=== PATIENT | male | born 1950 | race Caucasian/White ===

== ENCOUNTER → 2023-07-24 | Outpatient (CLI) | payer MEDICARE ==
--- NOTE | 2023-07-24 18:10 | CA ---
Transthoracic Echo Report Name: Sylvester Hopkins Age: 73 Gender: M : 1950 Exam Date: 07/24/2023 14:25 Exam Location: [facility] Ht (in): 69 Wt (lb): 300 Ordering Physician: Oscar Herman MD Attending/Referring Phys: Oscar Herman MD Video Game Repair Technician Procedure CPT: Indications: R55 SYNCOPE AND COLLAPSE Cardiac Hx: Technical Quality: Technically difficult study Contrast 1: Total Dose (mL): Contrast 2: Total Dose (mL): MEASUREMENTS (Male / Female) Normal Values 2D ECHO LV Diastolic Diameter PLAX 5.4 cm 4.2 - 5.9 / 3.9 - 5.3 cm LV Systolic Diameter PLAX 3.9 cm IVS Diastolic Thickness 1.2 cm 0.6 - 1.0 / 0.6 - 0.9 cm LVPW Diastolic Thickness 1.3 cm 0.6 - 1.0 / 0.6 - 0.9 cm LV Relative Wall Thickness 0.5 LVOT Diameter 2.1 cm Ascending Aorta Diameter 3.8 cm M-MODE Aortic Root Diameter MM 3.3 cm LA Systolic Diameter MM 5.3 cm LA Ao Ratio MM 1.6 AV Cusp Separation MM 2.1 cm DOPPLER AV Peak Velocity 109.6 cm/s AV Peak Gradient 4.8 mmHg AV Mean Velocity 88.7 cm/s AV Mean Gradient 3.3 mmHg AV Velocity Time Integral 22.1 cm LVOT Peak Velocity 81.0 cm/s LVOT Peak Gradient 2.6 mmHg LVOT Velocity Time Integral 17.9 cm LVOT Stroke Volume 60.4 cm??? LVOT Stroke Volume Index 24.6 ml/m??? LVOT Cardiac Index 1943.8 cm???/min???m??? AV Area Cont Eq vti 2.7 cm??? AV Area Cont Eq pk 2.5 cm??? Mitral E Point Velocity 47.2 cm/s Mitral A Point Velocity 76.5 cm/s Mitral E to A Ratio 0.6 MV Deceleration Time 233.9 ms LV E' Lateral Velocity 5.5 cm/s Mitral E to LV E' Lateral Ratio 8.6 LV E' Septal Velocity 4.0 cm/s Mitral E to LV E' Septal Ratio 11.8 TR Peak Velocity 169.8 cm/s TR Peak Gradient 11.5 mmHg Right Atrial Pressure 3.0 mmHg Pulmonary Artery Systolic Pressu 14.5 mmHg Right Ventricular Systolic Press 14.5 mmHg FINDINGS Left Ventricle Mildly increased left ventricular wall thickness. Left ventricular cavity size normal. Normal left ventricular systolic function with no obvious regional wall motion abnormalities. Left ventricular ejection fraction is estimated at 55- 60%. Right Ventricle Moderate right ventricular dilatation. Right Atrium Mild right atrial dilatation. Left Atrium Normal left atrial size. Mitral Valve Structurally normal mitral valve. Mild thickening/calcification of the posterior mitral valve leaflet. No mitral regurgitation. Aortic Valve Trileaflet aortic valve. Diffuse thickening (sclerosis) of the aortic valve cusps without reduced excursion. Trace aortic regurgitation. Tricuspid Valve Structurally normal tricuspid valve. Trace tricuspid regurgitation. Pulmonic Valve Pulmonic valve not well visualized. Pericardium No pericardial effusion. Echo free space anterior to the right ventricle likely represents a fat pad. Aorta Normal size aortic root and upper normal proximal ascending aorta. CONCLUSIONS Normal LV function Previewed by: Dr. Faustino Sprague MD (Electronically Signed) Final Date: 24 July 2023 18:09
== END | disposition home or self-care (01) ==
LOC: RADECHMAIN 14:11
PROVIDERS: ATTEND Surgery
DX: R55 Syncope and collapse (principal)
CPT/HCPCS: 93306

== ENCOUNTER → 2023-08-08 | Outpatient (CLI) | payer MEDICARE ==
--- NOTE | 2023-08-08 10:55 | US ---
EXAMINATION TYPE: US liver DATE OF EXAM: 08/08/2023 COMPARISON: NONE CLINICAL INDICATION: Male, 73 years old with history of R94.5 ABNORMAL LFT'S; TECHNIQUE: Multiple sonographic images of the right upper quadrant are obtained. FINDINGS: EXAM MEASUREMENTS: Liver Length: 18.1 cm Gallbladder Wall: 0.3 cm CBD: 0.7 cm Right Kidney: 11.4 x 5.2 x 4.8 cm Pancreas: visualized portions wnl, limited by overlying midline bowel gas Liver: mildly enlarged, heterogeneous, 1.2cm cyst left lobe Gallbladder: wnl Evidence for sonographic Borjas's sign: no CBD: mildly dilated Right Kidney: wnl IMPRESSION: 1. Hepatic steatosis with simple appearing cyst. 2. No evidence for acute process.
[2023-08-08 11:14] LABS: INR 1.2 (<1.2); Partial Thromboplastin Time 28.4 sec (22.0-30.0); Prothrombin Time 12.4 sec (10.0-12.5)
[2023-08-08 18:32] LABS: ALT 48 U/L (10-49); AST 58 U/L (14-35); Albumin 4.3 d/dL (3.8-4.9); Albumin/Globulin Ratio 1.39 Ratio (1.60-3.17); Alkaline Phosphatase 73 U/L (41-126); Bilirubin, Conjugated <0.20 mg/dL (0.20-0.40); Bilirubin,Unconjugated >0.10 mg/dL (0.20-1.00); Globulin 3.1 d/dL (1.6-3.3); Total Bilirubin 0.3 mg/dL (0.3-1.2); Total Protein 7.4 d/dL (6.2-8.2)
== END | disposition home or self-care (01) ==
LOC: RADUSWWP 09:53
PROVIDERS: ATTEND Surgery
DX: K76.0 Fatty (change of) liver, not elsewhere classified (principal); R94.5 Abnormal results of liver function studies; R58 Hemorrhage, not elsewhere classified
CPT/HCPCS: 76705; 80076; 85610; 85730

== ENCOUNTER → 2023-09-19 | Outpatient (CLI) | payer MEDICARE ==
[2023-09-19 10:27] LABS: INR 1.2 (<1.2); Partial Thromboplastin Time 28.6 sec (22.0-30.0); Prothrombin Time 12.8 sec (10.0-12.5)
--- NOTE | 2023-09-19 10:52 | P.PN ---
Progress Note - Text Progress Note Date: 09/19/23 5 meter walk test completed without difficulty: #1 4.3 seconds #2 4.03 seconds #3 3.88 seconds STS risk score calculated and discussed with the patient
--- NOTE | 2023-09-19 11:39 | US ---
EXAMINATION TYPE: Pre-Operative Non-Invasive Evaluation of the hand for Potential Radial Artery Shae giron, Measurements only DATE OF EXAM: 09/19/2023 11:21 AM CLINICAL INDICATION: Male, 73 years old with history of OPEN HEART; Open heart SIDE PERFORMED: Bilateral TECHNIQUE: Radial artery is measured utilizing real time linear array sonography. Dominant hand: Right Duplex Findings: Radial Artery: Color flow seen Measurements in mm, transverse view: Proximal: 3.6 x 4.4 mm Mid: 4.1 x 4.5 mm Distal: 3.2 x 3.1 mm Proximal: 3.4 x 2.7 mm Mid: 3.0 x 3.5 mm Distal: 2.2 x 3.0 mm IMPRESSION: As above
--- NOTE | 2023-09-19 11:49 | XR ---
EXAMINATION TYPE: XR chest 2V DATE OF EXAM: 09/19/2023 COMPARISON: NONE HISTORY: Open heart. TECHNIQUE: Frontal and lateral views of the chest are obtained. FINDINGS: There is no focal air space opacity, pleural effusion, or pneumothorax seen. The cardiac silhouette size is within normal limits. The osseous structures are intact. IMPRESSION: No acute cardiopulmonary process.
[2023-09-19 16:15] LABS: HCT 38.1 % (39.6-50.0); HGB 12.4 g/dL (13.0-17.0); MCH 28.5 pg (27.0-32.0); MCHC 32.5 g/dL (32.0-37.0); MCV 87.6 FL (80.0-97.0); NRBC Per 100 WBC 0 X 10*3/uL (0.00-0.01); Platelet Count 134 X 10*3/uL (140-440); RBC 4.35 X 10*6/uL (4.40-5.60); RDW 17.2 % (11.5-14.5); WBC 4.58 X 10*3/uL (4.50-10.00)
[2023-09-19 16:57] LABS: % Iron Saturation 27.91 (15.00-50.00); ALT 48 U/L (10-49); AST 53 U/L (14-35); Albumin 4.5 g/dL (3.8-4.9); Albumin/Globulin Ratio 1.36 Ratio (1.60-3.17); Alkaline Phosphatase 85 U/L (41-126); BUN/Creat Ratio 15.27 Ratio (12.00-20.00); Blood Urea Nitrogen 22.9 mg/dL (9.0-27.0); Calcium 9.6 mg/dL (8.7-10.3); Carbon Dioxide 21.5 mmol/L (21.6-31.8); Chloride 103 mmol/L (96-109); Chol/HDL Ratio 3.97 Ratio; Creatine Kinase 44 U/L (35-257); Ferritin 46.2 ng/mL (22.0-322.0); Globulin 3.3 g/dL (1.6-3.3); Glucose 148 mg/dL (70-110); Iron 127 UG/DL (65-175); LDL Cholesterol,Calculated 15.9 mg/dL (0.0-131.0); Magnesium 2.1 mg/dL (1.5-2.4); Potassium 4.2 mmol/L (3.5-5.5); Sodium 138 mmol/L (135-145); Total Bilirubin 0.5 mg/dL (0.3-1.2); Total Iron Binding Capacity 455 UG/DL (228-460); Total Protein 7.8 g/dL (6.2-8.2); Uric Acid 5.6 mg/dL (3.7-8.7)
[2023-09-19 17:16] LABS: Appearance,Urine Clear (Clear); Bilirubin,Urine Negative (Negative); Blood,Urine Negative (Negative); Color,Urine Yellow (Yellow); Ketones,Urine Negative (Negative); Nitrite,Urine Negative (Negative); PH, Urine 5.5; Specific Gravity,Urine 1.011 (1.001-1.030); Urobilinogen,Urine 0.2 E.U./DL
[2023-09-19 18:35] LABS: Hepatitis A Antibody IgM Nonreactive; Hepatitis B Core IgM Nonreactive; Hepatitis B Surface Antigen Nonreactive; Hepatitis C IgG Antibody Nonreactive
== END | disposition home or self-care (01) ==
LOC: LABWHC1 08:50
PROVIDERS: ATTEND Surgery
DX: I25.10 Atherosclerotic heart disease of native coronary artery without angina pectoris (principal)
CPT/HCPCS: 36415; 71046; 80053; 80061; 80074; 81003; 82306; 82550; 82728; 83036; 83540; 83550; 83735; 84443; 84550; 85027; 85610; 85730; 86850; 86900; 86901; 86920; 87070; 87086; 93005; 93930; 94150

== ENCOUNTER 2023-09-27 05:36 | Inpatient (IN) | payer MEDICARE, OTHER ==
[~2023-09-27 05:36] MED LIST: ALBUMIN HUMAN 25% 50 ML IV ONE; ALBUMIN HUMAN 5% 500 ML IVPB ONE; ASPIRIN 325 MG TAB PO ONE; ATORVASTATIN 10 MG TAB PO ONE; CALCIUM CHLORIDE 100 MG/ML 10 ML SYRINGE IV ONE; CHLORHEXIDINE GLUCONATE 15 ML CUP MUCOUS MEM ONE; CLEVIDIPINE BUTYRATE 25 MG in EMPTY BAG 1 BAG IV ONE; DILTIAZEM 125 MG in SODIUM CHLORIDE 0.9% 100 ML IV ONE; ELECTROLYTE-A SOLUTION 1,000 ML with POTASSIUM CHLORIDE 100 MEQ, MAGNESIUM SULFATE 16 M... IV ONE; ELECTROLYTE-A SOLUTION 1,000 ML with POTASSIUM CHLORIDE 40 MEQ, MAGNESIUM SULFATE 16 ME... IV ONE; HEPARIN SODIUM 1,000 UN/ML (10ML VL) IV ONE; HEPARIN SODIUM,PORCINE (1 ML) 5,000 UNIT in SODIUM CHLORIDE 0.9% 500 ML 500 ML IV ONE; INSULIN REGULAR 100 UNIT in SODIUM CHLORIDE 0.9% 100 ML IV ONE; LACTATED RINGERS 1,000 ML IV ONE; MAGNESIUM SULFATE 16.24 MEQ in EMPTY SYRINGE 1 SYR IV ONE; MANNITOL 25% 12.5 GM/50 ML VIAL IV ONE; METOPROLOL TARTRATE 12.5 MG TAB PO ONE; NITROGLYCERIN SL TABS 0.4 MG TAB SUBLINGUAL ONE; NITROGLYCERIN-D5W PMX 25 MG/250 ML BTL IV ONE; NITROGLYCERIN-D5W PMX 50 MG in DEXTROSE/WATER 1 250ML.BAG IV ONE; NOREPINEPHRINE 4 MG in SODIUM CHLORIDE 0.9% 250 ML IV ONE; PAPAVERINE 360 MG in SODIUM CHLORIDE 0.9% 90 ML IV ONE; PHENYLEPHRINE 10 MG/ML VIAL IV ONE; PHENYLEPHRINE 40 MG in SODIUM CHLORIDE 0.9% 250 ML IV ONE; PROTAMINE SULFATE 10 MG/ML 25 ML VIAL IV ONE; PROTAMINE SULFATE 250 MG in EMPTY BAG 1 BAG IV ONE; SODIUM BICARB 8.4% 50 ML SYR (1 MEQ/ML) IV ONE; SODIUM CHLORIDE 0.9% 1,000 ML IV ONE; TRANEXAMIC ACID 2,000 MG in SODIUM CHLORIDE 0.9% 80 ML IV ONE; ceFAZolin 1,000 MG in SODIUM CHLORIDE 0.9% IRRIGATIO 1,000 ML IRRIGATION ONE; ceFAZolin 3 GM in SODIUM CHLORIDE 0.9% 100 ML IVPB ONE; propofoL 1,000 MG/100 ML VIAL IV ONE
[2023-09-27 06:51] LABS: Glucose,Whole Blood 141 mg/dL (70-110)
[2023-09-27] MEDS ORDERED: INSULIN REGULAR 100 UNIT/ML VIAL (IV) ONE (07:48)
[2023-09-27] MEDS ORDERED: MIDAZOLAM HCL 10 MG/10 ML VIAL ONE (07:48)
[2023-09-27] MEDS ORDERED: PROTAMINE SULFATE 10 MG/ML 25 ML VIAL IV ONE (07:48)
[2023-09-27] MEDS ORDERED: GLYCOPYRROLATE 0.2 MG/ML 2 ML VIAL ONE (07:48)
[2023-09-27] MEDS ORDERED: VECURONIUM 10 MG VIAL IV ONE (07:48)
[2023-09-27] MEDS ORDERED: HEPARIN SODIUM,PORCINE 5,000 UNIT/ML 1 ML VIAL ONE (07:48)
[2023-09-27] MEDS ORDERED: fentaNYL (PF) 50 MCG/ML 50 ML VIAL ONE (07:48)
[2023-09-27] MEDS ORDERED: TRANEXAMIC 1,000 MG/100ML-NACL PREMIX BAG ONE (07:48)
[2023-09-27] MEDS ORDERED: SUCCINYLCHOLINE CHLORIDE 200 MG/10 ML VIAL IV ONE (07:48)
[2023-09-27] MEDS ORDERED: LIDOCAINE 1% INJ 10MG/ML (20 ML MDV) ONE (07:48)
[2023-09-27] MEDS ORDERED: HEPARIN SODIUM,PORCINE 10,000 UNIT/ML 1 ML VIAL ONE (07:48)
[2023-09-27] MEDS ORDERED: PROPOFOL 10 MG/ML 20 ML VIAL IV ONE (07:48)
[2023-09-27] MEDS ORDERED: ALBUMIN HUMAN 5% (25gm) 500 ML VIAL IVPB ONE (07:48)
[2023-09-27 08:19] LABS: ABG Base Excess -1.2 mmol/L; ABG Glucose Whole Blood 172 mg/dL (75-99); ABG HCO3 23 mmol/L (21-25); ABG Hematocrit 33 % (34.0-46.0); ABG Ionized Calcium 4.6 mg/dL (4.5-5.3); ABG Lactic Acid Whole Blood 1.8 mmol/L (0.5-1.6); ABG PCO2 35 mmHg (35-45); ABG PH 7.42 (7.35-7.45); ABG PO2 249 mmHg (83-108); ABG Potassium Whole Blood 4.4 mmol/L (3.4-4.5); ABG Sodium Whole Blood 140 mmol/L (135-146); ABG TCO2 24 mmol/L (19-24); Allen Test Performed? Yes
--- NOTE | 2023-09-27 09:59 | P.ANPRN ---
Procedure Note - Anesthesia - Invasive Line Right Central Line Time Out Performed: Yes (0729) Date of Procedure: 09/27/23 Time of Procedure: 07:30 Location of Patient: Phase I Preparation: Sterile Prep, Sterile Dressing Central Line Location: Internal Jugular (right IJ cordis) Ultrasound Used: Yes Purpose - Visualization and Identification of Vasculature: Yes Needle Guage: 18g angio Image Stored and Saved: Yes Narrative: Central line placement per sterile protocol utilized. +sterile prep +local +US +angio +cvp+jwire+uneventful dilation and introduction right IJ cordis. Lumen bled and flushed. secured and dressed
--- NOTE | 2023-09-27 10:01 | P.ANPRN ---
Procedure Note - Anesthesia - Invasive Line Right [place] Ted Time Out Performed: Yes (0729) Date of Procedure: 09/27/23 Time of Procedure: 07:42 Location of Patient: Phase I Preparation: Sterile Prep, Sterile Dressing [place] Line Location: Internal Jugular (right) Purpose - Visualization and Identification of Vasculature: No Image Stored and Saved: No Narrative: Central line placement per sterile protocol utilized. swan floated in sheath in 2 attempts to PA wedge at 52cm. b/d w/d 5cm to 47cm. Secured
--- NOTE | 2023-09-27 10:03 | P.ANPRN ---
Procedure Note - Anesthesia - MARTY Intraop Pre Bypass MARTY Intraop - Anesthesia Indication: CABG Date of Procedure: 09/27/23 Pre-operative Diagnosis: CAD Post-operative Diagnosis: same Surgeon: Oscar Herman Left Ventricle: wnl Ejection Fraction: Normal Regional Wall Motion Abnormalities: None Left Ventricle Hypertrophy: No Right Ventricle: enlarged R. Ventricle Function: Normal Aortic Valve: thickened right coronary cusp. Opens well. Anatomy: Trileaflet Aortic Stenosis: None Aortic Regurgitation: None Mitral Stenosis: None Mitral Regurgitation: None Tricuspid Stenosis: None Tricuspid Regurgitation: Trace Pulmonic Stenosis: None Pulmonic Regurgitation: None R. Atrial Dilation: No R. Atrial PFO: No Left Atrium: SHAWANDA clear L. Atrial Dilation: No Aortic Dissection: No Aortic Calcification: None Plural Effusion: None
[2023-09-27 10:05] LABS: ABG Base Excess -2.7 mmol/L; ABG Glucose Whole Blood 137 mg/dL (75-99); ABG HCO3 23 mmol/L (21-25); ABG Hematocrit 32 % (34.0-46.0); ABG Ionized Calcium 4.6 mg/dL (4.5-5.3); ABG Lactic Acid Whole Blood 1.5 mmol/L (0.5-1.6); ABG Oxygen Saturation 99.2 % (94-97); ABG PCO2 44 mmHg (35-45); ABG PH 7.33 (7.35-7.45); ABG PO2 147 mmHg (83-108); ABG Potassium Whole Blood 4.9 mmol/L (3.4-4.5); ABG Sodium Whole Blood 139 mmol/L (135-146); ABG TCO2 25 mmol/L (19-24); Allen Test Performed? Yes
[2023-09-27 11:04] LABS: ABG Base Excess -2.6 mmol/L; ABG Glucose Whole Blood 133 mg/dL (75-99); ABG HCO3 23 mmol/L (21-25); ABG Lactic Acid Whole Blood 1.4 mmol/L (0.5-1.6); ABG PCO2 41 mmHg (35-45); ABG PH 7.36 (7.35-7.45); ABG Potassium Whole Blood 5.1 mmol/L (3.4-4.5); ABG Sodium Whole Blood 137 mmol/L (135-146); ABG TCO2 24 mmol/L (19-24); Allen Test Performed? Yes
[2023-09-27 11:32] LABS: ABG Base Excess -2.9 mmol/L; ABG Glucose Whole Blood 144 mg/dL (75-99); ABG HCO3 22 mmol/L (21-25); ABG Ionized Calcium 3.9 mg/dL (4.5-5.3); ABG Lactic Acid Whole Blood 1.4 mmol/L (0.5-1.6); ABG PCO2 40 mmHg (35-45); ABG PH 7.35 (7.35-7.45); ABG PO2 383 mmHg (83-108); ABG Potassium Whole Blood 5.5 mmol/L (3.4-4.5); ABG Sodium Whole Blood 137 mmol/L (135-146); ABG TCO2 24 mmol/L (19-24); Allen Test Performed? Yes
[2023-09-27 11:59] LABS: ABG Base Excess -2.2 mmol/L; ABG Glucose Whole Blood 166 mg/dL (75-99); ABG HCO3 23 mmol/L (21-25); ABG Lactic Acid Whole Blood 1.6 mmol/L (0.5-1.6); ABG PCO2 41 mmHg (35-45); ABG PH 7.36 (7.35-7.45); ABG PO2 376 mmHg (83-108); ABG Potassium Whole Blood 5.8 mmol/L (3.4-4.5); ABG Sodium Whole Blood 137 mmol/L (135-146); ABG TCO2 24 mmol/L (19-24); Allen Test Performed? Yes
[2023-09-27 12:14] LABS: ABG Base Excess -4.4 mmol/L; ABG Glucose Whole Blood 158 mg/dL (75-99); ABG HCO3 21 mmol/L (21-25); ABG Ionized Calcium 3.7 mg/dL (4.5-5.3); ABG Lactic Acid Whole Blood 1.4 mmol/L (0.5-1.6); ABG PCO2 40 mmHg (35-45); ABG PH 7.33 (7.35-7.45); ABG PO2 378 mmHg (83-108); ABG Potassium Whole Blood 5.6 mmol/L (3.4-4.5); ABG Sodium Whole Blood 137 mmol/L (135-146); ABG TCO2 22 mmol/L (19-24); Allen Test Performed? Yes
[2023-09-27 12:45] LABS: ABG Glucose Whole Blood 156 mg/dL (75-99); ABG HCO3 23 mmol/L (21-25); ABG Ionized Calcium 3.7 mg/dL (4.5-5.3); ABG Lactic Acid Whole Blood 1.9 mmol/L (0.5-1.6); ABG PCO2 42 mmHg (35-45); ABG PH 7.34 (7.35-7.45); ABG PO2 357 mmHg (83-108); ABG Potassium Whole Blood 5.8 mmol/L (3.4-4.5); ABG Sodium Whole Blood 139 mmol/L (135-146); ABG TCO2 24 mmol/L (19-24)
[2023-09-27 13:08] LABS: ABG Hematocrit 24 % (34.0-46.0); ABG PO2 >420 mmHg (83-108)
[2023-09-27 13:09] LABS: ABG Hematocrit 23 % (34.0-46.0)
[2023-09-27 13:09] LABS: ABG Hematocrit 23 % (34.0-46.0)
[2023-09-27 13:10] LABS: ABG Hematocrit 21 % (34.0-46.0)
[2023-09-27 13:13] LABS: ABG Base Excess -2.8 mmol/L; ABG Glucose Whole Blood 164 mg/dL (75-99); ABG HCO3 23 mmol/L (21-25); ABG Ionized Calcium 5.1 mg/dL (4.5-5.3); ABG PCO2 43 mmHg (35-45); ABG PH 7.34 (7.35-7.45); ABG Potassium Whole Blood 5.9 mmol/L (3.4-4.5); ABG Sodium Whole Blood 139 mmol/L (135-146); ABG TCO2 24 mmol/L (19-24)
[2023-09-27 13:24] LABS: ABG Base Excess -2.5 mmol/L; ABG Glucose Whole Blood 214 mg/dL (75-99); ABG HCO3 22 mmol/L (21-25); ABG Ionized Calcium 4.3 mg/dL (4.5-5.3); ABG PCO2 35 mmHg (35-45); ABG PH 7.41 (7.35-7.45); ABG Potassium Whole Blood 5.3 mmol/L (3.4-4.5); ABG Sodium Whole Blood 139 mmol/L (135-146); ABG TCO2 23 mmol/L (19-24)
[2023-09-27 14:07] LABS: ABG Hematocrit 20 % (34.0-46.0)
[2023-09-27 14:07] LABS: ABG PO2 >420 mmHg (83-108)
[2023-09-27 14:08] LABS: ABG Hematocrit 21 % (34.0-46.0)
[2023-09-27 14:09] LABS: ABG Hematocrit 21 % (34.0-46.0); ABG Lactic Acid Whole Blood 2.7 mmol/L (0.5-1.6); ABG PO2 >420 mmHg (83-108)
[2023-09-27 14:13] LABS: ABG Base Excess -4.3 mmol/L; ABG Glucose Whole Blood 124 mg/dL (75-99); ABG HCO3 21 mmol/L (21-25); ABG Ionized Calcium 4.1 mg/dL (4.5-5.3); ABG Oxygen Saturation 98.5 % (94-97); ABG PCO2 37 mmHg (35-45); ABG PH 7.36 (7.35-7.45); ABG PO2 92 mmHg (83-108); ABG Potassium Whole Blood 4.3 mmol/L (3.4-4.5); ABG Sodium Whole Blood 141 mmol/L (135-146); ABG TCO2 22 mmol/L (19-24)
[2023-09-27 14:19] LABS: ABG Hematocrit 24 % (34.0-46.0); ABG Lactic Acid Whole Blood 2.2 mmol/L (0.5-1.6)
[2023-09-27] MEDS ORDERED: MUPIROCIN 2% OINT 22 GM TUBE NASAL ONE (15:00)
[2023-09-27] MEDS ORDERED: DEXTROSE 5% IN WATER 100 ML with AMIODARONE 150 MG IV PRN (15:08)
[2023-09-27] MEDS ORDERED: Potassium Replacement Protocol 1 EACH MISC MISCELLANE PRN (15:08)
[2023-09-27] MEDS ORDERED: CALCIUM GLUCONATE IN NACL 2 GM in SALINE 1 100ML.BAG IVPB PRN (15:08)
[2023-09-27] MEDS ORDERED: Magnesium Replacement Protocol 1 EACH MISC MISCELLANE PRN (15:08)
[2023-09-27] MEDS ORDERED: DEXTROSE 50% SYRINGE 50 ML IVP PRN ×2 (15:08)
[2023-09-27] MEDS ORDERED: NOREPINEPHRINE 4 MG in SODIUM CHLORIDE 0.9% 250 ML IV SCH (15:08)
[2023-09-27] MEDS ORDERED: IPRATROPIUM-ALBUTEROL 3 ML NEB INHALATION PRN (15:08)
[2023-09-27] MEDS ORDERED: CLEVIDIPINE BUTYRATE 25 MG in EMPTY BAG 1 BAG IV SCH (15:08)
[2023-09-27] MEDS ORDERED: AMIODARONE 360 MG in DEXTROSE 5% IN WATER 200 ML IV ONE ×2 (15:08)
[2023-09-27] MEDS ORDERED: NITROGLYCERIN-D5W PMX 50 MG in DEXTROSE/WATER 1 250ML.BAG IV SCH (15:08)
[2023-09-27] MEDS ORDERED: ONDANSETRON 4 MG/2 ML VIAL IVP PRN (15:08)
[2023-09-27] MEDS ORDERED: METOCLOPRAMIDE 5 MG/ML 2 ML VIAL IVP PRN (15:08)
[2023-09-27] MEDS ORDERED: BENZOCAINE/MENTHOL LOZENG 1 EACH LOZENGE MUCOUS MEM PRN (15:08)
[2023-09-27] MEDS ORDERED: Phosphorus Replacement Protoco 1 EACH MISC MISCELLANE PRN (15:08)
[2023-09-27] MEDS: INSULIN REGULAR 100 UNIT in SODIUM CHLORIDE 0.9% 100 ML IV SCH (15:45)
[2023-09-27] MEDS: LACTATED RINGERS 1,000 ML IV SCH (15:45)
[2023-09-27 15:49] LABS: Glucose,Whole Blood 118 mg/dL (70-110)
[2023-09-27 15:54] LABS: Anisocytosis Slight; Basophils % (A) 0 %; Eosinophils # (A) 0.1 k/uL (0-0.7); Eosinophils % (A) 1 %; HCT 24.6 % (39.0-53.0); HGB 7.9 gm/dL (13.0-17.5); Hypochromasia Slight; Lymphocytes % (A) 10 %; MCH 29.6 pg (25.0-35.0); MCHC 32.2 g/dL (31.0-37.0); MCV 91.8 fL (80.0-100.0); Mean Platelet Volume 10.7; Monocytes # (A) 0.9 k/uL (0-1.0); Monocytes % (A) 9 %; Neutrophils # (A) 7.5 k/uL (1.3-7.7); Neutrophils % (A) 78 %; Platelet Count 108 k/uL (150-450); RBC 2.68 m/uL (4.30-5.90); RDW 17.2 % (11.5-15.5); WBC 9.6 k/uL (3.8-10.6)
[2023-09-27] MEDS: ALBUMIN HUMAN 5% 250 ML in EMPTY BAG 1 BAG IVPB PRN ×2 (16:00→17:03)
[2023-09-27] MEDS ORDERED: IPRATROPIUM-ALBUTEROL 3 ML NEB INHALATION SCH (16:00)
[2023-09-27 16:10] LABS: INR 1.5 (<1.2); Partial Thromboplastin Time 26.7 sec (22.0-30.0); Prothrombin Time 15.5 sec (10.0-12.5)
[2023-09-27 16:22] LABS: Ionized Calcium 4.3 mg/dL (4.5-5.3)
--- NOTE | 2023-09-27 16:24 | XR ---
EXAMINATION TYPE: XR chest 1V portable DATE OF EXAM: 09/27/2023 Comparison: 09/19/2023 Clinical History: 73-year-old male Post Operative Cardiac Surgery Findings: Satisfactory ET and NG tube. Right IJ CVC tip at the proximal right main pulmonary artery. Bilateral chest tubes are present. No appreciable pneumothorax. A small left pleural effusion and prominent lef t basilar opacity. Strandy opacity at the right midlung, likely atelectasis. Median sternotomy wires and plate and screw fixation. Post-CABG clips. Impression: Postoperative changes. There is a small left pleural effusion with prominent postoperative atelectasi s left base. Some additional strandy atelectasis right midlung.
[2023-09-27 16:26] LABS: ABG Base Excess -3.1 mmol/L; ABG HCO3 23 mmol/L (21-25); ABG Oxygen Saturation 99.7 % (94-97); ABG PCO2 48 mmHg (35-45); ABG PO2 352 mmHg (83-108); ABG TCO2 25 mmol/L (19-24)
[2023-09-27 16:34] LABS: ALT 30 U/L (4-49); AST 84 U/L (17-59); African American GFR (CKD) 61 (>60 ml/min/1.73 sqM); Albumin 2.7 g/dL (3.5-5.0); Alkaline Phosphatase 35 U/L (38-126); Anion Gap 9 mmol/L; Blood Urea Nitrogen 20 mg/dL (9-20); Carbon Dioxide 22 mmol/L (22-30); Chloride 110 mmol/L (98-107); Glucose 105 mg/dL (74-99); Magnesium 2.4 mg/dL (1.6-2.3); Non-African American GFR(CKD) 53 (>60 ml/min/1.73 sqM); Potassium 4.5 mmol/L (3.5-5.1); Sodium 141 mmol/L (137-145); Total Bilirubin 1.4 mg/dL (0.2-1.3); Total Protein 4.5 g/dL (6.3-8.2)
[2023-09-27] MEDS: HEPARIN SODIUM,PORCINE 5,000 UNIT/ML 1 ML VIAL SQ SCH ×2 (16:51→23:43)
[2023-09-27] MEDS: ceFAZolin 3 GM in SODIUM CHLORIDE 0.9% 100 ML IVPB SCH ×2 (16:54→23:43)
[2023-09-27 17:02] LABS: Glucose,Whole Blood 112 mg/dL (70-110)
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
[2023-09-27] MEDS: ACETAMINOPHEN IV (For NPO) 1,000 MG in EMPTY BAG 1 BAG IVPB SCH ×2 (17:38→21:24)
[2023-09-27 18:14] LABS: Glucose,Whole Blood 150 mg/dL (70-110)
[2023-09-27 18:49] LABS: Glucose,Whole Blood 176 mg/dL (70-110)
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
[2023-09-27 19:03] LABS: Anisocytosis Slight; Basophils % (A) 0 %; Eosinophils % (A) 1 %; HGB 7.3 gm/dL (13.0-17.5); Lymphocytes # (A) 0.7 k/uL (1.0-4.8); Lymphocytes % (A) 11 %; MCH 30.3 pg (25.0-35.0); MCHC 33.1 g/dL (31.0-37.0); MCV 91.5 fL (80.0-100.0); Mean Platelet Volume 10.3; Monocytes # (A) 0.5 k/uL (0-1.0); Monocytes % (A) 8 %; Neutrophils # (A) 5.3 k/uL (1.3-7.7); Neutrophils % (A) 79 %; Platelet Count 100 k/uL (150-450); WBC 6.7 k/uL (3.8-10.6)
[2023-09-27 19:59] LABS: Glucose,Whole Blood 134 mg/dL (70-110)
[2023-09-27 20:15] LABS: ABG Base Excess -2.9 mmol/L; ABG HCO3 22 mmol/L (21-25); ABG Oxygen Saturation 98.8 % (94-97); ABG PCO2 37 mmHg (35-45); ABG PH 7.39 (7.35-7.45); ABG PO2 179 mmHg (83-108); ABG TCO2 23 mmol/L (19-24); Allen Test Performed? Yes
[2023-09-27] MEDS: IPRATROPIUM-ALBUTEROL 3 ML NEB INHALATION SCH (20:48)
[2023-09-27 20:55] LABS: Glucose,Whole Blood 154 mg/dL (70-110)
[2023-09-27] MEDS: CHLORHEXIDINE GLUCONATE 15 ML CUP MUCOUS MEM SCH (20:58)
[2023-09-27] MEDS: AMIODARONE 450 MG in DEXTROSE 5% IN WATER 250 ML IV SCH ×2 (21:18)
[2023-09-27 21:59] LABS: Glucose,Whole Blood 138 mg/dL (70-110)
[2023-09-27 22:00] LABS: Anisocytosis Slight; Basophils % (A) 0 %; Eosinophils % (A) 0 %; Lymphocytes # (A) 0.6 k/uL (1.0-4.8); Lymphocytes % (A) 13 %; MCH 29.8 pg (25.0-35.0); MCHC 32.7 g/dL (31.0-37.0); MCV 91.1 fL (80.0-100.0); Mean Platelet Volume 9.2; Monocytes # (A) 0.4 k/uL (0-1.0); Monocytes % (A) 8 %; Neutrophils # (A) 3.8 k/uL (1.3-7.7); Neutrophils % (A) 78 %; RBC 2.31 m/uL (4.30-5.90); RDW 17.1 % (11.5-15.5); WBC 4.9 k/uL (3.8-10.6)
[2023-09-27 22:13] LABS: HGB 6.9 gm/dL (13.0-17.5); Platelet Count 78 k/uL (150-450)
[2023-09-27 23:04] LABS: Glucose,Whole Blood 135 mg/dL (70-110)
--- NOTE | 2023-09-27 23:29 | OP ---
OPERATIVE REPORT DATE OF SERVICE : 09/27/2023 PREOPERATIVE DIAGNOSIS: Coronary artery disease. POSTOPERATIVE DIAGNOSIS: Coronary artery disease. PROCEDURES PERFORMED: 1. Coronary artery bypass grafting x4 vessels (left internal mammary artery to left anterior descending artery, saphenous vein graft to obtuse marginal artery 1, saphenous vein graft to obtuse marginal artery 3, saphenous vein graft to posterior descending artery). 2. Endoscopic harvest bilateral greater saphenous veins. 3. Ligation of left atrial appendage using 35 mm AtriClip. 4. Epiaortic ultrasound. 5. Transesophageal echocardiogram. 6. Graft flow measurements using Medistim system. 7. Closure of sternum using Tritium plating device. ASSISTANTS: 1. Roger De La Garza PA-C. 2. Justin Dunne NP. ANESTHESIA: General. SPECIMEN: None. COMPLICATIONS: None. INDICATIONS: The patient is a 73-year-old male who was originally seen at [facility] secondary to chest pain. He does have a history of coronary artery disease and had multiple coronary stents placed in the past. He now presents with chest tightness with exertion and shortness of breath. His past medical history is also significant for diabetes mellitus, hypertension, gout, kidney stones, a long-standing history of atrial fibrillation on Eliquis, obstructive sleep apnea on BiPAP, hyperlipidemia, chronic renal insufficiency, and obesity. A coronary artery bypass was recommended. The risks, benefits, and alternatives of the procedure were discussed at length with the patient. All of his questions were answered. Consent was obtained. Of note, the patient does live near [place] and wished his surgery to be performed at [facility]. FINDINGS: The left internal mammary artery was a good conduit with brisk flow. The saphenous vein was a good conduit. The LAD measured 1.5 mm. The OM1 measured 1.3 mm. The OM2 measured 1.5 mm. The posterior descending artery measured 1.3 mm. PROCEDURE IN DETAIL: The patient was taken to the operating room and placed supine on the operating table. After the induction of general anesthesia, he was prepped and draped in the usual sterile fashion. Preoperative transesophageal echocardiogram confirmed a preserved ejection fraction with no significant valvular pathology. A median sternotomy was performed. The left internal mammary artery was harvested in the standard fashion taking care to clip all branches. Intravenous heparin was administered and the vessel was transected distally revealing brisk flow. Simultaneously, greater saphenous vein was harvested from the right lower extremity using endoscopic technique. Below the knee, it became quite small in diameter. Therefore, additional vein was harvested from the left lower extremity in a similar fashion. All branches were tied. A pericardial cradle was created. The ascending aorta was palpated. There was no significant calcium noted. Epiaortic ultrasound was then performed on the ascending aorta. Again, no calcific or atheromatous disease was identified. An arterial cannula was placed in the distal ascending aorta. A venous cannula was placed through the right atrial appendage and directed into the IVC. Both antegrade and retrograde catheters were placed as well. The patient was then placed on cardiopulmonary bypass with good decompression of the heart. The aortuic cross-clamp was applied. Cold blood potassium cardioplegia was delivered in both antegrade and retrograde fashion to achieve arrest of the heart. Of note, cardioplegia was delivered every 15-20 minutes while the patient remained under cross-clamp. The left atrial appendage was identified. A 35-mm AtriClip was placed across its base to ensure location. Next, attention was turned to the inferior wall. The posterior descending artery was identified. It was dissected free. A small arteriotomy was created. This vessel accepted a 1.0 mm probe. Using saphenous vein in a reverse fashion, an end-to-side anastomosis was created. This was performed using a running 7-0 Prolene suture. The graft was hemostatic and had great flow. Next, attention was turned to lateral wall. The OM1, OM2, and OM3 were all identified. The superior branch of the OM3 was dissected free. A previously placed stent was palpated proximally. A small arteriotomy was created in a soft spot beyond the stent. This vessel accepted a 1.5 mm probe. Using saphenous vein in a reverse fashion, an end-to-side anastomosis was created. This was performed using a running 7-0 Prolene suture. The graft was hemostatic and had great flow. Next, the obtuse marginal artery 1 was dissected free. A small arteriotomy was created. This vessel accepted a 1.0 mm probe. Using saphenous vein in reverse fashion, an end-to-side anastomosis created. This was performed usinga running 7-0 Prolene suture. The graft was hemostatic and had great flow. Finally, attention was turned to the anterior wall. The left anterior descending artery was identified and dissected free just beyond the takeoff of the diagonal artery. A small arteriotomy was created. This vessel accepted a 1.5 mm probe. Using the left internal mammary artery, an end-to-side anastomosis was created. This was performed a running 8-0 Prolene suture. The graft was hemostatic. The mammary pedicle was then tacked down to the anterior surface of the heart. Attention was then turned to the proximal anastomoses. These were all performed in an end- to-side fashion using running 6-0 Prolene suture. 1 L of warm blood was delivered in retrograde fashion. Both lidocaine and magnesium were administered as well. The aortic cross- clamp was removed. The vein grafts were de-aired in the standard fashion. Distal anastomoses were inspected and appeared to be hemostatic. Temporary atrial and ventricular pacing wires were placed and brought through the skin. The patient was then slowly weaned off cardiopulmonary bypass. He with the addition of low-dose Levophed. Followup transesophageal echocardiogram confirmed good left ventricular function with all richardson moving well. There was no valvular pathology. There was no intracardiac air. Graft flow measurements were then performed using the CartRescuerstim system. The MAGANA to LAD graft had a flow of 19 mL/minute and a PI of 2.6. The vein graft to the obtuse marginal artery 1 had a flow of 73 mm and PI of 1.6. The vein graft to the OM 3 and a flow of 34 mL/minute and PI 4.2. The vein graft to the PDA had a flow of 29 mL/minute and PI of 3.0. Protamine was administered. There were no adverse reactions. The remaining cannulas were removed. The mediastinum was then copiously irrigated with warm saline solution. All surgical sites were inspected and appeared hemostatic. Soft tissue was reapproximated over the ascending aorta as well as over the majority of the heart. Chest tubes were placed in both left and right pleural spaces as well as the mediastinum. Due to the patient's obesity, I elected to reapproximate the sternum using the Tritium plating system. In total, 2 X plates, 1 V plate, and pioneer cables were utilized. In addition, a combination of 16 mm and 14 mm screws were used as well. At the completion of the closure, the sternum was well aligned. The remainder of the wound was closed in multiple layers. Sterile dressing was applied. The patient appeared to tolerate the procedure well. There were no immediate complications. He returned to the ICU in critical but stable condition. YARITZA / ERNESTINE: [id number] / MTDD
[2023-09-27 23:57] LABS: Glucose,Whole Blood 104 mg/dL (70-110)
[2023-09-28] MEDS ORDERED: HYDROcodone/APAP 5-325MG 1 EACH TAB PO PRN (01:00)
[2023-09-28 01:03] LABS: Glucose,Whole Blood 168 mg/dL (70-110)
[2023-09-28 02:02] LABS: Glucose,Whole Blood 156 mg/dL (70-110)
[2023-09-28 03:10] LABS: Glucose,Whole Blood 137 mg/dL (70-110)
[2023-09-28 03:56] LABS: Glucose,Whole Blood 145 mg/dL (70-110)
[2023-09-28 04:11] LABS: Anisocytosis Slight; Basophils % (A) 0 %; Eosinophils % (A) 0 %; HCT 20.8 % (39.0-53.0); Lymphocytes # (A) 0.7 k/uL (1.0-4.8); Lymphocytes % (A) 13 %; MCH 29.5 pg (25.0-35.0); MCHC 32.4 g/dL (31.0-37.0); Mean Platelet Volume 11.5; Monocytes # (A) 0.5 k/uL (0-1.0); Monocytes % (A) 8 %; Neutrophils # (A) 4.3 k/uL (1.3-7.7); Neutrophils % (A) 77 %; RBC 2.29 m/uL (4.30-5.90); RDW 17.4 % (11.5-15.5); WBC 5.6 k/uL (3.8-10.6)
[2023-09-28 04:36] LABS: HGB 6.8 gm/dL (13.0-17.5); Platelet Count 79 k/uL (150-450)
[2023-09-28 04:48] LABS: Ionized Calcium 4.4 mg/dL (4.5-5.3)
[2023-09-28 05:04] LABS: ALT 35 U/L (4-49); AST 116 U/L (17-59); African American GFR (CKD) 47 (>60 ml/min/1.73 sqM); Albumin 2.9 g/dL (3.5-5.0); Alkaline Phosphatase 38 U/L (38-126); Anion Gap 10 mmol/L; Blood Urea Nitrogen 24 mg/dL (9-20); Calcium 7.6 mg/dL (8.4-10.2); Carbon Dioxide 20 mmol/L (22-30); Chloride 109 mmol/L (98-107); Glucose 127 mg/dL (74-99); Magnesium 2.4 mg/dL (1.6-2.3); Non-African American GFR(CKD) 40 (>60 ml/min/1.73 sqM); Potassium 4.4 mmol/L (3.5-5.1); Sodium 139 mmol/L (137-145); Total Bilirubin 0.6 mg/dL (0.2-1.3); Total Protein 4.9 g/dL (6.3-8.2)
[2023-09-28] MEDS: HYDROcodone/APAP 10-325MG 1 EACH TAB PO PRN ×4 (05:08→18:04)
[2023-09-28 05:16] LABS: Glucose,Whole Blood 128 mg/dL (70-110)
[2023-09-28 05:56] LABS: Glucose,Whole Blood 134 mg/dL (70-110)
[2023-09-28] MEDS: ALBUMIN HUMAN 5% 250 ML in EMPTY BAG 1 BAG IVPB PRN (06:09)
[2023-09-28 07:00] LABS: Glucose,Whole Blood 160 mg/dL (70-110)
[2023-09-28] MEDS ORDERED: fentaNYL (PF) 50 MCG/ML 2 ML AMP IVP ONE (07:38)
[2023-09-28] MEDS: TAMSULOSIN 0.4 MG CAP.ER.24H PO SCH (08:10)
[2023-09-28] MEDS: ATORVASTATIN 40 MG TAB PO SCH (08:10)
[2023-09-28] MEDS: CLOPIDOGREL 75 MG TAB PO SCH (08:10)
[2023-09-28] MEDS: ASPIRIN 325 MG TAB PO SCH (08:10)
[2023-09-28] MEDS: HEPARIN SODIUM,PORCINE 5,000 UNIT/ML 1 ML VIAL SQ SCH ×2 (08:11→16:51)
[2023-09-28] MEDS: CHLORHEXIDINE GLUCONATE 15 ML CUP MUCOUS MEM SCH (08:11)
[2023-09-28] MEDS: allopurinoL 300 MG TAB PO SCH (08:11)
[2023-09-28] MEDS: FERROUS SULFATE 325 MG TAB PO SCH (08:11)
[2023-09-28] MEDS: FENOFIBRATE 54 MG TAB PO SCH ×2 (08:11→21:49)
[2023-09-28] MEDS: CYANOCOBALAMIN 500 MCG TAB PO SCH (08:12)
[2023-09-28] MEDS: MULTIVITAMINS, THERA 1 EACH TAB PO SCH (08:12)
[2023-09-28] MEDS: METOPROLOL TARTRATE 12.5 MG TAB PO SCH ×2 (08:12→21:49)
[2023-09-28 08:38] LABS: Glucose,Whole Blood 191 mg/dL (70-110)
[2023-09-28] MEDS: ceFAZolin 3 GM in SODIUM CHLORIDE 0.9% 100 ML IVPB SCH ×2 (08:52→16:51)
[2023-09-28] MEDS ORDERED: AMIODARONE 200 MG TAB PO SCH (09:00)
[2023-09-28] MEDS ORDERED: PANTOPRAZOLE 40 MG/10 ML VIAL IVP SCH (09:00)
[2023-09-28] MEDS ORDERED: bisacodyL 10 MG SUPP RECTAL PRN (09:00)
[2023-09-28] MEDS: IPRATROPIUM-ALBUTEROL 3 ML NEB INHALATION SCH ×4 (09:02→20:59)
--- NOTE | 2023-09-28 09:18 | XR ---
EXAMINATION TYPE: XR chest 1V portable DATE OF EXAM: 09/28/2023 Comparison: 09/27/2023 Clinical History: 73-year-old male Post Operative Cardiac Surgery Findings: Median sternotomy wires with plate and screw fixation as well as post-CABG changes. Right IJ [place]-Luis z catheter tip at the main pulmonary outflow tract. Bilateral chest tubes remain. There may be a loop recorder device on the left. No appreciable pneumothorax seen. Interstitial prominence is similar. P rominent retrocardiac opacity remains. Heart remains mildly enlarged. Impression: Postoperative changes with ongoing prominent retrocardiac and left basilar opacity, probably a small effusion along with postoperative atelectasis. Possible mild pulmonary vascular congestion.
[2023-09-28 09:21] LABS: Glucose,Whole Blood 176 mg/dL (70-110)
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
[2023-09-28 10:00] LABS: Glucose,Whole Blood 162 mg/dL (70-110)
[2023-09-28] MEDS: AMIODARONE 450 MG in DEXTROSE 5% IN WATER 250 ML IV SCH ×2 (10:26)
[2023-09-28 11:01] LABS: Glucose,Whole Blood 153 mg/dL (70-110)
--- NOTE | 2023-09-28 11:09 | P.PN ---
Subjective Progress Note Date: 09/28/23 This patient is 73 and the patient underwent a four-vessel bypass surgery and the patient is being seen in the intensive care unit postop. The patient is currently sedated on propofol which is running at 20 mcg/kg/m. The patient's underwent four-vessel bypass surgery. The patient is currently well sedated on a mechanical ventilator on assist control mode at the rate of 12, tidal volume of 500, FiO2 was weaned down to 50% and PEEP is currently at 10. The patient's blood gas shows a pH of 7.29 with a pCO2 of 47 and pO2 of 352. This was on FiO2 100%. The patient was subsequently brought up respiratory rate of 24 and FiO2 was up to 50%. Chest x-ray shows adequate expansion of both lungs. [place] in good location. ET tube needs to be pushed in by around 1 cm. The patient has a right pleural, mediastinal and left pleural chest tubes. No evidence of any air leak. Output is minimal at this point in time. Carotid Dopplers at 5.8 with an index of 2.4. Patient is on norepinephrine at 0.04 mcg/kg/m, nitroglycerin drip at 5 mg/m and the patient is also on insulin drip at 1 units an hour. The patient sees a units of packed RBC. Making adequate urine output. Adequately sedated for now. No major issues otherwise. The patient is also placed at the rate of 80. Underlying cardiac rhythm is sinus bradycardia. On today's evaluation of 09/28/2023, the patient is being seen for a follow-up. The patient was extubated without any major difficulties yesterday. Currently is on room air oxygen. Sitting up on a chair. Chest x-ray shows no major abnormalities and showing postsurgical changes. The film itself facilitated. The patient has a right IJ Gants catheter in place. Patient has also 3 chest tubes, right pleural, left lower and mediastinal. Output from the chest tubes have been noted which is not excessive at this point in time and there is no evidence of any air leak. At the same time, the patient is using the incentive spirometer. He is falling approximately the thousand. Current pulse ox is 94%. His cardiac rhythm was sinus bradycardia with a first-degree AV block. The patient is currently paced at the rate of 70. Cardiac output is at 7.3. Index is at 3.0. He did encounter some hypotension yesterday and the patient was taken off the nitroglycerin drip and currently is off norepinephrine. Insulin drip is running at the rate of 6 units an hour. Hemoglobin is low at 6.8. No orders for blood transfusion at this point in time. This is being monitored. Platelet count is 79, BUN is at 24 with a creatinine of 1.6 as the patient has a component of chronic kidney disease. Bric[place] cath is in place. Adequate urine output. Sodium level is at 139, potassium is at 4.4, bicarb is at 20. Objective - Vital Signs Vital signs: Vital Signs Temp 100.0 F H 09/28/23 04:00 Pulse 80 09/28/23 10:00 Resp 26 H 09/28/23 10:00 BP 112/41 09/28/23 10:00 Pulse Ox 92 L 09/28/23 10:00 FiO2 50 09/27/23 20:00 Intake & Output 09/27/23 09/28/23 09/28/23 18:59 06:59 18:59 Intake Total 3332.775 8686.177 644.411 Output Total 2940 1178 305 Balance -1531.480 -135.823 339.411 Weight 133.1 kg Intake: IV 181 838 296 0.9 FOR CO/CI 60 180 60 0.9 PRESSURE BAGS 18 108 36 Lactated Ringers 1,000 ml 550 200 @ 50 mls/hr IV .Q20H [facility] Rx#:[id number] Intake, IV Titration 926.520 104.177 48.411 Amount ACETAMINOPHEN IV (For NPO 100 ) 1,000 mg In Empty Bag 1 bag @ 400 mls/hr IVPB Q6H [facility] Rx#:[id number] Albumin Human 5% 250 ml 500 In Empty Bag 1 bag @ 250 mls/hr IVPB Q1HR PRN Rx#: [id number] Calcium Gluconate in NaCl 100 2 gm In Saline 1 100ml. bag @ 100 mls/hr IVPB ONCE PRN Rx#:[id number] Insulin Regular 100 unit 7.575 33.894 23.768 In Sodium Chloride 0.9% 100 ml @ Per Protocol IV .Q0M [facility] Rx#:[id number] Lactated Ringers 1,000 ml 150 50 @ 50 mls/hr IV .Q20H [facility] Rx#:[id number] Norepinephrine 4 mg In 31.853 20.283 24.643 Sodium Chloride 0.9% 250 ml @ 0.02 MCG/KG/MIN 10. 058 mls/hr IV .Q24H [facility] Rx#:[id number] propofoL 1,000 mg In 37.092 Empty Bag 1 bag @ Titrate IV .Q0M [facility] Rx#: [id number] Oral 300 Tube Feeding 100 Blood Product 301 Rc Pheresis 2 As3 Unit 301 [id number] Output: Chest Tube Drainage 155 603 140 Chest Tube Mediastinal 75 240 50 Pleural Catheter Left 65 243 70 Pleural Catheter Right 15 120 20 Drainage 5 15 Right Thigh 5 15 Urine 780 575 150 Estimated Blood Loss 1999 Other: Voiding Method Indwelling Catheter Indwelling Catheter Indwelling Catheter ABP, PAP, CO, CI - Last Documented Arterial Blood Pressure 106/31 Pulmonary Artery Pressure 16/0 Cardiac Output 7.3 Cardiac Index 3.0 - Exam Patient is currently sedated, comfortable, awake and alert on room air oxygen. Head exam was generally normal. There was no scleral icterus or corneal arcus. Mucous membranes were moist. Neck was supple and without jugular venous distension, thyromegaly, or carotid bruits. Carotids were easily palpable bilaterally. There was no adenopathy. The patient has a Cord[place] in the right IJ is [place] catheter in place Lungs were clear to auscultation and percussion, and with normal diaphragmatic excursion. No wheezes or rales were noted. Patient has a right pleural mediastinal and left pleural chest tube. No evidence of any air leak. Cardiac exam revealed the PMI to be normally situated and sized. The rhythm was regular and no extrasystoles were noted during several minutes of auscultation. The first and second heart sounds were normal and physiologic splitting of the second heart sound was noted. There were no murmurs, rubs, clicks, or gallops. Abdominal exam revealed normal bowel sounds. The abdomen was soft, non-tender, and without masses, organomegaly, or appreciable enlargement of the abdominal aorta. Examination of the extremities revealed easily palpable radial, femoral and pedal pulses. There was no cyanosis, clubbing or edema. Examination of the skin revealed no evidence of significant rashes, suspicious appearing nevi or other concerning lesions. Neurologically, the patient is awake and alert and the patient does not have any focal neurological deficit. Cranial nerves are essentially intact. - Labs CBC & Chem 7: 09/28/23 03:55 09/28/23 03:55 Labs: Abnormal Lab Results - Last 24 Hours (Table) 09/19/23 09/27/23 09/27/23 Range/Units 09:20 08:19 10:05 RBC (4.30-5.90) m/uL Hgb (13.0-17.5) gm/dL Hct (39.0-53.0) % RDW (11.5-15.5) % Plt Count (150-450) k/uL Lymphocytes # (1.0-4.8) k/uL PT (10.0-12.5) sec INR (<1.2) ABG pH 7.33 L (7.35-7.45) ABG pCO2 (35-45) mmHg ABG pO2 249 H 147 H (83-108) mmHg ABG Total CO2 25 H (19-24) mmol/L ABG O2 Saturation 100.0 H 99.2 H (94-97) % ABG Hematocrit 33 L 32 L (34.0-46.0) % ABG Potassium 4.9 H (3.4-4.5) mmol/L ABG Ionized Calcium (4.5-5.3) mg/dL ABG Glucose 172 H 137 H (75-99) mg/dL ABG Lactic Acid 1.8 H (0.5-1.6) mmol/L Hemoglobin 10.7 L 10.5 L (13.0-17.5) gm/dL Chloride (98-107) mmol/L Carbon Dioxide (22-30) mmol/L BUN (9-20) mg/dL Creatinine (0.66-1.25) mg/dL Glucose (74-99) mg/dL POC Glucose (mg/dL) (70-110) mg/dL Calcium (8.4-10.2) mg/dL Ionized Calcium [place] (4.5-5.3) mg/dL Magnesium (1.6-2.3) mg/dL Total Bilirubin (0.2-1.3) mg/dL AST (17-59) U/L Alkaline Phosphatase (38-126) U/L Total Protein (6.3-8.2) g/dL Albumin (3.5-5.0) g/dL Arterial Blood Potassium 4.9 H (3.4-4.5) mmol/L Arterial Blood Glucose 172 H 137 H (75-99) mg/dL Crossmatch See Detail 09/27/23 09/27/23 09/27/23 Range/Units 11:04 11:32 11:58 RBC (4.30-5.90) m/uL Hgb (13.0-17.5) gm/dL Hct (39.0-53.0) % RDW (11.5-15.5) % Plt Count (150-450) k/uL Lymphocytes # (1.0-4.8) k/uL PT (10.0-12.5) sec INR (<1.2) ABG pH (7.35-7.45) ABG pCO2 (35-45) mmHg ABG pO2 >420 H 383 H 376 H (83-108) mmHg ABG Total CO2 (19-24) mmol/L ABG O2 Saturation 100.0 H 100.0 H 100.0 H (94-97) % ABG Hematocrit 24 L 23 L 23 L (34.0-46.0) % ABG Potassium 5.1 H 5.5 H 5.8 H (3.4-4.5) mmol/L ABG Ionized Calcium 4.0 L 3.9 L 4.0 L (4.5-5.3) mg/dL ABG Glucose 133 H 144 H 166 H (75-99) mg/dL ABG Lactic Acid (0.5-1.6) mmol/L Hemoglobin 8.0 L 7.3 L 7.3 L (13.0-17.5) gm/dL Chloride (98-107) mmol/L Carbon Dioxide (22-30) mmol/L BUN (9-20) mg/dL Creatinine (0.66-1.25) mg/dL Glucose (74-99) mg/dL POC Glucose (mg/dL) (70-110) mg/dL Calcium (8.4-10.2) mg/dL Ionized Calcium [place] (4.5-5.3) mg/dL Magnesium (1.6-2.3) mg/dL Total Bilirubin (0.2-1.3) mg/dL AST (17-59) U/L Alkaline Phosphatase (38-126) U/L Total Protein (6.3-8.2) g/dL Albumin (3.5-5.0) g/dL Arterial Blood Potassium 5.1 H 5.5 H 5.8 H (3.4-4.5) mmol/L Arterial Blood Glucose 133 H 144 H 166 H (75-99) mg/dL Crossmatch 09/27/23 09/27/23 09/27/23 Range/Units 12:14 12:45 13:12 RBC (4.30-5.90) m/uL Hgb (13.0-17.5) gm/dL Hct (39.0-53.0) % RDW (11.5-15.5) % Plt Count (150-450) k/uL Lymphocytes # (1.0-4.8) k/uL PT (10.0-12.5) sec INR (<1.2) ABG pH 7.33 L 7.34 L 7.34 L (7.35-7.45) ABG pCO2 (35-45) mmHg ABG pO2 378 H 357 H >420 H (83-108) mmHg ABG Total CO2 (19-24) mmol/L ABG O2 Saturation 100.0 H 100.0 H 100.0 H (94-97) % ABG Hematocrit 21 L 20 L* 21 L (34.0-46.0) % ABG Potassium 5.6 H 5.8 H 5.9 H (3.4-4.5) mmol/L ABG Ionized Calcium 3.7 L 3.7 L (4.5-5.3) mg/dL ABG Glucose 158 H 156 H 164 H (75-99) mg/dL ABG Lactic Acid 1.9 H 3.0 H* (0.5-1.6) mmol/L Hemoglobin 6.9 L* 6.5 L* 7.0 L* (13.0-17.5) gm/dL Chloride (98-107) mmol/L Carbon Dioxide (22-30) mmol/L BUN (9-20) mg/dL Creatinine (0.66-1.25) mg/dL Glucose (74-99) mg/dL POC Glucose (mg/dL) (70-110) mg/dL Calcium (8.4-10.2) mg/dL Ionized Calcium [place] (4.5-5.3) mg/dL Magnesium (1.6-2.3) mg/dL Total Bilirubin (0.2-1.3) mg/dL AST (17-59) U/L Alkaline Phosphatase (38-126) U/L Total Protein (6.3-8.2) g/dL Albumin (3.5-5.0) g/dL Arterial Blood Potassium 5.6 H 5.8 H 5.9 H (3.4-4.5) mmol/L Arterial Blood Glucose 158 H 156 H 164 H (75-99) mg/dL Crossmatch 09/27/23 09/27/23 09/27/23 Range/Units 13:24 14:13 15:45 RBC 2.68 L (4.30-5.90) m/uL Hgb 7.9 L (13.0-17.5) gm/dL Hct 24.6 L (39.0-53.0) % RDW 17.2 H (11.5-15.5) % Plt Count 108 L (150-450) k/uL Lymphocytes # (1.0-4.8) k/uL PT (10.0-12.5) sec INR (<1.2) ABG pH (7.35-7.45) ABG pCO2 (35-45) mmHg ABG pO2 >420 H (83-108) mmHg ABG Total CO2 (19-24) mmol/L ABG O2 Saturation 100.0 H 98.5 H (94-97) % ABG Hematocrit 21 L 24 L (34.0-46.0) % ABG Potassium 5.3 H (3.4-4.5) mmol/L ABG Ionized Calcium 4.3 L 4.1 L (4.5-5.3) mg/dL ABG Glucose 214 H 124 H (75-99) mg/dL ABG Lactic Acid 2.7 H* 2.2 H* (0.5-1.6) mmol/L Hemoglobin 6.8 L* 7.7 L (13.0-17.5) gm/dL Chloride (98-107) mmol/L Carbon Dioxide (22-30) mmol/L BUN (9-20) mg/dL Creatinine (0.66-1.25) mg/dL Glucose (74-99) mg/dL POC Glucose (mg/dL) (70-110) mg/dL Calcium (8.4-10.2) mg/dL Ionized Calcium [place] (4.5-5.3) mg/dL Magnesium (1.6-2.3) mg/dL Total Bilirubin (0.2-1.3) mg/dL AST (17-59) U/L Alkaline Phosphatase (38-126) U/L Total Protein (6.3-8.2) g/dL Albumin (3.5-5.0) g/dL Arterial Blood Potassium 5.3 H (3.4-4.5) mmol/L Arterial Blood Glucose 214 H 124 H (75-99) mg/dL Crossmatch 09/27/23 09/27/23 09/27/23 Range/Units 15:45 15:45 15:46 RBC (4.30-5.90) m/uL Hgb (13.0-17.5) gm/dL Hct (39.0-53.0) % RDW (11.5-15.5) % Plt Count (150-450) k/uL Lymphocytes # (1.0-4.8) k/uL PT 15.5 H (10.0-12.5) sec INR 1.5 H (<1.2) ABG pH (7.35-7.45) ABG pCO2 (35-45) mmHg ABG pO2 (83-108) mmHg ABG Total CO2 (19-24) mmol/L ABG O2 Saturation (94-97) % ABG Hematocrit (34.0-46.0) % ABG Potassium (3.4-4.5) mmol/L ABG Ionized Calcium (4.5-5.3) mg/dL ABG Glucose (75-99) mg/dL ABG Lactic Acid (0.5-1.6) mmol/L Hemoglobin (13.0-17.5) gm/dL Chloride 110 H (98-107) mmol/L Carbon Dioxide (22-30) mmol/L BUN (9-20) mg/dL Creatinine 1.31 H (0.66-1.25) mg/dL Glucose 105 H (74-99) mg/dL POC Glucose (mg/dL) 118 H (70-110) mg/dL Calcium 7.0 L (8.4-10.2) mg/dL Ionized Calcium [place] 4.3 L (4.5-5.3) mg/dL Magnesium 2.4 H (1.6-2.3) mg/dL Total Bilirubin 1.4 H (0.2-1.3) mg/dL AST 84 H (17-59) U/L Alkaline Phosphatase 35 L (38-126) U/L Total Protein 4.5 L (6.3-8.2) g/dL Albumin 2.7 L (3.5-5.0) g/dL Arterial Blood Potassium (3.4-4.5) mmol/L Arterial Blood Glucose (75-99) mg/dL Crossmatch 09/27/23 09/27/23 09/27/23 Range/Units 16:20 17:00 18:12 RBC (4.30-5.90) m/uL Hgb (13.0-17.5) gm/dL Hct (39.0-53.0) % RDW (11.5-15.5) % Plt Count (150-450) k/uL Lymphocytes # (1.0-4.8) k/uL PT (10.0-12.5) sec INR (<1.2) ABG pH 7.30 L (7.35-7.45) ABG pCO2 48 H (35-45) mmHg ABG pO2 352 H (83-108) mmHg ABG Total CO2 25 H (19-24) mmol/L ABG O2 Saturation 99.7 H (94-97) % ABG Hematocrit (34.0-46.0) % ABG Potassium (3.4-4.5) mmol/L ABG Ionized Calcium (4.5-5.3) mg/dL ABG Glucose (75-99) mg/dL ABG Lactic Acid (0.5-1.6) mmol/L Hemoglobin (13.0-17.5) gm/dL Chloride (98-107) mmol/L Carbon Dioxide (22-30) mmol/L BUN (9-20) mg/dL Creatinine (0.66-1.25) mg/dL Glucose (74-99) mg/dL POC Glucose (mg/dL) 112 H 150 H (70-110) mg/dL Calcium (8.4-10.2) mg/dL Ionized Calcium [place] (4.5-5.3) mg/dL Magnesium (1.6-2.3) mg/dL Total Bilirubin (0.2-1.3) mg/dL AST (17-59) U/L Alkaline Phosphatase (38-126) U/L Total Protein (6.3-8.2) g/dL Albumin (3.5-5.0) g/dL Arterial Blood Potassium (3.4-4.5) mmol/L Arterial Blood Glucose (75-99) mg/dL Crossmatch 09/27/23 09/27/23 09/27/23 Range/Units 18:45 18:47 19:58 RBC 2.40 L (4.30-5.90) m/uL Hgb 7.3 L (13.0-17.5) gm/dL Hct 22.0 L (39.0-53.0) % RDW 17.0 H (11.5-15.5) % Plt Count 100 L (150-450) k/uL Lymphocytes # 0.7 L (1.0-4.8) k/uL PT (10.0-12.5) sec INR (<1.2) ABG pH (7.35-7.45) ABG pCO2 (35-45) mmHg ABG pO2 (83-108) mmHg ABG Total CO2 (19-24) mmol/L ABG O2 Saturation (94-97) % ABG Hematocrit (34.0-46.0) % ABG Potassium (3.4-4.5) mmol/L ABG Ionized Calcium (4.5-5.3) mg/dL ABG Glucose (75-99) mg/dL ABG Lactic Acid (0.5-1.6) mmol/L Hemoglobin (13.0-17.5) gm/dL Chloride (98-107) mmol/L Carbon Dioxide (22-30) mmol/L BUN (9-20) mg/dL Creatinine (0.66-1.25) mg/dL Glucose (74-99) mg/dL POC Glucose (mg/dL) 176 H 134 H (70-110) mg/dL Calcium (8.4-10.2) mg/dL Ionized Calcium [place] (4.5-5.3) mg/dL Magnesium (1.6-2.3) mg/dL Total Bilirubin (0.2-1.3) mg/dL AST (17-59) U/L Alkaline Phosphatase (38-126) U/L Total Protein (6.3-8.2) g/dL Albumin (3.5-5.0) g/dL Arterial Blood Potassium (3.4-4.5) mmol/L Arterial Blood Glucose (75-99) mg/dL Crossmatch 09/27/23 09/27/23 09/27/23 Range/Units 20:12 20:54 21:25 RBC 2.31 L (4.30-5.90) m/uL Hgb 6.9 L* (13.0-17.5) gm/dL Hct 21.0 L (39.0-53.0) % RDW 17.1 H (11.5-15.5) % Plt Count 78 L (150-450) k/uL Lymphocytes # 0.6 L (1.0-4.8) k/uL PT (10.0-12.5) sec INR (<1.2) ABG pH (7.35-7.45) ABG pCO2 (35-45) mmHg ABG pO2 179 H (83-108) mmHg ABG Total CO2 (19-24) mmol/L ABG O2 Saturation 98.8 H (94-97) % ABG Hematocrit (34.0-46.0) % ABG Potassium (3.4-4.5) mmol/L ABG Ionized Calcium (4.5-5.3) mg/dL ABG Glucose (75-99) mg/dL ABG Lactic Acid (0.5-1.6) mmol/L Hemoglobin (13.0-17.5) gm/dL Chloride (98-107) mmol/L Carbon Dioxide (22-30) mmol/L BUN (9-20) mg/dL Creatinine (0.66-1.25) mg/dL Glucose (74-99) mg/dL POC Glucose (mg/dL) 154 H (70-110) mg/dL Calcium (8.4-10.2) mg/dL Ionized Calcium [place] (4.5-5.3) mg/dL Magnesium (1.6-2.3) mg/dL Total Bilirubin (0.2-1.3) mg/dL AST (17-59) U/L Alkaline Phosphatase (38-126) U/L Total Protein (6.3-8.2) g/dL Albumin (3.5-5.0) g/dL Arterial Blood Potassium (3.4-4.5) mmol/L Arterial Blood Glucose (75-99) mg/dL Crossmatch 09/27/23 09/27/23 09/28/23 Range/Units 21:58 23:03 01:01 RBC (4.30-5.90) m/uL Hgb (13.0-17.5) gm/dL Hct (39.0-53.0) % RDW (11.5-15.5) % Plt Count (150-450) k/uL Lymphocytes # (1.0-4.8) k/uL PT (10.0-12.5) sec INR (<1.2) ABG pH (7.35-7.45) ABG pCO2 (35-45) mmHg ABG pO2 (83-108) mmHg ABG Total CO2 (19-24) mmol/L ABG O2 Saturation (94-97) % ABG Hematocrit (34.0-46.0) % ABG Potassium (3.4-4.5) mmol/L ABG Ionized Calcium (4.5-5.3) mg/dL ABG Glucose (75-99) mg/dL ABG Lactic Acid (0.5-1.6) mmol/L Hemoglobin (13.0-17.5) gm/dL Chloride (98-107) mmol/L Carbon Dioxide (22-30) mmol/L BUN (9-20) mg/dL Creatinine (0.66-1.25) mg/dL Glucose (74-99) mg/dL POC Glucose (mg/dL) 138 H 135 H 168 H (70-110) mg/dL Calcium (8.4-10.2) mg/dL Ionized Calcium [place] (4.5-5.3) mg/dL Magnesium (1.6-2.3) mg/dL Total Bilirubin (0.2-1.3) mg/dL AST (17-59) U/L Alkaline Phosphatase (38-126) U/L Total Protein (6.3-8.2) g/dL Albumin (3.5-5.0) g/dL Arterial Blood Potassium (3.4-4.5) mmol/L Arterial Blood Glucose (75-99) mg/dL Crossmatch 09/28/23 09/28/23 09/28/23 Range/Units 02:00 03:09 03:55 RBC 2.29 L (4.30-5.90) m/uL Hgb 6.8 L* (13.0-17.5) gm/dL Hct 20.8 L (39.0-53.0) % RDW 17.4 H (11.5-15.5) % Plt Count 79 L (150-450) k/uL Lymphocytes # 0.7 L (1.0-4.8) k/uL PT (10.0-12.5) sec INR (<1.2) ABG pH (7.35-7.45) ABG pCO2 (35-45) mmHg ABG pO2 (83-108) mmHg ABG Total CO2 (19-24) mmol/L ABG O2 Saturation (94-97) % ABG Hematocrit (34.0-46.0) % ABG Potassium (3.4-4.5) mmol/L ABG Ionized Calcium (4.5-5.3) mg/dL ABG Glucose (75-99) mg/dL ABG Lactic Acid (0.5-1.6) mmol/L Hemoglobin (13.0-17.5) gm/dL Chloride (98-107) mmol/L Carbon Dioxide (22-30) mmol/L BUN (9-20) mg/dL Creatinine (0.66-1.25) mg/dL Glucose (74-99) mg/dL POC Glucose (mg/dL) 156 H 137 H (70-110) mg/dL Calcium (8.4-10.2) mg/dL Ionized Calcium [place] (4.5-5.3) mg/dL Magnesium (1.6-2.3) mg/dL Total Bilirubin (0.2-1.3) mg/dL AST (17-59) U/L Alkaline Phosphatase (38-126) U/L Total Protein (6.3-8.2) g/dL Albumin (3.5-5.0) g/dL Arterial Blood Potassium (3.4-4.5) mmol/L Arterial Blood Glucose (75-99) mg/dL Crossmatch 09/28/23 09/28/23 09/28/23 Range/Units 03:55 03:55 05:13 RBC (4.30-5.90) m/uL Hgb (13.0-17.5) gm/dL Hct (39.0-53.0) % RDW (11.5-15.5) % Plt Count (150-450) k/uL Lymphocytes # (1.0-4.8) k/uL PT (10.0-12.5) sec INR (<1.2) ABG pH (7.35-7.45) ABG pCO2 (35-45) mmHg ABG pO2 (83-108) mmHg ABG Total CO2 (19-24) mmol/L ABG O2 Saturation (94-97) % ABG Hematocrit (34.0-46.0) % ABG Potassium (3.4-4.5) mmol/L ABG Ionized Calcium (4.5-5.3) mg/dL ABG Glucose (75-99) mg/dL ABG Lactic Acid (0.5-1.6) mmol/L Hemoglobin (13.0-17.5) gm/dL Chloride 109 H (98-107) mmol/L Carbon Dioxide 20 L (22-30) mmol/L BUN 24 H (9-20) mg/dL Creatinine 1.64 H (0.66-1.25) mg/dL Glucose 127 H (74-99) mg/dL POC Glucose (mg/dL) 145 H 128 H (70-110) mg/dL Calcium 7.6 L (8.4-10.2) mg/dL Ionized Calcium [place] 4.4 L (4.5-5.3) mg/dL Magnesium 2.4 H (1.6-2.3) mg/dL Total Bilirubin (0.2-1.3) mg/dL AST 116 H (17-59) U/L Alkaline Phosphatase (38-126) U/L Total Protein 4.9 L (6.3-8.2) g/dL Albumin 2.9 L (3.5-5.0) g/dL Arterial Blood Potassium (3.4-4.5) mmol/L Arterial Blood Glucose (75-99) mg/dL Crossmatch 09/28/23 09/28/23 09/28/23 Range/Units 05:54 06:59 08:37 RBC (4.30-5.90) m/uL Hgb (13.0-17.5) gm/dL Hct (39.0-53.0) % RDW (11.5-15.5) % Plt Count (150-450) k/uL Lymphocytes # (1.0-4.8) k/uL PT (10.0-12.5) sec INR (<1.2) ABG pH (7.35-7.45) ABG pCO2 (35-45) mmHg ABG pO2 (83-108) mmHg ABG Total CO2 (19-24) mmol/L ABG O2 Saturation (94-97) % ABG Hematocrit (34.0-46.0) % ABG Potassium (3.4-4.5) mmol/L ABG Ionized Calcium (4.5-5.3) mg/dL ABG Glucose (75-99) mg/dL ABG Lactic Acid (0.5-1.6) mmol/L Hemoglobin (13.0-17.5) gm/dL Chloride (98-107) mmol/L Carbon Dioxide (22-30) mmol/L BUN (9-20) mg/dL Creatinine (0.66-1.25) mg/dL Glucose (74-99) mg/dL POC Glucose (mg/dL) 134 H 160 H 191 H (70-110) mg/dL Calcium (8.4-10.2) mg/dL Ionized Calcium [place] (4.5-5.3) mg/dL Magnesium (1.6-2.3) mg/dL Total Bilirubin (0.2-1.3) mg/dL AST (17-59) U/L Alkaline Phosphatase (38-126) U/L Total Protein (6.3-8.2) g/dL Albumin (3.5-5.0) g/dL Arterial Blood Potassium (3.4-4.5) mmol/L Arterial Blood Glucose (75-99) mg/dL Crossmatch 09/28/23 09/28/23 09/28/23 Range/Units 09:19 09:58 10:58 RBC (4.30-5.90) m/uL Hgb (13.0-17.5) gm/dL Hct (39.0-53.0) % RDW (11.5-15.5) % Plt Count (150-450) k/uL Lymphocytes # (1.0-4.8) k/uL PT (10.0-12.5) sec INR (<1.2) ABG pH (7.35-7.45) ABG pCO2 (35-45) mmHg ABG pO2 (83-108) mmHg ABG Total CO2 (19-24) mmol/L ABG O2 Saturation (94-97) % ABG Hematocrit (34.0-46.0) % ABG Potassium (3.4-4.5) mmol/L ABG Ionized Calcium (4.5-5.3) mg/dL ABG Glucose (75-99) mg/dL ABG Lactic Acid (0.5-1.6) mmol/L Hemoglobin (13.0-17.5) gm/dL Chloride (98-107) mmol/L Carbon Dioxide (22-30) mmol/L BUN (9-20) mg/dL Creatinine (0.66-1.25) mg/dL Glucose (74-99) mg/dL POC Glucose (mg/dL) 176 H 162 H 153 H (70-110) mg/dL Calcium (8.4-10.2) mg/dL Ionized Calcium [place] (4.5-5.3) mg/dL Magnesium (1.6-2.3) mg/dL Total Bilirubin (0.2-1.3) mg/dL AST (17-59) U/L Alkaline Phosphatase (38-126) U/L Total Protein (6.3-8.2) g/dL Albumin (3.5-5.0) g/dL Arterial Blood Potassium (3.4-4.5) mmol/L Arterial Blood Glucose (75-99) mg/dL Crossmatch Assessment and Plan Plan: Coronary artery bypass surgery. The patient underwent four-vessel bypass surgery. The patient is currently postop day #1. Hemodynamically stable. Currently off norepinephrine. The cardiac output and index of both adequate. Hemodynamically stable with adequate cardiac output and index. Postthoracotomy, currently extubated on room air oxygen. Chest is still in place. CAD status post multiple stents, now status post CABG Acute blood loss anemia, anticipated outcome of surgery, current hemoglobin is at 6.8 Acute on chronic thrombocytopenia, anticipated outcome of surgery, platelets are being monitored, the levels are lower down to 79 Type 2 diabetes, currently on insulin drip at 6 units an hour Chronic kidney disease stage III Hypocalcemia History of hypertension History of atrial fibrillation Dyslipidemia Gout BPH Plan incentive spirometer Aggressive pulmonary toileting Keep the chest tubes in place No pressors We'll discuss the need for a blood transfusion with cardiothoracic surgery Will follow of the [place]-Ted catheter Monitor blood work and transfuse if needed, essentially per cardiothoracic surgery We'll continue to follow
[2023-09-28 11:42] VITALS: BMI 43.3
--- NOTE | 2023-09-28 11:57 | P.PN ---
Subjective Progress Note Date: 09/28/23 Subjective: Seen and examined at bedside. Now extubated. Denies any complaints. Isabel erating small amounts of oral intake. Briceno catheter and chest tube still in place. Pertinent positives and negatives as discussed above, a complete review of systems was performed and all other systems are negative. Vitals Signs Reviewed. General: nontoxic, no distress, appears at stated age, obese Derm: warm, dry, chest dressing clean, dry, intact, chest tubes in place Head: atraumatic, normocephalic, symmetric Eyes: EOMI, no lid lag, anicteric sclera Mouth: no lip lesion, mucus membranes moist Cardiovascular: S1S2 reg, no murmur Lungs: CTA bilateral, no rhonchi, no rales , no accessory muscle use Abdominal: soft, nontender to palpation, no guarding, no appreciable organomegaly Ext: no gross muscle atrophy, no edema, no contractures Neuro: CN II-XI grossly intact, no focal neuro deficits Psych: Alert, oriented, appropriate affect Data Reviewed Today: Pertinent Labs: WBC 5.6, hemoglobin 6.8, platelets 79, potassium 4.4, bicarb 20, creatinine 1.64, magnesium 2.4 Imaging: Chest x-ray independently interpreted, similar to yesterday. Assessment and Plan: CAD status post multiple stents, now status post CABG Acute blood loss anemia, anticipated outcome of surgery Acute on chronic thrombocytopenia, anticipated outcome of surgery Type 2 diabetes Chronic kidney disease stage III Hypocalcemia History of hypertension History of atrial fibrillation Dyslipidemia Gout BPH -Patient remains in medical ICU -Off vasopressors -Pulmonology note reviewed, continue current management -Continue insulin drip, monitor for hypoglycemia, switch to subcutaneous insulin once oral intake improves -Cardiology note reviewed, consider restarting sotalol F heart rate and blood pressure stable, also consider restarting anticoagulation per cardiothoracic surgery -Currently on amiodarone, metoprolol 12.5 twice a day -Continue monitor renal function and electrolytes -Creatinine slightly worsened -Hold antihypertensives -Home Medications reviewed -Patient does not want blood transfusion -Cardiothoracic surgery to readdress blood transfusion with patient, currently no active bleeding CBC and CMP tomorrow Thank you for allowing us to participate in the care of this pleasant patient. Do not hesitate to contact us with questions. Someone can be reached from the [facility] hospitalist group all hours of the day at [phone] or via perfect serve. Objective - Vital Signs Vital signs: Vital Signs Temp 100.0 F H 09/28/23 04:00 Pulse 70 09/28/23 11:15 Resp 20 09/28/23 11:15 BP 107/49 09/28/23 11:15 Pulse Ox 93 L 09/28/23 11:15 FiO2 50 09/27/23 20:00 Intake & Output 09/27/23 09/28/23 09/28/23 18:59 06:59 18:59 Intake Total 5210.105 3691.177 652.087 Output Total 2940 1178 305 Balance -1531.480 -135.823 347.087 Weight 133.1 kg 133.1 kg Intake: IV 181 838 296 0.9 FOR CO/CI 60 180 60 0.9 PRESSURE BAGS 18 108 36 Lactated Ringers 1,000 ml 550 200 @ 50 mls/hr IV .Q20H [facility] Rx#:[id number] Intake, IV Titration 926.520 104.177 56.087 Amount ACETAMINOPHEN IV (For NPO 100 ) 1,000 mg In Empty Bag 1 bag @ 400 mls/hr IVPB Q6H [facility] Rx#:[id number] Albumin Human 5% 250 ml 500 In Empty Bag 1 bag @ 250 mls/hr IVPB Q1HR PRN Rx#: [id number] Calcium Gluconate in NaCl 100 2 gm In Saline 1 100ml. bag @ 100 mls/hr IVPB ONCE PRN Rx#:[id number] Insulin Regular 100 unit 7.575 33.894 31.444 In Sodium Chloride 0.9% 100 ml @ Per Protocol IV .Q0M [facility] Rx#:[id number] Lactated Ringers 1,000 ml 150 50 @ 50 mls/hr IV .Q20H [facility] Rx#:[id number] Norepinephrine 4 mg In 31.853 20.283 24.643 Sodium Chloride 0.9% 250 ml @ 0.02 MCG/KG/MIN 10. 058 mls/hr IV .Q24H [facility] Rx#:[id number] propofoL 1,000 mg In 37.092 Empty Bag 1 bag @ Titrate IV .Q0M [facility]AS Rx#: [id number] Oral 300 Tube Feeding 100 Blood Product 301 Rc Pheresis 2 As3 Unit 301 [id number] Output: Chest Tube Drainage 155 603 140 Chest Tube Mediastinal 75 240 50 Pleural Catheter Left 65 243 70 Pleural Catheter Right 15 120 20 Drainage 5 15 Right Thigh 5 15 Urine 780 575 150 Estimated Blood Loss 1999 Other: Voiding Method Indwelling Catheter Indwelling Catheter Indwelling Catheter ABP, PAP, CO, CI - Last Documented Arterial Blood Pressure 102/27 Pulmonary Artery Pressure 16/0 Cardiac Output 7.3 Cardiac Index 3.0 - Labs CBC & Chem 7: 09/28/23 03:55 09/28/23 03:55 Labs: Abnormal Lab Results - Last 24 Hours (Table) 09/19/23 09/27/23 09/27/23 Range/Units 09:20 08:19 10:05 RBC (4.30-5.90) m/uL Hgb (13.0-17.5) gm/dL Hct (39.0-53.0) % RDW (11.5-15.5) % Plt Count (150-450) k/uL Lymphocytes # (1.0-4.8) k/uL PT (10.0-12.5) sec INR (<1.2) ABG pH 7.33 L (7.35-7.45) ABG pCO2 (35-45) mmHg ABG pO2 249 H 147 H (83-108) mmHg ABG Total CO2 25 H (19-24) mmol/L ABG O2 Saturation 100.0 H 99.2 H (94-97) % ABG Hematocrit 33 L 32 L (34.0-46.0) % ABG Potassium 4.9 H (3.4-4.5) mmol/L ABG Ionized Calcium (4.5-5.3) mg/dL ABG Glucose 172 H 137 H (75-99) mg/dL ABG Lactic Acid 1.8 H (0.5-1.6) mmol/L Hemoglobin 10.7 L 10.5 L (13.0-17.5) gm/dL Chloride (98-107) mmol/L Carbon Dioxide (22-30) mmol/L BUN (9-20) mg/dL Creatinine (0.66-1.25) mg/dL Glucose (74-99) mg/dL POC Glucose (mg/dL) (70-110) mg/dL Calcium (8.4-10.2) mg/dL Ionized Calcium [place] (4.5-5.3) mg/dL Magnesium (1.6-2.3) mg/dL Total Bilirubin (0.2-1.3) mg/dL AST (17-59) U/L Alkaline Phosphatase (38-126) U/L Total Protein (6.3-8.2) g/dL Albumin (3.5-5.0) g/dL Arterial Blood Potassium 4.9 H (3.4-4.5) mmol/L Arterial Blood Glucose 172 H 137 H (75-99) mg/dL Crossmatch See Detail 09/27/23 09/27/23 09/27/23 Range/Units 11:04 11:32 11:58 RBC (4.30-5.90) m/uL Hgb (13.0-17.5) gm/dL Hct (39.0-53.0) % RDW (11.5-15.5) % Plt Count (150-450) k/uL Lymphocytes # (1.0-4.8) k/uL PT (10.0-12.5) sec INR (<1.2) ABG pH (7.35-7.45) ABG pCO2 (35-45) mmHg ABG pO2 >420 H 383 H 376 H (83-108) mmHg ABG Total CO2 (19-24) mmol/L ABG O2 Saturation 100.0 H 100.0 H 100.0 H (94-97) % ABG Hematocrit 24 L 23 L 23 L (34.0-46.0) % ABG Potassium 5.1 H 5.5 H 5.8 H (3.4-4.5) mmol/L ABG Ionized Calcium 4.0 L 3.9 L 4.0 L (4.5-5.3) mg/dL ABG Glucose 133 H 144 H 166 H (75-99) mg/dL ABG Lactic Acid (0.5-1.6) mmol/L Hemoglobin 8.0 L 7.3 L 7.3 L (13.0-17.5) gm/dL Chloride (98-107) mmol/L Carbon Dioxide (22-30) mmol/L BUN (9-20) mg/dL Creatinine (0.66-1.25) mg/dL Glucose (74-99) mg/dL POC Glucose (mg/dL) (70-110) mg/dL Calcium (8.4-10.2) mg/dL Ionized Calcium [place] (4.5-5.3) mg/dL Magnesium (1.6-2.3) mg/dL Total Bilirubin (0.2-1.3) mg/dL AST (17-59) U/L Alkaline Phosphatase (38-126) U/L Total Protein (6.3-8.2) g/dL Albumin (3.5-5.0) g/dL Arterial Blood Potassium 5.1 H 5.5 H 5.8 H (3.4-4.5) mmol/L Arterial Blood Glucose 133 H 144 H 166 H (75-99) mg/dL Crossmatch 09/27/23 09/27/23 09/27/23 Range/Units 12:14 12:45 13:12 RBC (4.30-5.90) m/uL Hgb (13.0-17.5) gm/dL Hct (39.0-53.0) % RDW (11.5-15.5) % Plt Count (150-450) k/uL Lymphocytes # (1.0-4.8) k/uL PT (10.0-12.5) sec INR (<1.2) ABG pH 7.33 L 7.34 L 7.34 L (7.35-7.45) ABG pCO2 (35-45) mmHg ABG pO2 378 H 357 H >420 H (83-108) mmHg ABG Total CO2 (19-24) mmol/L ABG O2 Saturation 100.0 H 100.0 H 100.0 H (94-97) % ABG Hematocrit 21 L 20 L* 21 L (34.0-46.0) % ABG Potassium 5.6 H 5.8 H 5.9 H (3.4-4.5) mmol/L ABG Ionized Calcium 3.7 L 3.7 L (4.5-5.3) mg/dL ABG Glucose 158 H 156 H 164 H (75-99) mg/dL ABG Lactic Acid 1.9 H 3.0 H* (0.5-1.6) mmol/L Hemoglobin 6.9 L* 6.5 L* 7.0 L* (13.0-17.5) gm/dL Chloride (98-107) mmol/L Carbon Dioxide (22-30) mmol/L BUN (9-20) mg/dL Creatinine (0.66-1.25) mg/dL Glucose (74-99) mg/dL POC Glucose (mg/dL) (70-110) mg/dL Calcium (8.4-10.2) mg/dL Ionized Calcium [place] (4.5-5.3) mg/dL Magnesium (1.6-2.3) mg/dL Total Bilirubin (0.2-1.3) mg/dL AST (17-59) U/L Alkaline Phosphatase (38-126) U/L Total Protein (6.3-8.2) g/dL Albumin (3.5-5.0) g/dL Arterial Blood Potassium 5.6 H 5.8 H 5.9 H (3.4-4.5) mmol/L Arterial Blood Glucose 158 H 156 H 164 H (75-99) mg/dL Crossmatch 09/27/23 09/27/23 09/27/23 Range/Units 13:24 14:13 15:45 RBC 2.68 L (4.30-5.90) m/uL Hgb 7.9 L (13.0-17.5) gm/dL Hct 24.6 L (39.0-53.0) % RDW 17.2 H (11.5-15.5) % Plt Count 108 L (150-450) k/uL Lymphocytes # (1.0-4.8) k/uL PT (10.0-12.5) sec INR (<1.2) ABG pH (7.35-7.45) ABG pCO2 (35-45) mmHg ABG pO2 >420 H (83-108) mmHg ABG Total CO2 (19-24) mmol/L ABG O2 Saturation 100.0 H 98.5 H (94-97) % ABG Hematocrit 21 L 24 L (34.0-46.0) % ABG Potassium 5.3 H (3.4-4.5) mmol/L ABG Ionized Calcium 4.3 L 4.1 L (4.5-5.3) mg/dL ABG Glucose 214 H 124 H (75-99) mg/dL ABG Lactic Acid 2.7 H* 2.2 H* (0.5-1.6) mmol/L Hemoglobin 6.8 L* 7.7 L (13.0-17.5) gm/dL Chloride (98-107) mmol/L Carbon Dioxide (22-30) mmol/L BUN (9-20) mg/dL Creatinine (0.66-1.25) mg/dL Glucose (74-99) mg/dL POC Glucose (mg/dL) (70-110) mg/dL Calcium (8.4-10.2) mg/dL Ionized Calcium [place] (4.5-5.3) mg/dL Magnesium (1.6-2.3) mg/dL Total Bilirubin (0.2-1.3) mg/dL AST (17-59) U/L Alkaline Phosphatase (38-126) U/L Total Protein (6.3-8.2) g/dL Albumin (3.5-5.0) g/dL Arterial Blood Potassium 5.3 H (3.4-4.5) mmol/L Arterial Blood Glucose 214 H 124 H (75-99) mg/dL Crossmatch 09/27/23 09/27/23 09/27/23 Range/Units 15:45 15:45 15:46 RBC (4.30-5.90) m/uL Hgb (13.0-17.5) gm/dL Hct (39.0-53.0) % RDW (11.5-15.5) % Plt Count (150-450) k/uL Lymphocytes # (1.0-4.8) k/uL PT 15.5 H (10.0-12.5) sec INR 1.5 H (<1.2) ABG pH (7.35-7.45) ABG pCO2 (35-45) mmHg ABG pO2 (83-108) mmHg ABG Total CO2 (19-24) mmol/L ABG O2 Saturation (94-97) % ABG Hematocrit (34.0-46.0) % ABG Potassium (3.4-4.5) mmol/L ABG Ionized Calcium (4.5-5.3) mg/dL ABG Glucose (75-99) mg/dL ABG Lactic Acid (0.5-1.6) mmol/L Hemoglobin (13.0-17.5) gm/dL Chloride 110 H (98-107) mmol/L Carbon Dioxide (22-30) mmol/L BUN (9-20) mg/dL Creatinine 1.31 H (0.66-1.25) mg/dL Glucose 105 H (74-99) mg/dL POC Glucose (mg/dL) 118 H (70-110) mg/dL Calcium 7.0 L (8.4-10.2) mg/dL Ionized Calcium [place] 4.3 L (4.5-5.3) mg/dL Magnesium 2.4 H (1.6-2.3) mg/dL Total Bilirubin 1.4 H (0.2-1.3) mg/dL AST 84 H (17-59) U/L Alkaline Phosphatase 35 L (38-126) U/L Total Protein 4.5 L (6.3-8.2) g/dL Albumin 2.7 L (3.5-5.0) g/dL Arterial Blood Potassium (3.4-4.5) mmol/L Arterial Blood Glucose (75-99) mg/dL Crossmatch 09/27/23 09/27/23 09/27/23 Range/Units 16:20 17:00 18:12 RBC (4.30-5.90) m/uL Hgb (13.0-17.5) gm/dL Hct (39.0-53.0) % RDW (11.5-15.5) % Plt Count (150-450) k/uL Lymphocytes # (1.0-4.8) k/uL PT (10.0-12.5) sec INR (<1.2) ABG pH 7.30 L (7.35-7.45) ABG pCO2 48 H (35-45) mmHg ABG pO2 352 H (83-108) mmHg ABG Total CO2 25 H (19-24) mmol/L ABG O2 Saturation 99.7 H (94-97) % ABG Hematocrit (34.0-46.0) % ABG Potassium (3.4-4.5) mmol/L ABG Ionized Calcium (4.5-5.3) mg/dL ABG Glucose (75-99) mg/dL ABG Lactic Acid (0.5-1.6) mmol/L Hemoglobin (13.0-17.5) gm/dL Chloride (98-107) mmol/L Carbon Dioxide (22-30) mmol/L BUN (9-20) mg/dL Creatinine (0.66-1.25) mg/dL Glucose (74-99) mg/dL POC Glucose (mg/dL) 112 H 150 H (70-110) mg/dL Calcium (8.4-10.2) mg/dL Ionized Calcium [place] (4.5-5.3) mg/dL Magnesium (1.6-2.3) mg/dL Total Bilirubin (0.2-1.3) mg/dL AST (17-59) U/L Alkaline Phosphatase (38-126) U/L Total Protein (6.3-8.2) g/dL Albumin (3.5-5.0) g/dL Arterial Blood Potassium (3.4-4.5) mmol/L Arterial Blood Glucose (75-99) mg/dL Crossmatch 09/27/23 09/27/23 09/27/23 Range/Units 18:45 18:47 19:58 RBC 2.40 L (4.30-5.90) m/uL Hgb 7.3 L (13.0-17.5) gm/dL Hct 22.0 L (39.0-53.0) % RDW 17.0 H (11.5-15.5) % Plt Count 100 L (150-450) k/uL Lymphocytes # 0.7 L (1.0-4.8) k/uL PT (10.0-12.5) sec INR (<1.2) ABG pH (7.35-7.45) ABG pCO2 (35-45) mmHg ABG pO2 (83-108) mmHg ABG Total CO2 (19-24) mmol/L ABG O2 Saturation (94-97) % ABG Hematocrit (34.0-46.0) % ABG Potassium (3.4-4.5) mmol/L ABG Ionized Calcium (4.5-5.3) mg/dL ABG Glucose (75-99) mg/dL ABG Lactic Acid (0.5-1.6) mmol/L Hemoglobin (13.0-17.5) gm/dL Chloride (98-107) mmol/L Carbon Dioxide (22-30) mmol/L BUN (9-20) mg/dL Creatinine (0.66-1.25) mg/dL Glucose (74-99) mg/dL POC Glucose (mg/dL) 176 H 134 H (70-110) mg/dL Calcium (8.4-10.2) mg/dL Ionized Calcium [place] (4.5-5.3) mg/dL Magnesium (1.6-2.3) mg/dL Total Bilirubin (0.2-1.3) mg/dL AST (17-59) U/L Alkaline Phosphatase (38-126) U/L Total Protein (6.3-8.2) g/dL Albumin (3.5-5.0) g/dL Arterial Blood Potassium (3.4-4.5) mmol/L Arterial Blood Glucose (75-99) mg/dL Crossmatch 09/27/23 09/27/23 09/27/23 Range/Units 20:12 20:54 21:25 RBC 2.31 L (4.30-5.90) m/uL Hgb 6.9 L* (13.0-17.5) gm/dL Hct 21.0 L (39.0-53.0) % RDW 17.1 H (11.5-15.5) % Plt Count 78 L (150-450) k/uL Lymphocytes # 0.6 L (1.0-4.8) k/uL PT (10.0-12.5) sec INR (<1.2) ABG pH (7.35-7.45) ABG pCO2 (35-45) mmHg ABG pO2 179 H (83-108) mmHg ABG Total CO2 (19-24) mmol/L ABG O2 Saturation 98.8 H (94-97) % ABG Hematocrit (34.0-46.0) % ABG Potassium (3.4-4.5) mmol/L ABG Ionized Calcium (4.5-5.3) mg/dL ABG Glucose (75-99) mg/dL ABG Lactic Acid (0.5-1.6) mmol/L Hemoglobin (13.0-17.5) gm/dL Chloride (98-107) mmol/L Carbon Dioxide (22-30) mmol/L BUN (9-20) mg/dL Creatinine (0.66-1.25) mg/dL Glucose (74-99) mg/dL POC Glucose (mg/dL) 154 H (70-110) mg/dL Calcium (8.4-10.2) mg/dL Ionized Calcium [place] (4.5-5.3) mg/dL Magnesium (1.6-2.3) mg/dL Total Bilirubin (0.2-1.3) mg/dL AST (17-59) U/L Alkaline Phosphatase (38-126) U/L Total Protein (6.3-8.2) g/dL Albumin (3.5-5.0) g/dL Arterial Blood Potassium (3.4-4.5) mmol/L Arterial Blood Glucose (75-99) mg/dL Crossmatch 09/27/23 09/27/23 09/28/23 Range/Units 21:58 23:03 01:01 RBC (4.30-5.90) m/uL Hgb (13.0-17.5) gm/dL Hct (39.0-53.0) % RDW (11.5-15.5) % Plt Count (150-450) k/uL Lymphocytes # (1.0-4.8) k/uL PT (10.0-12.5) sec INR (<1.2) ABG pH (7.35-7.45) ABG pCO2 (35-45) mmHg ABG pO2 (83-108) mmHg ABG Total CO2 (19-24) mmol/L ABG O2 Saturation (94-97) % ABG Hematocrit (34.0-46.0) % ABG Potassium (3.4-4.5) mmol/L ABG Ionized Calcium (4.5-5.3) mg/dL ABG Glucose (75-99) mg/dL ABG Lactic Acid (0.5-1.6) mmol/L Hemoglobin (13.0-17.5) gm/dL Chloride (98-107) mmol/L Carbon Dioxide (22-30) mmol/L BUN (9-20) mg/dL Creatinine (0.66-1.25) mg/dL Glucose (74-99) mg/dL POC Glucose (mg/dL) 138 H 135 H 168 H (70-110) mg/dL Calcium (8.4-10.2) mg/dL Ionized Calcium [place] (4.5-5.3) mg/dL Magnesium (1.6-2.3) mg/dL Total Bilirubin (0.2-1.3) mg/dL AST (17-59) U/L Alkaline Phosphatase (38-126) U/L Total Protein (6.3-8.2) g/dL Albumin (3.5-5.0) g/dL Arterial Blood Potassium (3.4-4.5) mmol/L Arterial Blood Glucose (75-99) mg/dL Crossmatch 09/28/23 09/28/23 09/28/23 Range/Units 02:00 03:09 03:55 RBC 2.29 L (4.30-5.90) m/uL Hgb 6.8 L* (13.0-17.5) gm/dL Hct 20.8 L (39.0-53.0) % RDW 17.4 H (11.5-15.5) % Plt Count 79 L (150-450) k/uL Lymphocytes # 0.7 L (1.0-4.8) k/uL PT (10.0-12.5) sec INR (<1.2) ABG pH (7.35-7.45) ABG pCO2 (35-45) mmHg ABG pO2 (83-108) mmHg ABG Total CO2 (19-24) mmol/L ABG O2 Saturation (94-97) % ABG Hematocrit (34.0-46.0) % ABG Potassium (3.4-4.5) mmol/L ABG Ionized Calcium (4.5-5.3) mg/dL ABG Glucose (75-99) mg/dL ABG Lactic Acid (0.5-1.6) mmol/L Hemoglobin (13.0-17.5) gm/dL Chloride (98-107) mmol/L Carbon Dioxide (22-30) mmol/L BUN (9-20) mg/dL Creatinine (0.66-1.25) mg/dL Glucose (74-99) mg/dL POC Glucose (mg/dL) 156 H 137 H (70-110) mg/dL Calcium (8.4-10.2) mg/dL Ionized Calcium [place] (4.5-5.3) mg/dL Magnesium (1.6-2.3) mg/dL Total Bilirubin (0.2-1.3) mg/dL AST (17-59) U/L Alkaline Phosphatase (38-126) U/L Total Protein (6.3-8.2) g/dL Albumin (3.5-5.0) g/dL Arterial Blood Potassium (3.4-4.5) mmol/L Arterial Blood Glucose (75-99) mg/dL Crossmatch 09/28/23 09/28/23 09/28/23 Range/Units 03:55 03:55 05:13 RBC (4.30-5.90) m/uL Hgb (13.0-17.5) gm/dL Hct (39.0-53.0) % RDW (11.5-15.5) % Plt Count (150-450) k/uL Lymphocytes # (1.0-4.8) k/uL PT (10.0-12.5) sec INR (<1.2) ABG pH (7.35-7.45) ABG pCO2 (35-45) mmHg ABG pO2 (83-108) mmHg ABG Total CO2 (19-24) mmol/L ABG O2 Saturation (94-97) % ABG Hematocrit (34.0-46.0) % ABG Potassium (3.4-4.5) mmol/L ABG Ionized Calcium (4.5-5.3) mg/dL ABG Glucose (75-99) mg/dL ABG Lactic Acid (0.5-1.6) mmol/L Hemoglobin (13.0-17.5) gm/dL Chloride 109 H (98-107) mmol/L Carbon Dioxide 20 L (22-30) mmol/L BUN 24 H (9-20) mg/dL Creatinine 1.64 H (0.66-1.25) mg/dL Glucose 127 H (74-99) mg/dL POC Glucose (mg/dL) 145 H 128 H (70-110) mg/dL Calcium 7.6 L (8.4-10.2) mg/dL Ionized Calcium [place] 4.4 L (4.5-5.3) mg/dL Magnesium 2.4 H (1.6-2.3) mg/dL Total Bilirubin (0.2-1.3) mg/dL AST 116 H (17-59) U/L Alkaline Phosphatase (38-126) U/L Total Protein 4.9 L (6.3-8.2) g/dL Albumin 2.9 L (3.5-5.0) g/dL Arterial Blood Potassium (3.4-4.5) mmol/L Arterial Blood Glucose (75-99) mg/dL Crossmatch 09/28/23 09/28/23 09/28/23 Range/Units 05:54 06:59 08:37 RBC (4.30-5.90) m/uL Hgb (13.0-17.5) gm/dL Hct (39.0-53.0) % RDW (11.5-15.5) % Plt Count (150-450) k/uL Lymphocytes # (1.0-4.8) k/uL PT (10.0-12.5) sec INR (<1.2) ABG pH (7.35-7.45) ABG pCO2 (35-45) mmHg ABG pO2 (83-108) mmHg ABG Total CO2 (19-24) mmol/L ABG O2 Saturation (94-97) % ABG Hematocrit (34.0-46.0) % ABG Potassium (3.4-4.5) mmol/L ABG Ionized Calcium (4.5-5.3) mg/dL ABG Glucose (75-99) mg/dL ABG Lactic Acid (0.5-1.6) mmol/L Hemoglobin (13.0-17.5) gm/dL Chloride (98-107) mmol/L Carbon Dioxide (22-30) mmol/L BUN (9-20) mg/dL Creatinine (0.66-1.25) mg/dL Glucose (74-99) mg/dL POC Glucose (mg/dL) 134 H 160 H 191 H (70-110) mg/dL Calcium (8.4-10.2) mg/dL Ionized Calcium [place] (4.5-5.3) mg/dL Magnesium (1.6-2.3) mg/dL Total Bilirubin (0.2-1.3) mg/dL AST (17-59) U/L Alkaline Phosphatase (38-126) U/L Total Protein (6.3-8.2) g/dL Albumin (3.5-5.0) g/dL Arterial Blood Potassium (3.4-4.5) mmol/L Arterial Blood Glucose (75-99) mg/dL Crossmatch 09/28/23 09/28/23 09/28/23 Range/Units 09:19 09:58 10:58 RBC (4.30-5.90) m/uL Hgb (13.0-17.5) gm/dL Hct (39.0-53.0) % RDW (11.5-15.5) % Plt Count (150-450) k/uL Lymphocytes # (1.0-4.8) k/uL PT (10.0-12.5) sec INR (<1.2) ABG pH (7.35-7.45) ABG pCO2 (35-45) mmHg ABG pO2 (83-108) mmHg ABG Total CO2 (19-24) mmol/L ABG O2 Saturation (94-97) % ABG Hematocrit (34.0-46.0) % ABG Potassium (3.4-4.5) mmol/L ABG Ionized Calcium (4.5-5.3) mg/dL ABG Glucose (75-99) mg/dL ABG Lactic Acid (0.5-1.6) mmol/L Hemoglobin (13.0-17.5) gm/dL Chloride (98-107) mmol/L Carbon Dioxide (22-30) mmol/L BUN (9-20) mg/dL Creatinine (0.66-1.25) mg/dL Glucose (74-99) mg/dL POC Glucose (mg/dL) 176 H 162 H 153 H (70-110) mg/dL Calcium (8.4-10.2) mg/dL Ionized Calcium [place] (4.5-5.3) mg/dL Magnesium (1.6-2.3) mg/dL Total Bilirubin (0.2-1.3) mg/dL AST (17-59) U/L Alkaline Phosphatase (38-126) U/L Total Protein (6.3-8.2) g/dL Albumin (3.5-5.0) g/dL Arterial Blood Potassium (3.4-4.5) mmol/L Arterial Blood Glucose (75-99) mg/dL Crossmatch
[2023-09-28 12:16] LABS: Glucose,Whole Blood 154 mg/dL (70-110)
--- NOTE | 2023-09-28 12:41 | P.PN ---
Subjective Progress Note Date: 09/28/23 Principal diagnosis: Multivessel coronary artery disease. Past medical history significant for hypertension, hyperlipidemia, diabetes mellitus type 2, atrial fibrillation since 2016 on Eliquis for anticoagulation as an outpatient, obstructive sleep apnea, uses BiPAP, chronic renal insufficiency, history of coronary artery disease, status post multiple coronary stents, gout, kidney stones and is a lifetime nonsmoker. POD #1 coronary artery bypass grafting 4 vessels (left internal mammary artery to left anterior descending coronary artery, a saphenous vein graft to the obt use marginal coronary artery one, a saphenous vein graft to the obtuse marginal coronary artery 3, and a saphenous vein graft to the posterior descending coronary artery, endoscopic harvesting bilateral greater saphenous veins, ligation of the left atrial appendage using a 35 mm Atriclip, epi-aortic ultrasound, intraoperative transesophageal echocardiogram, graft flow measurements using the Medistim system, and closure of the sternum using Tritium plating device. Postoperative acute blood loss anemia, expected given hemodilution and cardiopulmonary bypass. The patient was seen and examined in follow-up today 10/08/2023 at his bedside in the intensive care unit. He is currently sitting up to the bedside chair, is awake, alert, oriented 3 and is in no acute distress. He denies any complaints of shortness of breath at this time, although is complaining of some surgical type pain to his chest tube insertion sites, currently rating his pain 8/9 out of 10 on the pain scale. He was successfully extubated at 8:41 PM last evening, is currently on 2 L nasal cannula with oxygen saturations 93% and he is achieving 1000 mL on his incentive spirometry with encouragement. Bedside telemetry is showing a DDD paced rhythm heart rate 80, underlying rhythm is showing a first-degree heart block with a heart rate in the 70s. Her remains hemodynamically stable and is currently on no inotropic or pressor support. Right IJ Cordis and [place]-Ted catheter remain in place with current hemodynamic showing a cardiac output of 9.6, cardiac index 4.0, pulmonary artery pressures 35/16 and CVP 12 mmHg. Mediastinal/left/right chest tubes remains to low contiuous continuous wall suction -20 cm H2O. No air leak is present. Draining thin serosanguineous drainage with thin serosanguineous drainage. Right pleural chest tube drained 105 mL output in the last 8 hours and 130 mL output in the last 24 hours, mediastinal chest tube drained 160 mL of thin shows sinus drainage in the last 8 hours and 350 milliliters output in the last 24 hours, left pleural chest tube drained 180 mL output in the last 8 hours and 280 mL output in the last 24 hours. Atrial and ventricular epicardial pacemaker wires remain in place and are connected the backup bedside pacemaker generator currently pacing at DDD rate of 80. Laboratory and chest x-ray results reviewed. Objective - Vital Signs Vital signs: Vital Signs Temp 100.0 F H 09/28/23 04:00 Pulse 70 09/28/23 11:15 Resp 20 09/28/23 11:15 BP 107/49 09/28/23 11:15 Pulse Ox 93 L 09/28/23 11:15 FiO2 50 09/27/23 20:00 Intake & Output 09/27/23 09/28/23 09/28/23 18:59 06:59 18:59 Intake Total 7627.815 9931.177 652.087 Output Total 2940 1178 305 Balance -1531.480 -135.823 347.087 Weight 133.1 kg 133.1 kg Intake: IV 181 838 296 0.9 FOR CO/CI 60 180 60 0.9 PRESSURE BAGS 18 108 36 Lactated Ringers 1,000 ml 550 200 @ 50 mls/hr IV .Q20H [facility] Rx#:[id number] Intake, IV Titration 926.520 104.177 56.087 Amount ACETAMINOPHEN IV (For NPO 100 ) 1,000 mg In Empty Bag 1 bag @ 400 mls/hr IVPB Q6H [facility] Rx#:[id number] Albumin Human 5% 250 ml 500 In Empty Bag 1 bag @ 250 mls/hr IVPB Q1HR PRN Rx#: [id number] Calcium Gluconate in NaCl 100 2 gm In Saline 1 100ml. bag @ 100 mls/hr IVPB ONCE PRN Rx#:[id number] Insulin Regular 100 unit 7.575 33.894 31.444 In Sodium Chloride 0.9% 100 ml @ Per Protocol IV .Q0M [facility] Rx#:[id number] Lactated Ringers 1,000 ml 150 50 @ 50 mls/hr IV .Q20H [facility] Rx#:[id number] Norepinephrine 4 mg In 31.853 20.283 24.643 Sodium Chloride 0.9% 250 ml @ 0.02 MCG/KG/MIN 10. 058 mls/hr IV .Q24H [facility] Rx#:[id number] propofoL 1,000 mg In 37.092 Empty Bag 1 bag @ Titrate IV .Q0M [facility] Rx#: [id number] Oral 300 Tube Feeding 100 Blood Product 301 Rc Pheresis 2 As3 Unit 301 [id number] Output: Chest Tube Drainage 155 603 140 Chest Tube Mediastinal 75 240 50 Pleural Catheter Left 65 243 70 Pleural Catheter Right 15 120 20 Drainage 5 15 Right Thigh 5 15 Urine 780 575 150 Estimated Blood Loss 1999 Other: Voiding Method Indwelling Catheter Indwelling Catheter Indwelling Catheter ABP, PAP, CO, CI - Last Documented Arterial Blood Pressure 102/27 Pulmonary Artery Pressure 16/0 Cardiac Output 7.3 Cardiac Index 3.0 - Exam CONSTITUTIONAL: Sitting up to the bedside chair in the intensive care unit, appears comfortable, cooperative, no apparent acute distress. HEENT: Neck is supple, no JVD, no lymphadenopathy. Right IJ Cordis and [place]- Ted catheter in place and functioning. RESPIRATORY: Lungs sounds essentially clear throughout, diminished to his bilateral bases. Respirations are symmetrical and nonlabored. Currently on 2 L nasal cannula with oxygen saturations 93%. Able to achieve 1000 mL on his incentive spirometry. Strong cough. CARDIOVASCULAR: Regular rhythm and rate. S1 and S2 present, negative for S3, gallop or murmur. Sternum is stable. Palpable peripheral pulses bilaterally, trace to his bilateral lower extremities. No calf pain or tenderness noted. Heart hugger in place with patient demonstrating appropriate use. Knee-high GIOVANA hose and sequential compression devices in place to his bilateral lower extremities. GASTROINTESTINAL: Abdomen soft, nontender, nondistended. Obese. Hypoactive bowel sounds present 4 quadrants. Tolerating diet. Passing flatus. No guarding or rigidity. GENITOURINARY: Briceno present draining clear, yellow urine. Urine output 355 mL in the last 8 hours INTEGUMENTARY: Skin is warm and dry with no evidence of clubbing or cyanosis. Midline sternal incision clean dry and well approximated, covered with dry intact dressing. Bilateral lower extremity EVH sites well approximated without redness or drainage. Right leg JUNAID drain in place and draining scant thin serosanguineous drainage. NEUROLOGIC: Cranial nerves II through XII intact. No focal deficits. MUSKULOSKELETAL: Able to move all extremities, strength equal bilaterally, generalized weakness. PSYCHIATRIC: Alert and oriented to person place and time, appropriate affect, intact judgment and insight. INVASIVE LINES AND TUBES: Mediastinal/left/right pleural chest tubes present an d connected to low continuous wall suction, no air leaks present. Mediastinal tube with 160 mL of thin serosanguineous drainage overnight, 350 mL output in the last 24 hours. Left pleural chest tube with 180 mL of thin serosanguineous drainage overnight, 280 mL output in the last 24 hours. Right pleural chest tube with 105 mL of thin serosanguineous drainage overnight, 130 mL output in the last 24 hours. Atrial and ventricular epicardial pacemaker wires present, connected to generator, DDD heart rate 80 bpm. Right internal jugular [place]/Cordis, right radial arterial line present. Last CO 9.6, CI 4.0, PA 35/16 and CVP 12 mmHg. Right lower extremity JUNAID drain in place with scant thin serosan guineous drainage with 40 mL output in the last 8 hours. - Allied health notes Allied health notes reviewed: nursing - Labs CBC & Chem 7: 09/28/23 03:55 09/28/23 03:55 Labs: Abnormal Lab Results - Last 24 Hours (Table) 09/19/23 09/27/23 09/27/23 Range/Units 09:20 08:19 10:05 RBC (4.30-5.90) m/uL Hgb (13.0-17.5) gm/dL Hct (39.0-53.0) % RDW (11.5-15.5) % Plt Count (150-450) k/uL Lymphocytes # (1.0-4.8) k/uL PT (10.0-12.5) sec INR (<1.2) ABG pH 7.33 L (7.35-7.45) ABG pCO2 (35-45) mmHg ABG pO2 249 H 147 H (83-108) mmHg ABG Total CO2 25 H (19-24) mmol/L ABG O2 Saturation 100.0 H 99.2 H (94-97) % ABG Hematocrit 33 L 32 L (34.0-46.0) % ABG Potassium 4.9 H (3.4-4.5) mmol/L ABG Ionized Calcium (4.5-5.3) mg/dL ABG Glucose 172 H 137 H (75-99) mg/dL ABG Lactic Acid 1.8 H (0.5-1.6) mmol/L Hemoglobin 10.7 L 10.5 L (13.0-17.5) gm/dL Chloride (98-107) mmol/L Carbon Dioxide (22-30) mmol/L BUN (9-20) mg/dL Creatinine (0.66-1.25) mg/dL Glucose (74-99) mg/dL POC Glucose (mg/dL) (70-110) mg/dL Calcium (8.4-10.2) mg/dL Ionized Calcium [place] (4.5-5.3) mg/dL Magnesium (1.6-2.3) mg/dL Total Bilirubin (0.2-1.3) mg/dL AST (17-59) U/L Alkaline Phosphatase (38-126) U/L Total Protein (6.3-8.2) g/dL Albumin (3.5-5.0) g/dL Arterial Blood Potassium 4.9 H (3.4-4.5) mmol/L Arterial Blood Glucose 172 H 137 H (75-99) mg/dL Crossmatch See Detail 09/27/23 09/27/23 09/27/23 Range/Units 11:04 11:32 11:58 RBC (4.30-5.90) m/uL Hgb (13.0-17.5) gm/dL Hct (39.0-53.0) % RDW (11.5-15.5) % Plt Count (150-450) k/uL Lymphocytes # (1.0-4.8) k/uL PT (10.0-12.5) sec INR (<1.2) ABG pH (7.35-7.45) ABG pCO2 (35-45) mmHg ABG pO2 >420 H 383 H 376 H (83-108) mmHg ABG Total CO2 (19-24) mmol/L ABG O2 Saturation 100.0 H 100.0 H 100.0 H (94-97) % ABG Hematocrit 24 L 23 L 23 L (34.0-46.0) % ABG Potassium 5.1 H 5.5 H 5.8 H (3.4-4.5) mmol/L ABG Ionized Calcium 4.0 L 3.9 L 4.0 L (4.5-5.3) mg/dL ABG Glucose 133 H 144 H 166 H (75-99) mg/dL ABG Lactic Acid (0.5-1.6) mmol/L Hemoglobin 8.0 L 7.3 L 7.3 L (13.0-17.5) gm/dL Chloride (98-107) mmol/L Carbon Dioxide (22-30) mmol/L BUN (9-20) mg/dL Creatinine (0.66-1.25) mg/dL Glucose (74-99) mg/dL POC Glucose (mg/dL) (70-110) mg/dL Calcium (8.4-10.2) mg/dL Ionized Calcium [place] (4.5-5.3) mg/dL Magnesium (1.6-2.3) mg/dL Total Bilirubin (0.2-1.3) mg/dL AST (17-59) U/L Alkaline Phosphatase (38-126) U/L Total Protein (6.3-8.2) g/dL Albumin (3.5-5.0) g/dL Arterial Blood Potassium 5.1 H 5.5 H 5.8 H (3.4-4.5) mmol/L Arterial Blood Glucose 133 H 144 H 166 H (75-99) mg/dL Crossmatch 09/27/23 09/27/23 09/27/23 Range/Units 12:14 12:45 13:12 RBC (4.30-5.90) m/uL Hgb (13.0-17.5) gm/dL Hct (39.0-53.0) % RDW (11.5-15.5) % Plt Count (150-450) k/uL Lymphocytes # (1.0-4.8) k/uL PT (10.0-12.5) sec INR (<1.2) ABG pH 7.33 L 7.34 L 7.34 L (7.35-7.45) ABG pCO2 (35-45) mmHg ABG pO2 378 H 357 H >420 H (83-108) mmHg ABG Total CO2 (19-24) mmol/L ABG O2 Saturation 100.0 H 100.0 H 100.0 H (94-97) % ABG Hematocrit 21 L 20 L* 21 L (34.0-46.0) % ABG Potassium 5.6 H 5.8 H 5.9 H (3.4-4.5) mmol/L ABG Ionized Calcium 3.7 L 3.7 L (4.5-5.3) mg/dL ABG Glucose 158 H 156 H 164 H (75-99) mg/dL ABG Lactic Acid 1.9 H 3.0 H* (0.5-1.6) mmol/L Hemoglobin 6.9 L* 6.5 L* 7.0 L* (13.0-17.5) gm/dL Chloride (98-107) mmol/L Carbon Dioxide (22-30) mmol/L BUN (9-20) mg/dL Creatinine (0.66-1.25) mg/dL Glucose (74-99) mg/dL POC Glucose (mg/dL) (70-110) mg/dL Calcium (8.4-10.2) mg/dL Ionized Calcium [place] (4.5-5.3) mg/dL Magnesium (1.6-2.3) mg/dL Total Bilirubin (0.2-1.3) mg/dL AST (17-59) U/L Alkaline Phosphatase (38-126) U/L Total Protein (6.3-8.2) g/dL Albumin (3.5-5.0) g/dL Arterial Blood Potassium 5.6 H 5.8 H 5.9 H (3.4-4.5) mmol/L Arterial Blood Glucose 158 H 156 H 164 H (75-99) mg/dL Crossmatch 09/27/23 09/27/23 09/27/23 Range/Units 13:24 14:13 15:45 RBC 2.68 L (4.30-5.90) m/uL Hgb 7.9 L (13.0-17.5) gm/dL Hct 24.6 L (39.0-53.0) % RDW 17.2 H (11.5-15.5) % Plt Count 108 L (150-450) k/uL Lymphocytes # (1.0-4.8) k/uL PT (10.0-12.5) sec INR (<1.2) ABG pH (7.35-7.45) ABG pCO2 (35-45) mmHg ABG pO2 >420 H (83-108) mmHg ABG Total CO2 (19-24) mmol/L ABG O2 Saturation 100.0 H 98.5 H (94-97) % ABG Hematocrit 21 L 24 L (34.0-46.0) % ABG Potassium 5.3 H (3.4-4.5) mmol/L ABG Ionized Calcium 4.3 L 4.1 L (4.5-5.3) mg/dL ABG Glucose 214 H 124 H (75-99) mg/dL ABG Lactic Acid 2.7 H* 2.2 H* (0.5-1.6) mmol/L Hemoglobin 6.8 L* 7.7 L (13.0-17.5) gm/dL Chloride (98-107) mmol/L Carbon Dioxide (22-30) mmol/L BUN (9-20) mg/dL Creatinine (0.66-1.25) mg/dL Glucose (74-99) mg/dL POC Glucose (mg/dL) (70-110) mg/dL Calcium (8.4-10.2) mg/dL Ionized Calcium [place] (4.5-5.3) mg/dL Magnesium (1.6-2.3) mg/dL Total Bilirubin (0.2-1.3) mg/dL AST (17-59) U/L Alkaline Phosphatase (38-126) U/L Total Protein (6.3-8.2) g/dL Albumin (3.5-5.0) g/dL Arterial Blood Potassium 5.3 H (3.4-4.5) mmol/L Arterial Blood Glucose 214 H 124 H (75-99) mg/dL Crossmatch 09/27/23 09/27/23 09/27/23 Range/Units 15:45 15:45 15:46 RBC (4.30-5.90) m/uL Hgb (13.0-17.5) gm/dL Hct (39.0-53.0) % RDW (11.5-15.5) % Plt Count (150-450) k/uL Lymphocytes # (1.0-4.8) k/uL PT 15.5 H (10.0-12.5) sec INR 1.5 H (<1.2) ABG pH (7.35-7.45) ABG pCO2 (35-45) mmHg ABG pO2 (83-108) mmHg ABG Total CO2 (19-24) mmol/L ABG O2 Saturation (94-97) % ABG Hematocrit (34.0-46.0) % ABG Potassium (3.4-4.5) mmol/L ABG Ionized Calcium (4.5-5.3) mg/dL ABG Glucose (75-99) mg/dL ABG Lactic Acid (0.5-1.6) mmol/L Hemoglobin (13.0-17.5) gm/dL Chloride 110 H (98-107) mmol/L Carbon Dioxide (22-30) mmol/L BUN (9-20) mg/dL Creatinine 1.31 H (0.66-1.25) mg/dL Glucose 105 H (74-99) mg/dL POC Glucose (mg/dL) 118 H (70-110) mg/dL Calcium 7.0 L (8.4-10.2) mg/dL Ionized Calcium [place] 4.3 L (4.5-5.3) mg/dL Magnesium 2.4 H (1.6-2.3) mg/dL Total Bilirubin 1.4 H (0.2-1.3) mg/dL AST 84 H (17-59) U/L Alkaline Phosphatase 35 L (38-126) U/L Total Protein 4.5 L (6.3-8.2) g/dL Albumin 2.7 L (3.5-5.0) g/dL Arterial Blood Potassium (3.4-4.5) mmol/L Arterial Blood Glucose (75-99) mg/dL Crossmatch 09/27/23 09/27/23 09/27/23 Range/Units 16:20 17:00 18:12 RBC (4.30-5.90) m/uL Hgb (13.0-17.5) gm/dL Hct (39.0-53.0) % RDW (11.5-15.5) % Plt Count (150-450) k/uL Lymphocytes # (1.0-4.8) k/uL PT (10.0-12.5) sec INR (<1.2) ABG pH 7.30 L (7.35-7.45) ABG pCO2 48 H (35-45) mmHg ABG pO2 352 H (83-108) mmHg ABG Total CO2 25 H (19-24) mmol/L ABG O2 Saturation 99.7 H (94-97) % ABG Hematocrit (34.0-46.0) % ABG Potassium (3.4-4.5) mmol/L ABG Ionized Calcium (4.5-5.3) mg/dL ABG Glucose (75-99) mg/dL ABG Lactic Acid (0.5-1.6) mmol/L Hemoglobin (13.0-17.5) gm/dL Chloride (98-107) mmol/L Carbon Dioxide (22-30) mmol/L BUN (9-20) mg/dL Creatinine (0.66-1.25) mg/dL Glucose (74-99) mg/dL POC Glucose (mg/dL) 112 H 150 H (70-110) mg/dL Calcium (8.4-10.2) mg/dL Ionized Calcium [place] (4.5-5.3) mg/dL Magnesium (1.6-2.3) mg/dL Total Bilirubin (0.2-1.3) mg/dL AST (17-59) U/L Alkaline Phosphatase (38-126) U/L Total Protein (6.3-8.2) g/dL Albumin (3.5-5.0) g/dL Arterial Blood Potassium (3.4-4.5) mmol/L Arterial Blood Glucose (75-99) mg/dL Crossmatch 09/27/23 09/27/23 09/27/23 Range/Units 18:45 18:47 19:58 RBC 2.40 L (4.30-5.90) m/uL Hgb 7.3 L (13.0-17.5) gm/dL Hct 22.0 L (39.0-53.0) % RDW 17.0 H (11.5-15.5) % Plt Count 100 L (150-450) k/uL Lymphocytes # 0.7 L (1.0-4.8) k/uL PT (10.0-12.5) sec INR (<1.2) ABG pH (7.35-7.45) ABG pCO2 (35-45) mmHg ABG pO2 (83-108) mmHg ABG Total CO2 (19-24) mmol/L ABG O2 Saturation (94-97) % ABG Hematocrit (34.0-46.0) % ABG Potassium (3.4-4.5) mmol/L ABG Ionized Calcium (4.5-5.3) mg/dL ABG Glucose (75-99) mg/dL ABG Lactic Acid (0.5-1.6) mmol/L Hemoglobin (13.0-17.5) gm/dL Chloride (98-107) mmol/L Carbon Dioxide (22-30) mmol/L BUN (9-20) mg/dL Creatinine (0.66-1.25) mg/dL Glucose (74-99) mg/dL POC Glucose (mg/dL) 176 H 134 H (70-110) mg/dL Calcium (8.4-10.2) mg/dL Ionized Calcium [place] (4.5-5.3) mg/dL Magnesium (1.6-2.3) mg/dL Total Bilirubin (0.2-1.3) mg/dL AST (17-59) U/L Alkaline Phosphatase (38-126) U/L Total Protein (6.3-8.2) g/dL Albumin (3.5-5.0) g/dL Arterial Blood Potassium (3.4-4.5) mmol/L Arterial Blood Glucose (75-99) mg/dL Crossmatch 09/27/23 09/27/23 09/27/23 Range/Units 20:12 20:54 21:25 RBC 2.31 L (4.30-5.90) m/uL Hgb 6.9 L* (13.0-17.5) gm/dL Hct 21.0 L (39.0-53.0) % RDW 17.1 H (11.5-15.5) % Plt Count 78 L (150-450) k/uL Lymphocytes # 0.6 L (1.0-4.8) k/uL PT (10.0-12.5) sec INR (<1.2) ABG pH (7.35-7.45) ABG pCO2 (35-45) mmHg ABG pO2 179 H (83-108) mmHg ABG Total CO2 (19-24) mmol/L ABG O2 Saturation 98.8 H (94-97) % ABG Hematocrit (34.0-46.0) % ABG Potassium (3.4-4.5) mmol/L ABG Ionized Calcium (4.5-5.3) mg/dL ABG Glucose (75-99) mg/dL ABG Lactic Acid (0.5-1.6) mmol/L Hemoglobin (13.0-17.5) gm/dL Chloride (98-107) mmol/L Carbon Dioxide (22-30) mmol/L BUN (9-20) mg/dL Creatinine (0.66-1.25) mg/dL Glucose (74-99) mg/dL POC Glucose (mg/dL) 154 H (70-110) mg/dL Calcium (8.4-10.2) mg/dL Ionized Calcium [place] (4.5-5.3) mg/dL Magnesium (1.6-2.3) mg/dL Total Bilirubin (0.2-1.3) mg/dL AST (17-59) U/L Alkaline Phosphatase (38-126) U/L Total Protein (6.3-8.2) g/dL Albumin (3.5-5.0) g/dL Arterial Blood Potassium (3.4-4.5) mmol/L Arterial Blood Glucose (75-99) mg/dL Crossmatch 09/27/23 09/27/23 09/28/23 Range/Units 21:58 23:03 01:01 RBC (4.30-5.90) m/uL Hgb (13.0-17.5) gm/dL Hct (39.0-53.0) % RDW (11.5-15.5) % Plt Count (150-450) k/uL Lymphocytes # (1.0-4.8) k/uL PT (10.0-12.5) sec INR (<1.2) ABG pH (7.35-7.45) ABG pCO2 (35-45) mmHg ABG pO2 (83-108) mmHg ABG Total CO2 (19-24) mmol/L ABG O2 Saturation (94-97) % ABG Hematocrit (34.0-46.0) % ABG Potassium (3.4-4.5) mmol/L ABG Ionized Calcium (4.5-5.3) mg/dL ABG Glucose (75-99) mg/dL ABG Lactic Acid (0.5-1.6) mmol/L Hemoglobin (13.0-17.5) gm/dL Chloride (98-107) mmol/L Carbon Dioxide (22-30) mmol/L BUN (9-20) mg/dL Creatinine (0.66-1.25) mg/dL Glucose (74-99) mg/dL POC Glucose (mg/dL) 138 H 135 H 168 H (70-110) mg/dL Calcium (8.4-10.2) mg/dL Ionized Calcium [place] (4.5-5.3) mg/dL Magnesium (1.6-2.3) mg/dL Total Bilirubin (0.2-1.3) mg/dL AST (17-59) U/L Alkaline Phosphatase (38-126) U/L Total Protein (6.3-8.2) g/dL Albumin (3.5-5.0) g/dL Arterial Blood Potassium (3.4-4.5) mmol/L Arterial Blood Glucose (75-99) mg/dL Crossmatch 09/28/23 09/28/23 09/28/23 Range/Units 02:00 03:09 03:55 RBC 2.29 L (4.30-5.90) m/uL Hgb 6.8 L* (13.0-17.5) gm/dL Hct 20.8 L (39.0-53.0) % RDW 17.4 H (11.5-15.5) % Plt Count 79 L (150-450) k/uL Lymphocytes # 0.7 L (1.0-4.8) k/uL PT (10.0-12.5) sec INR (<1.2) ABG pH (7.35-7.45) ABG pCO2 (35-45) mmHg ABG pO2 (83-108) mmHg ABG Total CO2 (19-24) mmol/L ABG O2 Saturation (94-97) % ABG Hematocrit (34.0-46.0) % ABG Potassium (3.4-4.5) mmol/L ABG Ionized Calcium (4.5-5.3) mg/dL ABG Glucose (75-99) mg/dL ABG Lactic Acid (0.5-1.6) mmol/L Hemoglobin (13.0-17.5) gm/dL Chloride (98-107) mmol/L Carbon Dioxide (22-30) mmol/L BUN (9-20) mg/dL Creatinine (0.66-1.25) mg/dL Glucose (74-99) mg/dL POC Glucose (mg/dL) 156 H 137 H (70-110) mg/dL Calcium (8.4-10.2) mg/dL Ionized Calcium [place] (4.5-5.3) mg/dL Magnesium (1.6-2.3) mg/dL Total Bilirubin (0.2-1.3) mg/dL AST (17-59) U/L Alkaline Phosphatase (38-126) U/L Total Protein (6.3-8.2) g/dL Albumin (3.5-5.0) g/dL Arterial Blood Potassium (3.4-4.5) mmol/L Arterial Blood Glucose (75-99) mg/dL Crossmatch 09/28/23 09/28/23 09/28/23 Range/Units 03:55 03:55 05:13 RBC (4.30-5.90) m/uL Hgb (13.0-17.5) gm/dL Hct (39.0-53.0) % RDW (11.5-15.5) % Plt Count (150-450) k/uL Lymphocytes # (1.0-4.8) k/uL PT (10.0-12.5) sec INR (<1.2) ABG pH (7.35-7.45) ABG pCO2 (35-45) mmHg ABG pO2 (83-108) mmHg ABG Total CO2 (19-24) mmol/L ABG O2 Saturation (94-97) % ABG Hematocrit (34.0-46.0) % ABG Potassium (3.4-4.5) mmol/L ABG Ionized Calcium (4.5-5.3) mg/dL ABG Glucose (75-99) mg/dL ABG Lactic Acid (0.5-1.6) mmol/L Hemoglobin (13.0-17.5) gm/dL Chloride 109 H (98-107) mmol/L Carbon Dioxide 20 L (22-30) mmol/L BUN 24 H (9-20) mg/dL Creatinine 1.64 H (0.66-1.25) mg/dL Glucose 127 H (74-99) mg/dL POC Glucose (mg/dL) 145 H 128 H (70-110) mg/dL Calcium 7.6 L (8.4-10.2) mg/dL Ionized Calcium [place] 4.4 L (4.5-5.3) mg/dL Magnesium 2.4 H (1.6-2.3) mg/dL Total Bilirubin (0.2-1.3) mg/dL AST 116 H (17-59) U/L Alkaline Phosphatase (38-126) U/L Total Protein 4.9 L (6.3-8.2) g/dL Albumin 2.9 L (3.5-5.0) g/dL Arterial Blood Potassium (3.4-4.5) mmol/L Arterial Blood Glucose (75-99) mg/dL Crossmatch 09/28/23 09/28/23 09/28/23 Range/Units 05:54 06:59 08:37 RBC (4.30-5.90) m/uL Hgb (13.0-17.5) gm/dL Hct (39.0-53.0) % RDW (11.5-15.5) % Plt Count (150-450) k/uL Lymphocytes # (1.0-4.8) k/uL PT (10.0-12.5) sec INR (<1.2) ABG pH (7.35-7.45) ABG pCO2 (35-45) mmHg ABG pO2 (83-108) mmHg ABG Total CO2 (19-24) mmol/L ABG O2 Saturation (94-97) % ABG Hematocrit (34.0-46.0) % ABG Potassium (3.4-4.5) mmol/L ABG Ionized Calcium (4.5-5.3) mg/dL ABG Glucose (75-99) mg/dL ABG Lactic Acid (0.5-1.6) mmol/L Hemoglobin (13.0-17.5) gm/dL Chloride (98-107) mmol/L Carbon Dioxide (22-30) mmol/L BUN (9-20) mg/dL Creatinine (0.66-1.25) mg/dL Glucose (74-99) mg/dL POC Glucose (mg/dL) 134 H 160 H 191 H (70-110) mg/dL Calcium (8.4-10.2) mg/dL Ionized Calcium [place] (4.5-5.3) mg/dL Magnesium (1.6-2.3) mg/dL Total Bilirubin (0.2-1.3) mg/dL AST (17-59) U/L Alkaline Phosphatase (38-126) U/L Total Protein (6.3-8.2) g/dL Albumin (3.5-5.0) g/dL Arterial Blood Potassium (3.4-4.5) mmol/L Arterial Blood Glucose (75-99) mg/dL Crossmatch 09/28/23 09/28/23 09/28/23 Range/Units 09:19 09:58 10:58 RBC (4.30-5.90) m/uL Hgb (13.0-17.5) gm/dL Hct (39.0-53.0) % RDW (11.5-15.5) % Plt Count (150-450) k/uL Lymphocytes # (1.0-4.8) k/uL PT (10.0-12.5) sec INR (<1.2) ABG pH (7.35-7.45) ABG pCO2 (35-45) mmHg ABG pO2 (83-108) mmHg ABG Total CO2 (19-24) mmol/L ABG O2 Saturation (94-97) % ABG Hematocrit (34.0-46.0) % ABG Potassium (3.4-4.5) mmol/L ABG Ionized Calcium (4.5-5.3) mg/dL ABG Glucose (75-99) mg/dL ABG Lactic Acid (0.5-1.6) mmol/L Hemoglobin (13.0-17.5) gm/dL Chloride (98-107) mmol/L Carbon Dioxide (22-30) mmol/L BUN (9-20) mg/dL Creatinine (0.66-1.25) mg/dL Glucose (74-99) mg/dL POC Glucose (mg/dL) 176 H 162 H 153 H (70-110) mg/dL Calcium (8.4-10.2) mg/dL Ionized Calcium [place] (4.5-5.3) mg/dL Magnesium (1.6-2.3) mg/dL Total Bilirubin (0.2-1.3) mg/dL AST (17-59) U/L Alkaline Phosphatase (38-126) U/L Total Protein (6.3-8.2) g/dL Albumin (3.5-5.0) g/dL Arterial Blood Potassium (3.4-4.5) mmol/L Arterial Blood Glucose (75-99) mg/dL Crossmatch - Imaging and Cardiology Chest x-ray: report reviewed, image reviewed Assessment and Plan Assessment: Multivessel coronary artery disease, status post coronary artery bypass grafting 4 vessels History of coronary artery disease with multiple stent in the past Hypertension Hyperlipidemia Atrial fibrillation since 2016 on Eliquis for anticoagulation as an outpatient Diabetes mellitus type 2, with a preoperative hemoglobin A1c of 6.8% Obstructive sleep apnea with home BiPAP use Chronic renal insufficiency History of gout History of kidney stones Lifetime nonsmoker Postoperative acute blood loss anemia, expected given hemodilution and cardiopulmonary bypass Plan: Continue to maximize medical therapy with aspirin, statin, and Plavix. Will hold beta jayna this morning as his underlying rhythm is first-degree heart block normal sinus heart rate in the 70s. Discontinue IV nitroglycerin drip. Wean O2 as tolerated. Encourage incentive spirometry use 10 times every hour while awake. Bronchodilators per pulmonology. Increase activity, ambulate as tolerated. PT/OT/cardiac rehab consulted. Will monitor daily labs and chest x-rays. Electrolyte replacement per protocol. GI/DVT prophylaxis. Pain control per current medication regimen. Avoid nephrotoxic agents as the patient has a history of chronic renal insufficiency. We will not add Toradol due to his kidney function. Insulin management per internal medicine service. Patient is a diabetic, hemoglobin A1c 6.8%. Needs to remain on insulin drip for 48 hours, then may transition to subcutaneous per protocol Discontinue [place]. Connect right IJ Cordis to continuous CVP monitoring Discontinue JUNAID drain to his right leg. Continue mediastinal/left/right pleural chest tubes for another 24 hours, monitor output Continue Briceno catheter for another 24 hours, continue to record strict accurate intake and output Daily weights Fentanyl 25 g 1 now IVP for additional pain control. Keep atrial and ventricular epicardial pacemaker wires in place, place pacemaker generator to a AAI mode with a rate of 70 bpm. More recommendations to follow based on patient's progress Time with Patient: Greater than 30
[2023-09-28 13:28] LABS: Glucose,Whole Blood 134 mg/dL (70-110)
[2023-09-28 15:02] LABS: Glucose,Whole Blood 91 mg/dL (70-110)
[2023-09-28 16:27] LABS: Glucose,Whole Blood 182 mg/dL (70-110)
[2023-09-28 16:59] LABS: Glucose,Whole Blood 185 mg/dL (70-110)
[2023-09-28] MEDS: INSULIN REGULAR 100 UNIT in SODIUM CHLORIDE 0.9% 100 ML IV SCH (18:11)
[2023-09-28 18:12] LABS: Glucose,Whole Blood 187 mg/dL (70-110)
[2023-09-28 19:21] LABS: Glucose,Whole Blood 144 mg/dL (70-110)
[2023-09-28 19:54] LABS: Glucose,Whole Blood 133 mg/dL (70-110)
[2023-09-28] MEDS: LACTATED RINGERS 1,000 ML IV SCH (20:28)
[2023-09-28 21:06] LABS: Glucose,Whole Blood 138 mg/dL (70-110)
[2023-09-28] MEDS: SENNOSIDES-DOCUSATE SODIUM 1 EACH TAB PO SCH (21:49)
[2023-09-28 22:00] LABS: Glucose,Whole Blood 120 mg/dL (70-110)
[2023-09-28 22:12] LABS: ABG Base Excess -1.5 mmol/L; ABG HCO3 22 mmol/L (21-25); ABG Oxygen Saturation 97.7 % (94-97); ABG PCO2 28 mmHg (35-45); ABG PH 7.49 (7.35-7.45); ABG PO2 79 mmHg (83-108); ABG TCO2 23 mmol/L (19-24); Allen Test Performed? Yes
[2023-09-28] MEDS ORDERED: NALOXONE 0.4 MG/ML 1 ML VIAL ONE (22:29)
[2023-09-28] MEDS ORDERED: NALOXONE 0.4 MG/ML 1 ML VIAL IVP STA (22:30)
[2023-09-28 23:02] LABS: Glucose,Whole Blood 116 mg/dL (70-110)
[2023-09-29 00:09] LABS: Glucose,Whole Blood 119 mg/dL (70-110)
[2023-09-29] MEDS: ceFAZolin 3 GM in SODIUM CHLORIDE 0.9% 100 ML IVPB SCH (00:12)
[2023-09-29] MEDS: HEPARIN SODIUM,PORCINE 5,000 UNIT/ML 1 ML VIAL SQ SCH ×4 (00:12→23:46)
[2023-09-29 01:05] LABS: Glucose,Whole Blood 119 mg/dL (70-110)
[2023-09-29 01:57] LABS: Glucose,Whole Blood 123 mg/dL (70-110)
[2023-09-29 03:07] LABS: Glucose,Whole Blood 119 mg/dL (70-110)
[2023-09-29 04:07] LABS: Glucose,Whole Blood 124 mg/dL (70-110)
[2023-09-29 05:02] LABS: Ionized Calcium 4.3 mg/dL (4.5-5.3)
[2023-09-29 05:03] LABS: Glucose,Whole Blood 123 mg/dL (70-110)
[2023-09-29 05:11] LABS: ALT 48 U/L (4-49); AST 252 U/L (17-59); African American GFR (CKD) 39 (>60 ml/min/1.73 sqM); Albumin 2.9 g/dL (3.5-5.0); Alkaline Phosphatase 47 U/L (38-126); Anion Gap 8 mmol/L; Blood Urea Nitrogen 31 mg/dL (9-20); Calcium 7.5 mg/dL (8.4-10.2); Carbon Dioxide 20 mmol/L (22-30); Chloride 109 mmol/L (98-107); Glucose 107 mg/dL (74-99); Non-African American GFR(CKD) 34 (>60 ml/min/1.73 sqM); Potassium 3.9 mmol/L (3.5-5.1); Sodium 137 mmol/L (137-145); Total Bilirubin 0.5 mg/dL (0.2-1.3)
[2023-09-29 05:12] LABS: Anisocytosis Slight; Basophils % (A) 0 %; Eosinophils % (A) 0 %; Lymphocytes % (A) 15 %; MCH 29.9 pg (25.0-35.0); MCHC 33.3 g/dL (31.0-37.0); MCV 89.9 fL (80.0-100.0); Mean Platelet Volume 10.5; Monocytes # (A) 0.6 k/uL (0-1.0); Monocytes % (A) 8 %; Neutrophils # (A) 5.2 k/uL (1.3-7.7); Neutrophils % (A) 74 %; Platelet Count 104 k/uL (150-450); Poikilocytosis Slight; RBC 2.23 m/uL (4.30-5.90); RDW 17.6 % (11.5-15.5); WBC 7.1 k/uL (3.8-10.6)
[2023-09-29 05:18] LABS: HGB 6.7 gm/dL (13.0-17.5)
[2023-09-29] MEDS ORDERED: POTASSIUM CHLORIDE ER 20 MEQ TAB.ER PO SCH (06:00)
[2023-09-29 06:02] LABS: Glucose,Whole Blood 107 mg/dL (70-110)
[2023-09-29] MEDS: PANTOPRAZOLE 40 MG TABLET PO SCH (06:02)
[2023-09-29 06:57] LABS: Glucose,Whole Blood 179 mg/dL (70-110)
[2023-09-29] MEDS ORDERED: CALCIUM GLUCONATE IN NACL 2 GM in SALINE 1 100ML.BAG IVPB ONE (07:13)
[2023-09-29 07:58] LABS: Glucose,Whole Blood 221 mg/dL (70-110)
[2023-09-29 08:07] LABS: ABG Base Excess -3.2 mmol/L; ABG HCO3 20 mmol/L (21-25); ABG Oxygen Saturation 96.8 % (94-97); ABG PCO2 27 mmHg (35-45); ABG PH 7.48 (7.35-7.45); ABG PO2 74 mmHg (83-108); ABG TCO2 21 mmol/L (19-24)
[2023-09-29 08:10] LABS: Allen Test Performed? no
[2023-09-29] MEDS: IPRATROPIUM-ALBUTEROL 3 ML NEB INHALATION SCH ×4 (08:11→20:56)
[2023-09-29] MEDS ORDERED: FUROSEMIDE 10 MG/ML 4 ML VIAL IV STA (08:22)
[2023-09-29] MEDS ORDERED: SODIUM BICARB 8.4% 50 ML SYR (1 MEQ/ML) IV STA (09:26)
[2023-09-29 09:27] LABS: Glucose,Whole Blood 200 mg/dL (70-110)
--- NOTE | 2023-09-29 09:37 | P.PN ---
Subjective Progress Note Date: 09/29/23 This patient is 73 and the patient underwent a four-vessel bypass surgery and the patient is being seen in the intensive care unit postop. The patient is currently sedated on propofol which is running at 20 mcg/kg/m. The patient's underwent four-vessel bypass surgery. The patient is currently well sedated on a mechanical ventilator on assist control mode at the rate of 12, tidal volume of 500, FiO2 was weaned down to 50% and PEEP is currently at 10. The patient's blood gas shows a pH of 7.29 with a pCO2 of 47 and pO2 of 352. This was on FiO2 100%. The patient was subsequently brought up respiratory rate of 24 and FiO2 was up to 50%. Chest x-ray shows adequate expansion of both lungs. [place]-Ted in good location. ET tube needs to be pushed in by around 1 cm. The patient has a right pleural, mediastinal and left pleural chest tubes. No evidence of any air leak. Output is minimal at this point in time. Carotid Dopplers at 5.8 with an index of 2.4. Patient is on norepinephrine at 0.04 mcg/kg/m, nitroglycerin drip at 5 mg/m and the patient is also on insulin drip at 1 units an hour. The patient sees a units of packed RBC. Making adequate urine output. Adequately sedated for now. No major issues otherwise. The patient is also placed at the rate of 80. Underlying cardiac rhythm is sinus bradycardia. On today's evaluation of 09/28/2023, the patient is being seen for a follow-up. The patient was extubated without any major difficulties yesterday. Currently is on room air oxygen. Sitting up on a chair. Chest x-ray shows no major abnormalities and showing postsurgical changes. The film itself facilitated. The patient has a right IJ Gants catheter in place. Patient has also 3 chest tubes, right pleural, left lower and mediastinal. Output from the chest tubes have been noted which is not excessive at this point in time and there is no evidence of any air leak. At the same time, the patient is using the incentive spirometer. He is falling approximately the thousand. Current pulse ox is 94%. His cardiac rhythm was sinus bradycardia with a first-degree AV block. The patient is currently paced at the rate of 70. Cardiac output is at 7.3. Index is at 3.0. He did encounter some hypotension yesterday and the patient was taken off the nitroglycerin drip and currently is off norepinephrine. Insulin drip is running at the rate of 6 units an hour. Hemoglobin is low at 6.8. No orders for blood transfusion at this point in time. This is being monitored. Platelet count is 79, BUN is at 24 with a creatinine of 1.6 as the patient has a component of chronic kidney disease. Briceno cath is in place. Adequate urine output. Sodium level is at 139, potassium is at 4.4, bicarb is at 20. In 2022, the patient is on oxygen at 2 L he's currently postop day #2. Doing well. Slightly lethargic and is feeling weak. No focal neurological deficits. Is worried all 4 extremities. Slightly confused. Based on that, a blood gas was done and the patient was found to have a pH of 7.48 with episodes of 27 and pO2 of 73. Serum bicarbs of 20. His chest x-ray from today showing some atelectatic change in the left lung base. The patient has a right pleural, left lower and the mediastinal chest tube. No airspace disease. No consolidation. He had some issues with drop in hemoglobin and patient was given units of packed RBC. Follow-up hemoglobin today is still low at 6.7. Another units of packed RBC will be given fluids patient today. He has sustained an acute kidney injury. Creatinine is up to 1.9 with a BUN of 31 and a sodium level is at 137. Serum bicarbs of 20. White cell count at 7.1. [place]-Ted catheter has been removed. He is on aspirin. He is on Plavix. He is on metoprolol at a dose of 12.5 mg by mouth twice a day. His underlying rhythm is sinus. He is having occasional PACs. Objective - Vital Signs Vital signs: Vital Signs Temp 98.2 F 09/29/23 04:00 Pulse 78 09/29/23 08:26 Resp 13 09/29/23 07:00 BP 141/55 09/29/23 07:00 Pulse Ox 95 09/29/23 07:00 FiO2 21 09/29/23 04:10 Intake & Output 09/28/23 09/29/23 09/29/23 18:59 06:59 18:59 Intake Total 1607.174 910.092 10.773 Output Total 630 975 Balance 977.174 -64.908 10.773 Weight 133.1 kg 139.2 kg Intake: IV 623 338 0.9 FOR CO/CI 80 0.9 PRESSURE BAGS 93 78 Lactated Ringers 1,000 ml 450 260 @ 20 mls/hr IV .Q24H [facility] Rx#:[id number] Intake, IV Titration 84.174 90.092 10.773 Amount Insulin Regular 100 unit 59.531 90.092 10.773 In Sodium Chloride 0.9% 100 ml @ Per Protocol IV .Q0M [facility]AS Rx#:[id number] Norepinephrine 4 mg In 24.643 Sodium Chloride 0.9% 250 ml @ 0.02 MCG/KG/MIN 10. 058 mls/hr IV .Q24H [facility] Rx#:[id number] Oral 900 200 Blood Product 282 Rc Pheresis 2 As3 Unit 282 [id number] Output: Chest Tube Drainage 180 405 Chest Tube Mediastinal 60 210 Pleural Catheter Left 100 120 Pleural Catheter Right 20 75 Drainage 15 Right Thigh 15 Urine 435 570 Other: Voiding Method Indwelling Catheter Indwelling Catheter ABP, PAP, CO, CI - Last Documented Arterial Blood Pressure 142/77 Pulmonary Artery Pressure 16/0 Cardiac Output 8.1 Cardiac Index 3.3 - Exam Patient is currently sedated, comfortable, awake and alert on 2 liters Head exam was generally normal. There was no scleral icterus or corneal arcus. Mucous membranes were moist. Neck was supple and without jugular venous distension, thyromegaly, or carotid bruits. Carotids were easily palpable bilaterally. There was no adenopathy. The patient has a Cordis in the right IJ is [place]-Ted catheter in place Lungs were clear to auscultation and percussion, and with normal diaphragmatic excursion. No wheezes or rales were noted. Patient has a right pleural mediastinal and left pleural chest tube. No evidence of any air leak. Cardiac exam revealed the PMI to be normally situated and sized. The rhythm was regular and no extrasystoles were noted during several minutes of auscultation. The first and second heart sounds were normal and physiologic splitting of the second heart sound was noted. There were no murmurs, rubs, clicks, or gallops. Abdominal exam revealed normal bowel sounds. The abdomen was soft, non-tender, and without masses, organomegaly, or appreciable enlargement of the abdominal aorta. Examination of the extremities revealed easily palpable radial, femoral and pedal pulses. There was no cyanosis, clubbing or edema. Examination of the skin revealed no evidence of significant rashes, suspicious appearing nevi or other concerning lesions. Neurologically, the patient is awake and alert and the patient does not have any focal neurological deficit. Cranial nerves are essentially intact. - Labs CBC & Chem 7: 09/29/23 04:40 09/29/23 04:40 Labs: Abnormal Lab Results - Last 24 Hours (Table) 09/19/23 09/28/23 09/28/23 Range/Units 09:20 09:58 10:58 RBC (4.30-5.90) m/uL Hgb (13.0-17.5) gm/dL Hct (39.0-53.0) % RDW (11.5-15.5) % Plt Count (150-450) k/uL ABG pH (7.35-7.45) ABG pCO2 (35-45) mmHg ABG pO2 (83-108) mmHg ABG HCO3 (21-25) mmol/L ABG O2 Saturation (94-97) % Chloride (98-107) mmol/L Carbon Dioxide (22-30) mmol/L BUN (9-20) mg/dL Creatinine (0.66-1.25) mg/dL Glucose (74-99) mg/dL POC Glucose (mg/dL) 162 H 153 H (70-110) mg/dL Calcium (8.4-10.2) mg/dL Ionized Calcium [place] (4.5-5.3) mg/dL AST (17-59) U/L Total Protein (6.3-8.2) g/dL Albumin (3.5-5.0) g/dL Crossmatch See Detail 09/28/23 09/28/23 09/28/23 Range/Units 12:15 13:27 16:25 RBC (4.30-5.90) m/uL Hgb (13.0-17.5) gm/dL Hct (39.0-53.0) % RDW (11.5-15.5) % Plt Count (150-450) k/uL ABG pH (7.35-7.45) ABG pCO2 (35-45) mmHg ABG pO2 (83-108) mmHg ABG HCO3 (21-25) mmol/L ABG O2 Saturation (94-97) % Chloride (98-107) mmol/L Carbon Dioxide (22-30) mmol/L BUN (9-20) mg/dL Creatinine (0.66-1.25) mg/dL Glucose (74-99) mg/dL POC Glucose (mg/dL) 154 H 134 H 182 H (70-110) mg/dL Calcium (8.4-10.2) mg/dL Ionized Calcium [place] (4.5-5.3) mg/dL AST (17-59) U/L Total Protein (6.3-8.2) g/dL Albumin (3.5-5.0) g/dL Crossmatch 09/28/23 09/28/23 09/28/23 Range/Units 16:57 18:10 19:20 RBC (4.30-5.90) m/uL Hgb (13.0-17.5) gm/dL Hct (39.0-53.0) % RDW (11.5-15.5) % Plt Count (150-450) k/uL ABG pH (7.35-7.45) ABG pCO2 (35-45) mmHg ABG pO2 (83-108) mmHg ABG HCO3 (21-25) mmol/L ABG O2 Saturation (94-97) % Chloride (98-107) mmol/L Carbon Dioxide (22-30) mmol/L BUN (9-20) mg/dL Creatinine (0.66-1.25) mg/dL Glucose (74-99) mg/dL POC Glucose (mg/dL) 185 H 187 H 144 H (70-110) mg/dL Calcium (8.4-10.2) mg/dL Ionized Calcium [place] (4.5-5.3) mg/dL AST (17-59) U/L Total Protein (6.3-8.2) g/dL Albumin (3.5-5.0) g/dL Crossmatch 09/28/23 09/28/23 09/28/23 Range/Units 19:53 21:05 21:58 RBC (4.30-5.90) m/uL Hgb (13.0-17.5) gm/dL Hct (39.0-53.0) % RDW (11.5-15.5) % Plt Count (150-450) k/uL ABG pH (7.35-7.45) ABG pCO2 (35-45) mmHg ABG pO2 (83-108) mmHg ABG HCO3 (21-25) mmol/L ABG O2 Saturation (94-97) % Chloride (98-107) mmol/L Carbon Dioxide (22-30) mmol/L BUN (9-20) mg/dL Creatinine (0.66-1.25) mg/dL Glucose (74-99) mg/dL POC Glucose (mg/dL) 133 H 138 H 120 H (70-110) mg/dL Calcium (8.4-10.2) mg/dL Ionized Calcium [place] (4.5-5.3) mg/dL AST (17-59) U/L Total Protein (6.3-8.2) g/dL Albumin (3.5-5.0) g/dL Crossmatch 09/28/23 09/28/23 09/29/23 Range/Units 22:10 23:01 00:07 RBC (4.30-5.90) m/uL Hgb (13.0-17.5) gm/dL Hct (39.0-53.0) % RDW (11.5-15.5) % Plt Count (150-450) k/uL ABG pH 7.49 H (7.35-7.45) ABG pCO2 28 L (35-45) mmHg ABG pO2 79 L (83-108) mmHg ABG HCO3 (21-25) mmol/L ABG O2 Saturation 97.7 H (94-97) % Chloride (98-107) mmol/L Carbon Dioxide (22-30) mmol/L BUN (9-20) mg/dL Creatinine (0.66-1.25) mg/dL Glucose (74-99) mg/dL POC Glucose (mg/dL) 116 H 119 H (70-110) mg/dL Calcium (8.4-10.2) mg/dL Ionized Calcium [place] (4.5-5.3) mg/dL AST (17-59) U/L Total Protein (6.3-8.2) g/dL Albumin (3.5-5.0) g/dL Crossmatch 09/29/23 09/29/23 09/29/23 Range/Units 01:03 01:55 03:06 RBC (4.30-5.90) m/uL Hgb (13.0-17.5) gm/dL Hct (39.0-53.0) % RDW (11.5-15.5) % Plt Count (150-450) k/uL ABG pH (7.35-7.45) ABG pCO2 (35-45) mmHg ABG pO2 (83-108) mmHg ABG HCO3 (21-25) mmol/L ABG O2 Saturation (94-97) % Chloride (98-107) mmol/L Carbon Dioxide (22-30) mmol/L BUN (9-20) mg/dL Creatinine (0.66-1.25) mg/dL Glucose (74-99) mg/dL POC Glucose (mg/dL) 119 H 123 H 119 H (70-110) mg/dL Calcium (8.4-10.2) mg/dL Ionized Calcium [place] (4.5-5.3) mg/dL AST (17-59) U/L Total Protein (6.3-8.2) g/dL Albumin (3.5-5.0) g/dL Crossmatch 09/29/23 09/29/23 09/29/23 Range/Units 04:05 04:40 04:40 RBC 2.23 L (4.30-5.90) m/uL Hgb 6.7 L* (13.0-17.5) gm/dL Hct 20.0 L (39.0-53.0) % RDW 17.6 H (11.5-15.5) % Plt Count 104 L (150-450) k/uL ABG pH (7.35-7.45) ABG pCO2 (35-45) mmHg ABG pO2 (83-108) mmHg ABG HCO3 (21-25) mmol/L ABG O2 Saturation (94-97) % Chloride 109 H (98-107) mmol/L Carbon Dioxide 20 L (22-30) mmol/L BUN 31 H (9-20) mg/dL Creatinine 1.90 H (0.66-1.25) mg/dL Glucose 107 H (74-99) mg/dL POC Glucose (mg/dL) 124 H (70-110) mg/dL Calcium 7.5 L (8.4-10.2) mg/dL Ionized Calcium [place] 4.3 L (4.5-5.3) mg/dL AST 252 H (17-59) U/L Total Protein 5.0 L (6.3-8.2) g/dL Albumin 2.9 L (3.5-5.0) g/dL Crossmatch 09/29/23 09/29/23 09/29/23 Range/Units 05:01 06:56 07:56 RBC (4.30-5.90) m/uL Hgb (13.0-17.5) gm/dL Hct (39.0-53.0) % RDW (11.5-15.5) % Plt Count (150-450) k/uL ABG pH (7.35-7.45) ABG pCO2 (35-45) mmHg ABG pO2 (83-108) mmHg ABG HCO3 (21-25) mmol/L ABG O2 Saturation (94-97) % Chloride (98-107) mmol/L Carbon Dioxide (22-30) mmol/L BUN (9-20) mg/dL Creatinine (0.66-1.25) mg/dL Glucose (74-99) mg/dL POC Glucose (mg/dL) 123 H 179 H 221 H (70-110) mg/dL Calcium (8.4-10.2) mg/dL Ionized Calcium [place] (4.5-5.3) mg/dL AST (17-59) U/L Total Protein (6.3-8.2) g/dL Albumin (3.5-5.0) g/dL Crossmatch 09/29/23 09/29/23 Range/Units 08:05 09:25 RBC (4.30-5.90) m/uL Hgb (13.0-17.5) gm/dL Hct (39.0-53.0) % RDW (11.5-15.5) % Plt Count (150-450) k/uL ABG pH 7.48 H (7.35-7.45) ABG pCO2 27 L (35-45) mmHg ABG pO2 74 L (83-108) mmHg ABG HCO3 20 L (21-25) mmol/L ABG O2 Saturation (94-97) % Chloride (98-107) mmol/L Carbon Dioxide (22-30) mmol/L BUN (9-20) mg/dL Creatinine (0.66-1.25) mg/dL Glucose (74-99) mg/dL POC Glucose (mg/dL) 200 H (70-110) mg/dL Calcium (8.4-10.2) mg/dL Ionized Calcium [place] (4.5-5.3) mg/dL AST (17-59) U/L Total Protein (6.3-8.2) g/dL Albumin (3.5-5.0) g/dL Crossmatch Assessment and Plan Plan: Coronary artery bypass surgery. The patient underwent four-vessel bypass surgery. The patient is currently postop day #2. Hemodynamically stable. Currently off norepinephrine. The cardiac output and index of both adequate. Hemodynamically stable with adequate cardiac output and index. Postthoracotomy, currently extubated on room air oxygen. Chest is still in place. CAD status post multiple stents, now status post CABG Acute blood loss anemia, anticipated outcome of surgery, current hemoglobin is at 6.7 80 mL the units of packed RBC yesterday. The same will be done today. Acute on chronic thrombocytopenia, anticipated outcome of surgery, platelets are being monitored, the levels s 104 Type 2 diabetes, currently on insulin drip at 10 units an hour Chronic kidney disease stage III, cr is 1.9 Hypocalcemia History of hypertension History of atrial fibrillation Dyslipidemia Gout BPH Plan Her mentation. My evaluation, his mentation is adequate. I was told that he w as slightly lethargic overnight. Currently is awake and alert. incentive spirometer Aggressive pulmonary toileting Right-sided chest tube can be removed Patient is seen the units of packed RBC yesterday and the same will be done today Monitor hemoglobin following transfusion I do not think there is any further diuretics at this point in time No pressors We'll discuss the need for a blood transfusion with cardiothoracic surgery Monitor blood work and transfuse if needed, essentially per cardiothoracic surgery We'll continue to follow
[2023-09-29] MEDS: CLOPIDOGREL 75 MG TAB PO SCH (09:44)
[2023-09-29] MEDS: CYANOCOBALAMIN 500 MCG TAB PO SCH (09:44)
[2023-09-29] MEDS: METOPROLOL TARTRATE 12.5 MG TAB PO SCH ×2 (09:44→19:56)
[2023-09-29] MEDS: FERROUS SULFATE 325 MG TAB PO SCH (09:44)
[2023-09-29] MEDS: ATORVASTATIN 40 MG TAB PO SCH (09:44)
[2023-09-29] MEDS: ASPIRIN 325 MG TAB PO SCH (09:44)
[2023-09-29] MEDS: MULTIVITAMINS, THERA 1 EACH TAB PO SCH (09:44)
[2023-09-29] MEDS: ASCORBIC ACID 500 MG TAB PO SCH (09:44)
[2023-09-29] MEDS: TAMSULOSIN 0.4 MG CAP.ER.24H PO SCH (09:44)
[2023-09-29 10:04] LABS: Glucose,Whole Blood 188 mg/dL (70-110)
[2023-09-29] MEDS: INSULIN REGULAR 100 UNIT in SODIUM CHLORIDE 0.9% 100 ML IV SCH ×2 (10:05→19:00)
--- NOTE | 2023-09-29 10:26 | XR ---
EXAMINATION TYPE: XR chest 1V portable DATE OF EXAM: 09/29/2023 Comparison: 09/28/2023 Clinical History: 73-year-old male Post Operative Cardiac Surgery Findings: Bilateral chest tubes in place. No residual pneumothorax. Current exam is rotated towards the left al tering the normal cardiomediastinal contours. Median sternotomy wires with plate and screw fixation a s well as post-CABG clips and mediastinal drain noted. Interstitial prominence and retrocardiac opaci ty persists. Right IJ sheath with removal of [place]-Ted catheter. Impression: Exam rotated towards the left. Otherwise, overall stable with possible mild pulmonary vascular conges tion and prominent retrocardiac opacity, probably postoperative atelectasis.
--- NOTE | 2023-09-29 11:02 | P.PN ---
Subjective Progress Note Date: 09/29/23 PROGRESS NOTE The patient is a 73-year-old male who underwent CABG yesterday. He is followed regularly by Dr. De Oliveira in [place] and has underwent prior stenting, most recently about 10 years ago according to him who has been complaining of progressive chest discomfort and underwent cardiac catheterization in [place], was found to have severe obstructive disease and underwent CABG yesterday. He received a MAGANA to the LAD and SVG to OM1 and 3 and PDA with closure of the left atrial appendage. He is extubated, sitting up in the chair, he feels well. He was having chest discomfort and dyspnea on exertion prior to presentation. He has no peripheral edema, PND or orthopnea. He does not recall being told that he had a myocardial infarction or history of CHF. He has a prior history of paroxysmal atrial fibrillation and has a loop recorder and according to him there was no episodes of atrial fibrillation for the last 2 years. Hemodynamically he is stable. He has a history of diabetes, hypertension and hyperlipidemia. He is a nonsmoker. September 29: The patient is feeling well this morning, he denies any chest discomfort, dizziness or palpitations. He continues to be in sinus mechanism. H emodynamically stable. His urine output is stable. He denies any nausea or vomiting. He is on no vasopressors. He had anemia and his received transfusion. Medications: Aspirin, Lipitor 40 mg daily, Plavix 75 mg daily, metoprolol tartrate 12.5 mg twice a day. PHYSICAL EXAMINATION: Blood pressure 133/50 heart rate 70 LUNGS: Mild decreased breath sounds at the bases HEART: Regular rate and rhythm, S1, S2. No S3. No systolic murmur ABDOMEN: Soft, nontender, no organomegaly EXTREMETIES: No edema LAB: Hemoglobin 6.7, BUN 31, creatinine 1.9 IMPRESSION: 1. Status post CABG, stable 2. Anemia postoperatively 3. Acute renal injury postoperatively 4. History of paroxysmal atrial fibrillation 5. History of diabetes 6. History of hypertension 7. History of hyperlipidemia PLAN: 1. Transfusion as planned 2. Follow renal functions 3. Depending on the blood pressure in the renal function restart JENNIFER inhibitor 4. Restart anticoagulation because of the history of paroxysmal atrial fibril lation 5. Increase physical activity and incentive spirometry Objective - Vital Signs Vital signs: Vital Signs Temp 98.6 F 09/29/23 10:09 Pulse 71 09/29/23 10:09 Resp 14 09/29/23 10:09 BP 133/54 09/29/23 10:09 Pulse Ox 100 09/29/23 10:09 FiO2 21 09/29/23 04:10 Intake & Output 09/28/23 09/29/23 09/29/23 18:59 06:59 18:59 Intake Total 1607.174 910.092 10.908 Output Total 630 975 Balance 977.174 -64.908 10.908 Weight 133.1 kg 139.2 kg Intake: IV 623 338 0.9 FOR CO/CI 80 0.9 PRESSURE BAGS 93 78 Lactated Ringers 1,000 ml 450 260 @ 20 mls/hr IV .Q24H [facility] Rx#:[id number] Intake, IV Titration 84.174 90.092 10.908 Amount Insulin Regular 100 unit 59.531 90.092 10.908 In Sodium Chloride 0.9% 100 ml @ Per Protocol IV .Q0M [facility] Rx#:[id number] Norepinephrine 4 mg In 24.643 Sodium Chloride 0.9% 250 ml @ 0.02 MCG/KG/MIN 10. 058 mls/hr IV .Q24H [facility] Rx#:[id number] Oral 900 200 Blood Product 282 0 Unit 0 Rc Pheresis 2 As3 Unit 282 [id number] Output: Chest Tube Drainage 180 405 Chest Tube Mediastinal 60 210 Pleural Catheter Left 100 120 Pleural Catheter Right 20 75 Drainage 15 Right Thigh 15 Urine 435 570 Other: Voiding Method Indwelling Catheter Indwelling Catheter Indwelling Catheter ABP, PAP, CO, CI - Last Documented Arterial Blood Pressure 126/49 Pulmonary Artery Pressure 16/0 Cardiac Output 8.1 Cardiac Index 3.3 - Labs CBC & Chem 7: 09/29/23 04:40 09/29/23 04:40 Labs: Abnormal Lab Results - Last 24 Hours (Table) 09/19/23 09/28/23 09/28/23 Range/Units 09:20 10:58 12:15 RBC (4.30-5.90) m/uL Hgb (13.0-17.5) gm/dL Hct (39.0-53.0) % RDW (11.5-15.5) % Plt Count (150-450) k/uL ABG pH (7.35-7.45) ABG pCO2 (35-45) mmHg ABG pO2 (83-108) mmHg ABG HCO3 (21-25) mmol/L ABG O2 Saturation (94-97) % Chloride (98-107) mmol/L Carbon Dioxide (22-30) mmol/L BUN (9-20) mg/dL Creatinine (0.66-1.25) mg/dL Glucose (74-99) mg/dL POC Glucose (mg/dL) 153 H 154 H (70-110) mg/dL Calcium (8.4-10.2) mg/dL Ionized Calcium [place] (4.5-5.3) mg/dL AST (17-59) U/L Total Protein (6.3-8.2) g/dL Albumin (3.5-5.0) g/dL Crossmatch See Detail 09/28/23 09/28/23 09/28/23 Range/Units 13:27 16:25 16:57 RBC (4.30-5.90) m/uL Hgb (13.0-17.5) gm/dL Hct (39.0-53.0) % RDW (11.5-15.5) % Plt Count (150-450) k/uL ABG pH (7.35-7.45) ABG pCO2 (35-45) mmHg ABG pO2 (83-108) mmHg ABG HCO3 (21-25) mmol/L ABG O2 Saturation (94-97) % Chloride (98-107) mmol/L Carbon Dioxide (22-30) mmol/L BUN (9-20) mg/dL Creatinine (0.66-1.25) mg/dL Glucose (74-99) mg/dL POC Glucose (mg/dL) 134 H 182 H 185 H (70-110) mg/dL Calcium (8.4-10.2) mg/dL Ionized Calcium [place] (4.5-5.3) mg/dL AST (17-59) U/L Total Protein (6.3-8.2) g/dL Albumin (3.5-5.0) g/dL Crossmatch 09/28/23 09/28/23 09/28/23 Range/Units 18:10 19:20 19:53 RBC (4.30-5.90) m/uL Hgb (13.0-17.5) gm/dL Hct (39.0-53.0) % RDW (11.5-15.5) % Plt Count (150-450) k/uL ABG pH (7.35-7.45) ABG pCO2 (35-45) mmHg ABG pO2 (83-108) mmHg ABG HCO3 (21-25) mmol/L ABG O2 Saturation (94-97) % Chloride (98-107) mmol/L Carbon Dioxide (22-30) mmol/L BUN (9-20) mg/dL Creatinine (0.66-1.25) mg/dL Glucose (74-99) mg/dL POC Glucose (mg/dL) 187 H 144 H 133 H (70-110) mg/dL Calcium (8.4-10.2) mg/dL Ionized Calcium [place] (4.5-5.3) mg/dL AST (17-59) U/L Total Protein (6.3-8.2) g/dL Albumin (3.5-5.0) g/dL Crossmatch 09/28/23 09/28/23 09/28/23 Range/Units 21:05 21:58 22:10 RBC (4.30-5.90) m/uL Hgb (13.0-17.5) gm/dL Hct (39.0-53.0) % RDW (11.5-15.5) % Plt Count (150-450) k/uL ABG pH 7.49 H (7.35-7.45) ABG pCO2 28 L (35-45) mmHg ABG pO2 79 L (83-108) mmHg ABG HCO3 (21-25) mmol/L ABG O2 Saturation 97.7 H (94-97) % Chloride (98-107) mmol/L Carbon Dioxide (22-30) mmol/L BUN (9-20) mg/dL Creatinine (0.66-1.25) mg/dL Glucose (74-99) mg/dL POC Glucose (mg/dL) 138 H 120 H (70-110) mg/dL Calcium (8.4-10.2) mg/dL Ionized Calcium [place] (4.5-5.3) mg/dL AST (17-59) U/L Total Protein (6.3-8.2) g/dL Albumin (3.5-5.0) g/dL Crossmatch 09/28/23 09/29/23 09/29/23 Range/Units 23:01 00:07 01:03 RBC (4.30-5.90) m/uL Hgb (13.0-17.5) gm/dL Hct (39.0-53.0) % RDW (11.5-15.5) % Plt Count (150-450) k/uL ABG pH (7.35-7.45) ABG pCO2 (35-45) mmHg ABG pO2 (83-108) mmHg ABG HCO3 (21-25) mmol/L ABG O2 Saturation (94-97) % Chloride (98-107) mmol/L Carbon Dioxide (22-30) mmol/L BUN (9-20) mg/dL Creatinine (0.66-1.25) mg/dL Glucose (74-99) mg/dL POC Glucose (mg/dL) 116 H 119 H 119 H (70-110) mg/dL Calcium (8.4-10.2) mg/dL Ionized Calcium [place] (4.5-5.3) mg/dL AST (17-59) U/L Total Protein (6.3-8.2) g/dL Albumin (3.5-5.0) g/dL Crossmatch 09/29/23 09/29/23 09/29/23 Range/Units 01:55 03:06 04:05 RBC (4.30-5.90) m/uL Hgb (13.0-17.5) gm/dL Hct (39.0-53.0) % RDW (11.5-15.5) % Plt Count (150-450) k/uL ABG pH (7.35-7.45) ABG pCO2 (35-45) mmHg ABG pO2 (83-108) mmHg ABG HCO3 (21-25) mmol/L ABG O2 Saturation (94-97) % Chloride (98-107) mmol/L Carbon Dioxide (22-30) mmol/L BUN (9-20) mg/dL Creatinine (0.66-1.25) mg/dL Glucose (74-99) mg/dL POC Glucose (mg/dL) 123 H 119 H 124 H (70-110) mg/dL Calcium (8.4-10.2) mg/dL Ionized Calcium [place] (4.5-5.3) mg/dL AST (17-59) U/L Total Protein (6.3-8.2) g/dL Albumin (3.5-5.0) g/dL Crossmatch 09/29/23 09/29/23 09/29/23 Range/Units 04:40 04:40 05:01 RBC 2.23 L (4.30-5.90) m/uL Hgb 6.7 L* (13.0-17.5) gm/dL Hct 20.0 L (39.0-53.0) % RDW 17.6 H (11.5-15.5) % Plt Count 104 L (150-450) k/uL ABG pH (7.35-7.45) ABG pCO2 (35-45) mmHg ABG pO2 (83-108) mmHg ABG HCO3 (21-25) mmol/L ABG O2 Saturation (94-97) % Chloride 109 H (98-107) mmol/L Carbon Dioxide 20 L (22-30) mmol/L BUN 31 H (9-20) mg/dL Creatinine 1.90 H (0.66-1.25) mg/dL Glucose 107 H (74-99) mg/dL POC Glucose (mg/dL) 123 H (70-110) mg/dL Calcium 7.5 L (8.4-10.2) mg/dL Ionized Calcium [place] 4.3 L (4.5-5.3) mg/dL AST 252 H (17-59) U/L Total Protein 5.0 L (6.3-8.2) g/dL Albumin 2.9 L (3.5-5.0) g/dL Crossmatch 09/29/23 09/29/23 09/29/23 Range/Units 06:56 07:56 08:05 RBC (4.30-5.90) m/uL Hgb (13.0-17.5) gm/dL Hct (39.0-53.0) % RDW (11.5-15.5) % Plt Count (150-450) k/uL ABG pH 7.48 H (7.35-7.45) ABG pCO2 27 L (35-45) mmHg ABG pO2 74 L (83-108) mmHg ABG HCO3 20 L (21-25) mmol/L ABG O2 Saturation (94-97) % Chloride (98-107) mmol/L Carbon Dioxide (22-30) mmol/L BUN (9-20) mg/dL Creatinine (0.66-1.25) mg/dL Glucose (74-99) mg/dL POC Glucose (mg/dL) 179 H 221 H (70-110) mg/dL Calcium (8.4-10.2) mg/dL Ionized Calcium [place] (4.5-5.3) mg/dL AST (17-59) U/L Total Protein (6.3-8.2) g/dL Albumin (3.5-5.0) g/dL Crossmatch 09/29/23 09/29/23 09/29/23 Range/Units 08:42 09:25 10:01 RBC (4.30-5.90) m/uL Hgb (13.0-17.5) gm/dL Hct (39.0-53.0) % RDW (11.5-15.5) % Plt Count (150-450) k/uL ABG pH (7.35-7.45) ABG pCO2 (35-45) mmHg ABG pO2 (83-108) mmHg ABG HCO3 (21-25) mmol/L ABG O2 Saturation (94-97) % Chloride (98-107) mmol/L Carbon Dioxide (22-30) mmol/L BUN (9-20) mg/dL Creatinine (0.66-1.25) mg/dL Glucose (74-99) mg/dL POC Glucose (mg/dL) 200 H 188 H (70-110) mg/dL Calcium (8.4-10.2) mg/dL Ionized Calcium [place] (4.5-5.3) mg/dL AST (17-59) U/L Total Protein (6.3-8.2) g/dL Albumin (3.5-5.0) g/dL Crossmatch See Detail
[2023-09-29 11:08] LABS: Glucose,Whole Blood 159 mg/dL (70-110)
--- NOTE | 2023-09-29 11:22 | P.PN ---
Subjective Progress Note Date: 09/29/23 Subjective: Seen and examined at bedside. Overnight, patient was confused. Did get blood transfusions overnight. Currently denies any pain. Continues to have chest tubes as well as Briceno catheter in place. Tolerating very little amount of oral intake. Pertinent positives and negatives as discussed above, a complete review of systems was performed and all other systems are negative. Vitals Signs Reviewed. General: nontoxic, no distress, appears at stated age, obese Derm: warm, dry, chest dressing clean, dry, intact, chest tubes in place Head: atraumatic, normocephalic, symmetric Eyes: EOMI, no lid lag, anicteric sclera Mouth: no lip lesion, mucus membranes moist Cardiovascular: S1S2 reg, no murmur Lungs: CTA bilateral, no rhonchi, no rales , no accessory muscle use Abdominal: soft, nontender to palpation, no guarding, no appreciable organomegaly Ext: no gross muscle atrophy, trace edema, no contractures Neuro: CN II-XI grossly intact, no focal neuro deficits Psych: Alert, oriented, appropriate affect Data Reviewed Today: Pertinent Labs: WBC 7.1, hemoglobin 6.7, platelet 104, bicarb 20, creatinine 1.9, blood sugars range between 159-200 Imaging: Chest x-ray independently interpreted, similar to yesterday. Assessment and Plan: CAD status post multiple stents, now status post CABG Acute blood loss anemia, anticipated outcome of surgery, status post 2 units of PRBCs Acute on chronic thrombocytopenia, anticipated outcome of surgery, improving Type 2 diabetes Acute on Chronic kidney disease stage III Hypocalcemia, resolved, corrected calcium 8.4 History of hypertension History of atrial fibrillation Dyslipidemia Gout BPH -Patient now receiving PRBCs -Also on Lasix 40 mg IV today once -Patient remains in medical ICU -Off vasopressors -On aspirin 325 daily, atorvastatin 40 mg daily, Plavix 75 mg daily -Pulmonology note reviewed, continue current management, likely discontinue one of the chest tubes -Continue insulin drip, monitor for hypoglycemia, switch to subcutaneous insulin once oral intake improves, likely later today -Cardiology note reviewed, consider restarting anticoagulation per cardiothoracic surgery -Currently on amiodarone, metoprolol 12.5 twice a day -Renal ultrasound ordered, monitor urine output -Creatinine slightly worsened -Hold antihypertensives -Home Medications reviewed CBC and CMP tomorrow Thank you for allowing us to participate in the care of this pleasant patient. Do not hesitate to contact us with questions. Someone can be reached from the [facility] [place] [facility]– [place] [facility] all hours of the day at [phone] or via perfect serve. Objective - Vital Signs Vital signs: Vital Signs Temp 98.5 F 09/29/23 10:39 Pulse 68 09/29/23 11:00 Resp 12 09/29/23 11:00 BP 128/53 09/29/23 11:00 Pulse Ox 98 09/29/23 11:00 FiO2 21 09/29/23 04:10 Intake & Output 09/28/23 09/29/23 09/29/23 18:59 06:59 18:59 Intake Total 1607.174 910.092 428.164 Output Total 630 975 290 Balance 977.174 -64.908 138.164 Weight 133.1 kg 139.2 kg Intake: IV 623 338 104 0.9 FOR CO/CI 80 0.9 PRESSURE BAGS 93 78 24 Lactated Ringers 1,000 ml 450 260 80 @ 20 mls/hr IV .Q24H [facility]IVAS Rx#:[id number] Intake, IV Titration 84.174 90.092 24.164 Amount Insulin Regular 100 unit 59.531 90.092 24.164 In Sodium Chloride 0.9% 100 ml @ Per Protocol IV .Q0M RIVAS Rx#:[id number] Norepinephrine 4 mg In 24.643 Sodium Chloride 0.9% 250 ml @ 0.02 MCG/KG/MIN 10. 058 mls/hr IV .Q24H RIVAS Rx#:[id number] Oral 900 200 300 Blood Product 282 0 Unit 0 Rc Pheresis 2 As3 Unit 282 [id number] Output: Chest Tube Drainage 180 405 60 Chest Tube Mediastinal 60 210 40 Pleural Catheter Left 100 120 10 Pleural Catheter Right 20 75 10 Drainage 15 Right Thigh 15 Urine 435 570 230 Other: Voiding Method Indwelling Catheter Indwelling Catheter Indwelling Catheter ABP, PAP, CO, CI - Last Documented Arterial Blood Pressure 126/49 Pulmonary Artery Pressure 16/0 Cardiac Output 8.1 Cardiac Index 3.3 - Labs CBC & Chem 7: 09/29/23 04:40 09/29/23 04:40 Labs: Abnormal Lab Results - Last 24 Hours (Table) 09/19/23 09/28/23 09/28/23 Range/Units 09:20 12:15 13:27 RBC (4.30-5.90) m/uL Hgb (13.0-17.5) gm/dL Hct (39.0-53.0) % RDW (11.5-15.5) % Plt Count (150-450) k/uL ABG pH (7.35-7.45) ABG pCO2 (35-45) mmHg ABG pO2 (83-108) mmHg ABG HCO3 (21-25) mmol/L ABG O2 Saturation (94-97) % Chloride (98-107) mmol/L Carbon Dioxide (22-30) mmol/L BUN (9-20) mg/dL Creatinine (0.66-1.25) mg/dL Glucose (74-99) mg/dL POC Glucose (mg/dL) 154 H 134 H (70-110) mg/dL Calcium (8.4-10.2) mg/dL Ionized Calcium [place] (4.5-5.3) mg/dL AST (17-59) U/L Total Protein (6.3-8.2) g/dL Albumin (3.5-5.0) g/dL Crossmatch See Detail 09/28/23 09/28/23 09/28/23 Range/Units 16:25 16:57 18:10 RBC (4.30-5.90) m/uL Hgb (13.0-17.5) gm/dL Hct (39.0-53.0) % RDW (11.5-15.5) % Plt Count (150-450) k/uL ABG pH (7.35-7.45) ABG pCO2 (35-45) mmHg ABG pO2 (83-108) mmHg ABG HCO3 (21-25) mmol/L ABG O2 Saturation (94-97) % Chloride (98-107) mmol/L Carbon Dioxide (22-30) mmol/L BUN (9-20) mg/dL Creatinine (0.66-1.25) mg/dL Glucose (74-99) mg/dL POC Glucose (mg/dL) 182 H 185 H 187 H (70-110) mg/dL Calcium (8.4-10.2) mg/dL Ionized Calcium [place] (4.5-5.3) mg/dL AST (17-59) U/L Total Protein (6.3-8.2) g/dL Albumin (3.5-5.0) g/dL Crossmatch 09/28/23 09/28/23 09/28/23 Range/Units 19:20 19:53 21:05 RBC (4.30-5.90) m/uL Hgb (13.0-17.5) gm/dL Hct (39.0-53.0) % RDW (11.5-15.5) % Plt Count (150-450) k/uL ABG pH (7.35-7.45) ABG pCO2 (35-45) mmHg ABG pO2 (83-108) mmHg ABG HCO3 (21-25) mmol/L ABG O2 Saturation (94-97) % Chloride (98-107) mmol/L Carbon Dioxide (22-30) mmol/L BUN (9-20) mg/dL Creatinine (0.66-1.25) mg/dL Glucose (74-99) mg/dL POC Glucose (mg/dL) 144 H 133 H 138 H (70-110) mg/dL Calcium (8.4-10.2) mg/dL Ionized Calcium [place] (4.5-5.3) mg/dL AST (17-59) U/L Total Protein (6.3-8.2) g/dL Albumin (3.5-5.0) g/dL Crossmatch 09/28/23 09/28/23 09/28/23 Range/Units 21:58 22:10 23:01 RBC (4.30-5.90) m/uL Hgb (13.0-17.5) gm/dL Hct (39.0-53.0) % RDW (11.5-15.5) % Plt Count (150-450) k/uL ABG pH 7.49 H (7.35-7.45) ABG pCO2 28 L (35-45) mmHg ABG pO2 79 L (83-108) mmHg ABG HCO3 (21-25) mmol/L ABG O2 Saturation 97.7 H (94-97) % Chloride (98-107) mmol/L Carbon Dioxide (22-30) mmol/L BUN (9-20) mg/dL Creatinine (0.66-1.25) mg/dL Glucose (74-99) mg/dL POC Glucose (mg/dL) 120 H 116 H (70-110) mg/dL Calcium (8.4-10.2) mg/dL Ionized Calcium [place] (4.5-5.3) mg/dL AST (17-59) U/L Total Protein (6.3-8.2) g/dL Albumin (3.5-5.0) g/dL Crossmatch 09/29/23 09/29/23 09/29/23 Range/Units 00:07 01:03 01:55 RBC (4.30-5.90) m/uL Hgb (13.0-17.5) gm/dL Hct (39.0-53.0) % RDW (11.5-15.5) % Plt Count (150-450) k/uL ABG pH (7.35-7.45) ABG pCO2 (35-45) mmHg ABG pO2 (83-108) mmHg ABG HCO3 (21-25) mmol/L ABG O2 Saturation (94-97) % Chloride (98-107) mmol/L Carbon Dioxide (22-30) mmol/L BUN (9-20) mg/dL Creatinine (0.66-1.25) mg/dL Glucose (74-99) mg/dL POC Glucose (mg/dL) 119 H 119 H 123 H (70-110) mg/dL Calcium (8.4-10.2) mg/dL Ionized Calcium [place] (4.5-5.3) mg/dL AST (17-59) U/L Total Protein (6.3-8.2) g/dL Albumin (3.5-5.0) g/dL Crossmatch 09/29/23 09/29/23 09/29/23 Range/Units 03:06 04:05 04:40 RBC 2.23 L (4.30-5.90) m/uL Hgb 6.7 L* (13.0-17.5) gm/dL Hct 20.0 L (39.0-53.0) % RDW 17.6 H (11.5-15.5) % Plt Count 104 L (150-450) k/uL ABG pH (7.35-7.45) ABG pCO2 (35-45) mmHg ABG pO2 (83-108) mmHg ABG HCO3 (21-25) mmol/L ABG O2 Saturation (94-97) % Chloride (98-107) mmol/L Carbon Dioxide (22-30) mmol/L BUN (9-20) mg/dL Creatinine (0.66-1.25) mg/dL Glucose (74-99) mg/dL POC Glucose (mg/dL) 119 H 124 H (70-110) mg/dL Calcium (8.4-10.2) mg/dL Ionized Calcium [place] (4.5-5.3) mg/dL AST (17-59) U/L Total Protein (6.3-8.2) g/dL Albumin (3.5-5.0) g/dL Crossmatch 09/29/23 09/29/23 09/29/23 Range/Units 04:40 05:01 06:56 RBC (4.30-5.90) m/uL Hgb (13.0-17.5) gm/dL Hct (39.0-53.0) % RDW (11.5-15.5) % Plt Count (150-450) k/uL ABG pH (7.35-7.45) ABG pCO2 (35-45) mmHg ABG pO2 (83-108) mmHg ABG HCO3 (21-25) mmol/L ABG O2 Saturation (94-97) % Chloride 109 H (98-107) mmol/L Carbon Dioxide 20 L (22-30) mmol/L BUN 31 H (9-20) mg/dL Creatinine 1.90 H (0.66-1.25) mg/dL Glucose 107 H (74-99) mg/dL POC Glucose (mg/dL) 123 H 179 H (70-110) mg/dL Calcium 7.5 L (8.4-10.2) mg/dL Ionized Calcium [place] 4.3 L (4.5-5.3) mg/dL AST 252 H (17-59) U/L Total Protein 5.0 L (6.3-8.2) g/dL Albumin 2.9 L (3.5-5.0) g/dL Crossmatch 09/29/23 09/29/23 09/29/23 Range/Units 07:56 08:05 08:42 RBC (4.30-5.90) m/uL Hgb (13.0-17.5) gm/dL Hct (39.0-53.0) % RDW (11.5-15.5) % Plt Count (150-450) k/uL ABG pH 7.48 H (7.35-7.45) ABG pCO2 27 L (35-45) mmHg ABG pO2 74 L (83-108) mmHg ABG HCO3 20 L (21-25) mmol/L ABG O2 Saturation (94-97) % Chloride (98-107) mmol/L Carbon Dioxide (22-30) mmol/L BUN (9-20) mg/dL Creatinine (0.66-1.25) mg/dL Glucose (74-99) mg/dL POC Glucose (mg/dL) 221 H (70-110) mg/dL Calcium (8.4-10.2) mg/dL Ionized Calcium [place] (4.5-5.3) mg/dL AST (17-59) U/L Total Protein (6.3-8.2) g/dL Albumin (3.5-5.0) g/dL Crossmatch See Detail 09/29/23 09/29/23 09/29/23 Range/Units 09:25 10:01 11:07 RBC (4.30-5.90) m/uL Hgb (13.0-17.5) gm/dL Hct (39.0-53.0) % RDW (11.5-15.5) % Plt Count (150-450) k/uL ABG pH (7.35-7.45) ABG pCO2 (35-45) mmHg ABG pO2 (83-108) mmHg ABG HCO3 (21-25) mmol/L ABG O2 Saturation (94-97) % Chloride (98-107) mmol/L Carbon Dioxide (22-30) mmol/L BUN (9-20) mg/dL Creatinine (0.66-1.25) mg/dL Glucose (74-99) mg/dL POC Glucose (mg/dL) 200 H 188 H 159 H (70-110) mg/dL Calcium (8.4-10.2) mg/dL Ionized Calcium [place] (4.5-5.3) mg/dL AST (17-59) U/L Total Protein (6.3-8.2) g/dL Albumin (3.5-5.0) g/dL Crossmatch
--- NOTE | 2023-09-29 11:41 | P.PN ---
Subjective Progress Note Date: 09/29/23 Principal diagnosis: Multivessel coronary artery disease. Past medical history significant for hypertension, hyperlipidemia, diabetes mellitus type 2, atrial fibrillation since 2016 on Eliquis for anticoagulation as an outpatient, obstructive sleep apnea, uses BiPAP, chronic renal insufficiency, history of coronary artery disease, status post multiple coronary stents, gout, kidney stones and is a lifetime nonsmoker. POD #2 coronary artery bypass grafting 4 vessels (left internal mammary artery to left anterior descending coronary artery, a saphenous vein graft to the obt use marginal coronary artery one, a saphenous vein graft to the obtuse marginal coronary artery 3, and a saphenous vein graft to the posterior descending coronary artery, endoscopic harvesting bilateral greater saphenous veins, ligation of the left atrial appendage using a 35 mm Atriclip, epi-aortic ultrasound, intraoperative transesophageal echocardiogram, graft flow measurements using the Medistim system, and closure of the sternum using Tritium plating device. Postoperative acute blood loss anemia, expected given hemodilution and cardiopulmonary bypass. The patient was seen and examined in follow-up today 09/29/2023 at his bedside in the intensive care unit. He is currently sitting up to the bedside chair, is awake, alert, oriented [address], episodes of disorientation to time. He is in no acute distress. He denies any complaints of shortness of breath at this time, or pain at this time. He is on 2 L nasal cannula with oxygen saturations 98% and he is achieving 1250 mL on his incentive spirometry with encouragement. Bedside telemetry is showing an atrial paced rhythm heart rate 70, underlying rhythm is showing a first-degree heart block with occasional PACs with a heart rate in the 70s. Her remains hemodynamically stable and is currently on no inotropic or pressor support. According to his night nurse, the patient had an episode of being lethargic. He did receive 1 unit of packed red blood cells for hemoglobin of 6.8, and this morning his hemoglobin is 6.7 and will receive one unit of packed red blood cells. Right IJ Cordis remains in place with current hemodynamic showing a CVP 6 mmHg. Mediastinal/left/right chest tubes remains to low contiuous continuous wall suction -20 cm H2O. No air leak is present. Draining thin serosanguineous drainage with thin serosanguineous drainage. Right pleural chest tube drained 40 mL output in the last 8 hours and 80 mL output in the last 24 hours, mediastinal chest tube drained 60 mL of thin shows sinus drainage in the last 8 hours and 120 mL output in the last 24 hours, left pleural chest tube drained 130 mL output in the last 8 hours and 300 mL output in the last 24 hours. Atrial and ventricular epicardial pacemaker wires remain in place and are connected the backup bedside pacemaker generator currently pacing on an AAI mode rate of 70. Laboratory and chest x-ray results reviewed. Objective - Vital Signs Vital signs: Vital Signs Temp 98.5 F 09/29/23 10:39 Pulse 74 09/29/23 11:22 Resp 12 09/29/23 11:00 BP 128/53 09/29/23 11:00 Pulse Ox 98 09/29/23 11:00 FiO2 21 09/29/23 04:10 Intake & Output 09/28/23 09/29/23 09/29/23 18:59 06:59 18:59 Intake Total 1607.174 910.092 428.164 Output Total 630 975 290 Balance 977.174 -64.908 138.164 Weight 133.1 kg 139.2 kg Intake: IV 623 338 104 0.9 FOR CO/CI 80 0.9 PRESSURE BAGS 93 78 24 Lactated Ringers 1,000 ml 450 260 80 @ 20 mls/hr IV .Q24H [facility]IVAS Rx#:[id number] Intake, IV Titration 84.174 90.092 24.164 Amount Insulin Regular 100 unit 59.531 90.092 24.164 In Sodium Chloride 0.9% 100 ml @ Per Protocol IV .Q0M RIVAS Rx#:[id number] Norepinephrine 4 mg In 24.643 Sodium Chloride 0.9% 250 ml @ 0.02 MCG/KG/MIN 10. 058 mls/hr IV .Q24H RIVAS Rx#:[id number] Oral 900 200 300 Blood Product 282 0 Unit 0 Rc Pheresis 2 As3 Unit 282 [id number] Output: Chest Tube Drainage 180 405 60 Chest Tube Mediastinal 60 210 40 Pleural Catheter Left 100 120 10 Pleural Catheter Right 20 75 10 Drainage 15 Right Thigh 15 Urine 435 570 230 Other: Voiding Method Indwelling Catheter Indwelling Catheter Indwelling Catheter ABP, PAP, CO, CI - Last Documented Arterial Blood Pressure 126/49 Pulmonary Artery Pressure 16/0 Cardiac Output 8.1 Cardiac Index 3.3 - Exam CONSTITUTIONAL: Sitting up to the bedside chair in the intensive care unit, appears comfortable, cooperative, no apparent acute distress. HEENT: Neck is supple, no JVD, no lymphadenopathy. Right IJ Cordis in place and functioning. RESPIRATORY: Lungs sounds essentially clear throughout, diminished to his bilateral bases. Respirations are symmetrical and nonlabored. Currently on 2 L nasal cannula with oxygen saturations 98%. Able to achieve 1250 mL on his incentive spirometry. Strong cough. CARDIOVASCULAR: Regular rhythm and rate. S1 and S2 present, negative for S3, gallop or murmur. Sternum is stable. Palpable peripheral pulses bilaterally, trace to his bilateral lower extremities. No calf pain or tenderness noted. Heart hugger in place with patient demonstrating appropriate use. Knee-high GIOVANA hose and sequential compression devices in place to his bilateral lower extremities. GASTROINTESTINAL: Abdomen soft, nontender, nondistended. Obese. Active bowel sounds present 4 quadrants. Tolerating diet. Passing flatus. No guarding or rigidity. GENITOURINARY: Briceno present draining clear, yellow urine. Urine output 370 mL in the last 8 hours INTEGUMENTARY: Skin is warm and dry with no evidence of clubbing or cyanosis. Midline sternal incision clean dry and well approximated, covered with dry intact dressing. Bilateral lower extremity EVH sites well approximated without redness or drainage. NEUROLOGIC: Cranial nerves II through XII intact. No focal deficits. MUSKULOSKELETAL: Able to move all extremities, strength equal bilaterally, generalized weakness. PSYCHIATRIC: Alert and oriented to person and place, occasionally disoriented to time, flat affect, intact judgment and insight. INVASIVE LINES AND TUBES: Mediastinal/left/right pleural chest tubes present and connected to low continuous wall suction, no air leaks present. Mediastinal tube with 130 mL of thin serosanguineous drainage overnight, 300 mL output in the last 24 hours. Left pleural chest tube with 60 mL of thin serosanguineous drainage overnight, 220 mL output in the last 24 hours. Right pleural chest tube with 40 mL of thin serosanguineous drainage overnight, 80 mL output in the last 24 hours. Atrial and ventricular epicardial pacemaker wires present, connected to generator, AAI rate 70 bpm. Right internal Cordis, right radial arterial line present. Last CVP 6 mmHg. - Allied health notes Allied health notes reviewed: nursing - Labs CBC & Chem 7: 09/29/23 04:40 09/29/23 04:40 Labs: Abnormal Lab Results - Last 24 Hours (Table) 09/19/23 09/28/23 09/28/23 Range/Units 09:20 12:15 13:27 RBC (4.30-5.90) m/uL Hgb (13.0-17.5) gm/dL Hct (39.0-53.0) % RDW (11.5-15.5) % Plt Count (150-450) k/uL ABG pH (7.35-7.45) ABG pCO2 (35-45) mmHg ABG pO2 (83-108) mmHg ABG HCO3 (21-25) mmol/L ABG O2 Saturation (94-97) % Chloride (98-107) mmol/L Carbon Dioxide (22-30) mmol/L BUN (9-20) mg/dL Creatinine (0.66-1.25) mg/dL Glucose (74-99) mg/dL POC Glucose (mg/dL) 154 H 134 H (70-110) mg/dL Calcium (8.4-10.2) mg/dL Ionized Calcium [place] (4.5-5.3) mg/dL AST (17-59) U/L Total Protein (6.3-8.2) g/dL Albumin (3.5-5.0) g/dL Crossmatch See Detail 09/28/23 09/28/23 09/28/23 Range/Units 16:25 16:57 18:10 RBC (4.30-5.90) m/uL Hgb (13.0-17.5) gm/dL Hct (39.0-53.0) % RDW (11.5-15.5) % Plt Count (150-450) k/uL ABG pH (7.35-7.45) ABG pCO2 (35-45) mmHg ABG pO2 (83-108) mmHg ABG HCO3 (21-25) mmol/L ABG O2 Saturation (94-97) % Chloride (98-107) mmol/L Carbon Dioxide (22-30) mmol/L BUN (9-20) mg/dL Creatinine (0.66-1.25) mg/dL Glucose (74-99) mg/dL POC Glucose (mg/dL) 182 H 185 H 187 H (70-110) mg/dL Calcium (8.4-10.2) mg/dL Ionized Calcium [place] (4.5-5.3) mg/dL AST (17-59) U/L Total Protein (6.3-8.2) g/dL Albumin (3.5-5.0) g/dL Crossmatch 09/28/23 09/28/23 09/28/23 Range/Units 19:20 19:53 21:05 RBC (4.30-5.90) m/uL Hgb (13.0-17.5) gm/dL Hct (39.0-53.0) % RDW (11.5-15.5) % Plt Count (150-450) k/uL ABG pH (7.35-7.45) ABG pCO2 (35-45) mmHg ABG pO2 (83-108) mmHg ABG HCO3 (21-25) mmol/L ABG O2 Saturation (94-97) % Chloride (98-107) mmol/L Carbon Dioxide (22-30) mmol/L BUN (9-20) mg/dL Creatinine (0.66-1.25) mg/dL Glucose (74-99) mg/dL POC Glucose (mg/dL) 144 H 133 H 138 H (70-110) mg/dL Calcium (8.4-10.2) mg/dL Ionized Calcium [place] (4.5-5.3) mg/dL AST (17-59) U/L Total Protein (6.3-8.2) g/dL Albumin (3.5-5.0) g/dL Crossmatch 09/28/23 09/28/23 09/28/23 Range/Units 21:58 22:10 23:01 RBC (4.30-5.90) m/uL Hgb (13.0-17.5) gm/dL Hct (39.0-53.0) % RDW (11.5-15.5) % Plt Count (150-450) k/uL ABG pH 7.49 H (7.35-7.45) ABG pCO2 28 L (35-45) mmHg ABG pO2 79 L (83-108) mmHg ABG HCO3 (21-25) mmol/L ABG O2 Saturation 97.7 H (94-97) % Chloride (98-107) mmol/L Carbon Dioxide (22-30) mmol/L BUN (9-20) mg/dL Creatinine (0.66-1.25) mg/dL Glucose (74-99) mg/dL POC Glucose (mg/dL) 120 H 116 H (70-110) mg/dL Calcium (8.4-10.2) mg/dL Ionized Calcium [place] (4.5-5.3) mg/dL AST (17-59) U/L Total Protein (6.3-8.2) g/dL Albumin (3.5-5.0) g/dL Crossmatch 09/29/23 09/29/23 09/29/23 Range/Units 00:07 01:03 01:55 RBC (4.30-5.90) m/uL Hgb (13.0-17.5) gm/dL Hct (39.0-53.0) % RDW (11.5-15.5) % Plt Count (150-450) k/uL ABG pH (7.35-7.45) ABG pCO2 (35-45) mmHg ABG pO2 (83-108) mmHg ABG HCO3 (21-25) mmol/L ABG O2 Saturation (94-97) % Chloride (98-107) mmol/L Carbon Dioxide (22-30) mmol/L BUN (9-20) mg/dL Creatinine (0.66-1.25) mg/dL Glucose (74-99) mg/dL POC Glucose (mg/dL) 119 H 119 H 123 H (70-110) mg/dL Calcium (8.4-10.2) mg/dL Ionized Calcium [place] (4.5-5.3) mg/dL AST (17-59) U/L Total Protein (6.3-8.2) g/dL Albumin (3.5-5.0) g/dL Crossmatch 09/29/23 09/29/23 09/29/23 Range/Units 03:06 04:05 04:40 RBC 2.23 L (4.30-5.90) m/uL Hgb 6.7 L* (13.0-17.5) gm/dL Hct 20.0 L (39.0-53.0) % RDW 17.6 H (11.5-15.5) % Plt Count 104 L (150-450) k/uL ABG pH (7.35-7.45) ABG pCO2 (35-45) mmHg ABG pO2 (83-108) mmHg ABG HCO3 (21-25) mmol/L ABG O2 Saturation (94-97) % Chloride (98-107) mmol/L Carbon Dioxide (22-30) mmol/L BUN (9-20) mg/dL Creatinine (0.66-1.25) mg/dL Glucose (74-99) mg/dL POC Glucose (mg/dL) 119 H 124 H (70-110) mg/dL Calcium (8.4-10.2) mg/dL Ionized Calcium [place] (4.5-5.3) mg/dL AST (17-59) U/L Total Protein (6.3-8.2) g/dL Albumin (3.5-5.0) g/dL Crossmatch 09/29/23 09/29/23 09/29/23 Range/Units 04:40 05:01 06:56 RBC (4.30-5.90) m/uL Hgb (13.0-17.5) gm/dL Hct (39.0-53.0) % RDW (11.5-15.5) % Plt Count (150-450) k/uL ABG pH (7.35-7.45) ABG pCO2 (35-45) mmHg ABG pO2 (83-108) mmHg ABG HCO3 (21-25) mmol/L ABG O2 Saturation (94-97) % Chloride 109 H (98-107) mmol/L Carbon Dioxide 20 L (22-30) mmol/L BUN 31 H (9-20) mg/dL Creatinine 1.90 H (0.66-1.25) mg/dL Glucose 107 H (74-99) mg/dL POC Glucose (mg/dL) 123 H 179 H (70-110) mg/dL Calcium 7.5 L (8.4-10.2) mg/dL Ionized Calcium [place] 4.3 L (4.5-5.3) mg/dL AST 252 H (17-59) U/L Total Protein 5.0 L (6.3-8.2) g/dL Albumin 2.9 L (3.5-5.0) g/dL Crossmatch 09/29/23 09/29/23 09/29/23 Range/Units 07:56 08:05 08:42 RBC (4.30-5.90) m/uL Hgb (13.0-17.5) gm/dL Hct (39.0-53.0) % RDW (11.5-15.5) % Plt Count (150-450) k/uL ABG pH 7.48 H (7.35-7.45) ABG pCO2 27 L (35-45) mmHg ABG pO2 74 L (83-108) mmHg ABG HCO3 20 L (21-25) mmol/L ABG O2 Saturation (94-97) % Chloride (98-107) mmol/L Carbon Dioxide (22-30) mmol/L BUN (9-20) mg/dL Creatinine (0.66-1.25) mg/dL Glucose (74-99) mg/dL POC Glucose (mg/dL) 221 H (70-110) mg/dL Calcium (8.4-10.2) mg/dL Ionized Calcium [place] (4.5-5.3) mg/dL AST (17-59) U/L Total Protein (6.3-8.2) g/dL Albumin (3.5-5.0) g/dL Crossmatch See Detail 09/29/23 09/29/23 09/29/23 Range/Units 09:25 10:01 11:07 RBC (4.30-5.90) m/uL Hgb (13.0-17.5) gm/dL Hct (39.0-53.0) % RDW (11.5-15.5) % Plt Count (150-450) k/uL ABG pH (7.35-7.45) ABG pCO2 (35-45) mmHg ABG pO2 (83-108) mmHg ABG HCO3 (21-25) mmol/L ABG O2 Saturation (94-97) % Chloride (98-107) mmol/L Carbon Dioxide (22-30) mmol/L BUN (9-20) mg/dL Creatinine (0.66-1.25) mg/dL Glucose (74-99) mg/dL POC Glucose (mg/dL) 200 H 188 H 159 H (70-110) mg/dL Calcium (8.4-10.2) mg/dL Ionized Calcium [place] (4.5-5.3) mg/dL AST (17-59) U/L Total Protein (6.3-8.2) g/dL Albumin (3.5-5.0) g/dL Crossmatch - Imaging and Cardiology Chest x-ray: report reviewed, image reviewed Assessment and Plan Assessment: Multivessel coronary artery disease, status post coronary artery bypass grafting 4 vessels History of coronary artery disease with multiple stent in the past Hypertension Hyperlipidemia Atrial fibrillation since 2016 on Eliquis for anticoagulation as an outpatient Diabetes mellitus type 2, with a preoperative hemoglobin A1c of 6.8% Obstructive sleep apnea with home BiPAP use Chronic renal insufficiency History of gout History of kidney stones Lifetime nonsmoker Postoperative acute blood loss anemia and postoperative thrombocytopenia, expected given hemodilution and cardiopulmonary bypass Plan: Continue to maximize medical therapy with aspirin, statin, Plavix and beta jayna. Continue metoprolol tartrate 12.5 mg by mouth twice a day with hold parameters. Transfuse 1 unit of packed red blood cells for hemoglobin of 6.7, repeat CBC at 3:30 today. Lasix 40 mg IV push times one post blood transfusion today. Wean O2 as tolerated. Encourage incentive spirometry use 10 times every hour while awake. Bronchodilators per pulmonology. Increase activity, ambulate as tolerated. PT/OT/cardiac rehab consulted. Will monitor daily labs and chest x-rays. Electrolyte replacement per protocol. GI/DVT prophylaxis. Pain control per current medication regimen. Avoid nephrotoxic agents as the patient has a history of chronic renal insufficiency. We will not add Toradol d ue to his kidney function. Narcotics discontinued due to patient's mentation, continue pain control with acetaminophen. Insulin management per internal medicine service. Patient is a diabetic, hemog lobin A1c 6.8%. Needs to remain on insulin drip for 48 hours, then may transition to subcutaneous per protocol. Continue right IJ Cordis to continuous CVP monitoring. Remove mediastinal chest tube and right pleural chest tube, keep left pleural chest tube in place for another 24 hours, monitor output. Continue Briceno catheter for another 24 hours, continue to record strict accurate intake and output. Daily weights. Keep atrial and ventricular epicardial pacemaker wires in place, place pacemaker generator to a AAI mode backup with a rate of 50 bpm. 1 amp Sodium bicarbonate 50 mL 1 now. More recommendations to follow based on patient's clinical course. Time with Patient: Greater than 30
[2023-09-29 11:57] LABS: Glucose,Whole Blood 136 mg/dL (70-110)
--- NOTE | 2023-09-29 13:05 | US ---
EXAMINATION TYPE: US renals and bladder DATE OF EXAM: 09/29/2023 COMPARISON: NONE CLINICAL INDICATION: Male, 73 years old with history of acute kidney injury; EXAM MEASUREMENTS: Right Kidney: 11.5 x 4.7 x 4.4 cm Left Kidney: not visualized Hospital Personnel Director notes:technical limitations due to patient's body habitus, large amount of overlying [place] wel gas, and patient scanned in chair, limited mobility Right Kidney: no evidence of hydronephrosis Left Kidney: unable to visualize Bladder: not visualized due to Briceno Catheter IMPRESSION: Significant exam limitations as above. Unable to adequately assess the left kidney. No hydronephrosis right kidney. Bladder also not assessed. A Briceno catheter is present.
[2023-09-29 13:27] LABS: Glucose,Whole Blood 157 mg/dL (70-110)
[2023-09-29 14:38] LABS: Glucose,Whole Blood 141 mg/dL (70-110)
[2023-09-29 16:16] LABS: Glucose,Whole Blood 132 mg/dL (70-110)
[2023-09-29 17:57] LABS: Glucose,Whole Blood 128 mg/dL (70-110)
[2023-09-29 18:59] LABS: Glucose,Whole Blood 142 mg/dL (70-110)
[2023-09-29] MEDS: SENNOSIDES-DOCUSATE SODIUM 1 EACH TAB PO SCH (19:56)
[2023-09-29] MEDS: LACTATED RINGERS 1,000 ML IV SCH (19:56)
[2023-09-29 20:01] LABS: Glucose,Whole Blood 136 mg/dL (70-110)
[2023-09-29 21:10] LABS: Glucose,Whole Blood 118 mg/dL (70-110)
[2023-09-29 22:10] LABS: Glucose,Whole Blood 113 mg/dL (70-110)
[2023-09-29 23:07] LABS: Glucose,Whole Blood 124 mg/dL (70-110)
[2023-09-30 00:04] LABS: Glucose,Whole Blood 140 mg/dL (70-110)
[2023-09-30 01:01] LABS: Glucose,Whole Blood 133 mg/dL (70-110)
[2023-09-30 02:08] LABS: Glucose,Whole Blood 114 mg/dL (70-110)
[2023-09-30 03:05] LABS: Glucose,Whole Blood 140 mg/dL (70-110)
[2023-09-30 04:03] LABS: Glucose,Whole Blood 132 mg/dL (70-110)
[2023-09-30 05:02] LABS: Anisocytosis Slight; Basophils % (A) 0 %; Eosinophils % (A) 1 %; HCT 21.1 % (39.0-53.0); HGB 7.1 gm/dL (13.0-17.5); Lymphocytes # (A) 1.1 k/uL (1.0-4.8); Lymphocytes % (A) 20 %; MCH 30.4 pg (25.0-35.0); MCHC 33.5 g/dL (31.0-37.0); MCV 90.8 fL (80.0-100.0); Monocytes # (A) 0.4 k/uL (0-1.0); Monocytes % (A) 7 %; Neutrophils # (A) 3.9 k/uL (1.3-7.7); Neutrophils % (A) 70 %; Poikilocytosis Slight; RBC 2.33 m/uL (4.30-5.90); RDW 17.4 % (11.5-15.5); WBC 5.5 k/uL (3.8-10.6)
[2023-09-30 05:04] LABS: Platelet Count 93 k/uL (150-450)
[2023-09-30 05:04] LABS: Glucose,Whole Blood 133 mg/dL (70-110)
[2023-09-30 05:14] LABS: ALT 41 U/L (4-49); AST 225 U/L (17-59); African American GFR (CKD) 42 (>60 ml/min/1.73 sqM); Albumin 2.7 g/dL (3.5-5.0); Alkaline Phosphatase 64 U/L (38-126); Anion Gap 10 mmol/L; Blood Urea Nitrogen 36 mg/dL (9-20); Calcium 7.7 mg/dL (8.4-10.2); Carbon Dioxide 21 mmol/L (22-30); Chloride 108 mmol/L (98-107); Glucose 121 mg/dL (74-99); Non-African American GFR(CKD) 37 (>60 ml/min/1.73 sqM); Sodium 139 mmol/L (137-145); Total Bilirubin 0.6 mg/dL (0.2-1.3); Total Protein 5.1 g/dL (6.3-8.2)
[2023-09-30 06:25] LABS: Glucose,Whole Blood 122 mg/dL (70-110)
[2023-09-30] MEDS: PANTOPRAZOLE 40 MG TABLET PO SCH (06:44)
[2023-09-30] MEDS ORDERED: FUROSEMIDE 10 MG/ML 2 ML VIAL IV STA (07:59)
[2023-09-30] MEDS ORDERED: POTASSIUM CHLORIDE ER 10 MEQ TAB.ER.PRT PO STA (07:59)
--- NOTE | 2023-09-30 08:37 | XR ---
EXAMINATION TYPE: XR chest 1V portable DATE OF EXAM: 09/30/2023 Comparison: 09/29/2023 Clinical History: 73-year-old male Postop CABG Findings: Median sternotomy wires are present with plate and screw fixation of the sternum. Post-CABG clips. Lo op recorder device left side of the chest. Left-sided chest tube in place. There is now a small left apical pneumothorax demonstrated measuring up to 1 cm right IJ sheath in place. Right-sided chest tub e/mediastinal drains have been removed. Heart remains enlarged. Diffuse interstitial density persists . Prominent retrocardiac and left basilar opacity remains. Impression: 1. Left-sided chest tube in place. Small 1 cm left apical pneumothorax now seen. 2. Cardiomegaly with ongoing pulmonary vascular congestion. 3. Ongoing extensive left basilar retrocardiac opacity, probably postoperative atelectasis and small effusion.
[2023-09-30 08:41] LABS: Glucose,Whole Blood 177 mg/dL (70-110)
[2023-09-30] MEDS: INSULIN REGULAR 100 UNIT in SODIUM CHLORIDE 0.9% 100 ML IV SCH (08:41)
[2023-09-30] MEDS: IPRATROPIUM-ALBUTEROL 3 ML NEB INHALATION SCH ×4 (08:47→21:07)
[2023-09-30] MEDS: ATORVASTATIN 40 MG TAB PO SCH (08:52)
[2023-09-30] MEDS: ASCORBIC ACID 500 MG TAB PO SCH (08:52)
[2023-09-30] MEDS: MULTIVITAMINS, THERA 1 EACH TAB PO SCH (08:52)
[2023-09-30] MEDS: CYANOCOBALAMIN 500 MCG TAB PO SCH (08:52)
[2023-09-30] MEDS: FERROUS SULFATE 325 MG TAB PO SCH (08:52)
[2023-09-30] MEDS: HEPARIN SODIUM,PORCINE 5,000 UNIT/ML 1 ML VIAL SQ SCH ×2 (08:52→17:10)
[2023-09-30] MEDS: ASPIRIN 325 MG TAB PO SCH (08:52)
[2023-09-30] MEDS: CLOPIDOGREL 75 MG TAB PO SCH (08:52)
[2023-09-30] MEDS: METOPROLOL TARTRATE 12.5 MG TAB PO SCH ×2 (08:52→20:56)
[2023-09-30] MEDS: TAMSULOSIN 0.4 MG CAP.ER.24H PO SCH (08:52)
[2023-09-30 10:09] LABS: ABG Base Excess -0.7 mmol/L; ABG HCO3 22 mmol/L (21-25); ABG Oxygen Saturation 96.1 % (94-97); ABG PCO2 28 mmHg (35-45); ABG PH 7.51 (7.35-7.45); ABG PO2 70 mmHg (83-108); ABG TCO2 23 mmol/L (19-24); Allen Test Performed? Yes
[2023-09-30 10:10] LABS: Glucose,Whole Blood 154 mg/dL (70-110)
--- NOTE | 2023-09-30 11:16 | P.PN ---
Subjective Progress Note Date: 09/30/23 Principal diagnosis: Multivessel coronary artery disease. Past medical history significant for hypertension, hyperlipidemia, diabetes mellitus type 2, atrial fibrillation since 2016 on Eliquis for anticoagulation as an outpatient, obstructive sleep apnea, uses BiPAP, chronic renal insufficiency, history of coronary artery disease, status post multiple coronary stents, gout, kidney stones and is a lifetime nonsmoker. POD #3 coronary artery bypass grafting 4 vessels (left internal mammary artery to left anterior descending coronary artery, a saphenous vein graft to the obt use marginal coronary artery one, a saphenous vein graft to the obtuse marginal coronary artery 3, and a saphenous vein graft to the posterior descending coronary artery, endoscopic harvesting bilateral greater saphenous veins, ligation of the left atrial appendage using a 35 mm Atriclip, epi-aortic ultrasound, intraoperative transesophageal echocardiogram, graft flow measurements using the Medistim system, and closure of the sternum using Tritium plating device. Postoperative acute blood loss anemia, expected given hemodilution and cardiopulmonary bypass. The patient was seen and examined in follow-up today 09/30/2023 at his bedside in the intensive care unit. He is currently sitting up to the bedside chair, is awake, alert, oriented [address], episodes of disorientation to time, states the years 2007. He is in no acute distress. He denies any complaints of shortness of breath at this time, or pain at this time. The patient's narcotics were discontinued yesterday due to his disorientation. He is on room air with oxygen saturations 96% and he is achieving 1500 mL on his incentive spirometry with encouragement. Bedside telemetry is showing an normal sinus rhythm with first-degree heart block and occasional PACs heart rate 81 BPM. Atrial and ventricular epicardial pacemaker wires remained in place and he is currently on an AAI backup of 50 BPM. He remains hemodynamically stable and is currently on no inotropic or pressor support. He did receive 2 units of packed red blood cells yesterday and today his hemoglobin is 7.1. Right IJ Cordis remains in place with current hemodynamic showing a CVP 7 mmHg. His mediastinal and right pleural chest tubes were removed yesterday without incident. Left pleural chest tube chest tubes remains in place to low contiuous continuous wall suction -20 cm H2O. No air leak is present. Draining thin serosanguineous drainage with thin serosanguineous drainage. Left pleural chest tube drained 20 mL output in the last 8 hours and 50 mL output in the last 24 hours. Laboratory and chest x-ray results reviewed. The patient is complaining of some generalized weakness, although the nurses report this morning that it wa s easier to get him out of bed to the chair this morning. Objective - Vital Signs Vital signs: Vital Signs Temp 99.6 F 09/30/23 08:00 Pulse 88 09/30/23 11:00 Resp 16 09/30/23 11:00 BP 113/56 09/30/23 11:00 Pulse Ox 95 09/30/23 11:00 FiO2 21 09/30/23 00:49 Intake & Output 09/29/23 09/30/23 09/30/23 18:59 06:59 18:59 Intake Total 1406.357 363.468 99.711 Output Total 2165 705 600 Balance -758.643 -341.532 -500.289 Weight 132.1 kg Intake: IV 288 276 69 0.9 PRESSURE BAGS 48 36 9 Lactated Ringers 1,000 ml 240 240 60 @ 20 mls/hr IV .Q24H [facility]AS Rx#:[id number] Intake, IV Titration 108.357 87.468 30.711 Amount Insulin Regular 100 unit 108.357 87.468 30.711 In Sodium Chloride 0.9% 100 ml @ Per Protocol IV .Q0M RIVAS Rx#:[id number] Oral 700 Blood Product 310 Rc As-1 Unit 310 [id number] Output: Chest Tube Drainage 60 30 Chest Tube Mediastinal 40 Pleural Catheter Left 10 30 Pleural Catheter Right 10 Urine 2105 675 600 Other: Voiding Method Indwelling Catheter Indwelling Catheter Indwelling Catheter ABP, PAP, CO, CI - Last Documented Arterial Blood Pressure 126/49 Pulmonary Artery Pressure 16/0 Cardiac Output 8.1 Cardiac Index 3.3 - Exam CONSTITUTIONAL: Sitting up to the bedside chair in the intensive care unit, appears comfortable, cooperative, no apparent acute distress. HEENT: Neck is supple, no JVD, no lymphadenopathy. Right IJ Cordis in place and functioning. RESPIRATORY: Lungs sounds essentially clear throughout, diminished to his bilateral bases. Respirations are symmetrical and nonlabored. Currently on room air with oxygen saturations 96%. Able to achieve 1500 mL on his incentive spirometry. Strong cough. CARDIOVASCULAR: Regular rhythm and rate. S1 and S2 present, negative for S3, gallop or murmur. Sternum is stable. Palpable peripheral pulses bilaterally, trace to his bilateral lower extremities. No calf pain or tenderness noted. Heart hugger in place with patient demonstrating appropriate use. Knee-high GIOVANA hose and sequential compression devices in place to his bilateral lower extremities. GASTROINTESTINAL: Abdomen soft, nontender, nondistended. Obese. Active bowel sounds present 4 quadrants. Tolerating diet. Passing flatus. No guarding or rigidity. GENITOURINARY: Briceno present draining clear, yellow urine. Urine output 435 mL in the last 8 hours INTEGUMENTARY: Skin is warm and dry with no evidence of clubbing or cyanosis. Midline sternal incision clean dry and well approximated, covered with dry inta ct dressing. Bilateral lower extremity EVH sites well approximated without redness or drainage. NEUROLOGIC: Cranial nerves II through XII intact. No focal deficits. MUSKULOSKELETAL: Able to move all extremities, strength equal bilaterally, generalized weakness. PSYCHIATRIC: Alert and oriented to person and place, occasionally disoriented to time, flat affect, intact judgment and insight. INVASIVE LINES AND TUBES: Left pleural chest tube present and connected to low continuous wall suction, no air leaks present. Left pleural chest tube with 20 mL of thin serosanguineous drainage overnight, 50 mL output in the last 24 hours. Atrial and ventricular epicardial pacemaker wires present, connected to generator, AAI rate 50 bpm. Right internal Cordis, right radial arterial line present. Last CVP 7 mmHg. - Allied health notes Allied health notes reviewed: nursing - Labs CBC & Chem 7: 09/30/23 04:34 09/30/23 04:34 Labs: Abnormal Lab Results - Last 24 Hours (Table) 09/29/23 09/29/23 09/29/23 Range/Units 08:42 11:07 11:56 RBC (4.30-5.90) m/uL Hgb (13.0-17.5) gm/dL Hct (39.0-53.0) % RDW (11.5-15.5) % Plt Count (150-450) k/uL ABG pH (7.35-7.45) ABG pCO2 (35-45) mmHg ABG pO2 (83-108) mmHg Chloride (98-107) mmol/L Carbon Dioxide (22-30) mmol/L BUN (9-20) mg/dL Creatinine (0.66-1.25) mg/dL Glucose (74-99) mg/dL POC Glucose (mg/dL) 159 H 136 H (70-110) mg/dL Calcium (8.4-10.2) mg/dL AST (17-59) U/L Total Protein (6.3-8.2) g/dL Albumin (3.5-5.0) g/dL Crossmatch See Detail 09/29/23 09/29/23 09/29/23 Range/Units 13:26 14:36 16:15 RBC (4.30-5.90) m/uL Hgb (13.0-17.5) gm/dL Hct (39.0-53.0) % RDW (11.5-15.5) % Plt Count (150-450) k/uL ABG pH (7.35-7.45) ABG pCO2 (35-45) mmHg ABG pO2 (83-108) mmHg Chloride (98-107) mmol/L Carbon Dioxide (22-30) mmol/L BUN (9-20) mg/dL Creatinine (0.66-1.25) mg/dL Glucose (74-99) mg/dL POC Glucose (mg/dL) 157 H 141 H 132 H (70-110) mg/dL Calcium (8.4-10.2) mg/dL AST (17-59) U/L Total Protein (6.3-8.2) g/dL Albumin (3.5-5.0) g/dL Crossmatch 09/29/23 09/29/23 09/29/23 Range/Units 17:55 18:57 19:50 RBC (4.30-5.90) m/uL Hgb (13.0-17.5) gm/dL Hct (39.0-53.0) % RDW (11.5-15.5) % Plt Count (150-450) k/uL ABG pH (7.35-7.45) ABG pCO2 (35-45) mmHg ABG pO2 (83-108) mmHg Chloride (98-107) mmol/L Carbon Dioxide (22-30) mmol/L BUN (9-20) mg/dL Creatinine (0.66-1.25) mg/dL Glucose (74-99) mg/dL POC Glucose (mg/dL) 128 H 142 H 136 H (70-110) mg/dL Calcium (8.4-10.2) mg/dL AST (17-59) U/L Total Protein (6.3-8.2) g/dL Albumin (3.5-5.0) g/dL Crossmatch 09/29/23 09/29/23 09/29/23 Range/Units 21:09 22:09 23:06 RBC (4.30-5.90) m/uL Hgb (13.0-17.5) gm/dL Hct (39.0-53.0) % RDW (11.5-15.5) % Plt Count (150-450) k/uL ABG pH (7.35-7.45) ABG pCO2 (35-45) mmHg ABG pO2 (83-108) mmHg Chloride (98-107) mmol/L Carbon Dioxide (22-30) mmol/L BUN (9-20) mg/dL Creatinine (0.66-1.25) mg/dL Glucose (74-99) mg/dL POC Glucose (mg/dL) 118 H 113 H 124 H (70-110) mg/dL Calcium (8.4-10.2) mg/dL AST (17-59) U/L Total Protein (6.3-8.2) g/dL Albumin (3.5-5.0) g/dL Crossmatch 09/30/23 09/30/23 09/30/23 Range/Units 00:02 00:59 02:05 RBC (4.30-5.90) m/uL Hgb (13.0-17.5) gm/dL Hct (39.0-53.0) % RDW (11.5-15.5) % Plt Count (150-450) k/uL ABG pH (7.35-7.45) ABG pCO2 (35-45) mmHg ABG pO2 (83-108) mmHg Chloride (98-107) mmol/L Carbon Dioxide (22-30) mmol/L BUN (9-20) mg/dL Creatinine (0.66-1.25) mg/dL Glucose (74-99) mg/dL POC Glucose (mg/dL) 140 H 133 H 114 H (70-110) mg/dL Calcium (8.4-10.2) mg/dL AST (17-59) U/L Total Protein (6.3-8.2) g/dL Albumin (3.5-5.0) g/dL Crossmatch 09/30/23 09/30/23 09/30/23 Range/Units 03:04 04:02 04:34 RBC 2.33 L (4.30-5.90) m/uL Hgb 7.1 L (13.0-17.5) gm/dL Hct 21.1 L (39.0-53.0) % RDW 17.4 H (11.5-15.5) % Plt Count 93 L (150-450) k/uL ABG pH (7.35-7.45) ABG pCO2 (35-45) mmHg ABG pO2 (83-108) mmHg Chloride (98-107) mmol/L Carbon Dioxide (22-30) mmol/L BUN (9-20) mg/dL Creatinine (0.66-1.25) mg/dL Glucose (74-99) mg/dL POC Glucose (mg/dL) 140 H 132 H (70-110) mg/dL Calcium (8.4-10.2) mg/dL AST (17-59) U/L Total Protein (6.3-8.2) g/dL Albumin (3.5-5.0) g/dL Crossmatch 09/30/23 09/30/23 09/30/23 Range/Units 04:34 05:03 06:24 RBC (4.30-5.90) m/uL Hgb (13.0-17.5) gm/dL Hct (39.0-53.0) % RDW (11.5-15.5) % Plt Count (150-450) k/uL ABG pH (7.35-7.45) ABG pCO2 (35-45) mmHg ABG pO2 (83-108) mmHg Chloride 108 H (98-107) mmol/L Carbon Dioxide 21 L (22-30) mmol/L BUN 36 H (9-20) mg/dL Creatinine 1.78 H (0.66-1.25) mg/dL Glucose 121 H (74-99) mg/dL POC Glucose (mg/dL) 133 H 122 H (70-110) mg/dL Calcium 7.7 L (8.4-10.2) mg/dL AST 225 H (17-59) U/L Total Protein 5.1 L (6.3-8.2) g/dL Albumin 2.7 L (3.5-5.0) g/dL Crossmatch 09/30/23 09/30/23 09/30/23 Range/Units 08:40 10:07 10:08 RBC (4.30-5.90) m/uL Hgb (13.0-17.5) gm/dL Hct (39.0-53.0) % RDW (11.5-15.5) % Plt Count (150-450) k/uL ABG pH 7.51 H (7.35-7.45) ABG pCO2 28 L (35-45) mmHg ABG pO2 70 L (83-108) mmHg Chloride (98-107) mmol/L Carbon Dioxide (22-30) mmol/L BUN (9-20) mg/dL Creatinine (0.66-1.25) mg/dL Glucose (74-99) mg/dL POC Glucose (mg/dL) 177 H 154 H (70-110) mg/dL Calcium (8.4-10.2) mg/dL AST (17-59) U/L Total Protein (6.3-8.2) g/dL Albumin (3.5-5.0) g/dL Crossmatch - Imaging and Cardiology Chest x-ray: report reviewed, image reviewed Assessment and Plan Assessment: Multivessel coronary artery disease, status post coronary artery bypass grafting 4 vessels History of coronary artery disease with multiple stent in the past Hypertension Hyperlipidemia Atrial fibrillation since 2016 on Eliquis for anticoagulation as an outpatient Diabetes mellitus type 2, with a preoperative hemoglobin A1c of 6.8% Obstructive sleep apnea with home BiPAP use Chronic renal insufficiency History of gout History of kidney stones Lifetime nonsmoker Postoperative acute blood loss anemia and postoperative thrombocytopenia, e xpected given hemodilution and cardiopulmonary bypass Medical debility Plan: Continue to maximize medical therapy with aspirin, statin, Plavix and beta jayna. Continue metoprolol tartrate 12.5 mg by mouth twice a day with hold parameters. Lasix 20 mg IV 1 now and potassium chloride 10 mEq by mouth 1 now. Encourage incentive spirometry use 10 times every hour while awake. Bronchodilators per pulmonology. Increase activity, ambulate as tolerated. PT/OT/cardiac rehab following. Will monitor daily labs and chest x-rays. Electrolyte replacement per protocol. GI/DVT prophylaxis. Pain control per current medication regimen. Avoid nephrotoxic agents as the patient has a history of chronic renal insufficiency. We will not add Toradol due to his kidney function. Continue to hold Narcotics due to patient's mentation, continue pain control with acetaminophen. Insulin management per internal medicine service. Patient is a diabetic, hemoglobin A1c 6.8%. Needs to remain on insulin drip for 48 hours, then may transition to subcutaneous per protocol. Remove right IJ Cordis. Remove left pleural chest tube. Remove Briceno catheter, continue to record strict accurate intake and output. The bladder scan every 6 hours and when necessary postvoid residual. If greater than or equal to 300 mL please straight cath. Daily weights. Keep atrial and ventricular epicardial pacemaker wires in place, place pacemaker generator to a AAI mode backup with a rate of 50 bpm. Keep in ICU More recommendations to follow based on patient's clinical course. Time with Patient: Greater than 30
[2023-09-30 11:18] LABS: Glucose,Whole Blood 162 mg/dL (70-110)
[2023-09-30] MEDS: LACTATED RINGERS 1,000 ML IV SCH (11:18)
[2023-09-30 12:07] LABS: Glucose,Whole Blood 125 mg/dL (70-110)
--- NOTE | 2023-09-30 12:16 | P.PN ---
Subjective Progress Note Date: 09/30/23 Patient is a 73-year-old male with history of CAD status post multiple stents, hypertension, atrial fibrillation, dyslipidemia, diabetes presented for elective CABG. [facility] has been consulted for medical management. Patient currently on nitroglycerin drip and 5 mcg/minute, norepinephrine drip at 0.04, propofol at 20 MCG per kilogram per minute, insulin drip at 4 units per hour. WBC 9.6, hemoglobin 7.9, platelet 108, pH 7.3, pCO2 48, potassium 4.5, creatinine 1.31 from baseline, magnesium 2.4, blood glucose 112. Extubated on 09/27. Levophed and Nitroglycerin drip discontinued. Required 3 units PRBC so far with intermitted Lasix IV push. Right and mediastinal chest tube removed 09/29. Confused at times. 09/30 Patient was seen and examined. Feeling tired. CBC Hg 7.1, Plt 93. BMP Cl 108, bicarb 21, BUN 36, Cr 1.78, glu 121, Ca 7.7, alb 2.7. POC glucose 113-200 over the past 24H. Currently on insulin drip at 11.5 units/hr. LR at 20 cc/hr. Currently on ASA 325 mg PO QD, Lipitor 40 mg PO QD, Plavix 75 mg PO QD, Metoprolol 12.5 mg PO BID. Renal US shows patterson catheter and no right hyd ronephrosis, unable to examine L kidney. CXR shows left sided chest tube, small apical PTX, pulmonary vascular congestion with atelectasis on the left side. Urine output 1005 cc over the past 24H. General: lethargic, no distress, appears at stated age Derm: warm, dry Head: atraumatic, normocephalic, symmetric Eyes: EOMI, no lid lag, pale sclera Cardiovascular: S1S2 reg, no murmur Lungs: Decreased BS bilaterally , no accessory muscle use Ext: no gross muscle atrophy, no edema, no contractures Neuro: no focal neuro deficits Psych: Alert, oriented, appropriate affect Based on my assessment of this patient, this patient meets a high complexity level of care. Patient has an acute diagnosis of POD 3 CABG that poses a threat to life or bodily function. CAD: Status post CABG POD 3. ASA 325 mg PO QD, Lipitor 40 mg PO QD, Plavix 75 mg PO QD, Metoprolol 12.5 mg PO BID. Telemetry monitoring. Cardiology and CT surgery on board. Acute blood loss anemia: Hg 7.1. Status post 3 unit PRBC. Transfuse if Hg < 7. Patient would benefit from additional PRBC but will defer decision to CT surgery. Acute on chronic thrombocytopenia: Anticipated outcome of surgery. Transfuse if Plt < 10. Type 2 diabetes: A1c 6.8. Currently on insulin drip. Accuchecks. Hypoglycemic precautions. Acute on CKD stage III: Renal US unrevealing but incomplete. Patterson catheter in place. Strict intake and outtake. Hypocalcemia: Psedo when corrected with albumin. History of hypertension: Metoprolol as above. Lisinopril, Nifedipine, Sotalol at home on hold. History of atrial fibrillation: Metoprolol as above. Eliquis when OK with CT surgery. Dyslipidemia: Lipitor as above. Gout Allopurinol 300 mg PO QD. BPH CODE STATUS: FULL CODE DVT Prophylaxis: Heparin SQ GI Prophylaxis: Protonix PO Designated medical POA if patient is not able to make medical decisions for themselves: I have reviewed the following construction safety consultant notes: CT surgery, Cardiology, Pulmonology note. I have reviewed the results of the following tests: CBC. BMP. POC glucose. I have ordered the following tests: CBC, BMP. I have discussed the care of this patient with the following independent historian: I have independently interpreted the following test below: CXR as above. I have discussed the management of this patient with the following physician: This patient meets a high level of care for the following reasons: Patient requires IV lasix which requires intensive monitoring for renal toxicitiy. (Lasix 20 mg IV ordered today) Patient requires adjustments in insulin which requires intensive monitoring for hypoglycemic episodes. (insulin drip transitioned to SQ) Objective - Vital Signs Vital signs: Vital Signs Temp 99 F 09/30/23 04:00 Pulse 80 09/30/23 08:58 Resp 14 09/30/23 07:00 BP 119/55 09/30/23 07:00 Pulse Ox 96 09/30/23 07:00 FiO2 21 09/30/23 00:49 Intake & Output 09/29/23 09/30/23 09/30/23 18:59 06:59 18:59 Intake Total 1406.357 363.468 13.869 Output Total 2165 705 Balance -758.643 -341.532 13.869 Weight 132.1 kg Intake: IV 288 276 0.9 PRESSURE BAGS 48 36 Lactated Ringers 1,000 ml 240 240 @ 20 mls/hr IV .Q24H [facility] Rx#:[id number] Intake, IV Titration 108.357 87.468 13.869 Amount Insulin Regular 100 unit 108.357 87.468 13.869 In Sodium Chloride 0.9% 100 ml @ Per Protocol IV .Q0M R[facility]AS Rx#:[id number] Oral 700 Blood Product 310 Rc As-1 Unit 310 [id number] Output: Chest Tube Drainage 60 30 Chest Tube Mediastinal 40 Pleural Catheter Left 10 30 Pleural Catheter Right 10 Urine 2105 675 Other: Voiding Method Indwelling Catheter Indwelling Catheter ABP, PAP, CO, CI - Last Documented Arterial Blood Pressure 126/49 Pulmonary Artery Pressure 16/0 Cardiac Output 8.1 Cardiac Index 3.3 - Labs CBC & Chem 7: 09/30/23 04:34 09/30/23 04:34 Labs: Abnormal Lab Results - Last 24 Hours (Table) 09/19/23 09/29/23 09/29/23 Range/Units 09:20 08:42 09:25 RBC (4.30-5.90) m/uL Hgb (13.0-17.5) gm/dL Hct (39.0-53.0) % RDW (11.5-15.5) % Plt Count (150-450) k/uL Chloride (98-107) mmol/L Carbon Dioxide (22-30) mmol/L BUN (9-20) mg/dL Creatinine (0.66-1.25) mg/dL Glucose (74-99) mg/dL POC Glucose (mg/dL) 200 H (70-110) mg/dL Calcium (8.4-10.2) mg/dL AST (17-59) U/L Total Protein (6.3-8.2) g/dL Albumin (3.5-5.0) g/dL Crossmatch See Detail See Detail 09/29/23 09/29/23 09/29/23 Range/Units 10:01 11:07 11:56 RBC (4.30-5.90) m/uL Hgb (13.0-17.5) gm/dL Hct (39.0-53.0) % RDW (11.5-15.5) % Plt Count (150-450) k/uL Chloride (98-107) mmol/L Carbon Dioxide (22-30) mmol/L BUN (9-20) mg/dL Creatinine (0.66-1.25) mg/dL Glucose (74-99) mg/dL POC Glucose (mg/dL) 188 H 159 H 136 H (70-110) mg/dL Calcium (8.4-10.2) mg/dL AST (17-59) U/L Total Protein (6.3-8.2) g/dL Albumin (3.5-5.0) g/dL Crossmatch 09/29/23 09/29/23 09/29/23 Range/Units 13:26 14:36 16:15 RBC (4.30-5.90) m/uL Hgb (13.0-17.5) gm/dL Hct (39.0-53.0) % RDW (11.5-15.5) % Plt Count (150-450) k/uL Chloride (98-107) mmol/L Carbon Dioxide (22-30) mmol/L BUN (9-20) mg/dL Creatinine (0.66-1.25) mg/dL Glucose (74-99) mg/dL POC Glucose (mg/dL) 157 H 141 H 132 H (70-110) mg/dL Calcium (8.4-10.2) mg/dL AST (17-59) U/L Total Protein (6.3-8.2) g/dL Albumin (3.5-5.0) g/dL Crossmatch 09/29/23 09/29/23 09/29/23 Range/Units 17:55 18:57 19:50 RBC (4.30-5.90) m/uL Hgb (13.0-17.5) gm/dL Hct (39.0-53.0) % RDW (11.5-15.5) % Plt Count (150-450) k/uL Chloride (98-107) mmol/L Carbon Dioxide (22-30) mmol/L BUN (9-20) mg/dL Creatinine (0.66-1.25) mg/dL Glucose (74-99) mg/dL POC Glucose (mg/dL) 128 H 142 H 136 H (70-110) mg/dL Calcium (8.4-10.2) mg/dL AST (17-59) U/L Total Protein (6.3-8.2) g/dL Albumin (3.5-5.0) g/dL Crossmatch 09/29/23 09/29/23 09/29/23 Range/Units 21:09 22:09 23:06 RBC (4.30-5.90) m/uL Hgb (13.0-17.5) gm/dL Hct (39.0-53.0) % RDW (11.5-15.5) % Plt Count (150-450) k/uL Chloride (98-107) mmol/L Carbon Dioxide (22-30) mmol/L BUN (9-20) mg/dL Creatinine (0.66-1.25) mg/dL Glucose (74-99) mg/dL POC Glucose (mg/dL) 118 H 113 H 124 H (70-110) mg/dL Calcium (8.4-10.2) mg/dL AST (17-59) U/L Total Protein (6.3-8.2) g/dL Albumin (3.5-5.0) g/dL Crossmatch 09/30/23 09/30/23 09/30/23 Range/Units 00:02 00:59 02:05 RBC (4.30-5.90) m/uL Hgb (13.0-17.5) gm/dL Hct (39.0-53.0) % RDW (11.5-15.5) % Plt Count (150-450) k/uL Chloride (98-107) mmol/L Carbon Dioxide (22-30) mmol/L BUN (9-20) mg/dL Creatinine (0.66-1.25) mg/dL Glucose (74-99) mg/dL POC Glucose (mg/dL) 140 H 133 H 114 H (70-110) mg/dL Calcium (8.4-10.2) mg/dL AST (17-59) U/L Total Protein (6.3-8.2) g/dL Albumin (3.5-5.0) g/dL Crossmatch 09/30/23 09/30/2323 Range/Units 03:04 04:02 04:34 RBC 2.33 L (4.30-5.90) m/uL Hgb 7.1 L (13.0-17.5) gm/dL Hct 21.1 L (39.0-53.0) % RDW 17.4 H (11.5-15.5) % Plt Count 93 L (150-450) k/uL Chloride (98-107) mmol/L Carbon Dioxide (22-30) mmol/L BUN (9-20) mg/dL Creatinine (0.66-1.25) mg/dL Glucose (74-99) mg/dL POC Glucose (mg/dL) 140 H 132 H (70-110) mg/dL Calcium (8.4-10.2) mg/dL AST (17-59) U/L Total Protein (6.3-8.2) g/dL Albumin (3.5-5.0) g/dL Crossmatch 09/30/23 09/30/23 09/30/23 Range/Units 04:34 05:03 06:24 RBC (4.30-5.90) m/uL Hgb (13.0-17.5) gm/dL Hct (39.0-53.0) % RDW (11.5-15.5) % Plt Count (150-450) k/uL Chloride 108 H (98-107) mmol/L Carbon Dioxide 21 L (22-30) mmol/L BUN 36 H (9-20) mg/dL Creatinine 1.78 H (0.66-1.25) mg/dL Glucose 121 H (74-99) mg/dL POC Glucose (mg/dL) 133 H 122 H (70-110) mg/dL Calcium 7.7 L (8.4-10.2) mg/dL AST 225 H (17-59) U/L Total Protein 5.1 L (6.3-8.2) g/dL Albumin 2.7 L (3.5-5.0) g/dL Crossmatch 09/30/23 Range/Units 08:40 RBC (4.30-5.90) m/uL Hgb (13.0-17.5) gm/dL Hct (39.0-53.0) % RDW (11.5-15.5) % Plt Count (150-450) k/uL Chloride (98-107) mmol/L Carbon Dioxide (22-30) mmol/L BUN (9-20) mg/dL Creatinine (0.66-1.25) mg/dL Glucose (74-99) mg/dL POC Glucose (mg/dL) 177 H (70-110) mg/dL Calcium (8.4-10.2) mg/dL AST (17-59) U/L Total Protein (6.3-8.2) g/dL Albumin (3.5-5.0) g/dL Crossmatch
--- NOTE | 2023-09-30 14:48 | P.PN ---
Subjective Progress Note Date: 09/30/23 Principal diagnosis: POD #3 coronary artery bypass grafting 4 vessels (left internal mammary artery to left anterior descending coronary artery, a saphenous vein graft to the obt use marginal coronary artery one, a saphenous vein graft to the obtuse marginal coronary artery 3, and a saphenous vein graft to the posterior descending coronary artery, endoscopic harvesting bilateral greater saphenous veins, ligation of the left atrial appendage using a 35 mm Atriclip, epi-aortic ultrasound, intraoperative transesophageal echocardiogram, graft flow measurements using the Medistim system, and closure of the sternum using Tritium plating device. This patient is 73 and the patient underwent a four-vessel bypass surgery and the patient is being seen in the intensive care unit postop. The patient is currently sedated on propofol which is running at 20 mcg/kg/m. The patient's underwent four-vessel bypass surgery. The patient is currently well sedated on a mechanical ventilator on assist control mode at the rate of 12, tidal volume of 500, FiO2 was weaned down to 50% and PEEP is currently at 10. The patient's blood gas shows a pH of 7.29 with a pCO2 of 47 and pO2 of 352. This was on FiO2 100%. The patient was subsequently brought up respiratory rate of 24 and FiO2 was up to 50%. Chest x-ray shows adequate expansion of both lungs. [place] in good location. ET tube needs to be pushed in by around 1 cm. The patient has a right pleural, mediastinal and left pleural chest tubes. No evidence of any air leak. Output is minimal at this point in time. Carotid Dopplers at 5.8 with an index of 2.4. Patient is on norepinephrine at 0.04 mcg/kg/m, nitroglycerin drip at 5 mg/m and the patient is also on insulin drip at 1 units an hour. The patient sees a units of packed RBC. Making adequate urine output. Adequately sedated for now. No major issues otherwise. The patient is also placed at the rate of 80. Underlying cardiac rhythm is sinus bradycardia. On today's evaluation of 09/28/2023, the patient is being seen for a follow-up. The patient was extubated without any major difficulties yesterday. Currently is on room air oxygen. Sitting up on a chair. Chest x-ray shows no major abnormalities and showing postsurgical changes. The film itself facilitated. The patient has a right IJ Gants catheter in place. Patient has also 3 chest tubes, right pleural, left lower and mediastinal. Output from the chest tubes have been noted which is not excessive at this point in time and there is no evidence of any air leak. At the same time, the patient is using the incentive spirometer. He is falling approximately the thousand. Current pulse ox is 94%. His cardiac rhythm was sinus bradycardia with a first-degree AV block. The patient is currently paced at the rate of 70. Cardiac output is at 7.3. Index is at 3.0. He did encounter some hypotension yesterday and the patient was taken off the nitroglycerin drip and currently is off norepinephrine. Insulin drip is running at the rate of 6 units an hour. Hemoglobin is low at 6.8. No orders for blood transfusion at this point in time. This is being monitored. Platelet count is 79, BUN is at 24 with a creatinine of 1.6 as the patient has a component of chronic kidney disease. B[place] cath is in place. Adequate urine output. Sodium level is at 139, potassium is at 4.4, bicarb is at 20. In 2022, the patient is on oxygen at 2 L he's currently postop day #2. Doing well. Slightly lethargic and is feeling weak. No focal neurological deficits. Is worried all 4 extremities. Slightly confused. Based on that, a blood gas was done and the patient was found to have a pH of 7.48 with episodes of 27 and pO2 of 73. Serum bicarbs of 20. His chest x-ray from today showing some atelectatic change in the left lung base. The patient has a right pleural, left lower and the mediastinal chest tube. No airspace disease. No consolidation. He had some issues with drop in hemoglobin and patient was given units of packed RBC. Follow-up hemoglobin today is still low at 6.7. Another units of packed RBC will be given fluids patient today. He has sustained an acute kidney injury. Creatinine is up to 1.9 with a BUN of 31 and a sodium level is at 137. Serum bicarbs of 20. White cell count at 7.1. [place] catheter has been removed. He is on aspirin. He is on Plavix. He is on metoprolol at a dose of 12.5 mg by mouth twice a day. His underlying rhythm is sinus. He is having occasional PACs. Patient was reevaluated today on 09/30/23, patient is now postoperative day #3. Patient is doing well, awake, alert, oriented 3, although at times he had episodes where he was a bit confused, does not seem to be in any distress, his narcotics have been discontinued yesterday. Patient is hemodynamically stable, and achieving above 1500 mL on his incentive spirometry, he is hemodynamically stable, not requiring any inotropes or pressors. Patient did receive 2 units of packed RBCs yesterday for hemoglobin of 7.1. Patient feels generally weak, otherwise relatively asymptomatic. WBC count is 5.5 hemoglobin is 7.1. ABG on room air today showed a pO2 of 70 pCO2 28 pH of 7.51, basic metabolic profile is normal renal profile showed a BUN of 36 creatinine 1.78 improving compared to baseline creatinine Objective - Vital Signs Vital signs: Vital Signs Temp 99.5 F 09/30/23 12:00 Pulse 101 H 09/30/23 14:00 Resp 19 09/30/23 14:00 BP 117/47 09/30/23 14:00 Pulse Ox 94 L 09/30/23 14:00 FiO2 21 09/30/23 00:49 Intake & Output 09/29/23 09/30/23 09/30/23 18:59 06:59 18:59 Intake Total 1406.357 363.468 143.163 Output Total 2165 705 905 Balance -758.643 -341.532 -761.837 Weight 132.1 kg Intake: IV 288 276 92 0.9 PRESSURE BAGS 48 36 12 Lactated Ringers 1,000 ml 240 240 80 @ 20 mls/hr IV .Q24H [facility] Rx#:[id number] Intake, IV Titration 108.357 87.468 51.163 Amount Insulin Regular 100 unit 108.357 87.468 51.163 In Sodium Chloride 0.9% 100 ml @ Per Protocol IV .Q0M [facility] Rx#:[id number] Oral 700 Blood Product 310 Rc As-1 Unit 310 [id number] Output: Chest Tube Drainage 60 30 Chest Tube Mediastinal 40 Pleural Catheter Left 10 30 Pleural Catheter Right 10 Urine 2105 675 905 Other: Voiding Method Indwelling Catheter Indwelling Catheter Indwelling Catheter # Bowel Movements 1 ABP, PAP, CO, CI - Last Documented Arterial Blood Pressure 126/49 Pulmonary Artery Pressure 16/0 Cardiac Output 8.1 Cardiac Index 3.3 - Exam Physical Exam: Revealed 73-year-old white male in no distress, on room air with O2 saturation 94% Neck: Atraumatic, normocephalic Head: Atraumatic, normocephalic. HEENT:[Neck is supple.] [No neck masses.] [No thyromegaly.] [No JVD.] Chest: [Diminished breath sounds at the bases no crackles or rhonchi or wheezes Cardiac Exam: [Normal S1 and S2, no S3 gallop, no murmur.] Abdomen: [Soft, nontender, no megaly, no rebound, no guarding, normal bowel sounds.] Extremities: [No clubbing, no edema, no cyanosis.] Neurological Exam: [No focal neurologic deficit.] Alert and oriented 3. Psychiatric: Normal mood affect and normal mental status examination. Skin: No rashes - Labs CBC & Chem 7: 09/30/23 04:34 09/30/23 04:34 Labs: Abnormal Lab Results - Last 24 Hours (Table) 09/29/23 09/29/23 09/29/23 Range/Units 14:36 16:15 17:55 RBC (4.30-5.90) m/uL Hgb (13.0-17.5) gm/dL Hct (39.0-53.0) % RDW (11.5-15.5) % Plt Count (150-450) k/uL ABG pH (7.35-7.45) ABG pCO2 (35-45) mmHg ABG pO2 (83-108) mmHg Chloride (98-107) mmol/L Carbon Dioxide (22-30) mmol/L BUN (9-20) mg/dL Creatinine (0.66-1.25) mg/dL Glucose (74-99) mg/dL POC Glucose (mg/dL) 141 H 132 H 128 H (70-110) mg/dL Calcium (8.4-10.2) mg/dL AST (17-59) U/L Total Protein (6.3-8.2) g/dL Albumin (3.5-5.0) g/dL 09/29/23 09/29/23 09/29/23 Range/Units 18:57 19:50 21:09 RBC (4.30-5.90) m/uL Hgb (13.0-17.5) gm/dL Hct (39.0-53.0) % RDW (11.5-15.5) % Plt Count (150-450) k/uL ABG pH (7.35-7.45) ABG pCO2 (35-45) mmHg ABG pO2 (83-108) mmHg Chloride (98-107) mmol/L Carbon Dioxide (22-30) mmol/L BUN (9-20) mg/dL Creatinine (0.66-1.25) mg/dL Glucose (74-99) mg/dL POC Glucose (mg/dL) 142 H 136 H 118 H (70-110) mg/dL Calcium (8.4-10.2) mg/dL AST (17-59) U/L Total Protein (6.3-8.2) g/dL Albumin (3.5-5.0) g/dL 09/29/23 09/29/23 09/30/23 Range/Units 22:09 23:06 00:02 RBC (4.30-5.90) m/uL Hgb (13.0-17.5) gm/dL Hct (39.0-53.0) % RDW (11.5-15.5) % Plt Count (150-450) k/uL ABG pH (7.35-7.45) ABG pCO2 (35-45) mmHg ABG pO2 (83-108) mmHg Chloride (98-107) mmol/L Carbon Dioxide (22-30) mmol/L BUN (9-20) mg/dL Creatinine (0.66-1.25) mg/dL Glucose (74-99) mg/dL POC Glucose (mg/dL) 113 H 124 H 140 H (70-110) mg/dL Calcium (8.4-10.2) mg/dL AST (17-59) U/L Total Protein (6.3-8.2) g/dL Albumin (3.5-5.0) g/dL 09/30/23 09/30/23 09/30/23 Range/Units 00:59 02:05 03:04 RBC (4.30-5.90) m/uL Hgb (13.0-17.5) gm/dL Hct (39.0-53.0) % RDW (11.5-15.5) % Plt Count (150-450) k/uL ABG pH (7.35-7.45) ABG pCO2 (35-45) mmHg ABG pO2 (83-108) mmHg Chloride (98-107) mmol/L Carbon Dioxide (22-30) mmol/L BUN (9-20) mg/dL Creatinine (0.66-1.25) mg/dL Glucose (74-99) mg/dL POC Glucose (mg/dL) 133 H 114 H 140 H (70-110) mg/dL Calcium (8.4-10.2) mg/dL AST (17-59) U/L Total Protein (6.3-8.2) g/dL Albumin (3.5-5.0) g/dL 09/30/23 09/30/23 09/30/23 Range/Units 04:02 04:34 04:34 RBC 2.33 L (4.30-5.90) m/uL Hgb 7.1 L (13.0-17.5) gm/dL Hct 21.1 L (39.0-53.0) % RDW 17.4 H (11.5-15.5) % Plt Count 93 L (150-450) k/uL ABG pH (7.35-7.45) ABG pCO2 (35-45) mmHg ABG pO2 (83-108) mmHg Chloride 108 H (98-107) mmol/L Carbon Dioxide 21 L (22-30) mmol/L BUN 36 H (9-20) mg/dL Creatinine 1.78 H (0.66-1.25) mg/dL Glucose 121 H (74-99) mg/dL POC Glucose (mg/dL) 132 H (70-110) mg/dL Calcium 7.7 L (8.4-10.2) mg/dL AST 225 H (17-59) U/L Total Protein 5.1 L (6.3-8.2) g/dL Albumin 2.7 L (3.5-5.0) g/dL 09/30/23 09/30/23 09/30/23 Range/Units 05:03 06:24 08:40 RBC (4.30-5.90) m/uL Hgb (13.0-17.5) gm/dL Hct (39.0-53.0) % RDW (11.5-15.5) % Plt Count (150-450) k/uL ABG pH (7.35-7.45) ABG pCO2 (35-45) mmHg ABG pO2 (83-108) mmHg Chloride (98-107) mmol/L Carbon Dioxide (22-30) mmol/L BUN (9-20) mg/dL Creatinine (0.66-1.25) mg/dL Glucose (74-99) mg/dL POC Glucose (mg/dL) 133 H 122 H 177 H (70-110) mg/dL Calcium (8.4-10.2) mg/dL AST (17-59) U/L Total Protein (6.3-8.2) g/dL Albumin (3.5-5.0) g/dL 09/30/23 09/30/23 09/30/23 Range/Units 10:07 10:08 11:16 RBC (4.30-5.90) m/uL Hgb (13.0-17.5) gm/dL Hct (39.0-53.0) % RDW (11.5-15.5) % Plt Count (150-450) k/uL ABG pH 7.51 H (7.35-7.45) ABG pCO2 28 L (35-45) mmHg ABG pO2 70 L (83-108) mmHg Chloride (98-107) mmol/L Carbon Dioxide (22-30) mmol/L BUN (9-20) mg/dL Creatinine (0.66-1.25) mg/dL Glucose (74-99) mg/dL POC Glucose (mg/dL) 154 H 162 H (70-110) mg/dL Calcium (8.4-10.2) mg/dL AST (17-59) U/L Total Protein (6.3-8.2) g/dL Albumin (3.5-5.0) g/dL 09/30/23 Range/Units 12:06 RBC (4.30-5.90) m/uL Hgb (13.0-17.5) gm/dL Hct (39.0-53.0) % RDW (11.5-15.5) % Plt Count (150-450) k/uL ABG pH (7.35-7.45) ABG pCO2 (35-45) mmHg ABG pO2 (83-108) mmHg Chloride (98-107) mmol/L Carbon Dioxide (22-30) mmol/L BUN (9-20) mg/dL Creatinine (0.66-1.25) mg/dL Glucose (74-99) mg/dL POC Glucose (mg/dL) 125 H (70-110) mg/dL Calcium (8.4-10.2) mg/dL AST (17-59) U/L Total Protein (6.3-8.2) g/dL Albumin (3.5-5.0) g/dL Assessment and Plan Assessment: Impression: Coronary artery bypass surgery. The patient underwent four-vessel bypass surgery. The patient is currently postop day #3 CAD status post multiple stents, now status post CABG Acute blood loss anemia, expected. Acute on chronic thrombocytopenia, anticipated outcome of surgery, platelets are being monitored, the levels s 104 Type 2 diabetes, patient is still requiring insulin drip Chronic kidney disease stage III, cr is 1.9 Hypocalcemia History of hypertension History of atrial fibrillation Dyslipidemia Gout BPH Recommendation: Continue statin, Plavix, beta blockers, and aspirin Continue to monitor in the ICU Continue incentive spirometry Continue ambulation Continue to monitor hemoglobin and transfuse if hemoglobin below 7 Discontinue unnecessary catheters and tubes, his right-sided chest tube was removed yesterday. Continue insulin drip and titrate accordingly Encourage ambulation and incentive spirometry Continue bronchodilators We will continue to follow Time with Patient: Less than 30
[2023-09-30 16:31] LABS: ABG Base Excess -3.5 mmol/L; ABG HCO3 20 mmol/L (21-25); ABG Oxygen Saturation 96.2 % (94-97); ABG PCO2 26 mmHg (35-45); ABG PO2 70 mmHg (83-108); ABG TCO2 21 mmol/L (19-24); Allen Test Performed? Yes
[2023-09-30 17:01] LABS: Glucose,Whole Blood 269 mg/dL (70-110)
[2023-09-30] MEDS: INSULIN ASPART (NovoLOG) 100 UNIT/ML VIAL SQ SCH ×3 (17:09→20:57)
--- NOTE | 2023-09-30 18:44 | P.PN ---
Subjective PROGRESS NOTE The patient is a 73-year-old male who underwent CABG yesterday. He is followed regularly by Dr. De Oliveira in [place] and has underwent prior stenting, most recently about 10 years ago according to him who has been complaining of progres sive chest discomfort and underwent cardiac catheterization in [place], was found to have severe obstructive disease and underwent CABG yesterday. He received a MAGANA to the LAD and SVG to OM1 and 3 and PDA with closure of the left atrial appendage. He is extubated, sitting up in the chair, he feels well. He was having chest discomfort and dyspnea on exertion prior to presentation. He has no peripheral edema, PND or orthopnea. He does not recall being told that he had a myocardial infarction or history of CHF. He has a prior history of paroxysmal atrial fibrillation and has a loop recorder and according to him there was no episodes of atrial fibrillation for the last 2 years. Hemodynamic ally he is stable. He has a history of diabetes, hypertension and hyperlipidemia. He is a nonsmoker. September 29: The patient is feeling well this morning, he denies any chest discomfort, dizziness or palpitations. He continues to be in sinus mechanism. Hemodynamically stable. His urine output is stable. He denies any nausea or vomiting. He is on no vasopressors. He had anemia and his received transfusion. 09/30 Patient seen and examined. Patient has had off-and-on confusion and currently on BiPAP. Denies any chest pain or pressure. Creatinine 1.7 with hemoglobin 7.1. Medications: Aspirin, Lipitor 40 mg daily, Plavix 75 mg daily, metoprolol tartrate 12.5 mg twice a day. PHYSICAL EXAMINATION: Vitals reviewed LUNGS: Mild decreased breath sounds at the bases HEART: Regular rate and rhythm, S1, S2. No S3. No systolic murmur ABDOMEN: Soft, nontender, no organomegaly EXTREMETIES: No edema IMPRESSION: 1. Status post CABG, stable 2. Anemia postoperatively 3. Acute renal injury postoperatively 4. History of paroxysmal atrial fibrillation 5. History of diabetes 6. History of hypertension 7. History of hyperlipidemia PLAN: Monitor hemoglobin and transfuse as needed. Creatinine mildly improved and monitor closely. Monitor neurologic function and BiPAP as needed. Continue with current supportive care. Objective - Vital Signs Vital signs: Vital Signs Temp 98.2 F 09/30/23 16:00 Pulse 92 09/30/23 17:00 Resp 27 H 09/30/23 17:00 BP 144/70 09/30/23 17:00 Pulse Ox 96 09/30/23 17:00 FiO2 21 09/30/23 17:00 Intake & Output 09/29/23 09/30/23 09/30/23 18:59 06:59 18:59 Intake Total 1406.357 363.468 143.163 Output Total 2165 705 1060 Balance -758.643 -341.532 -916.837 Weight 132.1 kg Intake: IV 288 276 92 0.9 PRESSURE BAGS 48 36 12 Lactated Ringers 1,000 ml 240 240 80 @ 20 mls/hr IV .Q24H [facility] Rx#:[id number] Intake, IV Titration 108.357 87.468 51.163 Amount Insulin Regular 100 unit 108.357 87.468 51.163 In Sodium Chloride 0.9% 100 ml @ Per Protocol IV .Q0M [facility] Rx#:[id number] Oral 700 Blood Product 310 Rc As-1 Unit 310 [id number] Output: Chest Tube Drainage 60 30 Chest Tube Mediastinal 40 Pleural Catheter Left 10 30 Pleural Catheter Right 10 Urine 2105 675 1060 Other: Voiding Method Indwelling Catheter Indwelling Catheter Indwelling Catheter # Bowel Movements 1 ABP, PAP, CO, CI - Last Documented Arterial Blood Pressure 126/49 Pulmonary Artery Pressure 16/0 Cardiac Output 8.1 Cardiac Index 3.3 - Labs CBC & Chem 7: 09/30/23 04:34 09/30/23 04:34 Labs: Abnormal Lab Results - Last 24 Hours (Table) 09/19/23 09/29/23 09/29/23 Range/Units 09:20 18:57 19:50 RBC (4.30-5.90) m/uL Hgb (13.0-17.5) gm/dL Hct (39.0-53.0) % RDW (11.5-15.5) % Plt Count (150-450) k/uL ABG pH (7.35-7.45) ABG pCO2 (35-45) mmHg ABG pO2 (83-108) mmHg ABG HCO3 (21-25) mmol/L Chloride (98-107) mmol/L Carbon Dioxide (22-30) mmol/L BUN (9-20) mg/dL Creatinine (0.66-1.25) mg/dL Glucose (74-99) mg/dL POC Glucose (mg/dL) 142 H 136 H (70-110) mg/dL Calcium (8.4-10.2) mg/dL AST (17-59) U/L Total Protein (6.3-8.2) g/dL Albumin (3.5-5.0) g/dL Crossmatch See Detail 09/29/23 09/29/23 09/29/23 Range/Units 21:09 22:09 23:06 RBC (4.30-5.90) m/uL Hgb (13.0-17.5) gm/dL Hct (39.0-53.0) % RDW (11.5-15.5) % Plt Count (150-450) k/uL ABG pH (7.35-7.45) ABG pCO2 (35-45) mmHg ABG pO2 (83-108) mmHg ABG HCO3 (21-25) mmol/L Chloride (98-107) mmol/L Carbon Dioxide (22-30) mmol/L BUN (9-20) mg/dL Creatinine (0.66-1.25) mg/dL Glucose (74-99) mg/dL POC Glucose (mg/dL) 118 H 113 H 124 H (70-110) mg/dL Calcium (8.4-10.2) mg/dL AST (17-59) U/L Total Protein (6.3-8.2) g/dL Albumin (3.5-5.0) g/dL Crossmatch 09/30/23 09/30/23 09/30/23 Range/Units 00:02 00:59 02:05 RBC (4.30-5.90) m/uL Hgb (13.0-17.5) gm/dL Hct (39.0-53.0) % RDW (11.5-15.5) % Plt Count (150-450) k/uL ABG pH (7.35-7.45) ABG pCO2 (35-45) mmHg ABG pO2 (83-108) mmHg ABG HCO3 (21-25) mmol/L Chloride (98-107) mmol/L Carbon Dioxide (22-30) mmol/L BUN (9-20) mg/dL Creatinine (0.66-1.25) mg/dL Glucose (74-99) mg/dL POC Glucose (mg/dL) 140 H 133 H 114 H (70-110) mg/dL Calcium (8.4-10.2) mg/dL AST (17-59) U/L Total Protein (6.3-8.2) g/dL Albumin (3.5-5.0) g/dL Crossmatch 09/30/23 09/30/23 09/30/23 Range/Units 03:04 04:02 04:34 RBC 2.33 L (4.30-5.90) m/uL Hgb 7.1 L (13.0-17.5) gm/dL Hct 21.1 L (39.0-53.0) % RDW 17.4 H (11.5-15.5) % Plt Count 93 L (150-450) k/uL ABG pH (7.35-7.45) ABG pCO2 (35-45) mmHg ABG pO2 (83-108) mmHg ABG HCO3 (21-25) mmol/L Chloride (98-107) mmol/L Carbon Dioxide (22-30) mmol/L BUN (9-20) mg/dL Creatinine (0.66-1.25) mg/dL Glucose (74-99) mg/dL POC Glucose (mg/dL) 140 H 132 H (70-110) mg/dL Calcium (8.4-10.2) mg/dL AST (17-59) U/L Total Protein (6.3-8.2) g/dL Albumin (3.5-5.0) g/dL Crossmatch 09/30/23 09/30/23 09/30/23 Range/Units 04:34 05:03 06:24 RBC (4.30-5.90) m/uL Hgb (13.0-17.5) gm/dL Hct (39.0-53.0) % RDW (11.5-15.5) % Plt Count (150-450) k/uL ABG pH (7.35-7.45) ABG pCO2 (35-45) mmHg ABG pO2 (83-108) mmHg ABG HCO3 (21-25) mmol/L Chloride 108 H (98-107) mmol/L Carbon Dioxide 21 L (22-30) mmol/L BUN 36 H (9-20) mg/dL Creatinine 1.78 H (0.66-1.25) mg/dL Glucose 121 H (74-99) mg/dL POC Glucose (mg/dL) 133 H 122 H (70-110) mg/dL Calcium 7.7 L (8.4-10.2) mg/dL AST 225 H (17-59) U/L Total Protein 5.1 L (6.3-8.2) g/dL Albumin 2.7 L (3.5-5.0) g/dL Crossmatch 09/30/23 09/30/23 09/30/23 Range/Units 08:40 10:07 10:08 RBC (4.30-5.90) m/uL Hgb (13.0-17.5) gm/dL Hct (39.0-53.0) % RDW (11.5-15.5) % Plt Count (150-450) k/uL ABG pH 7.51 H (7.35-7.45) ABG pCO2 28 L (35-45) mmHg ABG pO2 70 L (83-108) mmHg ABG HCO3 (21-25) mmol/L Chloride (98-107) mmol/L Carbon Dioxide (22-30) mmol/L BUN (9-20) mg/dL Creatinine (0.66-1.25) mg/dL Glucose (74-99) mg/dL POC Glucose (mg/dL) 177 H 154 H (70-110) mg/dL Calcium (8.4-10.2) mg/dL AST (17-59) U/L Total Protein (6.3-8.2) g/dL Albumin (3.5-5.0) g/dL Crossmatch 09/30/23 09/30/23 09/30/23 Range/Units 11:16 12:06 16:29 RBC (4.30-5.90) m/uL Hgb (13.0-17.5) gm/dL Hct (39.0-53.0) % RDW (11.5-15.5) % Plt Count (150-450) k/uL ABG pH 7.50 H (7.35-7.45) ABG pCO2 26 L (35-45) mmHg ABG pO2 70 L (83-108) mmHg ABG HCO3 20 L (21-25) mmol/L Chloride (98-107) mmol/L Carbon Dioxide (22-30) mmol/L BUN (9-20) mg/dL Creatinine (0.66-1.25) mg/dL Glucose (74-99) mg/dL POC Glucose (mg/dL) 162 H 125 H (70-110) mg/dL Calcium (8.4-10.2) mg/dL AST (17-59) U/L Total Protein (6.3-8.2) g/dL Albumin (3.5-5.0) g/dL Crossmatch 09/30/23 Range/Units 17:00 RBC (4.30-5.90) m/uL Hgb (13.0-17.5) gm/dL Hct (39.0-53.0) % RDW (11.5-15.5) % Plt Count (150-450) k/uL ABG pH (7.35-7.45) ABG pCO2 (35-45) mmHg ABG pO2 (83-108) mmHg ABG HCO3 (21-25) mmol/L Chloride (98-107) mmol/L Carbon Dioxide (22-30) mmol/L BUN (9-20) mg/dL Creatinine (0.66-1.25) mg/dL Glucose (74-99) mg/dL POC Glucose (mg/dL) 269 H (70-110) mg/dL Calcium (8.4-10.2) mg/dL AST (17-59) U/L Total Protein (6.3-8.2) g/dL Albumin (3.5-5.0) g/dL Crossmatch
[2023-09-30 20:56] LABS: Glucose,Whole Blood 212 mg/dL (70-110)
[2023-09-30] MEDS: ACETAMINOPHEN TAB 325 MG TAB PO PRN (20:56)
[2023-09-30] MEDS: SENNOSIDES-DOCUSATE SODIUM 1 EACH TAB PO SCH (20:57)
[2023-09-30] MEDS ORDERED: INSULIN DETEMIR (LEVEMIR) 100 UNIT/ML SYR SQ SCH (21:00)
[2023-10-01] MEDS: HEPARIN SODIUM,PORCINE 5,000 UNIT/ML 1 ML VIAL SQ SCH ×3 (00:12→16:58)
[2023-10-01 05:03] LABS: ALT 39 U/L (4-49); AST 138 U/L (17-59); African American GFR (CKD) 39 (>60 ml/min/1.73 sqM); Albumin 2.7 g/dL (3.5-5.0); Alkaline Phosphatase 88 U/L (38-126); Anion Gap 9 mmol/L; Blood Urea Nitrogen 41 mg/dL (9-20); Carbon Dioxide 21 mmol/L (22-30); Chloride 107 mmol/L (98-107); Glucose 198 mg/dL (74-99); Non-African American GFR(CKD) 34 (>60 ml/min/1.73 sqM); Potassium 4.3 mmol/L (3.5-5.1); Sodium 137 mmol/L (137-145); Total Bilirubin 0.6 mg/dL (0.2-1.3); Total Protein 5.1 g/dL (6.3-8.2)
[2023-10-01 05:04] LABS: Calcium 7.4 mg/dL (8.4-10.2)
[2023-10-01 05:40] LABS: Anisocytosis Slight; Basophils % (A) 0 %; Eosinophils # (A) 0.1 k/uL (0-0.7); Eosinophils % (A) 2 %; HCT 20.5 % (39.0-53.0); Hypochromasia Slight; Lymphocytes # (A) 1.2 k/uL (1.0-4.8); Lymphocytes % (A) 25 %; MCH 30.8 pg (25.0-35.0); MCHC 33.3 g/dL (31.0-37.0); MCV 92.4 fL (80.0-100.0); Mean Platelet Volume 9.1; Monocytes # (A) 0.3 k/uL (0-1.0); Monocytes % (A) 6 %; Neutrophils # (A) 3.2 k/uL (1.3-7.7); Neutrophils % (A) 64 %; Platelet Count 114 k/uL (150-450); RBC 2.22 m/uL (4.30-5.90); RDW 17.5 % (11.5-15.5)
[2023-10-01 06:03] LABS: HGB 6.8 gm/dL (13.0-17.5)
[2023-10-01 07:00] LABS: Glucose,Whole Blood 231 mg/dL (70-110)
--- NOTE | 2023-10-01 07:00 | XR ---
EXAMINATION TYPE: XR chest 1V portable DATE OF EXAM: 10/01/2023 COMPARISON: 09/30/2023 INDICATION: Postop CABG TECHNIQUE: Single frontal view of the chest is obtained. FINDINGS: The heart size is enlarged. Patient is rotated to the left. Sternotomy fixation is evident. The pulmonary vasculature is normal. Previous pneumoperitoneum appears resolved. Retrocardiac infiltrate should be considered. There is si lhouetting the left diaphragm. IMPRESSION: 1. Retrocardiac infiltrate may be developing correlate for atelectasis. Small effusion is not exclude d. Continued follow-up is recommended
[2023-10-01] MEDS: INSULIN ASPART (NovoLOG) 100 UNIT/ML VIAL SQ SCH ×7 (07:12→20:22)
[2023-10-01] MEDS: ACETAMINOPHEN TAB 325 MG TAB PO PRN (07:12)
[2023-10-01] MEDS: PANTOPRAZOLE 40 MG TABLET PO SCH (07:12)
[2023-10-01] MEDS: CYANOCOBALAMIN 500 MCG TAB PO SCH (08:40)
[2023-10-01] MEDS: ASCORBIC ACID 500 MG TAB PO SCH (08:40)
[2023-10-01] MEDS: TAMSULOSIN 0.4 MG CAP.ER.24H PO SCH (08:40)
[2023-10-01] MEDS: ASPIRIN 325 MG TAB PO SCH (08:40)
[2023-10-01] MEDS: CLOPIDOGREL 75 MG TAB PO SCH (08:40)
[2023-10-01] MEDS: FERROUS SULFATE 325 MG TAB PO SCH (08:40)
[2023-10-01] MEDS: METOPROLOL TARTRATE 12.5 MG TAB PO SCH ×2 (08:41→20:22)
[2023-10-01] MEDS: ATORVASTATIN 40 MG TAB PO SCH (08:41)
[2023-10-01] MEDS: MULTIVITAMINS, THERA 1 EACH TAB PO SCH (08:41)
[2023-10-01] MEDS: IPRATROPIUM-ALBUTEROL 3 ML NEB INHALATION SCH ×4 (09:21→20:20)
--- NOTE | 2023-10-01 09:48 | P.PN ---
Subjective Progress Note Date: 10/01/23 Principal diagnosis: Multivessel coronary artery disease. Past medical history significant for hypertension, hyperlipidemia, diabetes mellitus type 2, atrial fibrillation since 2016 on Eliquis for anticoagulation as an outpatient, obstructive sleep apnea, uses BiPAP, chronic renal insufficiency, history of coronary artery disease, status post multiple coronary stents, gout, kidney stones and is a lifetime nonsmoker. POD #4 coronary artery bypass grafting 4 vessels (left internal mammary artery to left anterior descending coronary artery, a saphenous vein graft to the obt use marginal coronary artery one, a saphenous vein graft to the obtuse marginal coronary artery 3, and a saphenous vein graft to the posterior descending coronary artery, endoscopic harvesting bilateral greater saphenous veins, ligation of the left atrial appendage using a 35 mm Atriclip, epi-aortic ultrasound, intraoperative transesophageal echocardiogram, graft flow measurements using the Medistim system, and closure of the sternum using Tritium plating device. Postoperative acute blood loss anemia, expected given hemodilution and cardiopulmonary bypass. The patient was seen and examined in follow-up today 10/01/2023 at his bedside in the intensive care unit. He is currently sitting up to the bedside chair, is awake, alert, oriented 3 and is in no acute apparent distress. He denies any complaints of pain or shortness of breath at this time, although continues to complain of generalized postoperative weakness. Oxygen saturations are 96% on room air and he is achieving 3000-5764 mL on his incentive spirometry with encouragement. Left pleural chest tube was removed yesterday without incident. Atrial and ventricular epicardial pacemaker wires remained in place and are grounded. Bedside telemetry showing normal sinus rhythm heart rate 97 BPM with occasional PACs. T-max temperature in the last 24 hours is 99.6F. Laboratory and chest x-ray results reviewed. He remains hemodynamically stable and is currently on no inotropic or pressor support. Objective - Vital Signs Vital signs: Vital Signs Temp 98.3 F 10/01/23 08:00 Pulse 103 H 10/01/23 09:21 Resp 18 10/01/23 09:21 BP 102/56 10/01/23 09:00 Pulse Ox 96 10/01/23 09:21 FiO2 21 09/30/23 23:01 Intake & Output 09/30/23 10/01/23 10/01/23 18:59 06:59 18:59 Intake Total 143.163 300 125 Output Total 1110 450 0 Balance -966.837 -150 125 Weight 136.6 kg 133.4 kg Intake: IV 92 0.9 PRESSURE BAGS 12 Lactated Ringers 1,000 ml 80 @ 20 mls/hr IV .Q24H R[facility]AS Rx#:[id number] Intake, IV Titration 51.163 Amount Insulin Regular 100 unit 51.163 In Sodium Chloride 0.9% 100 ml @ Per Protocol IV .Q0M RIVAS Rx#:[id number] Oral 300 125 Output: Urine 1110 450 0 Other: Voiding Method Indwelling Catheter Indwelling Catheter Indwelling Catheter # Bowel Movements 1 1 ABP, PAP, CO, CI - Last Documented Arterial Blood Pressure 126/49 Pulmonary Artery Pressure 16/0 Cardiac Output 8.1 Cardiac Index 3.3 - Exam CONSTITUTIONAL: Sitting up to the bedside chair in the intensive care unit, appears comfortable, cooperative, no apparent acute distress. HEENT: Neck is supple, no JVD, no lymphadenopathy. RESPIRATORY: Lungs sounds essentially clear throughout, diminished to his bilateral bases, left greater than right. Respirations are symmetrical and nonlabored. Currently on room air with oxygen saturations 96%. Able to achieve 7125-5921 mL on his incentive spirometry. Strong cough. CARDIOVASCULAR: Regular rhythm and rate. S1 and S2 present, negative for S3, gallop or murmur. Sternum is stable. Palpable peripheral pulses bilaterally, trace to his bilateral lower extremities. No calf pain or tenderness noted. Heart hugger in place with patient demonstrating appropriate use. Knee-high GIOVANA hose and sequential compression devices in place to his bilateral lower extremities. GASTROINTESTINAL: Abdomen soft, nontender, nondistended. Obese. Active bowel sounds present 4 quadrants. Tolerating diet. Passing flatus. No guarding or rigidity. GENITOURINARY: Continues to void. Urine output 260 mL in the last 8 hours. INTEGUMENTARY: Skin is warm and dry with no evidence of clubbing or cyanosis. Midline sternal incision clean dry and well approximated, covered with dry intact dressing. Bilateral lower extremity EVH sites well approximated without redness or drainage. NEUROLOGIC: Cranial nerves II through XII intact. No focal deficits. MUSKULOSKELETAL: Able to move all extremities, strength equal bilaterally, ge neralized weakness. PSYCHIATRIC: Alert and oriented to person and place, oriented 3 [address], flat affect, intact judgment and insight. INVASIVE LINES AND TUBES: Atrial and ventricular epicardial pacemaker wires present, and a grounded. - Allied health notes Allied health notes reviewed: nursing - Labs CBC & Chem 7: 10/01/23 04:05 10/01/23 04:05 Labs: Abnormal Lab Results - Last 24 Hours (Table) 09/19/23 09/30/23 09/30/23 Range/Units 09:20 10:07 10:08 RBC (4.30-5.90) m/uL Hgb (13.0-17.5) gm/dL Hct (39.0-53.0) % RDW (11.5-15.5) % Plt Count (150-450) k/uL ABG pH 7.51 H (7.35-7.45) ABG pCO2 28 L (35-45) mmHg ABG pO2 70 L (83-108) mmHg ABG HCO3 (21-25) mmol/L Carbon Dioxide (22-30) mmol/L BUN (9-20) mg/dL Creatinine (0.66-1.25) mg/dL Glucose (74-99) mg/dL POC Glucose (mg/dL) 154 H (70-110) mg/dL Calcium (8.4-10.2) mg/dL AST (17-59) U/L Total Protein (6.3-8.2) g/dL Albumin (3.5-5.0) g/dL Crossmatch See Detail 09/30/23 09/30/23 09/30/23 Range/Units 11:16 12:06 16:29 RBC (4.30-5.90) m/uL Hgb (13.0-17.5) gm/dL Hct (39.0-53.0) % RDW (11.5-15.5) % Plt Count (150-450) k/uL ABG pH 7.50 H (7.35-7.45) ABG pCO2 26 L (35-45) mmHg ABG pO2 70 L (83-108) mmHg ABG HCO3 20 L (21-25) mmol/L Carbon Dioxide (22-30) mmol/L BUN (9-20) mg/dL Creatinine (0.66-1.25) mg/dL Glucose (74-99) mg/dL POC Glucose (mg/dL) 162 H 125 H (70-110) mg/dL Calcium (8.4-10.2) mg/dL AST (17-59) U/L Total Protein (6.3-8.2) g/dL Albumin (3.5-5.0) g/dL Crossmatch 09/30/23 09/30/23 10/01/23 Range/Units 17:00 20:54 04:05 RBC 2.22 L (4.30-5.90) m/uL Hgb 6.8 L* (13.0-17.5) gm/dL Hct 20.5 L (39.0-53.0) % RDW 17.5 H (11.5-15.5) % Plt Count 114 L (150-450) k/uL ABG pH (7.35-7.45) ABG pCO2 (35-45) mmHg ABG pO2 (83-108) mmHg ABG HCO3 (21-25) mmol/L Carbon Dioxide (22-30) mmol/L BUN (9-20) mg/dL Creatinine (0.66-1.25) mg/dL Glucose (74-99) mg/dL POC Glucose (mg/dL) 269 H 212 H (70-110) mg/dL Calcium (8.4-10.2) mg/dL AST (17-59) U/L Total Protein (6.3-8.2) g/dL Albumin (3.5-5.0) g/dL Crossmatch 10/01/23 10/01/23 Range/Units 04:05 06:59 RBC (4.30-5.90) m/uL Hgb (13.0-17.5) gm/dL Hct (39.0-53.0) % RDW (11.5-15.5) % Plt Count (150-450) k/uL ABG pH (7.35-7.45) ABG pCO2 (35-45) mmHg ABG pO2 (83-108) mmHg ABG HCO3 (21-25) mmol/L Carbon Dioxide 21 L (22-30) mmol/L BUN 41 H (9-20) mg/dL Creatinine 1.89 H (0.66-1.25) mg/dL Glucose 198 H (74-99) mg/dL POC Glucose (mg/dL) 231 H (70-110) mg/dL Calcium 7.4 L (8.4-10.2) mg/dL AST 138 H (17-59) U/L Total Protein 5.1 L (6.3-8.2) g/dL Albumin 2.7 L (3.5-5.0) g/dL Crossmatch - Imaging and Cardiology Chest x-ray: report reviewed, image reviewed Assessment and Plan Assessment: Multivessel coronary artery disease, status post coronary artery bypass grafting 4 vessels History of coronary artery disease with multiple stent in the past Hypertension Hyperlipidemia Atrial fibrillation since 2016 on Eliquis for anticoagulation as an outpatient Diabetes mellitus type 2, with a preoperative hemoglobin A1c of 6.8% Obstructive sleep apnea with home BiPAP use Chronic renal insufficiency History of gout History of kidney stones Lifetime nonsmoker Postoperative acute blood loss anemia and postoperative thrombocytopenia, expected given hemodilution and cardiopulmonary bypass Medical debility Plan: Continue to maximize medical therapy with aspirin, statin, Plavix and beta jayna. Continue metoprolol tartrate 12.5 mg by mouth twice a day with hold parameters. If patient continues to tolerate metoprolol 12.5 mg by mouth twice a day we will increase to 25 mg by mouth twice a day later today. No diuresis today. Continue to monitor BUN and creatinine. Encourage incentive spirometry use 10 times every hour while awake. Bronchodilators per pulmonology. Increase activity, ambulate as tolerated. PT/OT/cardiac rehab following. Will monitor daily labs and chest x-rays. Electrolyte replacement per protocol. Hemoglobin 6.8 today, patient remains hemodynamically stable, no further transfusions at this point. GI/DVT prophylaxis. Pain control per current medication regimen. Avoid nephrotoxic agents as the patient has a history of chronic renal insufficiency. We will not add Toradol due to his kidney function. Insulin management per internal medicine service. Patient is a diabetic, hemoglobin A1c 6.8%. Needs to remain on insulin drip for 48 hours, then may transition to subcutaneous per protocol. Ground atrial and ventricular epicardial pacemaker wires. Continue to record strict accurate intake and output. Bladder scan every 6 hours and when necessary postvoid residual. If greater than or equal to 300 mL please straight cath. Daily weights. Keep in ICU Dr. Castrejon was consulted yesterday for evaluation for inpatient rehab. More recommendations to follow based on patient's clinical course. Time with Patient: Greater than 30
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
[2023-10-01 12:09] LABS: Glucose,Whole Blood 198 mg/dL (70-110)
--- NOTE | 2023-10-01 12:55 | P.PN ---
Subjective Progress Note Date: 10/01/23 Patient is a 73-year-old male with history of CAD status post multiple stents, hypertension, atrial fibrillation, dyslipidemia, diabetes presented for elective CABG. [facility] has been consulted for medical management. Patient currently on nitroglycerin drip and 5 mcg/minute, norepinephrine drip at 0.04, propofol at 20 MCG per kilogram per minute, insulin drip at 4 units per hour. WBC 9.6, hemoglobin 7.9, platelet 108, pH 7.3, pCO2 48, potassium 4.5, creatinine 1.31 from baseline, magnesium 2.4, blood glucose 112. Extubated on 09/27. Levophed and Nitroglycerin drip discontinued. Required 3 units PRBC so far with intermitted Lasix IV push. Right and mediastinal chest tube removed 09/29. Confused at times. 09/30 Patient was seen and examined. Feeling tired. CBC Hg 7.1, Plt 93. BMP Cl 108, bicarb 21, BUN 36, Cr 1.78, glu 121, Ca 7.7, alb 2.7. POC glucose 113-200 over the past 24H. Currently on insulin drip at 11.5 units/hr. LR at 20 cc/hr. Currently on ASA 325 mg PO QD, Lipitor 40 mg PO QD, Plavix 75 mg PO QD, Metoprolol 12.5 mg PO BID. Renal US shows patterson catheter and no right hyd ronephrosis, unable to examine L kidney. CXR shows left sided chest tube, small apical PTX, pulmonary vascular congestion with atelectasis on the left side. Urine output 1005 cc over the past 24H. 10/01 Patient was seen and examined. Feeling better but still sluggish. CBC Hg 6.8, Plt 114. BMP bicarb 21, BUN 41, Cr 1.89, glu 198, Ca 7.4, alb 2.7. POC glucose 125-269 over the past 24H. Insulin drip discontinued and started on Levemir 40 units QHS and Novolog 13 units TID along with ISS. 21 units sliding scale given over the past 24H. Currently on ASA 325 mg PO QD, Lipitor 40 mg PO QD, Plavix 75 mg PO QD, Metoprolol 12.5 mg PO BID. CXR shows retrocardiac infiltrate, possible atelectasis. Urine output 2780 cc over the past 24H. General: lethargic, no distress, appears at stated age Derm: warm, dry Head: atraumatic, normocephalic, symmetric Eyes: EOMI, no lid lag, pale sclera Cardiovascular: S1S2 reg, no murmur Lungs: Decreased BS bilaterally , no accessory muscle use Ext: no gross muscle atrophy, no edema, no contractures Neuro: no focal neuro deficits Psych: Alert, oriented, appropriate affect Based on my assessment of this patient, this patient meets a high complexity level of care. Patient has an acute diagnosis of POD 4 CABG that poses a threat to life or bodily function. CAD: Status post CABG POD 4. ASA 325 mg PO QD, Lipitor 40 mg PO QD, Plavix 75 mg PO QD, Metoprolol 12.5 mg PO BID. Telemetry monitoring. Cardiology and CT surgery on board. Acute blood loss anemia: Hg 6.8. Expected result of surgery. Status post 3 unit PRBC. Transfuse if Hg < 7. Patient would benefit from additional PRBC but will defer decision to CT surgery. Acute on chronic thrombocytopenia: Anticipated outcome of surgery. Transfuse if Plt < 10. Type 2 diabetes with hypeglycemia: A1c 6.8. Increase Levemir to 50 units QHS and Novolog to 16 units TID. Accuchecks. Hypoglycemic precautions. Acute on CKD stage III: Renal US unrevealing but incomplete. Patterson catheter in place. Strict intake and outtake. Hypocalcemia: Psedo when corrected with albumin. History of hypertension: Metoprolol as above. Lisinopril, Nifedipine, Sotalol at home on hold. History of atrial fibrillation: Metoprolol as above. Eliquis when OK with CT surgery. Dyslipidemia: Lipitor as above. Gout: Allopurinol 300 mg PO QD. BPH CODE STATUS: FULL CODE DVT Prophylaxis: Heparin SQ GI Prophylaxis: Protonix PO Designated medical POA if patient is not able to make medical decisions for themselves: I have reviewed the following solutions sales consultant notes: CT surgery, Cardiology, Pulmonology note. I have reviewed the results of the following tests: CBC. BMP. POC glucose. I have ordered the following tests: CBC, BMP. I have discussed the care of this patient with the following independent historian: I have independently interpreted the following test below: CXR as above. I have discussed the management of this patient with the following physician: This patient meets a high level of care for the following reasons: Patient requires adjustments in insulin which requires intensive monitoring for hypoglycemic episodes. (Increased SQ insulin) Objective - Vital Signs Vital signs: Vital Signs Temp 98.5 F 10/01/23 04:00 Pulse 87 10/01/23 07:00 Resp 14 10/01/23 07:00 BP 126/69 10/01/23 07:00 Pulse Ox 96 10/01/23 07:00 FiO2 21 09/30/23 23:01 Intake & Output 09/30/23 10/01/23 10/01/23 18:59 06:59 18:59 Intake Total 143.163 300 Output Total 1110 450 Balance -966.837 -150 Weight 136.6 kg 133.4 kg Intake: IV 92 0.9 PRESSURE BAGS 12 Lactated Ringers 1,000 ml 80 @ 20 mls/hr IV .Q24H [facility]AS Rx#:[id number] Intake, IV Titration 51.163 Amount Insulin Regular 100 unit 51.163 In Sodium Chloride 0.9% 100 ml @ Per Protocol IV .Q0M RIVAS Rx#:[id number] Oral 300 Output: Urine 1110 450 Other: Voiding Method Indwelling Catheter Indwelling Catheter # Bowel Movements 1 ABP, PAP, CO, CI - Last Documented Arterial Blood Pressure 126/49 Pulmonary Artery Pressure 16/0 Cardiac Output 8.1 Cardiac Index 3.3 - Labs CBC & Chem 7: 10/01/23 04:05 10/01/23 04:05 Labs: Abnormal Lab Results - Last 24 Hours (Table) 09/19/23 09/30/23 09/30/23 Range/Units 09:20 08:40 10:07 RBC (4.30-5.90) m/uL Hgb (13.0-17.5) gm/dL Hct (39.0-53.0) % RDW (11.5-15.5) % Plt Count (150-450) k/uL ABG pH 7.51 H (7.35-7.45) ABG pCO2 28 L (35-45) mmHg ABG pO2 70 L (83-108) mmHg ABG HCO3 (21-25) mmol/L Carbon Dioxide (22-30) mmol/L BUN (9-20) mg/dL Creatinine (0.66-1.25) mg/dL Glucose (74-99) mg/dL POC Glucose (mg/dL) 177 H (70-110) mg/dL Calcium (8.4-10.2) mg/dL AST (17-59) U/L Total Protein (6.3-8.2) g/dL Albumin (3.5-5.0) g/dL Crossmatch See Detail 09/30/23 09/30/23 09/30/23 Range/Units 10:08 11:16 12:06 RBC (4.30-5.90) m/uL Hgb (13.0-17.5) gm/dL Hct (39.0-53.0) % RDW (11.5-15.5) % Plt Count (150-450) k/uL ABG pH (7.35-7.45) ABG pCO2 (35-45) mmHg ABG pO2 (83-108) mmHg ABG HCO3 (21-25) mmol/L Carbon Dioxide (22-30) mmol/L BUN (9-20) mg/dL Creatinine (0.66-1.25) mg/dL Glucose (74-99) mg/dL POC Glucose (mg/dL) 154 H 162 H 125 H (70-110) mg/dL Calcium (8.4-10.2) mg/dL AST (17-59) U/L Total Protein (6.3-8.2) g/dL Albumin (3.5-5.0) g/dL Crossmatch 09/30/23 09/30/23 09/30/23 Range/Units 16:29 17:00 20:54 RBC (4.30-5.90) m/uL Hgb (13.0-17.5) gm/dL Hct (39.0-53.0) % RDW (11.5-15.5) % Plt Count (150-450) k/uL ABG pH 7.50 H (7.35-7.45) ABG pCO2 26 L (35-45) mmHg ABG pO2 70 L (83-108) mmHg ABG HCO3 20 L (21-25) mmol/L Carbon Dioxide (22-30) mmol/L BUN (9-20) mg/dL Creatinine (0.66-1.25) mg/dL Glucose (74-99) mg/dL POC Glucose (mg/dL) 269 H 212 H (70-110) mg/dL Calcium (8.4-10.2) mg/dL AST (17-59) U/L Total Protein (6.3-8.2) g/dL Albumin (3.5-5.0) g/dL Crossmatch 10/01/23 10/01/23 10/01/23 Range/Units 04:05 04:05 06:59 RBC 2.22 L (4.30-5.90) m/uL Hgb 6.8 L* (13.0-17.5) gm/dL Hct 20.5 L (39.0-53.0) % RDW 17.5 H (11.5-15.5) % Plt Count 114 L (150-450) k/uL ABG pH (7.35-7.45) ABG pCO2 (35-45) mmHg ABG pO2 (83-108) mmHg ABG HCO3 (21-25) mmol/L Carbon Dioxide 21 L (22-30) mmol/L BUN 41 H (9-20) mg/dL Creatinine 1.89 H (0.66-1.25) mg/dL Glucose 198 H (74-99) mg/dL POC Glucose (mg/dL) 231 H (70-110) mg/dL Calcium 7.4 L (8.4-10.2) mg/dL AST 138 H (17-59) U/L Total Protein 5.1 L (6.3-8.2) g/dL Albumin 2.7 L (3.5-5.0) g/dL Crossmatch
--- NOTE | 2023-10-01 14:11 | P.PN ---
Subjective Progress Note Date: 10/01/23 Principal diagnosis: POD # 4 coronary artery bypass grafting 4 vessels (left internal mammary artery to left anterior descending coronary artery, a saphenous vein graft to the ob tuse marginal coronary artery one, a saphenous vein graft to the obtuse marginal coronary artery 3, and a saphenous vein graft to the posterior descending coronary artery, endoscopic harvesting bilateral greater saphenous veins, ligation of the left atrial appendage using a 35 mm Atriclip, epi-aortic ultrasound, intraoperative transesophageal echocardiogram, graft flow measurements using the Medistim system, and closure of the sternum using Tritium plating device. This patient is 73 and the patient underwent a four-vessel bypass surgery and the patient is being seen in the intensive care unit postop. The patient is currently sedated on propofol which is running at 20 mcg/kg/m. The patient's underwent four-vessel bypass surgery. The patient is currently well sedated on a mechanical ventilator on assist control mode at the rate of 12, tidal volume of 500, FiO2 was weaned down to 50% and PEEP is currently at 10. The patient's blood gas shows a pH of 7.29 with a pCO2 of 47 and pO2 of 352. This was on FiO2 100%. The patient was subsequently brought up respiratory rate of 24 and FiO2 was up to 50%. Chest x-ray shows adequate expansion of both lungs. [place] in good location. ET tube needs to be pushed in by around 1 cm. The patient has a right pleural, mediastinal and left pleural chest tubes. No evidence of any air leak. Output is minimal at this point in time. Carotid Dopplers at 5.8 with an index of 2.4. Patient is on norepinephrine at 0.04 mcg/kg/m, nitroglyce rin drip at 5 mg/m and the patient is also on insulin drip at 1 units an hour. The patient sees a units of packed RBC. Making adequate urine output. Adequately sedated for now. No major issues otherwise. The patient is also placed at the rate of 80. Underlying cardiac rhythm is sinus bradycardia. On today's evaluation of 09/28/2023, the patient is being seen for a follow-up. The patient was extubated without any major difficulties yesterday. Currently is on room air oxygen. Sitting up on a chair. Chest x-ray shows no major abnormalities and showing postsurgical changes. The film itself facilitated. The patient has a right IJ Gants catheter in place. Patient has also 3 chest tubes, right pleural, left lower and mediastinal. Output from the chest tubes have been noted which is not excessive at this point in time and there is no evidence of any air leak. At the same time, the patient is using the incentive spirometer. He is falling approximately the thousand. Current pulse ox is 94%. His cardiac rhythm was sinus bradycardia with a first-degree AV block. The patient is currently paced at the rate of 70. Cardiac output is at 7.3. Index is at 3.0. He did encounter some hypotension yesterday and the patient was taken off the nitroglycerin drip and currently is off norepinephrine. Insulin drip is running at the rate of 6 units an hour. Hemoglobin is low at 6.8. No orders for blood transfusion at this point in time. This is being monitored. Platelet count is 79, BUN is at 24 with a creatinine of 1.6 as the patient has a component of chronic kidney disease. Briceno cath is in place. Adequate urine output. Sodium level is at 139, potassium is at 4.4, bicarb is at 20. In 2022, the patient is on oxygen at 2 L he's currently postop day #2. Doing well. Slightly lethargic and is feeling weak. No focal neurological deficits. Is worried all 4 extremities. Slightly confused. Based on that, a blood gas was done and the patient was found to have a pH of 7.48 with episodes of 27 and pO2 of 73. Serum bicarbs of 20. His chest x-ray from today showing some atelectatic change in the left lung base. The patient has a right pleural, left lower and the mediastinal chest tube. No airspace disease. No consolidation. He had some issues with drop in hemoglobin and patient was given units of packed RBC. Follow-up hemoglobin today is still low at 6.7. Another units of packed RBC will be given fluids patient today. He has sustained an acute kidney injury. Creatinine is up to 1.9 with a BUN of 31 and a sodium level is at 137. Serum bicarbs of 20. White cell count at 7.1. [place]-T[place] catheter has been removed. He is on aspirin. He is on Plavix. He is on metoprolol at a dose of 12.5 mg by mouth twice a day. His underlying rhythm is sinus. He is having occasional PACs. Patient was reevaluated today on 09/30/23, patient is now postoperative day #3. Patient is doing well, awake, alert, oriented 3, although at times he had episodes where he was a bit confused, does not seem to be in any distress, his narcotics have been discontinued yesterday. Patient is hemodynamically stable, and achieving above 1500 mL on his incentive spirometry, he is hemodynamically stable, not requiring any inotropes or pressors. Patient did receive 2 units of packed RBCs yesterday for hemoglobin of 7.1. Patient feels generally weak, otherwise relatively asymptomatic. WBC count is 5.5 hemoglobin is 7.1. ABG on room air today showed a pO2 of 70 pCO2 28 pH of 7.51, basic metabolic profile is normal renal profile showed a BUN of 36 creatinine 1.78 improving compared to baseline creatinine Reevaluated today on 10/01/2023, patient remains in the ICU, doing well, he is on room air, does not seem to be in any distress, sitting at a bedside chair, hemoglobin is down to 6.8, surgery will decide whether to give the patient a unit of packed RBCs are not. Discussed his condition with cardiac surgery, refills to wait for now. Patient has no specific complaints, denies any pain and denies any shortness of breath, chest x-ray is showing mostly left lower lobe atelectasis and possibly a small effusion patient is achieving almost 2000 mL with his incentive spirometry, his O2 saturation 96% on room air. His left- sided chest tube was removed yesterday, continues to have atrial and ventricular epicardial pacemaker wires, and they are grounded. WBC count is 5.0 hemoglobin 6.8 basic metabolic profile is normal creatinine went up slightly up to 1.89, and that is being closely monitored. Patient did have numbers as high as 1.90 on baseline on 09/27 was 1.3 Objective - Vital Signs Vital signs: Vital Signs Temp 98.5 F 10/01/23 12:00 Pulse 85 10/01/23 13:00 Resp 20 10/01/23 14:00 BP 127/57 10/01/23 13:00 Pulse Ox 96 10/01/23 14:00 FiO2 21 09/30/23 23:01 Intake & Output 09/30/23 10/01/2323 18:59 06:59 18:59 Intake Total 143.163 300 625 Output Total 1110 450 200 Balance -966.837 -150 425 Weight 136.6 kg 133.4 kg Intake: IV 92 0.9 PRESSURE BAGS 12 Lactated Ringers 1,000 ml 80 @ 20 mls/hr IV .Q24H [facility] Rx#:[id number] Intake, IV Titration 51.163 Amount Insulin Regular 100 unit 51.163 In Sodium Chloride 0.9% 100 ml @ Per Protocol IV .Q0M [facility]AS Rx#:[id number] Oral 300 625 Output: Urine 1110 450 200 Other: Voiding Method Indwelling Catheter Indwelling Catheter Bedside Commode # Bowel Movements 1 1 ABP, PAP, CO, CI - Last Documented Arterial Blood Pressure 126/49 Pulmonary Artery Pressure 16/0 Cardiac Output 8.1 Cardiac Index 3.3 - Exam Physical Exam: Revealed 73-year-old white male in no distress, on room air with O2 saturation 94% and was sitting at a bedside chair, very comfortable, Neck: Atraumatic, normocephalic Head: Atraumatic, normocephalic. HEENT:[Neck is supple.] [No neck masses.] [No thyromegaly.] [No JVD.] Chest: [Diminished breath sounds at the bases no crackles or rhonchi or wheezes Cardiac Exam: [Normal S1 and S2, no S3 gallop, no murmur.] Abdomen: [Soft, nontender, no megaly, no rebound, no guarding, normal bowel sounds.] Extremities: [No clubbing, no edema, no cyanosis.] Neurological Exam: [No focal neurologic deficit.] Alert and oriented 3. Psychiatric: Normal mood affect and normal mental status examination. Skin: No rashes - Labs CBC & Chem 7: 10/01/23 04:05 10/01/23 04:05 Labs: Abnormal Lab Results - Last 24 Hours (Table) 09/19/23 09/30/23 09/30/23 Range/Units 09:20 16:29 17:00 RBC (4.30-5.90) m/uL Hgb (13.0-17.5) gm/dL Hct (39.0-53.0) % RDW (11.5-15.5) % Plt Count (150-450) k/uL ABG pH 7.50 H (7.35-7.45) ABG pCO2 26 L (35-45) mmHg ABG pO2 70 L (83-108) mmHg ABG HCO3 20 L (21-25) mmol/L Carbon Dioxide (22-30) mmol/L BUN (9-20) mg/dL Creatinine (0.66-1.25) mg/dL Glucose (74-99) mg/dL POC Glucose (mg/dL) 269 H (70-110) mg/dL Calcium (8.4-10.2) mg/dL AST (17-59) U/L Total Protein (6.3-8.2) g/dL Albumin (3.5-5.0) g/dL Crossmatch See Detail 09/30/23 10/01/23 10/01/23 Range/Units 20:54 04:05 04:05 RBC 2.22 L (4.30-5.90) m/uL Hgb 6.8 L* (13.0-17.5) gm/dL Hct 20.5 L (39.0-53.0) % RDW 17.5 H (11.5-15.5) % Plt Count 114 L (150-450) k/uL ABG pH (7.35-7.45) ABG pCO2 (35-45) mmHg ABG pO2 (83-108) mmHg ABG HCO3 (21-25) mmol/L Carbon Dioxide 21 L (22-30) mmol/L BUN 41 H (9-20) mg/dL Creatinine 1.89 H (0.66-1.25) mg/dL Glucose 198 H (74-99) mg/dL POC Glucose (mg/dL) 212 H (70-110) mg/dL Calcium 7.4 L (8.4-10.2) mg/dL AST 138 H (17-59) U/L Total Protein 5.1 L (6.3-8.2) g/dL Albumin 2.7 L (3.5-5.0) g/dL Crossmatch 10/01/23 10/01/23 Range/Units 06:59 12:07 RBC (4.30-5.90) m/uL Hgb (13.0-17.5) gm/dL Hct (39.0-53.0) % RDW (11.5-15.5) % Plt Count (150-450) k/uL ABG pH (7.35-7.45) ABG pCO2 (35-45) mmHg ABG pO2 (83-108) mmHg ABG HCO3 (21-25) mmol/L Carbon Dioxide (22-30) mmol/L BUN (9-20) mg/dL Creatinine (0.66-1.25) mg/dL Glucose (74-99) mg/dL POC Glucose (mg/dL) 231 H 198 H (70-110) mg/dL Calcium (8.4-10.2) mg/dL AST (17-59) U/L Total Protein (6.3-8.2) g/dL Albumin (3.5-5.0) g/dL Crossmatch Assessment and Plan Assessment: Impression: Coronary artery bypass surgery. The patient underwent four-vessel bypass surgery. The patient is currently postop day #4 CAD status post multiple stents, now status post CABG Acute blood loss anemia, expected. Acute on chronic thrombocytopenia, anticipated outcome of surgery, platelets are being monitored, improving, level today is 114 Type 2 diabetes, patient is still requiring insulin drip Chronic kidney disease stage III, cr is 1.9 Hypocalcemia History of hypertension History of atrial fibrillation Dyslipidemia Gout BPH Recommendation: Continue statin, Plavix, beta blockers, and aspirin Continue to monitor in the ICU Continue incentive spirometry Continue ambulation Consider transfusing the patient with 1 unit of packed RBCs if hemoglobin drops any further Encourage ambulation and incentive spirometry Continue bronchodilators We will continue to follow Time with Patient: Less than 30
--- NOTE | 2023-10-01 15:19 | P.PN ---
Subjective PROGRESS NOTE The patient is a 73-year-old male who underwent CABG yesterday. He is followed regularly by Dr. De Oliveira in [place] and has underwent prior stenting, most recently about 10 years ago according to him who has been complaining of progressive chest discomfort and underwent cardiac catheterization in [place], was found to have severe obstructive disease and underwent CABG yesterday. He received a MAGANA to the LAD and SVG to OM1 and 3 and PDA with closure of the left atrial appendage. He is extubated, sitting up in the chair, he feels well. He was having chest discomfort and dyspnea on exertion prior to presentation. He has no peripheral edema, PND or orthopnea. He does not recall being told that he had a myocardial infarction or history of CHF. He has a prior history of paroxysmal atrial fibrillation and has a loop recorder and according to him there was no episodes of atrial fibrillation for the last 2 years. Hemodynamica lly he is stable. He has a history of diabetes, hypertension and hyperlipidemia. He is a nonsmoker. September 29: The patient is feeling well this morning, he denies any chest discomfort, dizziness or palpitations. He continues to be in sinus mechanism. Hemodynamically stable. His urine output is stable. He denies any nausea or vomiting. He is on no vasopressors. He had anemia and his received transfusion. 09/30 Patient seen and examined. Patient has had off-and-on confusion and currently on BiPAP. Denies any chest pain or pressure. Creatinine 1.7 with hemoglobin 7.1. 10/01 Patient seen and examined. Patient denies any chest pain or pressure. States he still feels short of breath. Hemoglobin 6.8 today with platelets 114. Creatinine 1.89. Medications: Aspirin, Lipitor 40 mg daily, Plavix 75 mg daily, metoprolol tartrate 12.5 mg twice a day. PHYSICAL EXAMINATION: Vitals reviewed LUNGS: Mild decreased breath sounds at the bases HEART: Regular rate and rhythm, S1, S2. No S3. No systolic murmur ABDOMEN: Soft, nontender, no organomegaly EXTREMETIES: No edema IMPRESSION: 1. Status post CABG, stable 2. Anemia postoperatively 3. Acute renal injury postoperatively 4. History of paroxysmal atrial fibrillation 5. History of diabetes 6. History of hypertension 7. History of hyperlipidemia PLAN: Monitor hemoglobin and transfuse as needed. Appears somewhat more alert today however still having significant anemia as well as kidney injury. Continue current supportive care. Objective - Vital Signs Vital signs: Vital Signs Temp 98.5 F 10/01/23 12:00 Pulse 85 10/01/23 13:00 Resp 20 10/01/23 14:00 BP 127/57 10/01/23 13:00 Pulse Ox 96 10/01/23 14:00 FiO2 21 09/30/23 23:01 Intake & Output 09/30/23 10/01/23 10/01/23 18:59 06:59 18:59 Intake Total 143.163 300 625 Output Total 1110 450 200 Balance -966.837 -150 425 Weight 136.6 kg 133.4 kg Intake: IV 92 0.9 PRESSURE BAGS 12 Lactated Ringers 1,000 ml 80 @ 20 mls/hr IV .Q24H [facility] Rx#:[id number] Intake, IV Titration 51.163 Amount Insulin Regular 100 unit 51.163 In Sodium Chloride 0.9% 100 ml @ Per Protocol IV .Q0M [facility] Rx#:[id number] Oral 300 625 Output: Urine 1110 450 200 Other: Voiding Method Indwelling Catheter Indwelling Catheter Bedside Commode # Bowel Movements 1 1 ABP, PAP, CO, CI - Last Documented Arterial Blood Pressure 126/49 Pulmonary Artery Pressure 16/0 Cardiac Output 8.1 Cardiac Index 3.3 - Labs CBC & Chem 7: 10/01/23 04:05 10/01/23 04:05 Labs: Abnormal Lab Results - Last 24 Hours (Table) 09/19/23 09/30/23 09/30/23 Range/Units 09:20 16:29 17:00 RBC (4.30-5.90) m/uL Hgb (13.0-17.5) gm/dL Hct (39.0-53.0) % RDW (11.5-15.5) % Plt Count (150-450) k/uL ABG pH 7.50 H (7.35-7.45) ABG pCO2 26 L (35-45) mmHg ABG pO2 70 L (83-108) mmHg ABG HCO3 20 L (21-25) mmol/L Carbon Dioxide (22-30) mmol/L BUN (9-20) mg/dL Creatinine (0.66-1.25) mg/dL Glucose (74-99) mg/dL POC Glucose (mg/dL) 269 H (70-110) mg/dL Calcium (8.4-10.2) mg/dL AST (17-59) U/L Total Protein (6.3-8.2) g/dL Albumin (3.5-5.0) g/dL Crossmatch See Detail 09/30/23 10/01/23 10/01/23 Range/Units 20:54 04:05 04:05 RBC 2.22 L (4.30-5.90) m/uL Hgb 6.8 L* (13.0-17.5) gm/dL Hct 20.5 L (39.0-53.0) % RDW 17.5 H (11.5-15.5) % Plt Count 114 L (150-450) k/uL ABG pH (7.35-7.45) ABG pCO2 (35-45) mmHg ABG pO2 (83-108) mmHg ABG HCO3 (21-25) mmol/L Carbon Dioxide 21 L (22-30) mmol/L BUN 41 H (9-20) mg/dL Creatinine 1.89 H (0.66-1.25) mg/dL Glucose 198 H (74-99) mg/dL POC Glucose (mg/dL) 212 H (70-110) mg/dL Calcium 7.4 L (8.4-10.2) mg/dL AST 138 H (17-59) U/L Total Protein 5.1 L (6.3-8.2) g/dL Albumin 2.7 L (3.5-5.0) g/dL Crossmatch 10/01/23 10/01/23 Range/Units 06:59 12:07 RBC (4.30-5.90) m/uL Hgb (13.0-17.5) gm/dL Hct (39.0-53.0) % RDW (11.5-15.5) % Plt Count (150-450) k/uL ABG pH (7.35-7.45) ABG pCO2 (35-45) mmHg ABG pO2 (83-108) mmHg ABG HCO3 (21-25) mmol/L Carbon Dioxide (22-30) mmol/L BUN (9-20) mg/dL Creatinine (0.66-1.25) mg/dL Glucose (74-99) mg/dL POC Glucose (mg/dL) 231 H 198 H (70-110) mg/dL Calcium (8.4-10.2) mg/dL AST (17-59) U/L Total Protein (6.3-8.2) g/dL Albumin (3.5-5.0) g/dL Crossmatch
[2023-10-01 16:50] LABS: Glucose,Whole Blood 224 mg/dL (70-110)
[2023-10-01 20:16] LABS: Glucose,Whole Blood 215 mg/dL (70-110)
[2023-10-01] MEDS: SENNOSIDES-DOCUSATE SODIUM 1 EACH TAB PO SCH (20:22)
[2023-10-01] MEDS ORDERED: INSULIN DETEMIR (LEVEMIR) 100 UNIT/ML SYR SQ SCH (21:00)
[2023-10-02] MEDS: HEPARIN SODIUM,PORCINE 5,000 UNIT/ML 1 ML VIAL SQ SCH ×3 (00:40→17:09)
[2023-10-02 05:15] LABS: Anisocytosis Slight; Basophils % (A) 0 %; Eosinophils # (A) 0.1 k/uL (0-0.7); Eosinophils % (A) 3 %; Hypochromasia Slight; Lymphocytes # (A) 1.1 k/uL (1.0-4.8); Lymphocytes % (A) 27 %; MCHC 33.4 g/dL (31.0-37.0); MCV 92.9 fL (80.0-100.0); Mean Platelet Volume 8.4; Monocytes # (A) 0.3 k/uL (0-1.0); Monocytes % (A) 7 %; Neutrophils # (A) 2.4 k/uL (1.3-7.7); Neutrophils % (A) 59 %; Platelet Count 133 k/uL (150-450); Poikilocytosis Slight; RBC 2.09 m/uL (4.30-5.90); RDW 17.5 % (11.5-15.5); WBC 4.1 k/uL (3.8-10.6)
[2023-10-02 05:22] LABS: ALT 41 U/L (4-49); AST 98 U/L (17-59); African American GFR (CKD) 43 (>60 ml/min/1.73 sqM); Albumin 2.7 g/dL (3.5-5.0); Alkaline Phosphatase 93 U/L (38-126); Anion Gap 11 mmol/L; Blood Urea Nitrogen 46 mg/dL (9-20); Calcium 7.5 mg/dL (8.4-10.2); Carbon Dioxide 21 mmol/L (22-30); Chloride 105 mmol/L (98-107); Glucose 171 mg/dL (74-99); Magnesium 2.3 mg/dL (1.6-2.3); Non-African American GFR(CKD) 37 (>60 ml/min/1.73 sqM); Phosphorus 3.6 mg/dL (2.5-4.5); Sodium 137 mmol/L (137-145); Total Bilirubin 0.7 mg/dL (0.2-1.3); Total Protein 5.2 g/dL (6.3-8.2)
[2023-10-02 05:40] LABS: HCT 19.4 % (39.0-53.0); HGB 6.5 gm/dL (13.0-17.5)
[2023-10-02 06:21] LABS: Glucose,Whole Blood 205 mg/dL (70-110)
[2023-10-02] MEDS: PANTOPRAZOLE 40 MG TABLET PO SCH (07:07)
[2023-10-02] MEDS: INSULIN ASPART (NovoLOG) 100 UNIT/ML VIAL SQ SCH ×8 (07:07→20:54)
--- NOTE | 2023-10-02 07:13 | XR ---
EXAMINATION TYPE: XR chest 2V DATE OF EXAM: 10/02/2023 COMPARISON: 10/01/2023 INDICATION: Postop CABG TECHNIQUE: Frontal and lateral views of the chest are obtained. FINDINGS: The heart size is prominent. The pulmonary vasculature is normal. Left lower lobe infiltrate is improving. Sternotomy fixation is evident.. IMPRESSION: 1. Improving left lower lobe infiltrate. Continued follow-up is recommended
[2023-10-02] MEDS ORDERED: DEXTROSE 5% IN WATER 100 ML with AMIODARONE 150 MG IV ONE (07:52)
[2023-10-02] MEDS ORDERED: AMIODARONE 360 MG in DEXTROSE 5% IN WATER 200 ML IV ONE ×2 (07:52)
[2023-10-02] MEDS: IPRATROPIUM-ALBUTEROL 3 ML NEB INHALATION SCH ×4 (08:25→20:47)
[2023-10-02] MEDS ORDERED: INSULIN ASPART (NovoLOG) 100 UNIT/ML VIAL SQ ONE (08:28)
[2023-10-02] MEDS ORDERED: CALCIUM GLUCONATE IN NACL 1 GM in SALINE 1 100ML.BAG IVPB ONE (08:30)
[2023-10-02] MEDS: FERROUS SULFATE 325 MG TAB PO SCH (08:38)
[2023-10-02] MEDS: ASCORBIC ACID 500 MG TAB PO SCH (08:38)
[2023-10-02] MEDS: ATORVASTATIN 40 MG TAB PO SCH (08:38)
[2023-10-02] MEDS: TAMSULOSIN 0.4 MG CAP.ER.24H PO SCH (08:38)
[2023-10-02] MEDS: CYANOCOBALAMIN 500 MCG TAB PO SCH (08:38)
[2023-10-02] MEDS: MULTIVITAMINS, THERA 1 EACH TAB PO SCH (08:38)
[2023-10-02] MEDS: METOPROLOL TARTRATE 12.5 MG TAB PO SCH (08:38)
[2023-10-02] MEDS: ASPIRIN 325 MG TAB PO SCH (08:38)
[2023-10-02] MEDS: CLOPIDOGREL 75 MG TAB PO SCH (08:38)
--- NOTE | 2023-10-02 10:46 | P.PN ---
Subjective Progress Note Date: 10/02/23 Patient is a 73-year-old male with history of CAD status post multiple stents, hypertension, atrial fibrillation, dyslipidemia, diabetes presented for elective CABG. [facility] has been consulted for medical management. Patient currently on nitroglycerin drip and 5 mcg/minute, norepinephrine drip at 0.04, propofol at 20 MCG per kilogram per minute, insulin drip at 4 units per hour. WBC 9.6, hemoglobin 7.9, platelet 108, pH 7.3, pCO2 48, potassium 4.5, creatinine 1.31 from baseline, magnesium 2.4, blood glucose 112. Extubated on 09/27. Levophed and Nitroglycerin drip discontinued. Required 3 units PRBC so far with intermitted Lasix IV push. Right and mediastinal chest tube removed 09/29. Confused at times. 09/30 Patient was seen and examined. Feeling tired. CBC Hg 7.1, Plt 93. BMP Cl 108, bicarb 21, BUN 36, Cr 1.78, glu 121, Ca 7.7, alb 2.7. POC glucose 113-200 over the past 24H. Currently on insulin drip at 11.5 units/hr. LR at 20 cc/hr. Currently on ASA 325 mg PO QD, Lipitor 40 mg PO QD, Plavix 75 mg PO QD, Metoprolol 12.5 mg PO BID. Renal US shows patterson catheter and no right hyd ronephrosis, unable to examine L kidney. CXR shows left sided chest tube, small apical PTX, pulmonary vascular congestion with atelectasis on the left side. Urine output 1005 cc over the past 24H. 10/01 Patient was seen and examined. Feeling better but still sluggish. CBC Hg 6.8, Plt 114. BMP bicarb 21, BUN 41, Cr 1.89, glu 198, Ca 7.4, alb 2.7. POC glucose 125-269 over the past 24H. Insulin drip discontinued and started on Levemir 40 units QHS and Novolog 13 units TID along with ISS. 21 units sliding scale given over the past 24H, Levemir increased to 50 units QHS and Novolog 16 units TID. Currently on ASA 325 mg PO QD, Lipitor 40 mg PO QD, Plavix 75 mg PO QD, Metoprolol 12.5 mg PO BID. CXR shows retrocardiac infiltrate, possible atelectasis. Urine output 2780 cc over the past 24H. 10/02 Patient was seen and examined. Clinically doing the same. Went into A-Fib with RVR, started on Amiodarone drip running at 1 mg/min. CBC Hg 6.5 Hct 19.4 Plt 133. There are plans for 1 unit PRBC today. CMP bicarb 21, BUN 46, Cr 1.77, glu 171, Ca 7.5, AST 98, alb 2.7. CXR shows improving left sided atelectasis which is improved since yesterday. POC glucose 198-231 over the past 24H. Levemir increased to 60 units QHS and Novolog 19 units TID. General: lethargic, no distress, appears at stated age Derm: warm, dry Head: atraumatic, normocephalic, symmetric Eyes: EOMI, no lid lag, pale sclera Cardiovascular: S1S2 reg, no murmur Lungs: Decreased BS bilaterally , no accessory muscle use Ext: no gross muscle atrophy, no edema, no contractures Neuro: no focal neuro deficits Psych: Alert, oriented, appropriate affect Based on my assessment of this patient, this patient meets a high complexity lev el of care. Patient has an acute diagnosis of POD 5 CABG that poses a threat to life or bodily function. CAD: Status post CABG POD 5. ASA 325 mg PO QD, Lipitor 40 mg PO QD, Plavix 75 mg PO QD, Metoprolol 12.5 mg PO BID. Telemetry monitoring. Cardiology and CT surgery on board. Acute blood loss anemia: Hg 6.5. Expected result of surgery. Status post 3 unit PRBC. Transfuse if Hg < 7. Patient would benefit from additional PRBC but will defer decision to CT surgery. AFib with RVR: Metoprolol as above. Continue Amiodarone drip. Eliquis when OK with CT surgery. Acute on chronic thrombocytopenia: Anticipated outcome of surgery. Transfuse if Plt < 10. Type 2 diabetes with hypeglycemia: A1c 6.8. Increase Levemir to 60 units QHS and Novolog to 19 units TID. Accuchecks. Hypoglycemic precautions. Acute on CKD stage III: Renal US unrevealing but incomplete. Patterson catheter in place. Strict intake and outtake. Hypocalcemia: Psedo when corrected with albumin. History of hypertension: Metoprolol as above. Lisinopril, Nifedipine, Sotalol at home on hold. Dyslipidemia: Lipitor as above. Gout: Allopurinol 300 mg PO QD. BPH CODE STATUS: FULL CODE DVT Prophylaxis: Heparin SQ GI Prophylaxis: Protonix PO Designated medical POA if patient is not able to make medical decisions for themselves: I have reviewed the following packaging sales consultant notes: CT surgery, Cardiology, Pulmonology note. I have reviewed the results of the following tests: CBC. BMP. POC glucose. I have ordered the following tests: CBC, BMP. I have discussed the care of this patient with the following independent historian: Discussed with RN. I have independently interpreted the following test below: CXR as above. I have discussed the management of this patient with the following physician: This patient meets a high level of care for the following reasons: Patient requires adjustments in insulin which requires intensive monitoring for hypoglycemic episodes. (Increased SQ insulin) Objective - Vital Signs Vital signs: Vital Signs Temp 97.9 F 10/02/23 04:00 Pulse 98 10/02/23 07:00 Resp 15 10/02/23 07:00 BP 117/59 10/02/23 07:00 Pulse Ox 98 10/02/23 07:00 FiO2 21 10/01/23 23:29 Intake & Output 10/01/23 10/02/23 10/02/23 18:59 06:59 18:59 Intake Total 925 200 Output Total 400 500 Balance 525 -300 Weight 133.4 kg 136.3 kg Intake: Oral 925 200 Output: Urine 400 500 Other: Voiding Method Bedside Commode Bedside Commode # Voids 1 0 # Bowel Movements 1 1 ABP, PAP, CO, CI - Last Documented Arterial Blood Pressure 126/49 Pulmonary Artery Pressure 16/0 Cardiac Output 8.1 Cardiac Index 3.3 - Labs CBC & Chem 7: 10/02/23 04:48 10/02/23 04:48 Labs: Abnormal Lab Results - Last 24 Hours (Table) 10/01/23 10/01/23 10/01/23 Range/Units 12:07 16:48 20:15 RBC (4.30-5.90) m/uL Hgb (13.0-17.5) gm/dL Hct (39.0-53.0) % RDW (11.5-15.5) % Plt Count (150-450) k/uL Carbon Dioxide (22-30) mmol/L BUN (9-20) mg/dL Creatinine (0.66-1.25) mg/dL Glucose (74-99) mg/dL POC Glucose (mg/dL) 198 H 224 H 215 H (70-110) mg/dL Calcium (8.4-10.2) mg/dL AST (17-59) U/L Total Protein (6.3-8.2) g/dL Albumin (3.5-5.0) g/dL 10/02/23 10/02/23 10/02/23 Range/Units 04:48 04:48 06:20 RBC 2.09 L (4.30-5.90) m/uL Hgb 6.5 L* (13.0-17.5) gm/dL Hct 19.4 L* (39.0-53.0) % RDW 17.5 H (11.5-15.5) % Plt Count 133 L (150-450) k/uL Carbon Dioxide 21 L (22-30) mmol/L BUN 46 H (9-20) mg/dL Creatinine 1.77 H (0.66-1.25) mg/dL Glucose 171 H (74-99) mg/dL POC Glucose (mg/dL) 205 H (70-110) mg/dL Calcium 7.5 L (8.4-10.2) mg/dL AST 98 H (17-59) U/L Total Protein 5.2 L (6.3-8.2) g/dL Albumin 2.7 L (3.5-5.0) g/dL
--- NOTE | 2023-10-02 10:53 | P.PN ---
Subjective Progress Note Date: 10/02/23 Principal diagnosis: Multivessel coronary artery disease. Previous medical history of coronary artery disease status post multiple coronary stents, hypertension, hyperlipidemia, diabetes mellitus type 2, atrial fibrillation since 2016 on Eliquis for anticoagulation as an outpatient, obstructive sleep apnea with home BiPAP use, chronic renal insufficiency, gout, kidney stones and lifelong nonsmoker. POD #5 coronary artery bypass grafting 4 vessels (left internal mammary artery to left anterior descending coronary artery, saphenous vein graft to the first obtuse marginal coronary artery, saphenous vein graft to the third obtuse marginal coronary artery, saphenous vein graft to the posterior descending coronary artery, endoscopic harvesting bilateral greater saphenous veins, ligation of the left atrial appendage using a 35 mm Atriclip, epi-aortic ultrasound, intraoperative transesophageal echocardiogram, graft flow measurements using the Second Genomestim system, and closure of the sternum using Tritium plating device. Postoperative acute blood loss anemia, expected given hemodilution and cardiopulmonary bypass. The patient was seen and examined sitting up in a recliner in the ICU in no acute distress. States surgical pain mostly controlled on current medication re gimen, denies shortness of breath. Complains of generalized weakness although he was reportedly able to ambulate out to the hallway this morning. Went into atrial fibrillation this morning, being started on amio protocol. Currently on room air with oxygen saturation in the high 90s. CXR, labs reviewed. Hemaglobin 6.5, will receive 1 unit PRBCs. No other new concerns. Objective - Vital Signs Vital signs: Vital Signs Temp 97.9 F 10/02/23 04:00 Pulse 98 10/02/23 07:00 Resp 15 10/02/23 07:00 BP 117/59 10/02/23 07:00 Pulse Ox 98 10/02/23 07:00 FiO2 21 10/01/23 23:29 Intake & Output 10/01/23 10/02/23 10/02/23 18:59 06:59 18:59 Intake Total 925 200 Output Total 400 500 Balance 525 -300 Weight 133.4 kg 136.3 kg Intake: Oral 925 200 Output: Urine 400 500 Other: Voiding Method Bedside Commode Bedside Commode # Voids 1 0 # Bowel Movements 1 1 ABP, PAP, CO, CI - Last Documented Arterial Blood Pressure 126/49 Pulmonary Artery Pressure 16/0 Cardiac Output 8.1 Cardiac Index 3.3 - Exam CONSTITUTIONAL: Appears comfortable, cooperative, no acute distress RESPIRATORY: Lungs sounds diminished bilaterally. Respirations even, nonlabored. Currently on room air with oxygen saturation 98%. Able to achieve 1500 mL on incentive spirometry. Strong cough. CARDIOVASCULAR: S1, S2 present. Irregular rate and rhythm, atrial fibrillation on telemetry. Sternum stable. Palpable peripheral pulses bilaterally. Generalized edema present. No calf pain or tenderness noted. Heart hugger in place with patient demonstrating appropriate use. Antiembolism stockings, SCDs present. GASTROINTESTINAL: Abdomen soft, nontender, nondistended. Active bowel sounds present 4 quadrants. Tolerating diet. Positive bowel movement 10/02 GENITOURINARY: Continues to void INTEGUMENTARY: Skin is warm and dry with evidence of good perfusion. Anterior chest incision well approximated and covered with dry intact dressing. Bilateral lower extremity EVH sites well approximated without redness or drainage. NEUROLOGIC: Cranial nerves II through XII intact MUSKULOSKELETAL: Able to move all extremities, strength equal bilaterally although generalized weakness still present PSYCHIATRIC: Alert and oriented to person place and time, appropriate affect, intact judgment and insight INVASIVE LINES AND TUBES: A/V epicardial pacemaker wires present, grounded - Allied health notes Allied health notes reviewed: nursing - Labs CBC & Chem 7: 10/02/23 04:48 10/02/23 04:48 Labs: Abnormal Lab Results - Last 24 Hours (Table) 09/29/23 10/01/23 10/01/23 Range/Units 08:42 12:07 16:48 RBC (4.30-5.90) m/uL Hgb (13.0-17.5) gm/dL Hct (39.0-53.0) % RDW (11.5-15.5) % Plt Count (150-450) k/uL Carbon Dioxide (22-30) mmol/L BUN (9-20) mg/dL Creatinine (0.66-1.25) mg/dL Glucose (74-99) mg/dL POC Glucose (mg/dL) 198 H 224 H (70-110) mg/dL Calcium (8.4-10.2) mg/dL AST (17-59) U/L Total Protein (6.3-8.2) g/dL Albumin (3.5-5.0) g/dL Crossmatch See Detail 10/01/23 10/02/23 10/02/23 Range/Units 20:15 04:48 04:48 RBC 2.09 L (4.30-5.90) m/uL Hgb 6.5 L* (13.0-17.5) gm/dL Hct 19.4 L* (39.0-53.0) % RDW 17.5 H (11.5-15.5) % Plt Count 133 L (150-450) k/uL Carbon Dioxide 21 L (22-30) mmol/L BUN 46 H (9-20) mg/dL Creatinine 1.77 H (0.66-1.25) mg/dL Glucose 171 H (74-99) mg/dL POC Glucose (mg/dL) 215 H (70-110) mg/dL Calcium 7.5 L (8.4-10.2) mg/dL AST 98 H (17-59) U/L Total Protein 5.2 L (6.3-8.2) g/dL Albumin 2.7 L (3.5-5.0) g/dL Crossmatch 10/02/23 Range/Units 06:20 RBC (4.30-5.90) m/uL Hgb (13.0-17.5) gm/dL Hct (39.0-53.0) % RDW (11.5-15.5) % Plt Count (150-450) k/uL Carbon Dioxide (22-30) mmol/L BUN (9-20) mg/dL Creatinine (0.66-1.25) mg/dL Glucose (74-99) mg/dL POC Glucose (mg/dL) 205 H (70-110) mg/dL Calcium (8.4-10.2) mg/dL AST (17-59) U/L Total Protein (6.3-8.2) g/dL Albumin (3.5-5.0) g/dL Crossmatch - Imaging and Cardiology Chest x-ray: report reviewed, image reviewed Assessment and Plan Assessment: Multivessel coronary artery disease, status post coronary artery bypass grafting 4 vessels History of coronary artery disease with multiple stent in the past Hypertension Hyperlipidemia Atrial fibrillation since 2016 on Eliquis for anticoagulation as an outpatient, status post ligation of left atrial appendage Diabetes mellitus type 2, with a preoperative hemoglobin A1c of 6.8% Obstructive sleep apnea with home BiPAP use Chronic renal insufficiency History of gout History of kidney stones Lifelong nonsmoker Postoperative acute blood loss anemia and postoperative thrombocytopenia, expected given hemodilution and cardiopulmonary bypass Medical debility Plan: Continue to maximize medical therapy with aspirin, statin, Plavix and beta jayna. Will increase beta jayna as tolerated Continue amiodarone for afib, will transition to oral tomorrow. Likely will place back on anticoagulation at discharge Encourage incentive spirometry use 10 times every hour while awake. Bronchodilators per pulmonology. Increase activity, ambulate as tolerated. PT/OT/cardiac rehab following. Will monitor daily labs and chest x-rays. Electrolyte replacement per protocol. Will give 1 unit PRBCs GI/DVT prophylaxis. Pain control per current medication regimen, no toradol due to CRF Avoid nephrotoxic agents as the patient has a history of chronic renal insufficiency Insulin management per internal medicine service Continue to record strict accurate intake and output Daily weights Will place transfer orders for step-down unit, may transfer when bed available Patient may need rehab at discharge although activity has increased in the last 24 hours More recommendations to follow based on patient's clinical course.
[2023-10-02 11:17] LABS: Glucose,Whole Blood 293 mg/dL (70-110)
[2023-10-02] MEDS ORDERED: HYALURONIDASE, HUMAN RECOMB 150 UNIT/ML 1 ML VIAL SQ ONE (12:00)
--- NOTE | 2023-10-02 13:12 | P.PN ---
Subjective Progress Note Date: 10/02/23 Principal diagnosis: POD # 5 coronary artery bypass grafting 4 vessels (left internal mammary artery to left anterior descending coronary artery, a saphenous vein graft to the ob tuse marginal coronary artery one, a saphenous vein graft to the obtuse marginal coronary artery 3, and a saphenous vein graft to the posterior descending coronary artery, This patient is 73 and the patient underwent a four-vessel bypass surgery and the patient is being seen in the intensive care unit postop. The patient is currently sedated on propofol which is running at 20 mcg/kg/m. The patient's underwent four-vessel bypass surgery. The patient is currently well sedated on a mechanical ventilator on assist control mode at the rate of 12, tidal volume of 500, FiO2 was weaned down to 50% and PEEP is currently at 10. The patient's blood gas shows a pH of 7.29 with a pCO2 of 47 and pO2 of 352. This was on FiO2 100%. The patient was subsequently brought up respiratory rate of 24 and FiO2 was up to 50%. Chest x-ray shows adequate expansion of both lungs. Olin-Ted in good location. ET tube needs to be pushed in by around 1 cm. The patient has a right pleural, mediastinal and left pleural chest tubes. No evidence of any air leak. Output is minimal at this point in time. Carotid Dopplers at 5.8 with an index of 2.4. Patient is on norepinephrine at 0.04 mcg/kg/m, nitrogl ycerin drip at 5 mg/m and the patient is also on insulin drip at 1 units an hour. The patient sees a units of packed RBC. Making adequate urine output. Adequately sedated for now. No major issues otherwise. The patient is also placed at the rate of 80. Underlying cardiac rhythm is sinus bradycardia. On today's evaluation of 09/28/2023, the patient is being seen for a follow-up. The patient was extubated without any major difficulties yesterday. Currently is on room air oxygen. Sitting up on a chair. Chest x-ray shows no major abnormalities and showing postsurgical changes. The film itself facilitated. The patient has a right IJ Gants catheter in place. Patient has also 3 chest tubes, right pleural, left lower and mediastinal. Output from the chest tubes have been noted which is not excessive at this point in time and there is no evidence of any air leak. At the same time, the patient is using the incentive spirometer. He is falling approximately the thousand. Current pulse ox is 94%. His cardiac rhythm was sinus bradycardia with a first-degree AV block. The patient is currently paced at the rate of 70. Cardiac output is at 7.3. Index is at 3.0. He did encounter some hypotension yesterday and the patient was taken off the nitroglycerin drip and currently is off norepinephrine. Insulin drip is running at the rate of 6 units an hour. Hemoglobin is low at 6.8. No orders for blood transfusion at this point in time. This is being monitored. Platelet count is 79, BUN is at 24 with a creatinine of 1.6 as the patient has a component of chronic kidney disease. Briceno cath is in place. Adequate urine output. Sodium level is at 139, potassium is at 4.4, bicarb is at 20. In 2022, the patient is on oxygen at 2 L he's currently postop day #2. Doing well. Slightly lethargic and is feeling weak. No focal neurological deficits. Is worried all 4 extremities. Slightly confused. Based on that, a blood gas was done and the patient was found to have a pH of 7.48 with episodes of 27 and pO2 of 73. Serum bicarbs of 20. His chest x-ray from today showing some atelectatic change in the left lung base. The patient has a right pleural, left lower and the mediastinal chest tube. No airspace disease. No consolidation. He had some issues with drop in hemoglobin and patient was given units of packed RBC. Follow-up hemoglobin today is still low at 6.7. Another units of packed RBC will be given fluids patient today. He has sustained an acute kidney injury. Creatinine is up to 1.9 with a BUN of 31 and a sodium level is at 137. Serum bicarbs of 20. White cell count at 7.1. Olin-Ted catheter has been removed. He is on aspirin. He is on Plavix. He is on metoprolol at a dose of 12.5 mg by mouth twice a day. His underlying rhythm is sinus. He is having occasional PACs. Patient was reevaluated today on 09/30/23, patient is now postoperative day #3. Patient is doing well, awake, alert, oriented 3, although at times he had episodes where he was a bit confused, does not seem to be in any distress, his narcotics have been discontinued yesterday. Patient is hemodynamically stable, and achieving above 1500 mL on his incentive spirometry, he is hemodynamically stable, not requiring any inotropes or pressors. Patient did receive 2 units of packed RBCs yesterday for hemoglobin of 7.1. Patient feels generally weak, otherwise relatively asymptomatic. WBC count is 5.5 hemoglobin is 7.1. ABG on room air today showed a pO2 of 70 pCO2 28 pH of 7.51, basic metabolic profile is normal renal profile showed a BUN of 36 creatinine 1.78 improving compared to baseline creatinine Reevaluated today on 10/01/2023, patient remains in the ICU, doing well, he is on room air, does not seem to be in any distress, sitting at a bedside chair, hemoglobin is down to 6.8, surgery will decide whether to give the patient a unit of packed RBCs are not. Discussed his condition with cardiac surgery, refills to wait for now. Patient has no specific complaints, denies any pain and denies any shortness of breath, chest x-ray is showing mostly left lower lobe atelectasis and possibly a small effusion patient is achieving almost 2000 mL with his incentive spirometry, his O2 saturation 96% on room air. His left- sided chest tube was removed yesterday, continues to have atrial and ventricular epicardial pacemaker wires, and they are grounded. WBC count is 5.0 hemoglobin 6.8 basic metabolic profile is normal creatinine went up slightly up to 1.89, and that is being closely monitored. Patient did have numbers as high as 1.90 on baseline on 09/27 was 1.3 Patient was reevaluated today on 10/02/23 remains in the ICU, doing fairly well, remains on room air, and he is not in any form of distress. Patient is on amiodarone drip at present, his hemoglobin has been noted to be low and he is still receives 1 unit of packed RBCs today, hemoglobin today is 6.5, today's transfusion be unit #4 of packed RBCs given so far on this admission. Surprisingly the patient is clinically doing great, CBC is unremarkable except for low hemoglobin of 6.5 he is hemodynamically stable, not requiring any pressors BUN remains a bit elevated at 46 and creatinine slightly elevated at 1.77 and that's about his baseline. Chest x-ray today is even showing significant improvement in the aeration of the left lower lobe. And doubt any pleural effusion Objective - Vital Signs Vital signs: Vital Signs Temp 98.3 F 10/02/23 12:49 Pulse 96 10/02/23 12:49 Resp 18 10/02/23 12:49 BP 105/57 10/02/23 12:49 Pulse Ox 98 10/02/23 12:49 FiO2 21 10/01/23 23:29 Intake & Output 10/01/23 10/02/23 10/02/23 18:59 06:59 18:59 Intake Total 925 200 487 Output Total 400 500 600 Balance 525 -300 -113 Weight 133.4 kg 136.3 kg Intake: Oral 925 200 200 Blood Product 287 Rc Pheresis 2 As3 Unit 287 [id number] Output: Urine 400 500 600 Other: Voiding Method Bedside Commode Bedside Commode Bedside Commode # Voids 1 0 # Bowel Movements 1 1 1 ABP, PAP, CO, CI - Last Documented Arterial Blood Pressure 126/49 Pulmonary Artery Pressure 16/0 Cardiac Output 8.1 Cardiac Index 3.3 - Exam Physical Exam: Revealed 73-year-old white male in no distress, on room air Neck: Atraumatic, normocephalic Head: Atraumatic, normocephalic. HEENT:[Neck is supple.] [No neck masses.] [No thyromegaly.] [No JVD.] Chest: [Diminished breath sounds at the bases no crackles or rhonchi or wheezes Cardiac Exam: [Normal S1 and S2, no S3 gallop, no murmur.] Abdomen: [Soft, nontender, no megaly, no rebound, no guarding, normal bowel sounds.] Extremities: [No clubbing, no edema, no cyanosis.] Neurological Exam: [No focal neurologic deficit.] Alert and oriented 3. Psychiatric: Normal mood affect and normal mental status examination. Skin: No rashes - Labs CBC & Chem 7: 10/02/23 04:48 10/02/23 04:48 Labs: Abnormal Lab Results - Last 24 Hours (Table) 09/29/23 10/01/23 10/01/23 Range/Units 08:42 16:48 20:15 RBC (4.30-5.90) m/uL Hgb (13.0-17.5) gm/dL Hct (39.0-53.0) % RDW (11.5-15.5) % Plt Count (150-450) k/uL Carbon Dioxide (22-30) mmol/L BUN (9-20) mg/dL Creatinine (0.66-1.25) mg/dL Glucose (74-99) mg/dL POC Glucose (mg/dL) 224 H 215 H (70-110) mg/dL Calcium (8.4-10.2) mg/dL AST (17-59) U/L Total Protein (6.3-8.2) g/dL Albumin (3.5-5.0) g/dL Crossmatch See Detail 10/02/23 10/02/23 10/02/23 Range/Units 04:48 04:48 06:20 RBC 2.09 L (4.30-5.90) m/uL Hgb 6.5 L* (13.0-17.5) gm/dL Hct 19.4 L* (39.0-53.0) % RDW 17.5 H (11.5-15.5) % Plt Count 133 L (150-450) k/uL Carbon Dioxide 21 L (22-30) mmol/L BUN 46 H (9-20) mg/dL Creatinine 1.77 H (0.66-1.25) mg/dL Glucose 171 H (74-99) mg/dL POC Glucose (mg/dL) 205 H (70-110) mg/dL Calcium 7.5 L (8.4-10.2) mg/dL AST 98 H (17-59) U/L Total Protein 5.2 L (6.3-8.2) g/dL Albumin 2.7 L (3.5-5.0) g/dL Crossmatch 10/02/23 Range/Units 11:16 RBC (4.30-5.90) m/uL Hgb (13.0-17.5) gm/dL Hct (39.0-53.0) % RDW (11.5-15.5) % Plt Count (150-450) k/uL Carbon Dioxide (22-30) mmol/L BUN (9-20) mg/dL Creatinine (0.66-1.25) mg/dL Glucose (74-99) mg/dL POC Glucose (mg/dL) 293 H (70-110) mg/dL Calcium (8.4-10.2) mg/dL AST (17-59) U/L Total Protein (6.3-8.2) g/dL Albumin (3.5-5.0) g/dL Crossmatch Assessment and Plan Assessment: Impression: Coronary artery bypass surgery. The patient underwent four-vessel bypass surgery. The patient is currently postop day #5 CAD status post multiple stents, now status post CABG Acute blood loss anemia, expected. Patient received a total of 4 units of packed RBCs so far on this admission. Acute on chronic thrombocytopenia, anticipated outcome of surgery, platelets are being monitored, improving, level today is 133 Type 2 diabetes, patient is still requiring insulin drip Chronic kidney disease stage III, cr is 1.77 Hypocalcemia History of hypertension History of atrial fibrillation Dyslipidemia Gout BPH Recommendation: Continue statin, Plavix, beta blockers, and aspirin/optimal medical therapy Transfuse for hemoglobin of 6.5, and today will be his fourth units of blood Continue to monitor in the ICU Continue incentive spirometry Continue ambulation Encourage ambulation Continue incentive spirometry Continue bronchodilators We will continue to follow Time with Patient: Less than 30
--- NOTE | 2023-10-02 15:56 | P.PN ---
Subjective PROGRESS NOTE The patient is a 73-year-old male who underwent CABG yesterday. He is followed regularly by Dr. De Oliveira in [place] and has underwent prior stenting, most recently about 10 years ago according to him who has been complaining of progressive chest discomfort and underwent cardiac catheterization in [place], was found to have severe obstructive disease and underwent CABG yesterday. He received a MAGANA to the LAD and SVG to OM1 and 3 and PDA with closure of the left atrial appendage. He is extubated, sitting up in the chair, he feels well. He was having chest discomfort and dyspnea on exertion prior to presentation. He has no peripheral edema, PND or orthopnea. He does not recall being told that he had a myocardial infarction or history of CHF. He has a prior history of paroxysmal atrial fibrillation and has a loop recorder and according to him there was no episodes of atrial fibrillation for the last 2 years. Hemodynamica lly he is stable. He has a history of diabetes, hypertension and hyperlipidemia. He is a nonsmoker. September 29: The patient is feeling well this morning, he denies any chest discomfort, dizziness or palpitations. He continues to be in sinus mechanism. Hemodynamically stable. His urine output is stable. He denies any nausea or vomiting. He is on no vasopressors. He had anemia and his received transfusion. 09/30 Patient seen and examined. Patient has had off-and-on confusion and currently on BiPAP. Denies any chest pain or pressure. Creatinine 1.7 with hemoglobin 7.1. 10/01 Patient seen and examined. Patient denies any chest pain or pressure. States he still feels short of breath. Hemoglobin 6.8 today with platelets 114. Creatinine 1.89. 10/02 Patient seen and examined. Patient flipped into atrial fibrillation yesterday and predilate controlled rates in the 90s to low 100 and denies any real palpitations. He does admit to history of atrial fibrillation previously. He also received packed red blood cells today. States he feels somewhat better in terms of energy today. Received IV Lasix yesterday. Receiving IV amiodarone. Medications: Aspirin, Lipitor 40 mg daily, Plavix 75 mg daily, metoprolol tartrate 12.5 mg twice a day. PHYSICAL EXAMINATION: Vitals reviewed LUNGS: Mild decreased breath sounds at the bases HEART:Irregular rate and rhythm, S1, S2. No S3. No systolic murmur ABDOMEN: Soft, nontender, no organomegaly EXTREMETIES: No edema IMPRESSION: 1. Status post CABG, stable 2. Anemia postoperatively 3. Acute renal injury postoperatively 4. History of paroxysmal atrial fibrillation 5. History of diabetes 6. History of hypertension 7. History of hyperlipidemia 8. Postoperative A. fib however also has a history of A. fib PLAN: Continue transfuse as needed. Monitor for any source of bleeding. Ideally eventually add back Eliquis however for now continue with current regimen. Continue IV amiodarone and monitor response. Objective - Vital Signs Vital signs: Vital Signs Temp 98.3 F 10/02/23 12:49 Pulse 95 10/02/23 15:30 Resp 22 10/02/23 15:00 BP 113/64 10/02/23 15:00 Pulse Ox 98 10/02/23 15:00 FiO2 21 10/01/23 23:29 Intake & Output 10/01/23 10/02/23 10/02/23 18:59 06:59 18:59 Intake Total 925 200 687 Output Total 400 500 900 Balance 525 -300 -213 Weight 133.4 kg 136.3 kg Intake: Oral 925 200 400 Blood Product 287 Rc Pheresis 2 As3 Unit 287 [id number] Output: Urine 400 500 900 Other: Voiding Method Bedside Commode Bedside Commode Bedside Commode # Voids 1 0 # Bowel Movements 1 1 1 ABP, PAP, CO, CI - Last Documented Arterial Blood Pressure 126/49 Pulmonary Artery Pressure 16/0 Cardiac Output 8.1 Cardiac Index 3.3 - Labs CBC & Chem 7: 10/02/23 04:48 10/02/23 04:48 Labs: Abnormal Lab Results - Last 24 Hours (Table) 09/29/23 10/01/23 10/01/23 Range/Units 08:42 16:48 20:15 RBC (4.30-5.90) m/uL Hgb (13.0-17.5) gm/dL Hct (39.0-53.0) % RDW (11.5-15.5) % Plt Count (150-450) k/uL Carbon Dioxide (22-30) mmol/L BUN (9-20) mg/dL Creatinine (0.66-1.25) mg/dL Glucose (74-99) mg/dL POC Glucose (mg/dL) 224 H 215 H (70-110) mg/dL Calcium (8.4-10.2) mg/dL AST (17-59) U/L Total Protein (6.3-8.2) g/dL Albumin (3.5-5.0) g/dL Crossmatch See Detail 10/02/23 10/02/23 10/02/23 Range/Units 04:48 04:48 06:20 RBC 2.09 L (4.30-5.90) m/uL Hgb 6.5 L* (13.0-17.5) gm/dL Hct 19.4 L* (39.0-53.0) % RDW 17.5 H (11.5-15.5) % Plt Count 133 L (150-450) k/uL Carbon Dioxide 21 L (22-30) mmol/L BUN 46 H (9-20) mg/dL Creatinine 1.77 H (0.66-1.25) mg/dL Glucose 171 H (74-99) mg/dL POC Glucose (mg/dL) 205 H (70-110) mg/dL Calcium 7.5 L (8.4-10.2) mg/dL AST 98 H (17-59) U/L Total Protein 5.2 L (6.3-8.2) g/dL Albumin 2.7 L (3.5-5.0) g/dL Crossmatch 10/02/23 Range/Units 11:16 RBC (4.30-5.90) m/uL Hgb (13.0-17.5) gm/dL Hct (39.0-53.0) % RDW (11.5-15.5) % Plt Count (150-450) k/uL Carbon Dioxide (22-30) mmol/L BUN (9-20) mg/dL Creatinine (0.66-1.25) mg/dL Glucose (74-99) mg/dL POC Glucose (mg/dL) 293 H (70-110) mg/dL Calcium (8.4-10.2) mg/dL AST (17-59) U/L Total Protein (6.3-8.2) g/dL Albumin (3.5-5.0) g/dL Crossmatch
[2023-10-02 16:09] LABS: Glucose,Whole Blood 257 mg/dL (70-110)
[2023-10-02] MEDS: AMIODARONE 450 MG in DEXTROSE 5% IN WATER 250 ML IV SCH ×2 (18:03)
[2023-10-02 20:11] LABS: Glucose,Whole Blood 234 mg/dL (70-110)
[2023-10-02] MEDS: ACETAMINOPHEN TAB 325 MG TAB PO PRN (20:53)
[2023-10-02] MEDS: SENNOSIDES-DOCUSATE SODIUM 1 EACH TAB PO SCH (20:53)
[2023-10-02] MEDS: METOPROLOL TARTRATE 25 MG TAB PO SCH (20:53)
[2023-10-02] MEDS ORDERED: INSULIN DETEMIR (LEVEMIR) 100 UNIT/ML SYR SQ SCH (21:00)
[2023-10-03] MEDS: HEPARIN SODIUM,PORCINE 5,000 UNIT/ML 1 ML VIAL SQ SCH ×3 (00:18→16:05)
[2023-10-03 05:37] LABS: Anisocytosis Slight; HCT 21.1 % (39.0-53.0); Hypochromasia Slight; MCH 30.8 pg (25.0-35.0); MCHC 33.2 g/dL (31.0-37.0); MCV 92.9 fL (80.0-100.0); Mean Platelet Volume 8.9; Platelet Count 137 k/uL (150-450); Poikilocytosis Slight; RBC 2.27 m/uL (4.30-5.90); RDW 17.4 % (11.5-15.5); WBC 5.5 k/uL (3.8-10.6)
[2023-10-03 06:00] LABS: African American GFR (CKD) 41 (>60 ml/min/1.73 sqM); Anion Gap 13 mmol/L; Blood Urea Nitrogen 44 mg/dL (9-20); Calcium 7.7 mg/dL (8.4-10.2); Carbon Dioxide 19 mmol/L (22-30); Chloride 104 mmol/L (98-107); Glucose 131 mg/dL (74-99); Non-African American GFR(CKD) 35 (>60 ml/min/1.73 sqM); Potassium 3.8 mmol/L (3.5-5.1); Sodium 136 mmol/L (137-145)
[2023-10-03 06:55] LABS: Glucose,Whole Blood 179 mg/dL (70-110)
[2023-10-03] MEDS: AMIODARONE 450 MG in DEXTROSE 5% IN WATER 250 ML IV SCH ×4 (07:01→07:03)
[2023-10-03] MEDS: PANTOPRAZOLE 40 MG TABLET PO SCH (07:01)
[2023-10-03] MEDS: INSULIN ASPART (NovoLOG) 100 UNIT/ML VIAL SQ SCH ×7 (07:04→20:53)
[2023-10-03] MEDS ORDERED: SENNOSIDES-DOCUSATE SODIUM 1 EACH TAB PO PRN (07:13)
--- NOTE | 2023-10-03 07:49 | XR ---
EXAMINATION TYPE: XR chest 2V DATE OF EXAM: 10/03/2023 COMPARISON: 10/02/2023 HISTORY: Shortness of breath TECHNIQUE: Frontal and lateral views of the chest are obtained. FINDINGS: Scattered senescent parenchymal changes noted. Hyperinflation compatible with COPD. No evidence for infiltrate. No evidence for atelectasis. Heart size is stable. Mediastinal structures are stable and grossly unremarkable. No evidence for hilar prominence. Degenerative changes dorsal spine. IMPRESSION: 1. No evidence for acute pulmonary disease.
[2023-10-03] MEDS: IPRATROPIUM-ALBUTEROL 3 ML NEB INHALATION SCH ×4 (08:21→20:26)
[2023-10-03] MEDS: AMIODARONE 200 MG TAB PO SCH ×2 (08:29→20:53)
[2023-10-03] MEDS: FERROUS SULFATE 325 MG TAB PO SCH (08:29)
[2023-10-03] MEDS: CLOPIDOGREL 75 MG TAB PO SCH (08:30)
[2023-10-03] MEDS: ATORVASTATIN 40 MG TAB PO SCH (08:30)
[2023-10-03] MEDS: METOPROLOL TARTRATE 25 MG TAB PO SCH ×2 (08:30→20:54)
[2023-10-03] MEDS: ASCORBIC ACID 500 MG TAB PO SCH (08:30)
[2023-10-03] MEDS: CYANOCOBALAMIN 500 MCG TAB PO SCH (08:30)
[2023-10-03] MEDS: TAMSULOSIN 0.4 MG CAP.ER.24H PO SCH (08:30)
[2023-10-03] MEDS: ASPIRIN 325 MG TAB PO SCH (08:30)
[2023-10-03] MEDS: MULTIVITAMINS, THERA 1 EACH TAB PO SCH (08:30)
--- NOTE | 2023-10-03 10:44 | P.PN ---
Subjective Progress Note Date: 10/03/23 Principal diagnosis: Multivessel coronary artery disease. Previous medical history of coronary artery disease status post multiple coronary stents, hypertension, hyperlipidemia, diabetes mellitus type 2, atrial fibrillation since 2016 on Eliquis for anticoagulation as an outpatient, obstructive sleep apnea with home BiPAP use, chronic renal insufficiency, gout, kidney stones and lifelong nonsmoker. POD #6 coronary artery bypass grafting 4 vessels (left internal mammary artery to left anterior descending coronary artery, saphenous vein graft to the first obtuse marginal coronary artery, saphenous vein graft to the third obtuse marginal coronary artery, saphenous vein graft to the posterior descending coronary artery, endoscopic harvesting bilateral greater saphenous veins, ligation of the left atrial appendage using a 35 mm Atriclip, epi-aortic ultrasound, intraoperative transesophageal echocardiogram, graft flow measurements using the Pheedstim system, and closure of the sternum using Tritium plating device. Postoperative acute blood loss anemia, expected given hemodilution and cardiopulmonary bypass. The patient was seen and examined sitting up in a recliner in the ICU in no acute distress. States surgical pain mostly controlled on current medication re gimyriam, denies shortness of breath. He was able to ambulate down the hallway several times yesterday, quit when he became too "winded". Went into atrial fibrillation yesterday morning, started on amio protocol, appears to be back in sinus rhythm today. Currently on room air with oxygen saturation in the high 90s. CXR, labs reviewed. Discussed discharge plans with patient, feels he will be able to return home with home care, has sister and friend willing to drive him to his doctor appointments. No other new concerns. Objective - Vital Signs Vital signs: Vital Signs Temp 97.6 F 10/03/23 08:00 Pulse 92 10/03/23 08:31 Resp 19 10/03/23 08:00 BP 124/54 10/03/23 08:00 Pulse Ox 98 10/03/23 08:00 FiO2 21 10/03/23 00:02 Intake & Output 10/02/23 10/03/23 10/03/23 18:59 06:59 18:59 Intake Total 887 216.115 Output Total 900 600 Balance -13 -600 216.115 Weight 136.3 kg 137.1 kg Intake: Intake, IV Titration 216.115 Amount Amiodarone 450 mg In 216.115 Dextrose 5% in Water 250 ml @ 0.5 MG/MIN 16.667 mls/hr IV .Q15H [facility] Rx#: [id number] Oral 600 Blood Product 287 Rc Pheresis 2 As3 Unit 287 [id number] Output: Urine 900 600 Other: Voiding Method Bedside Commode Bedside Commode # Bowel Movements 1 1 ABP, PAP, CO, CI - Last Documented Arterial Blood Pressure 126/49 Pulmonary Artery Pressure 16/0 Cardiac Output 8.1 Cardiac Index 3.3 - Exam CONSTITUTIONAL: Appears comfortable, cooperative, no acute distress RESPIRATORY: Lungs sounds diminished bilaterally. Respirations even, nonlabored. Currently on room air with oxygen saturation 98%. Able to achieve 1500 mL on incentive spirometry. Strong cough. CARDIOVASCULAR: S1, S2 present. Regular rate and rhythm, sinus rhythm on telemetry. Sternum stable. Palpable peripheral pulses bilaterally. Generalized edema present. No calf pain or tenderness noted. Heart hugger in place with patient demonstrating appropriate use. Antiembolism stockings, SCDs present. GASTROINTESTINAL: Abdomen soft, nontender, nondistended. Active bowel sounds present 4 quadrants. Tolerating diet. Positive bowel movement 10/03 GENITOURINARY: Continues to void INTEGUMENTARY: Skin is warm and dry with evidence of good perfusion. Anterior chest incision well approximated. Bilateral lower extremity EVH sites well approximated without redness or drainage. NEUROLOGIC: Cranial nerves II through XII intact MUSKULOSKELETAL: Able to move all extremities, strength equal bilaterally although generalized weakness still present PSYCHIATRIC: Alert and oriented to person place and time, appropriate affect, intact judgment and insight INVASIVE LINES AND TUBES: A/V epicardial pacemaker wires present, grounded - Allied health notes Allied health notes reviewed: nursing - Labs CBC & Chem 7: 10/03/23 04:50 10/03/23 04:50 Labs: Abnormal Lab Results - Last 24 Hours (Table) 09/29/23 10/02/23 10/02/23 Range/Units 08:42 11:16 16:07 RBC (4.30-5.90) m/uL Hgb (13.0-17.5) gm/dL Hct (39.0-53.0) % RDW (11.5-15.5) % Plt Count (150-450) k/uL Sodium (137-145) mmol/L Carbon Dioxide (22-30) mmol/L BUN (9-20) mg/dL Creatinine (0.66-1.25) mg/dL Glucose (74-99) mg/dL POC Glucose (mg/dL) 293 H 257 H (70-110) mg/dL Calcium (8.4-10.2) mg/dL Crossmatch See Detail 10/02/23 10/03/23 10/03/23 Range/Units 20:09 04:50 04:50 RBC 2.27 L (4.30-5.90) m/uL Hgb 7.0 L (13.0-17.5) gm/dL Hct 21.1 L (39.0-53.0) % RDW 17.4 H (11.5-15.5) % Plt Count 137 L (150-450) k/uL Sodium 136 L (137-145) mmol/L Carbon Dioxide 19 L (22-30) mmol/L BUN 44 H (9-20) mg/dL Creatinine 1.84 H (0.66-1.25) mg/dL Glucose 131 H (74-99) mg/dL POC Glucose (mg/dL) 234 H (70-110) mg/dL Calcium 7.7 L (8.4-10.2) mg/dL Crossmatch 10/03/23 Range/Units 06:54 RBC (4.30-5.90) m/uL Hgb (13.0-17.5) gm/dL Hct (39.0-53.0) % RDW (11.5-15.5) % Plt Count (150-450) k/uL Sodium (137-145) mmol/L Carbon Dioxide (22-30) mmol/L BUN (9-20) mg/dL Creatinine (0.66-1.25) mg/dL Glucose (74-99) mg/dL POC Glucose (mg/dL) 179 H (70-110) mg/dL Calcium (8.4-10.2) mg/dL Crossmatch - Imaging and Cardiology Chest x-ray: report reviewed, image reviewed Assessment and Plan Assessment: Multivessel coronary artery disease, status post coronary artery bypass grafting 4 vessels History of coronary artery disease with multiple stent in the past Hypertension Hyperlipidemia Atrial fibrillation since 2016 on Eliquis for anticoagulation as an outpatient, status post ligation of left atrial appendage Diabetes mellitus type 2, with a preoperative hemoglobin A1c of 6.8% Obstructive sleep apnea with home BiPAP use Chronic renal insufficiency History of gout History of kidney stones Lifelong nonsmoker Postoperative acute blood loss anemia and postoperative thrombocytopenia, expected given hemodilution and cardiopulmonary bypass Medical debility Plan: Continue to maximize medical therapy with aspirin, statin, Plavix and beta jayna. Will increase beta jayna as tolerated Continue amiodarone for afib, transition to oral. Likely will place back on anticoagulation at discharge Encourage incentive spirometry use 10 times every hour while awake. Bronchodilators per pulmonology. Increase activity, ambulate as tolerated. PT/OT/cardiac rehab following. Will monitor daily labs and chest x-rays. Electrolyte replacement per protocol. GI/DVT prophylaxis. Pain control per current medication regimen, no toradol due to CRF Avoid nephrotoxic agents as the patient has a history of chronic renal insufficiency Insulin management per internal medicine service Continue to record strict accurate intake and output Daily weights Will discontinue epicardial pacer wires, patient to remain on bedrest for 1 hour post wire removal Transfer orders for step-down unit placed yesterday, may transfer when bed available Patient would prefer to go home with home care, order placed for home care, anticipate discharge in the next 24-48 hours More recommendations to follow based on patient's clinical course.
[2023-10-03 11:43] LABS: Glucose,Whole Blood 143 mg/dL (70-110)
--- NOTE | 2023-10-03 12:59 | P.PN ---
Subjective Progress Note Date: 10/03/23 Principal diagnosis: POD # 6 coronary artery bypass grafting 4 vessels (left internal mammary artery to left anterior descending coronary artery, a saphenous vein graft to the ob tuse marginal coronary artery one, a saphenous vein graft to the obtuse marginal coronary artery 3, and a saphenous vein graft to the posterior descending coronary artery, This patient is 73 and the patient underwent a four-vessel bypass surgery and the patient is being seen in the intensive care unit postop. The patient is currently sedated on propofol which is running at 20 mcg/kg/m. The patient's underwent four-vessel bypass surgery. The patient is currently well sedated on a mechanical ventilator on assist control mode at the rate of 12, tidal volume of 500, FiO2 was weaned down to 50% and PEEP is currently at 10. The patient's blood gas shows a pH of 7.29 with a pCO2 of 47 and pO2 of 352. This was on FiO2 100%. The patient was subsequently brought up respiratory rate of 24 and FiO2 was up to 50%. Chest x-ray shows adequate expansion of both lungs. [place] in good location. ET tube needs to be pushed in by around 1 cm. The patient has a right pleural, mediastinal and left pleural chest tubes. No evidence of any air leak. Output is minimal at this point in time. Carotid Dopplers at 5.8 with an index of 2.4. Patient is on norepinephrine at 0.04 mcg/kg/m, nitrogl ycerin drip at 5 mg/m and the patient is also on insulin drip at 1 units an hour. The patient sees a units of packed RBC. Making adequate urine output. Adequately sedated for now. No major issues otherwise. The patient is also placed at the rate of 80. Underlying cardiac rhythm is sinus bradycardia. On today's evaluation of 09/28/2023, the patient is being seen for a follow-up. The patient was extubated without any major difficulties yesterday. Currently is on room air oxygen. Sitting up on a chair. Chest x-ray shows no major abnormalities and showing postsurgical changes. The film itself facilitated. The patient has a right IJ Gants catheter in place. Patient has also 3 chest tubes, right pleural, left lower and mediastinal. Output from the chest tubes have been noted which is not excessive at this point in time and there is no evidence of any air leak. At the same time, the patient is using the incentive spirometer. He is falling approximately the thousand. Current pulse ox is 94%. His cardiac rhythm was sinus bradycardia with a first-degree AV block. The patient is currently paced at the rate of 70. Cardiac output is at 7.3. Index is at 3.0. He did encounter some hypotension yesterday and the patient was taken off the nitroglycerin drip and currently is off norepinephrine. Insulin drip is running at the rate of 6 units an hour. Hemoglobin is low at 6.8. No orders for blood transfusion at this point in time. This is being monitored. Platelet count is 79, BUN is at 24 with a creatinine of 1.6 as the patient has a component of chronic kidney disease. Briceno cath is in place. Adequate urine output. Sodium level is at 139, potassium is at 4.4, bicarb is at 20. In 2022, the patient is on oxygen at 2 L he's currently postop day #2. Doing well. Slightly lethargic and is feeling weak. No focal neurological deficits. Is worried all 4 extremities. Slightly confused. Based on that, a blood gas was done and the patient was found to have a pH of 7.48 with episodes of 27 and pO2 of 73. Serum bicarbs of 20. His chest x-ray from today showing some atelectatic change in the left lung base. The patient has a right pleural, left lower and the mediastinal chest tube. No airspace disease. No consolidation. He had some issues with drop in hemoglobin and patient was given units of packed RBC. Follow-up hemoglobin today is still low at 6.7. Another units of packed RBC will be given fluids patient today. He has sustained an acute kidney injury. Creatinine is up to 1.9 with a BUN of 31 and a sodium level is at 137. Serum bicarbs of 20. White cell count at 7.1. [place] catheter has been removed. He is on aspirin. He is on Plavix. He is on metoprolol at a dose of 12.5 mg by mouth twice a day. His underlying rhythm is sinus. He is having occasional PACs. Patient was reevaluated today on 09/30/23, patient is now postoperative day #3. Patient is doing well, awake, alert, oriented 3, although at times he had episodes where he was a bit confused, does not seem to be in any distress, his narcotics have been discontinued yesterday. Patient is hemodynamically stable, and achieving above 1500 mL on his incentive spirometry, he is hemodynamically stable, not requiring any inotropes or pressors. Patient did receive 2 units of packed RBCs yesterday for hemoglobin of 7.1. Patient feels generally weak, otherwise relatively asymptomatic. WBC count is 5.5 hemoglobin is 7.1. ABG on room air today showed a pO2 of 70 pCO2 28 pH of 7.51, basic metabolic profile is normal renal profile showed a BUN of 36 creatinine 1.78 improving compared to baseline creatinine Reevaluated today on 10/01/2023, patient remains in the ICU, doing well, he is on room air, does not seem to be in any distress, sitting at a bedside chair, hemoglobin is down to 6.8, surgery will decide whether to give the patient a unit of packed RBCs are not. Discussed his condition with cardiac surgery, refills to wait for now. Patient has no specific complaints, denies any pain and denies any shortness of breath, chest x-ray is showing mostly left lower lobe atelectasis and possibly a small effusion patient is achieving almost 2000 mL with his incentive spirometry, his O2 saturation 96% on room air. His left- sided chest tube was removed yesterday, continues to have atrial and ventricular epicardial pacemaker wires, and they are grounded. WBC count is 5.0 hemoglobin 6.8 basic metabolic profile is normal creatinine went up slightly up to 1.89, and that is being closely monitored. Patient did have numbers as high as 1.90 on baseline on 09/27 was 1.3 Patient was reevaluated today on 10/02/23 remains in the ICU, doing fairly well, remains on room air, and he is not in any form of distress. Patient is on amiodarone drip at present, his hemoglobin has been noted to be low and he is still receives 1 unit of packed RBCs today, hemoglobin today is 6.5, today's transfusion be unit #4 of packed RBCs given so far on this admission. Surprisingly the patient is clinically doing great, CBC is unremarkable except for low hemoglobin of 6.5 he is hemodynamically stable, not requiring any pressors BUN remains a bit elevated at 46 and creatinine slightly elevated at 1.77 and that's about his baseline. Chest x-ray today is even showing significant improvement in the aeration of the left lower lobe. And doubt any pleural effusion Patient was seen and evaluated today on 10/03/2023, remains in the ICU. Patient is on room air, comfortable, sitting in a recliner, not in any distress. Denies any active pulmonary symptoms, has been ambulating in the hallway, and doing extremely well with incentive spirometry. He is now postoperative day #6 coronary artery bypass grafting 4 vessels (left internal mammary artery to left anterior descending coronary artery, saphenous vein graft to the first obtuse marginal coronary artery, saphenous vein graft to the third obtuse marginal coronary artery, saphenous vein graft to the posterior descending coronary artery, chest x-ray showed left basilar atelectasis and possibly a small left- sided pleural effusion him a otherwise unremarkable. CBC showed a hemoglobin of 7, platelets 137 basic metabolic profile is normal creatinine 1.84 which is close to his baseline. Objective - Vital Signs Vital signs: Vital Signs Temp 97.6 F 10/03/23 08:00 Pulse 92 10/03/23 08:31 Resp 19 10/03/23 08:00 BP 124/54 10/03/23 08:00 Pulse Ox 98 10/03/23 08:00 FiO2 21 10/03/23 00:02 Intake & Output 10/02/23 10/03/23 10/03/23 18:59 06:59 18:59 Intake Total 887 216.115 Output Total 900 600 Balance -13 -600 216.115 Weight 136.3 kg 137.1 kg Intake: Intake, IV Titration 216.115 Amount Amiodarone 450 mg In 216.115 Dextrose 5% in Water 250 ml @ 0.5 MG/MIN 16.667 mls/hr IV .Q15H [facility] Rx#: [id number] Oral 600 Blood Product 287 Rc Pheresis 2 As3 Unit 287 [id number] Output: Urine 900 600 Other: Voiding Method Bedside Commode Bedside Commode # Bowel Movements 1 1 ABP, PAP, CO, CI - Last Documented Arterial Blood Pressure 126/49 Pulmonary Artery Pressure 16/0 Cardiac Output 8.1 Cardiac Index 3.3 - Exam Physical Exam: Revealed 73-year-old white male in no distress, on room air Neck: Atraumatic, normocephalic Head: Atraumatic, normocephalic. HEENT:[Neck is supple.] [No neck masses.] [No thyromegaly.] [No JVD.] Chest: [Diminished breath sounds at the bases no crackles or rhonchi or wheezes Cardiac Exam: [Normal S1 and S2, no S3 gallop, no murmur.] Abdomen: [Soft, nontender, no megaly, no rebound, no guarding, normal bowel sounds.] Extremities: [No clubbing, no edema, no cyanosis.] Neurological Exam: [No focal neurologic deficit.] Alert and oriented 3. Psychiatric: Normal mood affect and normal mental status examination. Skin: No rashes - Labs CBC & Chem 7: 10/03/23 04:50 10/03/23 04:50 Labs: Abnormal Lab Results - Last 24 Hours (Table) 10/02/23 10/02/23 10/03/23 Range/Units 16:07 20:09 04:50 RBC 2.27 L (4.30-5.90) m/uL Hgb 7.0 L (13.0-17.5) gm/dL Hct 21.1 L (39.0-53.0) % RDW 17.4 H (11.5-15.5) % Plt Count 137 L (150-450) k/uL Sodium (137-145) mmol/L Carbon Dioxide (22-30) mmol/L BUN (9-20) mg/dL Creatinine (0.66-1.25) mg/dL Glucose (74-99) mg/dL POC Glucose (mg/dL) 257 H 234 H (70-110) mg/dL Calcium (8.4-10.2) mg/dL 10/03/23 10/03/23 10/03/23 Range/Units 04:50 06:54 11:41 RBC (4.30-5.90) m/uL Hgb (13.0-17.5) gm/dL Hct (39.0-53.0) % RDW (11.5-15.5) % Plt Count (150-450) k/uL Sodium 136 L (137-145) mmol/L Carbon Dioxide 19 L (22-30) mmol/L BUN 44 H (9-20) mg/dL Creatinine 1.84 H (0.66-1.25) mg/dL Glucose 131 H (74-99) mg/dL POC Glucose (mg/dL) 179 H 143 H (70-110) mg/dL Calcium 7.7 L (8.4-10.2) mg/dL Assessment and Plan Assessment: Impression: Coronary artery bypass surgery. The patient underwent four-vessel bypass surgery. The patient is currently postop day #6 CAD status post multiple stents, now status post CABG Acute blood loss anemia, expected. Patient received a total of 4 units of packed RBCs so far on this admission. Acute on chronic thrombocytopenia, anticipated outcome of surgery, platelets are being monitored, improving, level today is 133 Type 2 diabetes, patient is still requiring insulin drip Chronic kidney disease stage III, cr is 1.77 Hypocalcemia History of hypertension History of atrial fibrillation Dyslipidemia Gout BPH Recommendation: Continue statin, Plavix, beta blockers, and aspirin/optimal medical therapy Transfer patient to a monitor bed on selective Continue incentive spirometry Continue ambulation Continue daily weights Continue close monitoring of blood sugar and address accordingly Continue GI and DVT prophylaxis Continue bronchodilators patient is being considered for possible discharge planning in the next 24 hours We will continue to follow Time with Patient: Less than 30
--- NOTE | 2023-10-03 15:13 | P.PN ---
Subjective Progress Note Date: 10/03/23 Patient is a 73-year-old male with history of CAD status post multiple stents, hypertension, atrial fibrillation, dyslipidemia, diabetes presented for elective CABG. [facility] has been consulted for medical management. Patient currently on nitroglycerin drip and 5 mcg/minute, norepinephrine drip at 0.04, propofol at 20 MCG per kilogram per minute, insulin drip at 4 units per hour. WBC 9.6, hemoglobin 7.9, platelet 108, pH 7.3, pCO2 48, potassium 4.5, creatinine 1.31 from baseline, magnesium 2.4, blood glucose 112. Extubated on 09/27. Levophed and Nitroglycerin drip discontinued. Required 3 units PRBC so far with intermitted Lasix IV push. Right and mediastinal chest tube removed 09/29. Confused at times. 09/30 Patient was seen and examined. Feeling tired. CBC Hg 7.1, Plt 93. BMP Cl 108, bicarb 21, BUN 36, Cr 1.78, glu 121, Ca 7.7, alb 2.7. POC glucose 113-200 over the past 24H. Currently on insulin drip at 11.5 units/hr. LR at 20 cc/hr. Currently on ASA 325 mg PO QD, Lipitor 40 mg PO QD, Plavix 75 mg PO QD, Metoprolol 12.5 mg PO BID. Renal US shows patterson catheter and no right hyd ronephrosis, unable to examine L kidney. CXR shows left sided chest tube, small apical PTX, pulmonary vascular congestion with atelectasis on the left side. Urine output 1005 cc over the past 24H. 10/01 Patient was seen and examined. Feeling better but still sluggish. CBC Hg 6.8, Plt 114. BMP bicarb 21, BUN 41, Cr 1.89, glu 198, Ca 7.4, alb 2.7. POC glucose 125-269 over the past 24H. Insulin drip discontinued and started on Levemir 40 units QHS and Novolog 13 units TID along with ISS. 21 units sliding scale given over the past 24H, Levemir increased to 50 units QHS and Novolog 16 units TID. Currently on ASA 325 mg PO QD, Lipitor 40 mg PO QD, Plavix 75 mg PO QD, Metoprolol 12.5 mg PO BID. CXR shows retrocardiac infiltrate, possible atelectasis. Urine output 2780 cc over the past 24H. 10/02 Patient was seen and examined. Clinically doing the same. Went into A-Fib with RVR, started on Amiodarone drip running at 1 mg/min. CBC Hg 6.5 Hct 19.4 Plt 133. There are plans for 1 unit PRBC today. CMP bicarb 21, BUN 46, Cr 1.77, glu 171, Ca 7.5, AST 98, alb 2.7. CXR shows improving left sided atelectasis which is improved since yesterday. POC glucose 198-231 over the past 24H. Levemir increased to 60 units QHS and Novolog 19 units TID. 10/03 Patient was seen and examined. Received 1 unit PRBC yesterday Hg 6.5 to 7.0. Amiodarone drip converted to 400 mg PO BID. CXR with no acute process. BMP Na 136, bicarb 19, BUN 44, Cr 1.84, glu 131, Ca 7.7. Plans for IPR on discharge pending insurance authorization. POC glucose 179-293 over the past 24H. Received 26 units with the the sliding scale yesterday. Levemir increased to 70 units QHS and Novolog 23 units TID. General: lethargic, no distress, appears at stated age Derm: warm, dry Head: atraumatic, normocephalic, symmetric Eyes: EOMI, no lid lag, pale sclera Cardiovascular: S1S2 reg, no murmur Lungs: Decreased BS bilaterally , no accessory muscle use Ext: no gross muscle atrophy, no edema, no contractures Neuro: no focal neuro deficits Psych: Alert, oriented, appropriate affect Based on my assessment of this patient, this patient meets a high complexity level of care. Patient has an acute diagnosis of POD 6 CABG that poses a threat to life or bodily function. CAD: Status post CABG POD 6. ASA 325 mg PO QD, Lipitor 40 mg PO QD, Plavix 75 mg PO QD, Metoprolol 25 mg PO BID. Telemetry monitoring. Cardiology and CT surgery on board. Acute blood loss anemia: Hg 7. Expected result of surgery. Status post 4 unit PRBC. Transfuse if Hg < 7. AFib with RVR: Likely due to anemia. Metoprolol as above. Amiodarone 400 mg PO BID. Eliquis when OK with CT surgery. Acute on chronic thrombocytopenia: Anticipated outcome of surgery. Transfuse if Plt < 10. Type 2 diabetes with hypeglycemia: A1c 6.8. Increase Levemir to 70 units QHS and Novolog to 23 units TID. Accuchecks. Hypoglycemic precautions. Acute on CKD stage III: Renal US unrevealing but incomplete. Strict intake and outtake. Hypocalcemia: Psedo when corrected with albumin. History of hypertension: Metoprolol as above. Lisinopril, Nifedipine, Sotalol at home on hold. Dyslipidemia: Lipitor as above. Gout: Allopurinol 300 mg PO QD. BPH CODE STATUS: FULL CODE DVT Prophylaxis: Heparin SQ GI Prophylaxis: Protonix PO Designated medical POA if patient is not able to make medical decisions for themselves: I have reviewed the following sales support consultant notes: CT surgery, Cardiology, Pulmonology note. I have reviewed the results of the following tests: CBC. BMP. POC glucose. I have ordered the following tests: CBC, BMP. I have discussed the care of this patient with the following independent historian: Discussed with RN. I have independently interpreted the following test below: CXR as above. I have discussed the management of this patient with the following physician: This patient meets a high level of care for the following reasons: Patient requires adjustments in insulin which requires intensive monitoring for hypoglycemic episodes. (Increased SQ insulin) Objective - Vital Signs Vital signs: Vital Signs Temp 98.5 F 10/03/23 02:00 Pulse 96 10/03/23 08:21 Resp 26 H 10/03/23 04:00 BP 133/65 10/03/23 06:16 Pulse Ox 100 10/03/23 06:16 FiO2 21 10/03/23 00:02 Intake & Output 10/02/23 10/03/23 10/03/23 18:59 06:59 18:59 Intake Total 887 216.115 Output Total 900 600 Balance -600 216.115 Weight 136.3 kg 137.1 kg Intake: Intake, IV Titration 216.115 Amount Amiodarone 450 mg In 216.115 Dextrose 5% in Water 250 ml @ 0.5 MG/MIN 16.667 mls/hr IV .Q15H [facility] Rx#: [id number] Oral 600 Blood Product 287 Rc Pheresis 2 As3 Unit 287 [id number] Output: Urine 900 600 Other: Voiding Method Bedside Commode Bedside Commode # Bowel Movements 1 1 ABP, PAP, CO, CI - Last Documented Arterial Blood Pressure 126/49 Pulmonary Artery Pressure 16/0 Cardiac Output 8.1 Cardiac Index 3.3 - Labs CBC & Chem 7: 10/03/23 04:50 10/03/23 04:50 Labs: Abnormal Lab Results - Last 24 Hours (Table) 09/29/23 10/02/23 10/02/23 Range/Units 08:42 11:16 16:07 RBC (4.30-5.90) m/uL Hgb (13.0-17.5) gm/dL Hct (39.0-53.0) % RDW (11.5-15.5) % Plt Count (150-450) k/uL Sodium (137-145) mmol/L Carbon Dioxide (22-30) mmol/L BUN (9-20) mg/dL Creatinine (0.66-1.25) mg/dL Glucose (74-99) mg/dL POC Glucose (mg/dL) 293 H 257 H (70-110) mg/dL Calcium (8.4-10.2) mg/dL Crossmatch See Detail 10/02/23 10/03/23 10/03/23 Range/Units 20:09 04:50 04:50 RBC 2.27 L (4.30-5.90) m/uL Hgb 7.0 L (13.0-17.5) gm/dL Hct 21.1 L (39.0-53.0) % RDW 17.4 H (11.5-15.5) % Plt Count 137 L (150-450) k/uL Sodium 136 L (137-145) mmol/L Carbon Dioxide 19 L (22-30) mmol/L BUN 44 H (9-20) mg/dL Creatinine 1.84 H (0.66-1.25) mg/dL Glucose 131 H (74-99) mg/dL POC Glucose (mg/dL) 234 H (70-110) mg/dL Calcium 7.7 L (8.4-10.2) mg/dL Crossmatch 10/03/23 Range/Units 06:54 RBC (4.30-5.90) m/uL Hgb (13.0-17.5) gm/dL Hct (39.0-53.0) % RDW (11.5-15.5) % Plt Count (150-450) k/uL Sodium (137-145) mmol/L Carbon Dioxide (22-30) mmol/L BUN (9-20) mg/dL Creatinine (0.66-1.25) mg/dL Glucose (74-99) mg/dL POC Glucose (mg/dL) 179 H (70-110) mg/dL Calcium (8.4-10.2) mg/dL Crossmatch
[2023-10-03] MEDS ORDERED: FUROSEMIDE 10 MG/ML 10 ML VIAL IV STA (15:25)
--- NOTE | 2023-10-03 15:25 | P.PN ---
Subjective PROGRESS NOTE The patient is a 73-year-old male who underwent CABG yesterday. He is followed regularly by Dr. De Oliveira in [place] and has underwent prior stenting, most recently about 10 years ago according to him who has been complaining of progressive chest discomfort and underwent cardiac catheterization in [place], was found to have severe obstructive disease and underwent CABG yesterday. He received a MAGANA to the LAD and SVG to OM1 and 3 and PDA with closure of the left atrial appendage. He is extubated, sitting up in the chair, he feels well. He was having chest discomfort and dyspnea on exertion prior to presentation. He has no peripheral edema, PND or orthopnea. He does not recall being told that he had a myocardial infarction or history of CHF. He has a prior history of paroxysmal atrial fibrillation and has a loop recorder and according to him there was no episodes of atrial fibrillation for the last 2 years. Hemodynamica lly he is stable. He has a history of diabetes, hypertension and hyperlipidemia. He is a nonsmoker. September 29: The patient is feeling well this morning, he denies any chest discomfort, dizziness or palpitations. He continues to be in sinus mechanism. Hemodynamically stable. His urine output is stable. He denies any nausea or vomiting. He is on no vasopressors. He had anemia and his received transfusion. 09/30 Patient seen and examined. Patient has had off-and-on confusion and currently on BiPAP. Denies any chest pain or pressure. Creatinine 1.7 with hemoglobin 7.1. 10/01 Patient seen and examined. Patient denies any chest pain or pressure. States he still feels short of breath. Hemoglobin 6.8 today with platelets 114. Creatinine 1.89. 10/02 Patient seen and examined. Patient flipped into atrial fibrillation yesterday and predilate controlled rates in the 90s to low 100 and denies any real palpitations. He does admit to history of atrial fibrillation previously. He also received packed red blood cells today. States he feels somewhat better in terms of energy today. Received IV Lasix yesterday. Receiving IV amiodarone. 10/03 Patient was in atrial fibrillation yesterday however appears in sinus rhythm today. Denies any chest pain or pressure. Does have 2+ lower extremity edema. He did receive packed red blood cell transfusion yesterday. Medications: Aspirin, Lipitor 40 mg daily, Plavix 75 mg daily, metoprolol tartrate 12.5 mg twice a day. PHYSICAL EXAMINATION: Vitals reviewed LUNGS: Mild decreased breath sounds at the bases HEART:Irregular rate and rhythm, S1, S2. No S3. No systolic murmur ABDOMEN: Soft, nontender, no organomegaly EXTREMETIES: 2+ edema IMPRESSION: 1. Status post CABG, stable 2. Anemia postoperatively 3. Acute renal injury postoperatively 4. History of paroxysmal atrial fibrillation 5. History of diabetes 6. History of hypertension 7. History of hyperlipidemia 8. Postoperative A. fib however also has a history of A. fib 9. Acute on chronic diastolic heart failure PLAN: Patient does appear to be having increasing lower extremity edema possibly related to the transfusions and some component of heart failure. Also likely related to keep his legs dependent and discussed keeping legs elevated. IV diuretics today and monitor response, possibly continue tomorrow. Monitor creatinine closely however creatinine has been fairly stable. Appears to be progressing fairly well. Objective - Vital Signs Vital signs: Vital Signs Temp 98.3 F 10/03/23 12:00 Pulse 85 10/03/23 12:00 Resp 14 10/03/23 12:00 BP 117/53 10/03/23 12:00 Pulse Ox 98 10/03/23 12:00 FiO2 21 10/03/23 00:02 Intake & Output 10/02/23 10/03/23 10/03/23 18:59 06:59 18:59 Intake Total 887 216.115 Output Total 900 600 Balance -13 -600 216.115 Weight 136.3 kg 137.1 kg Intake: Intake, IV Titration 216.115 Amount Amiodarone 450 mg In 216.115 Dextrose 5% in Water 250 ml @ 0.5 MG/MIN 16.667 mls/hr IV .Q15H [facility] Rx#: [id number] Oral 600 Blood Product 287 Rc Pheresis 2 As3 Unit 287 [id number] Output: Urine 900 600 Other: Voiding Method Bedside Commode Bedside Commode Bedside Commode # Bowel Movements 1 1 1 ABP, PAP, CO, CI - Last Documented Arterial Blood Pressure 126/49 Pulmonary Artery Pressure 16/0 Cardiac Output 8.1 Cardiac Index 3.3 - Labs CBC & Chem 7: 10/03/23 04:50 10/03/23 04:50 Labs: Abnormal Lab Results - Last 24 Hours (Table) 10/02/23 10/02/23 10/03/23 Range/Units 16:07 20:09 04:50 RBC 2.27 L (4.30-5.90) m/uL Hgb 7.0 L (13.0-17.5) gm/dL Hct 21.1 L (39.0-53.0) % RDW 17.4 H (11.5-15.5) % Plt Count 137 L (150-450) k/uL Sodium (137-145) mmol/L Carbon Dioxide (22-30) mmol/L BUN (9-20) mg/dL Creatinine (0.66-1.25) mg/dL Glucose (74-99) mg/dL POC Glucose (mg/dL) 257 H 234 H (70-110) mg/dL Calcium (8.4-10.2) mg/dL 10/03/23 10/03/23 10/03/23 Range/Units 04:50 06:54 11:41 RBC (4.30-5.90) m/uL Hgb (13.0-17.5) gm/dL Hct (39.0-53.0) % RDW (11.5-15.5) % Plt Count (150-450) k/uL Sodium 136 L (137-145) mmol/L Carbon Dioxide 19 L (22-30) mmol/L BUN 44 H (9-20) mg/dL Creatinine 1.84 H (0.66-1.25) mg/dL Glucose 131 H (74-99) mg/dL POC Glucose (mg/dL) 179 H 143 H (70-110) mg/dL Calcium 7.7 L (8.4-10.2) mg/dL
[2023-10-03 16:02] LABS: % Iron Saturation 13.95 (15.00-50.00)
[2023-10-03 16:09] LABS: Glucose,Whole Blood 156 mg/dL (70-110)
[2023-10-03 20:33] LABS: Glucose,Whole Blood 194 mg/dL (70-110)
[2023-10-03] MEDS: ACETAMINOPHEN TAB 325 MG TAB PO PRN (20:52)
[2023-10-03] MEDS: INSULIN DETEMIR (LEVEMIR) 100 UNIT/ML SYR SQ SCH (20:53)
[2023-10-04] MEDS: HEPARIN SODIUM,PORCINE 5,000 UNIT/ML 1 ML VIAL SQ SCH ×4 (01:02→23:42)
[2023-10-04 05:50] LABS: Anisocytosis Slight; HCT 20.8 % (39.0-53.0); Hypochromasia Slight; MCH 30.4 pg (25.0-35.0); MCHC 32.5 g/dL (31.0-37.0); MCV 93.6 fL (80.0-100.0); Mean Platelet Volume 8.9; Platelet Count 141 k/uL (150-450); Poikilocytosis Slight; RBC 2.23 m/uL (4.30-5.90); RDW 17.7 % (11.5-15.5); WBC 5.1 k/uL (3.8-10.6)
[2023-10-04 05:57] LABS: African American GFR (CKD) 36 (>60 ml/min/1.73 sqM); Anion Gap 10 mmol/L; Blood Urea Nitrogen 47 mg/dL (9-20); Calcium 7.8 mg/dL (8.4-10.2); Carbon Dioxide 21 mmol/L (22-30); Chloride 105 mmol/L (98-107); Glucose 105 mg/dL (74-99); Magnesium 2.3 mg/dL (1.6-2.3); Non-African American GFR(CKD) 32 (>60 ml/min/1.73 sqM); Potassium 3.8 mmol/L (3.5-5.1); Sodium 136 mmol/L (137-145)
[2023-10-04 06:16] LABS: HGB 6.8 gm/dL (13.0-17.5)
[2023-10-04 06:44] LABS: Glucose,Whole Blood 131 mg/dL (70-110)
[2023-10-04] MEDS: INSULIN ASPART (NovoLOG) 100 UNIT/ML VIAL SQ SCH ×7 (06:45→20:33)
[2023-10-04] MEDS: PANTOPRAZOLE 40 MG TABLET PO SCH (06:50)
--- NOTE | 2023-10-04 08:30 | P.PN ---
Subjective Progress Note Date: 10/04/23 Principal diagnosis: Multivessel coronary artery disease. Previous medical history of coronary artery disease status post multiple coronary stents, hypertension, hyperlipidemia, diabetes mellitus type 2, atrial fibrillation since 2016 on Eliquis for anticoagulation as an outpatient, obstructive sleep apnea with home BiPAP use, chronic renal insufficiency, gout, kidney stones and lifelong nonsmoker. POD #7 coronary artery bypass grafting 4 vessels (left internal mammary artery to left anterior descending coronary artery, saphenous vein graft to the first obtuse marginal coronary artery, saphenous vein graft to the third obtuse marginal coronary artery, saphenous vein graft to the posterior descending coronary artery, endoscopic harvesting bilateral greater saphenous veins, ligation of the left atrial appendage using a 35 mm Atriclip, epi-aortic ultrasound, intraoperative transesophageal echocardiogram, graft flow measurements using the [employer] system, and closure of the sternum using Tritium plating device. Postoperative acute blood loss anemia, expected given hemodilution and cardiopulmonary bypass. The patient was seen and examined sitting up in a recliner in the ICU in no acute distress eating breakfast. States surgical pain mostly controlled on curr ent medication regimen, denies shortness of breath. He was able to ambulate down the hallway several times yesterday, less "winded" as the day went on. Currently in sinus rhythm and hemodynamically stable. Currently on room air with oxygen saturation in the high 90s. Received IV lasix yesterday, creatinine up to 2.01 this morning, medication induced. CXR, labs reviewed. Discussed discharge plans with patient, feels he will be able to return home with home care, has sister and friend willing to drive him to his doctor appointments. No other new concerns. Objective - Vital Signs Vital signs: Vital Signs Temp 9.5 F L 10/04/23 02:00 Pulse 73 10/04/23 04:00 Resp 19 10/04/23 04:00 BP 127/58 10/04/23 04:00 Pulse Ox 97 10/04/23 02:00 FiO2 21 10/03/23 00:02 Intake & Output 10/03/23 10/04/23 10/04/23 18:59 06:59 18:59 Intake Total 566.115 Output Total 800 800 Balance -233.885 -800 Weight 142.3 kg Intake: Intake, IV Titration 216.115 Amount Amiodarone 450 mg In 216.115 Dextrose 5% in Water 250 ml @ 0.5 MG/MIN 16.667 mls/hr IV .Q15H [facility] Rx#: [id number] Oral 350 Output: Urine 800 800 Other: Voiding Method Bedside Commode Bedside Commode # Voids 1 # Bowel Movements 1 1 ABP, PAP, CO, CI - Last Documented Arterial Blood Pressure 126/49 Pulmonary Artery Pressure 16/0 Cardiac Output 8.1 Cardiac Index 3.3 - Exam CONSTITUTIONAL: Appears comfortable, cooperative, no acute distress RESPIRATORY: Lungs sounds diminished bilaterally. Respirations even, nonlabored. Currently on room air with oxygen saturation 99%. Able to achieve 1750 mL on incentive spirometry. Strong cough. CARDIOVASCULAR: S1, S2 present. Regular rate and rhythm, sinus rhythm on telemetry. Sternum stable. Palpable peripheral pulses bilaterally. Generalized edema present. No calf pain or tenderness noted. Heart hugger in place with patient demonstrating appropriate use. Antiembolism stockings, SCDs present. GASTROINTESTINAL: Abdomen soft, nontender, nondistended. Active bowel sounds present 4 quadrants. Tolerating diet. Positive bowel movement 10/03 GENITOURINARY: Continues to void, output 1600 mL in the last 24 hours INTEGUMENTARY: Skin is warm and dry with evidence of good perfusion. Anterior chest incision well approximated. Bilateral lower extremity EVH sites well approximated without redness or drainage. NEUROLOGIC: Cranial nerves II through XII intact MUSKULOSKELETAL: Able to move all extremities, strength equal bilaterally although generalized weakness still present PSYCHIATRIC: Alert and oriented to person place and time, appropriate affect, intact judgment and insight - Allied health notes Allied health notes reviewed: nursing - Labs CBC & Chem 7: 10/04/23 05:37 10/04/23 05:37 Labs: Abnormal Lab Results - Last 24 Hours (Table) 10/03/23 10/03/23 10/03/23 Range/Units 04:50 11:41 16:07 RBC (4.30-5.90) m/uL Hgb (13.0-17.5) gm/dL Hct (39.0-53.0) % RDW (11.5-15.5) % Plt Count (150-450) k/uL Sodium (137-145) mmol/L Carbon Dioxide (22-30) mmol/L BUN (9-20) mg/dL Creatinine (0.66-1.25) mg/dL Glucose (74-99) mg/dL POC Glucose (mg/dL) 143 H 156 H (70-110) mg/dL Calcium (8.4-10.2) mg/dL Iron 36 L (65-175) UG/DL % Saturation 13.95 L (15.00-50.00) Transferrin 184.0 L (204.0-354.0) mg/dL 10/03/23 10/04/23 10/04/23 Range/Units 20:32 05:37 05:37 RBC 2.23 L (4.30-5.90) m/uL Hgb 6.8 L* (13.0-17.5) gm/dL Hct 20.8 L (39.0-53.0) % RDW 17.7 H (11.5-15.5) % Plt Count 141 L (150-450) k/uL Sodium 136 L (137-145) mmol/L Carbon Dioxide 21 L (22-30) mmol/L BUN 47 H (9-20) mg/dL Creatinine 2.01 H (0.66-1.25) mg/dL Glucose 105 H (74-99) mg/dL POC Glucose (mg/dL) 194 H (70-110) mg/dL Calcium 7.8 L (8.4-10.2) mg/dL Iron (65-175) UG/DL % Saturation (15.00-50.00) Transferrin (204.0-354.0) mg/dL 10/04/23 Range/Units 06:42 RBC (4.30-5.90) m/uL Hgb (13.0-17.5) gm/dL Hct (39.0-53.0) % RDW (11.5-15.5) % Plt Count (150-450) k/uL Sodium (137-145) mmol/L Carbon Dioxide (22-30) mmol/L BUN (9-20) mg/dL Creatinine (0.66-1.25) mg/dL Glucose (74-99) mg/dL POC Glucose (mg/dL) 131 H (70-110) mg/dL Calcium (8.4-10.2) mg/dL Iron (65-175) UG/DL % Saturation (15.00-50.00) Transferrin (204.0-354.0) mg/dL - Imaging and Cardiology Chest x-ray: image reviewed Assessment and Plan Assessment: Multivessel coronary artery disease, status post coronary artery bypass grafting 4 vessels History of coronary artery disease with multiple stent in the past Hypertension Hyperlipidemia Atrial fibrillation since 2016 on Eliquis for anticoagulation as an outpatient, status post ligation of left atrial appendage Diabetes mellitus type 2, with a preoperative hemoglobin A1c of 6.8% Obstructive sleep apnea with home BiPAP use Chronic renal insufficiency History of gout History of kidney stones Lifelong nonsmoker Postoperative acute blood loss anemia and postoperative thrombocytopenia, expected given hemodilution and cardiopulmonary bypass Medical debility Plan: Continue to maximize medical therapy with aspirin, statin, Plavix and beta jayna. Will increase beta jayna as tolerated Continue amiodarone for afib. Likely will place back on anticoagulation at [facility] although questionable due to anemia Encourage incentive spirometry use 10 times every hour while awake. Bronchodilators per pulmonology. Increase activity, ambulate as tolerated. PT/OT/cardiac rehab following. Will monitor daily labs and chest x-rays. Electrolyte replacement per protocol. Will give IV lasix GI/DVT prophylaxis. Pain control per current medication regimen, no toradol due to CRF Avoid nephrotoxic agents as the patient has a history of chronic renal insufficiency Insulin management per internal medicine service Continue to record strict accurate intake and output Daily weights Transfer orders for step-down unit placed Saturday, february transfer when bed available Patient would prefer to go home with home care, order placed for home care, anticipate discharge in the next 24-48 hours More recommendations to follow based on patient's clinical course.
--- NOTE | 2023-10-04 08:55 | XR ---
EXAMINATION TYPE: XR chest 1V portable DATE OF EXAM: 10/04/2023 5:10 AM CLINICAL INDICATION:Male, 73 years old with history of post cardiac surgery; [facility] COMPARISON: Chest radiographs from 10/03/2023 TECHNIQUE: XR chest 1V portable Frontal view of the chest. FINDINGS: Lungs/Pleura: Blunting of the left costophrenic angle There is no evidence of right pleural effusion, focal consolidation, or pneumothorax. Pulmonary vascularity: Unremarkable. Heart/mediastinum: Cardiomediastinal silhouette is unremarkable. A loop recorder projects over the le ft thorax over the heart. Left atrial appendage occlusion device is present. Musculoskeletal: No acute osseous pathology. Midline sternotomy fixation wires are noted. Other findings: None IMPRESSION: Stable post cardiac exam with small left pleural effusion.
[2023-10-04] MEDS: IPRATROPIUM-ALBUTEROL 3 ML NEB INHALATION SCH ×4 (09:15→21:18)
[2023-10-04] MEDS: ASPIRIN 325 MG TAB PO SCH (09:51)
[2023-10-04] MEDS: MULTIVITAMINS, THERA 1 EACH TAB PO SCH (09:51)
[2023-10-04] MEDS: TAMSULOSIN 0.4 MG CAP.ER.24H PO SCH (09:51)
[2023-10-04] MEDS: AMIODARONE 200 MG TAB PO SCH ×2 (09:51→20:32)
[2023-10-04] MEDS: ASCORBIC ACID 500 MG TAB PO SCH (09:51)
[2023-10-04] MEDS: ATORVASTATIN 40 MG TAB PO SCH (09:51)
[2023-10-04] MEDS: METOPROLOL TARTRATE 25 MG TAB PO SCH ×2 (09:51→20:32)
[2023-10-04] MEDS: FERROUS SULFATE 325 MG TAB PO SCH (10:00)
[2023-10-04] MEDS: CYANOCOBALAMIN 500 MCG TAB PO SCH (10:01)
[2023-10-04] MEDS: CLOPIDOGREL 75 MG TAB PO SCH (10:01)
[2023-10-04 11:49] LABS: Glucose,Whole Blood 176 mg/dL (70-110)
[2023-10-04] MEDS ORDERED: FUROSEMIDE 10 MG/ML 10 ML VIAL IV STA (11:54)
--- NOTE | 2023-10-04 12:22 | P.PN ---
Subjective Progress Note Date: 10/04/23 Patient is a 73-year-old male with history of CAD status post multiple stents, hypertension, atrial fibrillation, dyslipidemia, diabetes presented for elective CABG. [facility] has been consulted for medical management. Patient currently on nitroglycerin drip and 5 mcg/minute, norepinephrine drip at 0.04, propofol at 20 MCG per kilogram per minute, insulin drip at 4 units per hour. WBC 9.6, hemoglobin 7.9, platelet 108, pH 7.3, pCO2 48, potassium 4.5, creatinine 1.31 from baseline, magnesium 2.4, blood glucose 112. Extubated on 09/27. Levophed and Nitroglycerin drip discontinued. Required 3 units PRBC so far with intermitted Lasix IV push. 09/29 Right and mediastinal chest tube removed. 09/30 Right IJ, left pleural chest tube, Patterson removed. Renal US shows patterson catheter and no right hydronephrosis, unable to examine L kidney. Insulin drip discontinued and started on Levemir 40 units QHS and Novolog 13 units TID along with ISS 10/01 CBC Hg 6.8. Levemir increased to 50 units QHS and Novolog 16 units TID. 10/02 Went into A-Fib with RVR, started on Amiodarone drip running at 1 mg/min. CBC Hg 6.5. Transfused 1 unit PRBC. Levemir increased to 60 units QHS and Novolog 19 units TID. 10/03 Hg 6.5 to 7.0 after 1 unit PRBC yesterday. Amiodarone drip converted to 400 mg PO BID. Initially, plans for IPR on discharge but seems that patient is preferring to go home. Levemir increased to 70 units QHS and Novolog 23 units TID. 10/04 Patient was seen and examined. Feeling well. CBC Hg 6.8, Hct 20.8, Plt 141. CXR small left pleural effusion. Received Lasix 80 mg IV yesterday. BMP Na 136, bicarb 21, BUN 47, Cr 2.01, glu 105, Ca 7.8. Patient is still open for IPR if necessary. Plans for IPR on discharge pending insurance authorization. POC glucose 131-194 over the past 24H. General: lethargic, no distress, appears at stated age Derm: warm, dry Head: atraumatic, normocephalic, symmetric Eyes: EOMI, no lid lag, pale sclera Cardiovascular: S1S2 reg, no murmur Lungs: Decreased BS bilaterally , no accessory muscle use Ext: no gross muscle atrophy, no edema, no contractures Neuro: no focal neuro deficits Psych: Alert, oriented, appropriate affect Based on my assessment of this patient, this patient meets a moderate complexity level of care. Patient has an acute diagnosis of POD 7 CABG that poses a threat to life or bodily function. CAD: Status post CABG POD 7. ASA 325 mg PO QD, Lipitor 40 mg PO QD, Plavix 75 mg PO QD, Metoprolol 25 mg PO BID. Telemetry monitoring. Cardiology and CT surgery on board. Acute blood loss anemia: Hg 6.8. Expected result of surgery. Status post 4 unit PRBC. Transfuse if Hg < 7. AFib with RVR: Likely due to anemia. Metoprolol as above. Amiodarone 400 mg PO BID. Eliquis when OK with CT surgery. Acute on chronic thrombocytopenia: Anticipated outcome of surgery. Transfuse if Plt < 10. Type 2 diabetes with hyperglycemia: Levemir to 70 units QHS and Novolog to 23 units TID. ISS. Accuchecks. Hypoglycemic precautions. Acute on CKD stage III: Renal US unrevealing but incomplete. Strict intake and outtake. Hypocalcemia: Psedo when corrected with albumin. History of hypertension: Metoprolol as above. Lisinopril, Nifedipine, Sotalol at home on hold. Dyslipidemia: Lipitor as above. Gout: Allopurinol 300 mg PO QD. BPH CODE STATUS: FULL CODE DVT Prophylaxis: Heparin SQ GI Prophylaxis: Protonix PO Designated medical POA if patient is not able to make medical decisions for themselves: I have reviewed the following web[employer] commerce consultant notes: CT surgery, Cardiology, Pulmonology note. I have reviewed the results of the following tests: CBC. BMP. POC glucose. I have ordered the following tests: CBC, BMP. I have discussed the care of this patient with the following independent historian: I have independently interpreted the following test below: CXR as above. I have discussed the management of this patient with the following physician: Objective - Vital Signs Vital signs: Vital Signs Temp 9.5 F L 10/04/23 02:00 Pulse 73 10/04/23 04:00 Resp 19 10/04/23 04:00 BP 127/58 10/04/23 04:00 Pulse Ox 97 10/04/23 02:00 FiO2 21 10/03/23 00:02 Intake & Output 10/03/23 10/04/23 10/04/23 18:59 06:59 18:59 Intake Total 566.115 Output Total 800 800 Balance -233.885 -800 Weight 142.3 kg Intake: Intake, IV Titration 216.115 Amount Amiodarone 450 mg In 216.115 Dextrose 5% in Water 250 ml @ 0.5 MG/MIN 16.667 mls/hr IV .Q15H [facility] Rx#: [id number] Oral 350 Output: Urine 800 800 Other: Voiding Method Bedside Commode Bedside Commode # Voids 1 # Bowel Movements 1 1 ABP, PAP, CO, CI - Last Documented Arterial Blood Pressure 126/49 Pulmonary Artery Pressure 16/0 Cardiac Output 8.1 Cardiac Index 3.3 - Labs CBC & Chem 7: 10/04/23 05:37 10/04/23 05:37 Labs: Abnormal Lab Results - Last 24 Hours (Table) 10/03/23 10/03/23 10/03/23 Range/Units 04:50 11:41 16:07 RBC (4.30-5.90) m/uL Hgb (13.0-17.5) gm/dL Hct (39.0-53.0) % RDW (11.5-15.5) % Plt Count (150-450) k/uL Sodium (137-145) mmol/L Carbon Dioxide (22-30) mmol/L BUN (9-20) mg/dL Creatinine (0.66-1.25) mg/dL Glucose (74-99) mg/dL POC Glucose (mg/dL) 143 H 156 H (70-110) mg/dL Calcium (8.4-10.2) mg/dL Iron 36 L (65-175) UG/DL % Saturation 13.95 L (15.00-50.00) Transferrin 184.0 L (204.0-354.0) mg/dL 10/03/23 10/04/23 10/04/23 Range/Units 20:32 05:37 05:37 RBC 2.23 L (4.30-5.90) m/uL Hgb 6.8 L* (13.0-17.5) gm/dL Hct 20.8 L (39.0-53.0) % RDW 17.7 H (11.5-15.5) % Plt Count 141 L (150-450) k/uL Sodium 136 L (137-145) mmol/L Carbon Dioxide 21 L (22-30) mmol/L BUN 47 H (9-20) mg/dL Creatinine 2.01 H (0.66-1.25) mg/dL Glucose 105 H (74-99) mg/dL POC Glucose (mg/dL) 194 H (70-110) mg/dL Calcium 7.8 L (8.4-10.2) mg/dL Iron (65-175) UG/DL % Saturation (15.00-50.00) Transferrin (204.0-354.0) mg/dL 10/04/23 Range/Units 06:42 RBC (4.30-5.90) m/uL Hgb (13.0-17.5) gm/dL Hct (39.0-53.0) % RDW (11.5-15.5) % Plt Count (150-450) k/uL Sodium (137-145) mmol/L Carbon Dioxide (22-30) mmol/L BUN (9-20) mg/dL Creatinine (0.66-1.25) mg/dL Glucose (74-99) mg/dL POC Glucose (mg/dL) 131 H (70-110) mg/dL Calcium (8.4-10.2) mg/dL Iron (65-175) UG/DL % Saturation (15.00-50.00) Transferrin (204.0-354.0) mg/dL
--- NOTE | 2023-10-04 13:06 | P.PN ---
Subjective Progress Note Date: 10/04/23 Principal diagnosis: POD # 7 coronary artery bypass grafting 4 vessels (left internal mammary artery to left anterior descending coronary artery, a saphenous vein graft to the ob tuse marginal coronary artery one, a saphenous vein graft to the obtuse marginal coronary artery 3, and a saphenous vein graft to the posterior descending coronary artery, This patient is 73 and the patient underwent a four-vessel bypass surgery and the patient is being seen in the intensive care unit postop. The patient is currently sedated on propofol which is running at 20 mcg/kg/m. The patient's underwent four-vessel bypass surgery. The patient is currently well sedated on a mechanical ventilator on assist control mode at the rate of 12, tidal volume of 500, FiO2 was weaned down to 50% and PEEP is currently at 10. The patient's blood gas shows a pH of 7.29 with a pCO2 of 47 and pO2 of 352. This was on FiO2 100%. The patient was subsequently brought up respiratory rate of 24 and FiO2 was up to 50%. Chest x-ray shows adequate expansion of both lungs. Montgomery-Ted in good location. ET tube needs to be pushed in by around 1 cm. The patient has a right pleural, mediastinal and left pleural chest tubes. No evidence of any air leak. Output is minimal at this point in time. Carotid Dopplers at 5.8 with an index of 2.4. Patient is on norepinephrine at 0.04 mcg/kg/m, nitrogl ycerin drip at 5 mg/m and the patient is also on insulin drip at 1 units an hour. The patient sees a units of packed RBC. Making adequate urine output. Adequately sedated for now. No major issues otherwise. The patient is also placed at the rate of 80. Underlying cardiac rhythm is sinus bradycardia. On today's evaluation of 09/28/2023, the patient is being seen for a follow-up. The patient was extubated without any major difficulties yesterday. Currently is on room air oxygen. Sitting up on a chair. Chest x-ray shows no major abnormalities and showing postsurgical changes. The film itself facilitated. The patient has a right IJ Gants catheter in place. Patient has also 3 chest tubes, right pleural, left lower and mediastinal. Output from the chest tubes have been noted which is not excessive at this point in time and there is no evidence of any air leak. At the same time, the patient is using the incentive spirometer. He is falling approximately the thousand. Current pulse ox is 94%. His cardiac rhythm was sinus bradycardia with a first-degree AV block. The patient is currently paced at the rate of 70. Cardiac output is at 7.3. Index is at 3.0. He did encounter some hypotension yesterday and the patient was taken off the nitroglycerin drip and currently is off norepinephrine. Insulin drip is running at the rate of 6 units an hour. Hemoglobin is low at 6.8. No orders for blood transfusion at this point in time. This is being monitored. Platelet count is 79, BUN is at 24 with a creatinine of 1.6 as the patient has a component of chronic kidney disease. Briceno cath is in place. Adequate urine output. Sodium level is at 139, potassium is at 4.4, bicarb is at 20. In 2022, the patient is on oxygen at 2 L he's currently postop day #2. Doing well. Slightly lethargic and is feeling weak. No focal neurological deficits. Is worried all 4 extremities. Slightly confused. Based on that, a blood gas was done and the patient was found to have a pH of 7.48 with episodes of 27 and pO2 of 73. Serum bicarbs of 20. His chest x-ray from today showing some atelectatic change in the left lung base. The patient has a right pleural, left lower and the mediastinal chest tube. No airspace disease. No consolidation. He had some issues with drop in hemoglobin and patient was given units of packed RBC. Follow-up hemoglobin today is still low at 6.7. Another units of packed RBC will be given fluids patient today. He has sustained an acute kidney injury. Creatinine is up to 1.9 with a BUN of 31 and a sodium level is at 137. Serum bicarbs of 20. White cell count at 7.1. Montgomery-Ted catheter has been removed. He is on aspirin. He is on Plavix. He is on metoprolol at a dose of 12.5 mg by mouth twice a day. His underlying rhythm is sinus. He is having occasional PACs. Patient was reevaluated today on 09/30/23, patient is now postoperative day #3. Patient is doing well, awake, alert, oriented 3, although at times he had episodes where he was a bit confused, does not seem to be in any distress, his narcotics have been discontinued yesterday. Patient is hemodynamically stable, and achieving above 1500 mL on his incentive spirometry, he is hemodynamically stable, not requiring any inotropes or pressors. Patient did receive 2 units of packed RBCs yesterday for hemoglobin of 7.1. Patient feels generally weak, otherwise relatively asymptomatic. WBC count is 5.5 hemoglobin is 7.1. ABG on room air today showed a pO2 of 70 pCO2 28 pH of 7.51, basic metabolic profile is normal renal profile showed a BUN of 36 creatinine 1.78 improving compared to baseline creatinine Reevaluated today on 10/01/2023, patient remains in the ICU, doing well, he is on room air, does not seem to be in any distress, sitting at a bedside chair, hemoglobin is down to 6.8, surgery will decide whether to give the patient a unit of packed RBCs are not. Discussed his condition with cardiac surgery, refills to wait for now. Patient has no specific complaints, denies any pain and denies any shortness of breath, chest x-ray is showing mostly left lower lobe atelectasis and possibly a small effusion patient is achieving almost 2000 mL with his incentive spirometry, his O2 saturation 96% on room air. His left- sided chest tube was removed yesterday, continues to have atrial and ventricular epicardial pacemaker wires, and they are grounded. WBC count is 5.0 hemoglobin 6.8 basic metabolic profile is normal creatinine went up slightly up to 1.89, and that is being closely monitored. Patient did have numbers as high as 1.90 on baseline on 09/27 was 1.3 Patient was reevaluated today on 10/02/23 remains in the ICU, doing fairly well, remains on room air, and he is not in any form of distress. Patient is on amiodarone drip at present, his hemoglobin has been noted to be low and he is still receives 1 unit of packed RBCs today, hemoglobin today is 6.5, today's transfusion be unit #4 of packed RBCs given so far on this admission. Surprisingly the patient is clinically doing great, CBC is unremarkable except for low hemoglobin of 6.5 he is hemodynamically stable, not requiring any pressors BUN remains a bit elevated at 46 and creatinine slightly elevated at 1.77 and that's about his baseline. Chest x-ray today is even showing significant improvement in the aeration of the left lower lobe. And doubt any pleural effusion Patient was seen and evaluated today on 10/03/2023, remains in the ICU. Patient is on room air, comfortable, sitting in a recliner, not in any distress. Denies any active pulmonary symptoms, has been ambulating in the hallway, and doing extremely well with incentive spirometry. He is now postoperative day #6 coronary artery bypass grafting 4 vessels (left internal mammary artery to left anterior descending coronary artery, saphenous vein graft to the first obtuse marginal coronary artery, saphenous vein graft to the third obtuse marginal coronary artery, saphenous vein graft to the posterior descending coronary artery, chest x-ray showed left basilar atelectasis and possibly a small left- sided pleural effusion him a otherwise unremarkable. CBC showed a hemoglobin of 7, platelets 137 basic metabolic profile is normal creatinine 1.84 which is close to his baseline. Reevaluated today on 10/04/2023, patient remains in the ICU, doing fairly well, steadily improving, chest x-ray showed small left lower lobe atelectasis and pleural effusion however the patient is on room air and asymptomatic hemoglobin remains low at 6.8 today, patient received a total of 4 units of packed RBCs since admission and 2 units of platelets. No active bleeding is noted. Basic metabolic profile is normal creatinine is up to 2.01 slightly worse today compared to yesterday of 1.84., Patient is being evaluated for possible discharge planning by cardiothoracic surgery on the case. He did receive IV Lasix yesterday, however that's presently on hold. And we are avoiding nephrotoxic drugs on this patient Objective - Vital Signs Vital signs: Vital Signs Temp 98.3 F 10/04/23 08:00 Pulse 70 10/04/23 12:19 Resp 26 H 10/04/23 10:00 BP 117/53 10/04/23 10:00 Pulse Ox 98 10/04/23 10:00 FiO2 21 10/03/23 00:02 Intake & Output 10/03/23 10/04/23 10/04/23 18:59 06:59 18:59 Intake Total 566.115 Output Total 800 800 Balance -233.885 -800 Weight 142.3 kg Intake: Intake, IV Titration 216.115 Amount Amiodarone 450 mg In 216.115 Dextrose 5% in Water 250 ml @ 0.5 MG/MIN 16.667 mls/hr IV .Q15H [facility] Rx#: [id number] Oral 350 Output: Urine 800 800 Other: Voiding Method Bedside Commode Bedside Commode Bedside Commode # Voids 1 # Bowel Movements 1 1 ABP, PAP, CO, CI - Last Documented Arterial Blood Pressure 126/49 Pulmonary Artery Pressure 16/0 Cardiac Output 8.1 Cardiac Index 3.3 - Exam Physical Exam: Revealed 73-year-old white male in no distress, on room air , patient is doing great with incentive spirometry achieving over 2500 Neck: Atraumatic, normocephalic Head: Atraumatic, normocephalic. HEENT:[Neck is supple.] [No neck masses.] [No thyromegaly.] [No JVD.] Chest: [Diminished breath sounds at the bases no crackles or rhonchi or wheezes Cardiac Exam: [Normal S1 and S2, no S3 gallop, no murmur.] Abdomen: [Soft, nontender, no megaly, no rebound, no guarding, normal bowel sounds.] Extremities: [No clubbing, no edema, no cyanosis.] Neurological Exam: [No focal neurologic deficit.] Alert and oriented 3. Psychiatric: Normal mood affect and normal mental status examination. Skin: No rashes - Labs CBC & Chem 7: 10/04/23 05:37 10/04/23 05:37 Labs: Abnormal Lab Results - Last 24 Hours (Table) 10/03/23 10/03/23 10/03/23 Range/Units 04:50 16:07 20:32 RBC (4.30-5.90) m/uL Hgb (13.0-17.5) gm/dL Hct (39.0-53.0) % RDW (11.5-15.5) % Plt Count (150-450) k/uL Sodium (137-145) mmol/L Carbon Dioxide (22-30) mmol/L BUN (9-20) mg/dL Creatinine (0.66-1.25) mg/dL Glucose (74-99) mg/dL POC Glucose (mg/dL) 156 H 194 H (70-110) mg/dL Calcium (8.4-10.2) mg/dL Iron 36 L (65-175) UG/DL % Saturation 13.95 L (15.00-50.00) Transferrin 184.0 L (204.0-354.0) mg/dL 10/04/23 10/04/23 10/04/23 Range/Units 05:37 05:37 06:42 RBC 2.23 L (4.30-5.90) m/uL Hgb 6.8 L* (13.0-17.5) gm/dL Hct 20.8 L (39.0-53.0) % RDW 17.7 H (11.5-15.5) % Plt Count 141 L (150-450) k/uL Sodium 136 L (137-145) mmol/L Carbon Dioxide 21 L (22-30) mmol/L BUN 47 H (9-20) mg/dL Creatinine 2.01 H (0.66-1.25) mg/dL Glucose 105 H (74-99) mg/dL POC Glucose (mg/dL) 131 H (70-110) mg/dL Calcium 7.8 L (8.4-10.2) mg/dL Iron (65-175) UG/DL % Saturation (15.00-50.00) Transferrin (204.0-354.0) mg/dL 10/04/23 Range/Units 11:48 RBC (4.30-5.90) m/uL Hgb (13.0-17.5) gm/dL Hct (39.0-53.0) % RDW (11.5-15.5) % Plt Count (150-450) k/uL Sodium (137-145) mmol/L Carbon Dioxide (22-30) mmol/L BUN (9-20) mg/dL Creatinine (0.66-1.25) mg/dL Glucose (74-99) mg/dL POC Glucose (mg/dL) 176 H (70-110) mg/dL Calcium (8.4-10.2) mg/dL Iron (65-175) UG/DL % Saturation (15.00-50.00) Transferrin (204.0-354.0) mg/dL Assessment and Plan Assessment: Impression: Coronary artery bypass surgery. The patient underwent four-vessel bypass surgery. The patient is currently postop day #7 CAD status post multiple stents, now status post CABG Acute blood loss anemia, expected. Patient received a total of 4 units of packed RBCs so far on this admission. Acute on chronic thrombocytopenia, anticipated outcome of surgery, platelets are being monitored, improving, level today is 141 Type 2 diabetes, patient is still requiring insulin drip Chronic kidney disease stage III, cr is 2.01 Hypocalcemia History of hypertension History of atrial fibrillation Dyslipidemia Gout BPH Recommendation: Continue statin, Plavix, beta blockers, and aspirin/optimal medical therapy Continue incentive spirometry Continue ambulation Continue daily weights Avoid nephrotoxic drugs Continue GI and DVT prophylaxis Continue bronchodilators patient is being considered for possible discharge in a.m. We will continue to follow Time with Patient: Less than 30
[2023-10-04] MEDS: allopurinoL 300 MG TAB PO SCH (13:53)
[2023-10-04] MEDS: FENOFIBRATE 54 MG TAB PO SCH (13:53)
--- NOTE | 2023-10-04 14:58 | P.PN ---
Subjective PROGRESS NOTE The patient is a 73-year-old male who underwent CABG yesterday. He is followed regularly by Dr. De Oliveira in [place] and has underwent prior stenting, most recently about 10 years ago according to him who has been complaining of progressive chest discomfort and underwent cardiac catheterization in [place], was found to have severe obstructive disease and underwent CABG yesterday. He received a MAGANA to the LAD and SVG to OM1 and 3 and PDA with closure of the left atrial appendage. He is extubated, sitting up in the chair, he feels well. He was having chest discomfort and dyspnea on exertion prior to presentation. He has no peripheral edema, PND or orthopnea. He does not recall being told that he had a myocardial infarction or history of CHF. He has a prior history of paroxysmal atrial fibrillation and has a loop recorder and according to him there was no episodes of atrial fibrillation for the last 2 years. Hemodynamica lly he is stable. He has a history of diabetes, hypertension and hyperlipidemia. He is a nonsmoker. September 29: The patient is feeling well this morning, he denies any chest discomfort, dizziness or palpitations. He continues to be in sinus mechanism. Hemodynamically stable. His urine output is stable. He denies any nausea or vomiting. He is on no vasopressors. He had anemia and his received transfusion. 09/30 Patient seen and examined. Patient has had off-and-on confusion and currently on BiPAP. Denies any chest pain or pressure. Creatinine 1.7 with hemoglobin 7.1. 10/01 Patient seen and examined. Patient denies any chest pain or pressure. States he still feels short of breath. Hemoglobin 6.8 today with platelets 114. Creatinine 1.89. 10/02 Patient seen and examined. Patient flipped into atrial fibrillation yesterday and predilate controlled rates in the 90s to low 100 and denies any real palpitations. He does admit to history of atrial fibrillation previously. He also received packed red blood cells today. States he feels somewhat better in terms of energy today. Received IV Lasix yesterday. Receiving IV amiodarone. 10/03 Patient was in atrial fibrillation yesterday however appears in sinus rhythm today. Denies any chest pain or pressure. Does have 2+ lower extremity edema. He did receive packed red blood cell transfusion yesterday. 10/04 Patient seen and examined. Patient received IV Lasix yesterday with creatinine 2.0 today. Denies any chest pain or pressure. Says some shortness breath which appears fairly stable. He was transferred out of ICU today. Hemoglobin 6.8 today. He does have ecchymosis of bilateral inguinal area and through his thighs. Medications: Aspirin, Lipitor 40 mg daily, Plavix 75 mg daily, metoprolol tartrate 12.5 mg twice a day. PHYSICAL EXAMINATION: Vitals reviewed LUNGS: Mild decreased breath sounds at the bases HEART:Irregular rate and rhythm, S1, S2. No S3. No systolic murmur ABDOMEN: Soft, nontender, no organomegaly EXTREMETIES: 2+ edema IMPRESSION: 1. Status post CABG, stable 2. Anemia postoperatively 3. Acute renal injury postoperatively 4. History of paroxysmal atrial fibrillation 5. History of diabetes 6. History of hypertension 7. History of hyperlipidemia 8. Postoperative A. fib however also has a history of A. fib 9. Acute on chronic diastolic heart failure PLAN: Agree with additional dose of Lasix and monitor response. Monitor hemoglobin closely, 6.8 today. Does have by ecchymosis. Does not appear to have any active bleeding. We'll full discharge home in approximately 4-48 hours if remains stable. Monitor creatinine, mildly increased today. Objective - Vital Signs Vital signs: Vital Signs Temp 98.1 F 10/04/23 14:37 Pulse 72 10/04/23 14:37 Resp 16 10/04/23 14:37 BP 111/68 10/04/23 14:37 Pulse Ox 94 L 10/04/23 14:37 FiO2 21 10/03/23 00:02 Intake & Output 10/03/23 10/04/23 10/04/23 18:59 06:59 18:59 Intake Total 566.115 305 Output Total 800 800 400 Balance -233.885 -800 -95 Weight 142.3 kg Intake: IV 5 Invasive Line 2 5 Intake, IV Titration 216.115 Amount Amiodarone 450 mg In 216.115 Dextrose 5% in Water 250 ml @ 0.5 MG/MIN 16.667 mls/hr IV .Q15H [facility] Rx#: [id number] Oral 350 300 Output: Urine 800 800 400 Other: Voiding Method Bedside Commode Bedside Commode Bedside Commode # Voids 1 1 # Bowel Movements 1 1 1 ABP, PAP, CO, CI - Last Documented Arterial Blood Pressure 126/49 Pulmonary Artery Pressure 16/0 Cardiac Output 8.1 Cardiac Index 3.3 - Labs CBC & Chem 7: 10/04/23 05:37 10/04/23 05:37 Labs: Abnormal Lab Results - Last 24 Hours (Table) 10/03/23 10/03/23 10/03/23 Range/Units 04:50 16:07 20:32 RBC (4.30-5.90) m/uL Hgb (13.0-17.5) gm/dL Hct (39.0-53.0) % RDW (11.5-15.5) % Plt Count (150-450) k/uL Sodium (137-145) mmol/L Carbon Dioxide (22-30) mmol/L BUN (9-20) mg/dL Creatinine (0.66-1.25) mg/dL Glucose (74-99) mg/dL POC Glucose (mg/dL) 156 H 194 H (70-110) mg/dL Calcium (8.4-10.2) mg/dL Iron 36 L (65-175) UG/DL % Saturation 13.95 L (15.00-50.00) Transferrin 184.0 L (204.0-354.0) mg/dL 10/04/23 10/04/23 10/04/23 Range/Units 05:37 05:37 06:42 RBC 2.23 L (4.30-5.90) m/uL Hgb 6.8 L* (13.0-17.5) gm/dL Hct 20.8 L (39.0-53.0) % RDW 17.7 H (11.5-15.5) % Plt Count 141 L (150-450) k/uL Sodium 136 L (137-145) mmol/L Carbon Dioxide 21 L (22-30) mmol/L BUN 47 H (9-20) mg/dL Creatinine 2.01 H (0.66-1.25) mg/dL Glucose 105 H (74-99) mg/dL POC Glucose (mg/dL) 131 H (70-110) mg/dL Calcium 7.8 L (8.4-10.2) mg/dL Iron (65-175) UG/DL % Saturation (15.00-50.00) Transferrin (204.0-354.0) mg/dL 10/04/23 Range/Units 11:48 RBC (4.30-5.90) m/uL Hgb (13.0-17.5) gm/dL Hct (39.0-53.0) % RDW (11.5-15.5) % Plt Count (150-450) k/uL Sodium (137-145) mmol/L Carbon Dioxide (22-30) mmol/L BUN (9-20) mg/dL Creatinine (0.66-1.25) mg/dL Glucose (74-99) mg/dL POC Glucose (mg/dL) 176 H (70-110) mg/dL Calcium (8.4-10.2) mg/dL Iron (65-175) UG/DL % Saturation (15.00-50.00) Transferrin (204.0-354.0) mg/dL
[2023-10-04 16:29] LABS: Glucose,Whole Blood 317 mg/dL (70-110)
[2023-10-04 19:39] LABS: Glucose,Whole Blood 160 mg/dL (70-110)
[2023-10-04] MEDS: INSULIN DETEMIR (LEVEMIR) 100 UNIT/ML SYR SQ SCH (20:32)
[2023-10-05 06:23] LABS: Glucose,Whole Blood 134 mg/dL (70-110)
[2023-10-05] MEDS: INSULIN ASPART (NovoLOG) 100 UNIT/ML VIAL SQ SCH ×7 (06:40→20:57)
[2023-10-05] MEDS: PANTOPRAZOLE 40 MG TABLET PO SCH (06:51)
[2023-10-05] MEDS: IPRATROPIUM-ALBUTEROL 3 ML NEB INHALATION SCH ×4 (07:56→20:06)
[2023-10-05 08:04] LABS: Anisocytosis Slight; HCT 21.8 % (39.0-53.0); Hypochromasia Moderate; MCH 30.3 pg (25.0-35.0); MCHC 31.8 g/dL (31.0-37.0); MCV 95.2 fL (80.0-100.0); Macrocytosis Slight; Mean Platelet Volume 8.4; Platelet Count 172 k/uL (150-450); Poikilocytosis Slight; RBC 2.29 m/uL (4.30-5.90); RDW 18.4 % (11.5-15.5); WBC 6.6 k/uL (3.8-10.6)
--- NOTE | 2023-10-05 08:20 | XR ---
EXAMINATION TYPE: XR chest 2V DATE OF EXAM: 10/05/2023 6:26 AM CLINICAL INDICATION:Male, 73 years old with history of post cardiac surgery; [facility] COMPARISON: Chest radiograph from one day prior. TECHNIQUE: XR chest 2V Frontal and lateral views of the chest. FINDINGS: Lungs/Pleura: Blunting of the left costophrenic angle There is no evidence of right pleural effusion, focal consolidation, or pneumothorax. Pulmonary vascularity: Unremarkable. Heart/mediastinum: Cardiomediastinal silhouette is unremarkable. A loop recorder projects over the le ft thorax over the heart. Left atrial appendage occlusion device is present. Musculoskeletal: No acute osseous pathology. Midline sternotomy fixation wires are noted. Other findings: None IMPRESSION: Stable post cardiac exam with small left pleural effusion.
[2023-10-05 08:35] LABS: African American GFR (CKD) 36 (>60 ml/min/1.73 sqM); Anion Gap 14 mmol/L; Blood Urea Nitrogen 50 mg/dL (9-20); Calcium 7.8 mg/dL (8.4-10.2); Carbon Dioxide 19 mmol/L (22-30); Chloride 104 mmol/L (98-107); Glucose 132 mg/dL (74-99); Non-African American GFR(CKD) 31 (>60 ml/min/1.73 sqM); Potassium 4.2 mmol/L (3.5-5.1); Sodium 137 mmol/L (137-145)
[2023-10-05 08:43] LABS: HGB 6.9 gm/dL (13.0-17.5)
[2023-10-05] MEDS: ASCORBIC ACID 500 MG TAB PO SCH (09:03)
[2023-10-05] MEDS: ASPIRIN 325 MG TAB PO SCH (09:04)
[2023-10-05] MEDS: FERROUS SULFATE 325 MG TAB PO SCH (09:04)
[2023-10-05] MEDS: ATORVASTATIN 40 MG TAB PO SCH (09:04)
[2023-10-05] MEDS: MULTIVITAMINS, THERA 1 EACH TAB PO SCH (09:04)
[2023-10-05] MEDS: AMIODARONE 200 MG TAB PO SCH ×2 (09:04→20:57)
[2023-10-05] MEDS: CYANOCOBALAMIN 500 MCG TAB PO SCH (09:04)
[2023-10-05] MEDS: TAMSULOSIN 0.4 MG CAP.ER.24H PO SCH (09:04)
[2023-10-05] MEDS: CLOPIDOGREL 75 MG TAB PO SCH (09:04)
[2023-10-05] MEDS: METOPROLOL TARTRATE 25 MG TAB PO SCH ×2 (09:04→20:57)
[2023-10-05] MEDS: HEPARIN SODIUM,PORCINE 5,000 UNIT/ML 1 ML VIAL SQ SCH ×3 (09:05→23:51)
[2023-10-05] MEDS: MAGNESIUM HYDROXIDE 2,400 MG/30 ML CUP PO PRN (09:29)
[2023-10-05] MEDS ORDERED: FUROSEMIDE 10 MG/ML 10 ML VIAL IV STA (09:41)
[2023-10-05] MEDS: ACETAMINOPHEN TAB 325 MG TAB PO PRN (09:57)
--- NOTE | 2023-10-05 10:34 | P.PN ---
Subjective Progress Note Date: 10/05/23 Principal diagnosis: Multivessel coronary artery disease. Previous medical history of coronary artery disease status post multiple coronary stents, hypertension, hyperlipidemia, diabetes mellitus type 2, atrial fibrillation since 2016 on Eliquis for anticoagulation as an outpatient, obstructive sleep apnea with home BiPAP use, chronic renal insufficiency, gout, kidney stones and lifelong nonsmoker. POD #8 coronary artery bypass grafting 4 vessels (left internal mammary artery to left anterior descending coronary artery, saphenous vein graft to the first obtuse marginal coronary artery, saphenous vein graft to the third obtuse marginal coronary artery, saphenous vein graft to the posterior descending coronary artery, endoscopic harvesting bilateral greater saphenous veins, ligation of the left atrial appendage using a 35 mm Atriclip, epi-aortic ultrasound, intraoperative transesophageal echocardiogram, graft flow measurements using the SunPodsstim system, and closure of the sternum using Tritium plating device. Postoperative acute blood loss anemia, expected given hemodilution and cardiopulmonary bypass. The patient was seen and examined with Dr. Sigala sitting up in a recliner on the cardiac stepdown unit in no acute distress eating breakfast. States surgical pain mostly controlled on current medication regimen, denies shortness of breath. He has able to ambulate in the hallway several times yesterday. Currently in sinus rhythm and hemodynamically stable. Currently on room air with oxygen saturation in the high 90s. Hemoglobin 6.9 this morning, was 6.8 yesterday, remains hemodynamically stable, no transfusion at this point. Received IV lasix yesterday. CXR, labs reviewed. Discussed discharge plans with patient, we do have insurance authorization for patient to go to inpatient rehab and this was discussed with the patient that he may benefit from some rehabilitation in order to safely return home, the patient will consider this as his discharge plan versus home with home care. No other new concerns. Objective - Vital Signs Vital signs: Vital Signs Temp 98.5 F 10/05/23 04:53 Pulse 92 10/05/23 08:07 Resp 18 10/05/23 04:53 BP 111/66 10/05/23 04:53 Pulse Ox 96 10/05/23 07:56 FiO2 21 10/03/23 00:02 Intake & Output 10/04/23 10/05/23 10/05/23 18:59 06:59 18:59 Intake Total 415 560 Output Total 400 Balance 15 560 Weight 137.5 kg Intake: IV 5 20 Invasive Line 2 5 Invasive Line 4 20 Oral 410 540 Output: Urine 400 Other: Voiding Method Bedside Commode Toilet Bedside Commode # Voids 1 2 # Bowel Movements 1 ABP, PAP, CO, CI - Last Documented Arterial Blood Pressure 126/49 Pulmonary Artery Pressure 16/0 Cardiac Output 8.1 Cardiac Index 3.3 - Exam CONSTITUTIONAL: Appears comfortable, cooperative, no acute distress RESPIRATORY: Lungs sounds diminished bilaterally. Respirations even, nonlabored. Currently on room air with oxygen saturation 99%. Able to achieve 1750 mL on incentive spirometry. Strong cough. CARDIOVASCULAR: S1, S2 present. Regular rate and rhythm, sinus rhythm on telemetry. Sternum stable. Palpable peripheral pulses bilaterally. Generalized edema present. No calf pain or tenderness noted. Heart hugger in place with patient demonstrating appropriate use. Antiembolism stockings, SCDs present. GASTROINTESTINAL: Abdomen soft, nontender, nondistended. Active bowel sounds present 4 quadrants. Tolerating diet. Positive bowel movement 10/04 GENITOURINARY: Continues to void although not always measured INTEGUMENTARY: Skin is warm and dry with evidence of good perfusion. Anterior chest incision well approximated. Bilateral lower extremity EVH sites well approximated without redness or drainage. NEUROLOGIC: Cranial nerves II through XII intact MUSKULOSKELETAL: Able to move all extremities, strength equal bilaterally although generalized weakness still present PSYCHIATRIC: Alert and oriented to person place and time, appropriate affect, intact judgment and insight - Allied health notes Allied health notes reviewed: nursing - Labs CBC & Chem 7: 10/05/23 07:32 10/05/23 07:32 Labs: Abnormal Lab Results - Last 24 Hours (Table) 10/04/23 10/04/23 10/04/23 Range/Units 11:48 16:24 19:30 Carbon Dioxide (22-30) mmol/L BUN (9-20) mg/dL Creatinine (0.66-1.25) mg/dL Glucose (74-99) mg/dL POC Glucose (mg/dL) 176 H 317 H 160 H (70-110) mg/dL Calcium (8.4-10.2) mg/dL 10/05/23 10/05/23 Range/Units 06:14 07:32 Carbon Dioxide 19 L (22-30) mmol/L BUN 50 H (9-20) mg/dL Creatinine 2.03 H (0.66-1.25) mg/dL Glucose 132 H (74-99) mg/dL POC Glucose (mg/dL) 134 H (70-110) mg/dL Calcium 7.8 L (8.4-10.2) mg/dL - Imaging and Cardiology Chest x-ray: report reviewed, image reviewed Assessment and Plan Assessment: Multivessel coronary artery disease, status post coronary artery bypass grafting 4 vessels History of coronary artery disease with multiple stent in the past Hypertension Hyperlipidemia Atrial fibrillation since 2016 on Eliquis for anticoagulation as an outpatient, status post ligation of left atrial appendage Diabetes mellitus type 2, with a preoperative hemoglobin A1c of 6.8% Obstructive sleep apnea with home BiPAP use Chronic renal insufficiency History of gout History of kidney stones Lifelong nonsmoker Postoperative acute blood loss anemia and postoperative thrombocytopenia, expected given hemodilution and cardiopulmonary bypass Medical debility Plan: Continue to maximize medical therapy with aspirin, statin, Plavix and beta jayna. Will increase beta jayna as tolerated Continue amiodarone for afib Encourage incentive spirometry use 10 times every hour while awake. Bronchodilators per pulmonology. Increase activity, ambulate as tolerated. PT/OT/cardiac rehab following. Will monitor daily labs and chest x-rays. Electrolyte replacement per protocol. Will give IV lasix, no transfusion today GI/DVT prophylaxis. Pain control per current medication regimen, no toradol due to CRF Avoid nephrotoxic agents as the patient has a history of chronic renal insufficiency Insulin management per internal medicine service Continue to record strict accurate intake and output Daily weights Likely would discharge Saturday, versus home with home care More recommendations to follow based on patient's clinical course.
[2023-10-05 11:57] LABS: Glucose,Whole Blood 233 mg/dL (70-110)
--- NOTE | 2023-10-05 12:41 | P.PN ---
Subjective Progress Note Date: 10/05/23 This patient is 73 and the patient underwent a four-vessel bypass surgery and the patient is being seen in the intensive care unit postop. The patient is currently sedated on propofol which is running at 20 mcg/kg/m. The patient's underwent four-vessel bypass surgery. The patient is currently well sedated on a mechanical ventilator on assist control mode at the rate of 12, tidal volume of 500, FiO2 was weaned down to 50% and PEEP is currently at 10. The patient's blood gas shows a pH of 7.29 with a pCO2 of 47 and pO2 of 352. This was on FiO2 100%. The patient was subsequently brought up respiratory rate of 24 and FiO2 was up to 50%. Chest x-ray shows adequate expansion of both lungs. Jane Lew-Ted in good location. ET tube needs to be pushed in by around 1 cm. The patient has a right pleural, mediastinal and left pleural chest tubes. No evidence of any air leak. Output is minimal at this point in time. Carotid Dopplers at 5.8 with an index of 2.4. Patient is on norepinephrine at 0.04 mcg/kg/m, nitroglycerin drip at 5 mg/m and the patient is also on insulin drip at 1 units an hour. The patient sees a units of packed RBC. Making adequate urine output. Adequately sedated for now. No major issues otherwise. The patient is also placed at the rate of 80. Underlying cardiac rhythm is sinus bradycardia. On today's evaluation of 09/28/2023, the patient is being seen for a follow-up. The patient was extubated without any major difficulties yesterday. Currently is on room air oxygen. Sitting up on a chair. Chest x-ray shows no major abnormalities and showing postsurgical changes. The film itself facilitated. The patient has a right IJ Gants catheter in place. Patient has also 3 chest tubes, right pleural, left lower and mediastinal. Output from the chest tubes h ave been noted which is not excessive at this point in time and there is no evidence of any air leak. At the same time, the patient is using the incentive spirometer. He is falling approximately the thousand. Current pulse ox is 94%. His cardiac rhythm was sinus bradycardia with a first-degree AV block. The patient is currently paced at the rate of 70. Cardiac output is at 7.3. Index is at 3.0. He did encounter some hypotension yesterday and the patient was taken off the nitroglycerin drip and currently is off norepinephrine. Insulin drip is running at the rate of 6 units an hour. Hemoglobin is low at 6.8. No orders for blood transfusion at this point in time. This is being monitored. Platelet count is 79, BUN is at 24 with a creatinine of 1.6 as the patient has a component of chronic kidney disease. Briceno cath is in place. Adequate urine output. Sodium level is at 139, potassium is at 4.4, bicarb is at 20. In 2022, the patient is on oxygen at 2 L he's currently postop day #2. Doing well. Slightly lethargic and is feeling weak. No focal neurological deficits. Is worried all 4 extremities. Slightly confused. Based on that, a blood gas was done and the patient was found to have a pH of 7.48 with episodes of 27 and pO2 of 73. Serum bicarbs of 20. His chest x-ray from today showing some atelectatic change in the left lung base. The patient has a right pleural, left lower and the mediastinal chest tube. No airspace disease. No consolidation. He had some issues with drop in hemoglobin and patient was given units of packed RBC. Follow-up hemoglobin today is still low at 6.7. Another units of packed RBC will be given fluids patient today. He has sustained an acute kidney injury. Creatinine is up to 1.9 with a BUN of 31 and a sodium level is at 137. Serum bicarbs of 20. White cell count at 7.1. Jane Lew-Ted catheter has been removed. He is on aspirin. He is on Plavix. He is on metoprolol at a dose of 12.5 mg by mouth twice a day. His underlying rhythm is sinus. He is having occasional PACs. Patient was reevaluated today on 09/30/23, patient is now postoperative day #3. Patient is doing well, awake, alert, oriented 3, although at times he had episodes where he was a bit confused, does not seem to be in any distress, his narcotics have been discontinued yesterday. Patient is hemodynamically stable, and achieving above 1500 mL on his incentive spirometry, he is hemodynamically stable, not requiring any inotropes or pressors. Patient did receive 2 units of packed RBCs yesterday for hemoglobin of 7.1. Patient feels generally weak, otherwise relatively asymptomatic. WBC count is 5.5 hemoglobin is 7.1. ABG on room air today showed a pO2 of 70 pCO2 28 pH of 7.51, basic metabolic profile is normal renal profile showed a BUN of 36 creatinine 1.78 improving compared to baseline creatinine Reevaluated today on 10/01/2023, patient remains in the ICU, doing well, he is on room air, does not seem to be in any distress, sitting at a bedside chair, hemoglobin is down to 6.8, surgery will decide whether to give the patient a unit of packed RBCs are not. Discussed his condition with cardiac surgery, refills to wait for now. Patient has no specific complaints, denies any pain and denies any shortness of breath, chest x-ray is showing mostly left lower lobe atelectasis and possibly a small effusion patient is achieving almost 2000 mL with his incentive spirometry, his O2 saturation 96% on room air. His left- sided chest tube was removed yesterday, continues to have atrial and ventricular epicardial pacemaker wires, and they are grounded. WBC count is 5.0 hemoglobin 6.8 basic metabolic profile is normal creatinine went up slightly up to 1.89, and that is being closely monitored. Patient did have numbers as high as 1.90 on baseline on 09/27 was 1.3 Patient was reevaluated today on 10/02/23 remains in the ICU, doing fairly well, remains on room air, and he is not in any form of distress. Patient is on amiodarone drip at present, his hemoglobin has been noted to be low and he is still receives 1 unit of packed RBCs today, hemoglobin today is 6.5, today's transfusion be unit #4 of packed RBCs given so far on this admission. Surprisingly the patient is clinically doing great, CBC is unremarkable except for low hemoglobin of 6.5 he is hemodynamically stable, not requiring any pressors BUN remains a bit elevated at 46 and creatinine slightly elevated at 1.77 and that's about his baseline. Chest x-ray today is even showing significant improvement in the aeration of the left lower lobe. And doubt any pleural effusion Patient was seen and evaluated today on 10/03/2023, remains in the ICU. Patient is on room air, comfortable, sitting in a recliner, not in any distress. Denies any active pulmonary symptoms, has been ambulating in the hallway, and doing extremely well with incentive spirometry. He is now postoperative day #6 coronary artery bypass grafting 4 vessels (left internal mammary artery to left anterior descending coronary artery, saphenous vein graft to the first obtuse marginal coronary artery, saphenous vein graft to the third obtuse marginal coronary artery, saphenous vein graft to the posterior descending coronary artery, chest x-ray showed left basilar atelectasis and possibly a small left- sided pleural effusion him a otherwise unremarkable. CBC showed a hemoglobin of 7, platelets 137 basic metabolic profile is normal creatinine 1.84 which is close to his baseline. Reevaluated today on 10/04/2023, patient remains in the ICU, doing fairly well, steadily improving, chest x-ray showed small left lower lobe atelectasis and pleural effusion however the patient is on room air and asymptomatic hemoglobin remains low at 6.8 today, patient received a total of 4 units of packed RBCs since admission and 2 units of platelets. No active bleeding is noted. Basic metabolic profile is normal creatinine is up to 2.01 slightly worse today compared to yesterday of 1.84., Patient is being evaluated for possible discharge planning by cardiothoracic surgery on the case. He did receive IV Lasix yesterday, however that's presently on hold. And we are avoiding n ephrotoxic drugs on this patient The patient is seen today 10/05/2023 in follow-up on the selective care unit. He is currently awake and alert in no acute distress. He sitting up in a chair at the bedside. He is maintaining O2 saturations in the 90s on room air. He's been afebrile. Hemodynamically stable. Chest x-ray shows some blunting of left costophrenic angle. Otherwise stable post cardiac exam. He is status post 4 units of packed red blood cells this admission. Current hemoglobin 6.9. Platelets 172. White count 6.6. Sodium 137. Potassium 4.2. Bicarb 19. BUN 50. Creatinine 2.03. Glucose 132. Objective - Vital Signs Vital signs: Vital Signs Temp 98.0 F 10/05/23 11:53 Pulse 76 10/05/23 12:06 Resp 18 10/05/23 11:53 BP 105/50 10/05/23 11:53 Pulse Ox 100 10/05/23 11:53 FiO2 21 10/03/23 00:02 Intake & Output 10/04/23 10/05/23 10/05/23 18:59 06:59 18:59 Intake Total 415 560 10 Output Total 400 550 Balance 15 560 -540 Weight 137.5 kg Intake: IV 5 20 10 Invasive Line 2 5 Invasive Line 4 20 10 Oral 410 540 Output: Urine 400 550 Other: Voiding Method Bedside Commode Toilet Toilet Bedside Commode Bedside Commode # Voids 1 2 # Bowel Movements 1 ABP, PAP, CO, CI - Last Documented Arterial Blood Pressure 126/49 Pulmonary Artery Pressure 16/0 Cardiac Output 8.1 Cardiac Index 3.3 - Exam GENERAL EXAM: Alert, pleasant, obese 73-year-old male, on room air, up in a chair comfortable in no apparent distress. HEAD: Normocephalic. EYES: Normal reaction of pupils, equal size. NOSE: Clear with pink turbinates. THROAT: No erythema or exudates. NECK: No masses, no JVD. CHEST: No chest wall deformity. Sternal dressing dry and intact. Heart hugger in place. LUNGS: Equal air entry with few crackles in the left base. CVS: S1 and S2 normal with no audible murmur, regular rhythm. ABDOMEN: No hepatosplenomegaly, normal bowel sounds, no guarding or rigidity. SPINE: No scoliosis or deformity SKIN: No rashes CENTRAL NERVOUS SYSTEM: No focal deficits, tone is normal in all 4 extremities. EXTREMITIES: Gary wrap still lower extremities. There is no peripheral edema. No clubbing, no cyanosis. Peripheral pulses are intact. - Labs CBC & Chem 7: 10/05/23 07:32 10/05/23 07:32 Labs: Abnormal Lab Results - Last 24 Hours (Table) 09/19/23 10/04/23 10/04/23 Range/Units 09:20 16:24 19:30 RBC (4.30-5.90) m/uL Hgb (13.0-17.5) gm/dL Hct (39.0-53.0) % RDW (11.5-15.5) % Carbon Dioxide (22-30) mmol/L BUN (9-20) mg/dL Creatinine (0.66-1.25) mg/dL Glucose (74-99) mg/dL POC Glucose (mg/dL) 317 H 160 H (70-110) mg/dL Calcium (8.4-10.2) mg/dL Crossmatch See Detail 10/05/23 10/05/23 10/05/23 Range/Units 06:14 07:32 07:32 RBC 2.29 L (4.30-5.90) m/uL Hgb 6.9 L* (13.0-17.5) gm/dL Hct 21.8 L (39.0-53.0) % RDW 18.4 H (11.5-15.5) % Carbon Dioxide 19 L (22-30) mmol/L BUN 50 H (9-20) mg/dL Creatinine 2.03 H (0.66-1.25) mg/dL Glucose 132 H (74-99) mg/dL POC Glucose (mg/dL) 134 H (70-110) mg/dL Calcium 7.8 L (8.4-10.2) mg/dL Crossmatch 10/05/23 Range/Units 11:55 RBC (4.30-5.90) m/uL Hgb (13.0-17.5) gm/dL Hct (39.0-53.0) % RDW (11.5-15.5) % Carbon Dioxide (22-30) mmol/L BUN (9-20) mg/dL Creatinine (0.66-1.25) mg/dL Glucose (74-99) mg/dL POC Glucose (mg/dL) 233 H (70-110) mg/dL Calcium (8.4-10.2) mg/dL Crossmatch Assessment and Plan Assessment: Coronary artery bypass surgery. The patient underwent four-vessel bypass surgery. The patient is currently postop day #8 CAD status post multiple stents, now status post CABG Acute blood loss anemia, expected. Patient received a total of 4 units of packed RBCs so far on this admission. Acute on chronic thrombocytopenia, anticipated outcome of surgery, platelets are being monitored, improving, level today is 172 Type 2 diabetes, patient is still requiring insulin drip Chronic kidney disease stage III, current creatinine 2.03 Hypocalcemia History of hypertension History of atrial fibrillation Dyslipidemia Gout BPH [place]: The patient was seen and evaluated Chest x-ray, labs and medications reviewed Continue the current treatment plan Encouraged increased use the incentive spirometer Encouraged her to increase activity as tolerated Plan is for inpatient rehab post discharge We will continue to follow I have personally seen and examined the patient, performed the documentation and the assessment and plan as written. Number of minutes spent on the visit: 10.
--- NOTE | 2023-10-05 15:24 | P.PN ---
Subjective PROGRESS NOTE The patient is a 73-year-old male who underwent CABG yesterday. He is followed regularly by Dr. De Oliveira in [place] and has underwent prior stenting, most recently about 10 years ago according to him who has been complaining of progressive chest discomfort and underwent cardiac catheterization in [place], was found to have severe obstructive disease and underwent CABG yesterday. He received a MAGANA to the LAD and SVG to OM1 and 3 and PDA with closure of the left atrial appendage. He is extubated, sitting up in the chair, he feels well. He was having chest discomfort and dyspnea on exertion prior to presentation. He has no peripheral edema, PND or orthopnea. He does not recall being told that he had a myocardial infarction or history of CHF. He has a prior history of paroxysmal atrial fibrillation and has a loop recorder and according to him there was no episodes of atrial fibrillation for the last 2 years. Hemodynamica lly he is stable. He has a history of diabetes, hypertension and hyperlipidemia. He is a nonsmoker. September 29: The patient is feeling well this morning, he denies any chest discomfort, dizziness or palpitations. He continues to be in sinus mechanism. Hemodynamically stable. His urine output is stable. He denies any nausea or vomiting. He is on no vasopressors. He had anemia and his received transfusion. 09/30 Patient seen and examined. Patient has had off-and-on confusion and currently on BiPAP. Denies any chest pain or pressure. Creatinine 1.7 with hemoglobin 7.1. 10/01 Patient seen and examined. Patient denies any chest pain or pressure. States he still feels short of breath. Hemoglobin 6.8 today with platelets 114. Creatinine 1.89. 10/02 Patient seen and examined. Patient flipped into atrial fibrillation yesterday and predilate controlled rates in the 90s to low 100 and denies any real palpitations. He does admit to history of atrial fibrillation previously. He also received packed red blood cells today. States he feels somewhat better in terms of energy today. Received IV Lasix yesterday. Receiving IV amiodarone. 10/03 Patient was in atrial fibrillation yesterday however appears in sinus rhythm today. Denies any chest pain or pressure. Does have 2+ lower extremity edema. He did receive packed red blood cell transfusion yesterday. 10/04 Patient seen and examined. Patient received IV Lasix yesterday with creatinine 2.0 today. Denies any chest pain or pressure. Says some shortness breath which appears fairly stable. He was transferred out of ICU today. Hemoglobin 6.8 today. He does have ecchymosis of bilateral inguinal area and through his thighs. 10/05 Patient seen and examined. Patient denies any chest pain or pressure. He says some shortness breath. Hemoglobin 6.9 this morning. He received IV Lasix yesterday and again IV Lasix today. He admits lower extremity edema mildly improved. Medications: PHYSICAL EXAMINATION: Vitals reviewed LUNGS: Mild decreased breath sounds at the bases HEART:Irregular rate and rhythm, S1, S2. No S3. No systolic murmur ABDOMEN: Soft, nontender, no organomegaly EXTREMETIES: 2+ edema IMPRESSION: 1. Status post CABG, stable 2. Anemia postoperatively 3. Acute renal injury postoperatively 4. History of paroxysmal atrial fibrillation 5. History of diabetes 6. History of hypertension 7. History of hyperlipidemia 8. Postoperative A. fib however also has a history of A. fib 9. Acute on chronic diastolic heart failure PLAN: Agree with additional dose of Lasix and monitor response. Creatinine appears stable at 2.0. Monitor hemoglobin closely. Appears to be slowly improving. Possible discharge on Saturday per CTS. Objective - Vital Signs Vital signs: Vital Signs Temp 98.0 F 10/05/23 11:53 Pulse 72 10/05/23 15:15 Resp 18 10/05/23 11:53 BP 105/50 10/05/23 11:53 Pulse Ox 100 10/05/23 11:53 FiO2 21 10/03/23 00:02 Intake & Output 10/04/23 10/05/23 10/05/23 18:59 06:59 18:59 Intake Total 415 560 20 Output Total 400 1150 Balance 15 560 -1130 Weight 137.5 kg Intake: IV 5 20 20 Invasive Line 2 5 Invasive Line 4 20 20 Oral 410 540 Output: Urine 400 1150 Other: Voiding Method Bedside Commode Toilet Toilet Bedside Commode Bedside Commode # Voids 1 2 2 # Bowel Movements 1 ABP, PAP, CO, CI - Last Documented Arterial Blood Pressure 126/49 Pulmonary Artery Pressure 16/0 Cardiac Output 8.1 Cardiac Index 3.3 - Labs CBC & Chem 7: 10/05/23 07:32 10/05/23 07:32 Labs: Abnormal Lab Results - Last 24 Hours (Table) 09/19/23 10/04/23 10/04/23 Range/Units 09:20 16:24 19:30 RBC (4.30-5.90) m/uL Hgb (13.0-17.5) gm/dL Hct (39.0-53.0) % RDW (11.5-15.5) % Carbon Dioxide (22-30) mmol/L BUN (9-20) mg/dL Creatinine (0.66-1.25) mg/dL Glucose (74-99) mg/dL POC Glucose (mg/dL) 317 H 160 H (70-110) mg/dL Calcium (8.4-10.2) mg/dL Crossmatch See Detail 10/05/23 10/05/23 10/05/23 Range/Units 06:14 07:32 07:32 RBC 2.29 L (4.30-5.90) m/uL Hgb 6.9 L* (13.0-17.5) gm/dL Hct 21.8 L (39.0-53.0) % RDW 18.4 H (11.5-15.5) % Carbon Dioxide 19 L (22-30) mmol/L BUN 50 H (9-20) mg/dL Creatinine 2.03 H (0.66-1.25) mg/dL Glucose 132 H (74-99) mg/dL POC Glucose (mg/dL) 134 H (70-110) mg/dL Calcium 7.8 L (8.4-10.2) mg/dL Crossmatch 10/05/23 Range/Units 11:55 RBC (4.30-5.90) m/uL Hgb (13.0-17.5) gm/dL Hct (39.0-53.0) % RDW (11.5-15.5) % Carbon Dioxide (22-30) mmol/L BUN (9-20) mg/dL Creatinine (0.66-1.25) mg/dL Glucose (74-99) mg/dL POC Glucose (mg/dL) 233 H (70-110) mg/dL Calcium (8.4-10.2) mg/dL Crossmatch
[2023-10-05 16:21] LABS: Glucose,Whole Blood 181 mg/dL (70-110)
--- NOTE | 2023-10-05 17:44 | P.PN ---
Subjective Progress Note Date: 10/05/23 Hospital course: Patient is a very pleasant 73-year-old male with a past medical history of CAD status post stenting, hypertension, hyperlipidemia, atrial fibrillation on anticoagulation with Eliquis, and insulin-dependent diabetes mellitus. Patient was admitted to the hospital for a planned quadruple bypass. CABG 4 was completed on 09/27/[address] Herman. We are consulted for medical management throughout hospitalization. Physical exam: Patient is currently postoperative day 8. Patient appears to be doing well. He was sitting up in the chair at the bedside, heart hugger in place. Patient reports mild postoperative pain otherwise denies having any complaints at this time. Vital signs reviewed and stable. General: Nontoxic, no distress and appears stated age. Derm: Skin warm and dry, normal coloration for ethnicity. Moderate bruising upper and lower extremities. Head: Atraumatic, normocephalic and symmetric. Eyes: EOMs intact, no lid lag, and anicteric sclera Mouth: no lip lesions, mucus membranes moist Cardiovascular: regular rate and rhythm with normal S1S2, no noted murmur, positive posterior tibial pulses bilaterally, and cap refill < [address]. Postsurgical incision midsternal chest appears to be healing well, well approximated with no signs of dehiscence, erythema, or drainage. Lungs: Respirations even, regular, and unlabored on room air. Lungs CTA bila terally, no rhonchi, no rales, no wheezing, and no accessory muscle usage. Abdominal: soft, nontender to palpation, no guarding, no appreciable organomegaly Ext: ROM intact. No gross muscle atrophy, scant lower extremity edema, no contractures Neuro: Speech clear, face symmetrical and CN II-XII grossly intact with no noted focal neuro deficits Psych: Alert and oriented to person, place, time, and situation. Appropriate and pleasant affect. Assessment and Plan of Care: Multivessel Coronary artery disease status post CABG 4 Acute postoperative blood loss anemia Acute kidney injury on stage IIIB chronic kidney disease Acute on chronic thrombocytopenia, resolved Hypertension Hyperlipidemia Paroxysmal atrial fibrillation -Heart hugger to remain in place -BMP revealing acute kidney injury on chronic kidney disease with BUN of 50, creatinine 2.03, and GFR of 31 with baseline creatinine of 1.3. -Patient to remain on continuous telemetry monitoring. -Continue cardiac medication regimen with amiodarone 400 mg twice daily (day 5 of 400 mg twice a day), aspirin 325 mg daily, atorvastatin 40 mg daily, Plavix 75 mg daily, and metoprolol 25 mg twice daily. -Cardiothoracic surgery managing post-CABG care and placed order for Lasix 60 mg IVP 1 dose this morning. -Pulmonology following, reviewed documentation in chart. -Continue DVT prophylaxis with heparin 5000 units subcu every 8 hours -Currently maintaining sinus mechanism, continue metoprolol 25 mg twice daily and amiodarone 400 mg twice daily and recommend resumption of Eliquis once cleared by primary admitting cardiothoracic surgery team to resume. -Preoperative hemoglobin 12.4 currently hemoglobin 6.9. Per primary admitting cardiothoracic surgery team, will hold off on transfusing at this time as patient remains hemodynamically stable. Type 2 diabetes mellitus with hyperglycemia Patient to continue with Levemir 70 units nightly in addition to NovoLog 23 units 3 times daily with meals along with NovoLog sliding scale with meals and at bedtime. Data and imaging reviewed: -Morning labs reviewed. CBC showing normocytic anemia with hemoglobin of 6.9. BMP revealing mild hypocarbia with bicarb of 19 and acute kidney injury on chronic kidney disease with BUN of 50, creatinine 2.03, and GFR of 31 with baseline creatinine of 1.3. -Vital signs reviewed. Blood pressure 135/68, heart rate 75, respiratory rate 20, temp 97.3F, SpO2 of 99% on room air. Thank you for allowing us to participate in the care of this pleasant patient. Do not hesitate to contact us with questions. Someone can be reached from the [facility] hospitalist group all hours of the day at [phone] or via perfect serve. Patient was seen independently by Nurse Pracitioner. This document was prepared using [employer] dictation software. Please allow for errors in molecular spectroscopist, while rare they do occur. Rafi Abrams NP rendered care for this patient independently, reviewed the findings and plan as documented in the note above. I did not physically speak with or examine the patient on this date. Objective - Vital Signs Vital signs: Vital Signs Temp 97.3 F L 10/05/23 09:06 Pulse 75 10/05/23 09:06 Resp 20 10/05/23 09:06 BP 135/68 10/05/23 09:06 Pulse Ox 99 10/05/23 09:06 FiO2 21 10/03/23 00:02 Intake & Output 10/04/23 10/05/23 10/05/23 18:59 06:59 18:59 Intake Total 415 560 10 Output Total 400 550 Balance 15 560 -540 Weight 137.5 kg Intake: IV 5 20 10 Invasive Line 2 5 Invasive Line 4 20 10 Oral 410 540 Output: Urine 400 550 Other: Voiding Method Bedside Commode Toilet Bedside Commode # Voids 1 2 # Bowel Movements 1 ABP, PAP, CO, CI - Last Documented Arterial Blood Pressure 126/49 Pulmonary Artery Pressure 16/0 Cardiac Output 8.1 Cardiac Index 3.3 - Labs CBC & Chem 7: 10/08/23 06:02 10/08/23 06:02 Labs: Abnormal Lab Results - Last 24 Hours (Table) 10/04/23 10/04/23 10/04/23 Range/Units 11:48 16:24 19:30 RBC (4.30-5.90) m/uL Hgb (13.0-17.5) gm/dL Hct (39.0-53.0) % RDW (11.5-15.5) % Carbon Dioxide (22-30) mmol/L BUN (9-20) mg/dL Creatinine (0.66-1.25) mg/dL Glucose (74-99) mg/dL POC Glucose (mg/dL) 176 H 317 H 160 H (70-110) mg/dL Calcium (8.4-10.2) mg/dL 10/05/23 10/05/23 10/05/23 Range/Units 06:14 07:32 07:32 RBC 2.29 L (4.30-5.90) m/uL Hgb 6.9 L* (13.0-17.5) gm/dL Hct 21.8 L (39.0-53.0) % RDW 18.4 H (11.5-15.5) % Carbon Dioxide 19 L (22-30) mmol/L BUN 50 H (9-20) mg/dL Creatinine 2.03 H (0.66-1.25) mg/dL Glucose 132 H (74-99) mg/dL POC Glucose (mg/dL) 134 H (70-110) mg/dL Calcium 7.8 L (8.4-10.2) mg/dL
[2023-10-05 20:16] LABS: Glucose,Whole Blood 190 mg/dL (70-110)
[2023-10-05] MEDS: INSULIN DETEMIR (LEVEMIR) 100 UNIT/ML SYR SQ SCH (20:57)
[2023-10-06 06:17] LABS: Glucose,Whole Blood 159 mg/dL (70-110)
[2023-10-06] MEDS: INSULIN ASPART (NovoLOG) 100 UNIT/ML VIAL SQ SCH ×7 (06:53→20:42)
[2023-10-06] MEDS: PANTOPRAZOLE 40 MG TABLET PO SCH (06:53)
[2023-10-06 07:54] LABS: African American GFR (CKD) 35 (>60 ml/min/1.73 sqM); Anion Gap 11 mmol/L; Blood Urea Nitrogen 52 mg/dL (9-20); Calcium 7.7 mg/dL (8.4-10.2); Carbon Dioxide 21 mmol/L (22-30); Chloride 104 mmol/L (98-107); Glucose 127 mg/dL (74-99); Magnesium 2.4 mg/dL (1.6-2.3); Non-African American GFR(CKD) 30 (>60 ml/min/1.73 sqM); Potassium 4.4 mmol/L (3.5-5.1); Sodium 136 mmol/L (137-145)
[2023-10-06] MEDS: MAGNESIUM HYDROXIDE 2,400 MG/30 ML CUP PO PRN (07:58)
[2023-10-06] MEDS: HEPARIN SODIUM,PORCINE 5,000 UNIT/ML 1 ML VIAL SQ SCH ×3 (07:58→23:40)
[2023-10-06] MEDS: CYANOCOBALAMIN 500 MCG TAB PO SCH (07:59)
[2023-10-06] MEDS: ASCORBIC ACID 500 MG TAB PO SCH (07:59)
[2023-10-06] MEDS: TAMSULOSIN 0.4 MG CAP.ER.24H PO SCH (07:59)
[2023-10-06] MEDS: FERROUS SULFATE 325 MG TAB PO SCH (07:59)
[2023-10-06] MEDS: MULTIVITAMINS, THERA 1 EACH TAB PO SCH (07:59)
[2023-10-06] MEDS: ASPIRIN 325 MG TAB PO SCH (07:59)
[2023-10-06] MEDS: ATORVASTATIN 40 MG TAB PO SCH (07:59)
[2023-10-06] MEDS: CLOPIDOGREL 75 MG TAB PO SCH (07:59)
[2023-10-06] MEDS: METOPROLOL TARTRATE 25 MG TAB PO SCH ×2 (07:59→20:42)
[2023-10-06] MEDS: AMIODARONE 200 MG TAB PO SCH ×2 (07:59→20:41)
--- NOTE | 2023-10-06 08:13 | XR ---
EXAMINATION TYPE: XR chest 2V DATE OF EXAM: 10/06/2023 6:50 AM CLINICAL INDICATION:Male, 73 years old with history of post cardiac surgery; [facility] COMPARISON: Chest radiograph from one day prior. TECHNIQUE: XR chest 2V Frontal and lateral views of the chest. FINDINGS: Lungs/Pleura: Blunting of the left costophrenic angle There is no evidence of right pleural effusion, focal consolidation, or pneumothorax. Pulmonary vascularity: Unremarkable. Heart/mediastinum: Cardiomediastinal silhouette is unremarkable. A loop recorder projects over the le ft thorax over the heart. Left atrial appendage occlusion device is present. Musculoskeletal: No acute osseous pathology. Midline sternotomy fixation wires are noted. Other findings: None IMPRESSION: Stable post cardiac exam with small left pleural effusion.
[2023-10-06 08:15] LABS: Anisocytosis Slight; Hypochromasia Moderate; MCHC 31.5 g/dL (31.0-37.0); MCV 95.3 fL (80.0-100.0); Macrocytosis Slight; Platelet Count 154 k/uL (150-450); Poikilocytosis Slight; RBC 2.06 m/uL (4.30-5.90); RDW 18.9 % (11.5-15.5); WBC 5.2 k/uL (3.8-10.6)
[2023-10-06 08:27] LABS: HCT 19.6 % (39.0-53.0); HGB 6.2 gm/dL (13.0-17.5)
[2023-10-06] MEDS: IPRATROPIUM-ALBUTEROL 3 ML NEB INHALATION SCH ×4 (08:27→20:52)
[2023-10-06] MEDS ORDERED: FUROSEMIDE 10 MG/ML 10 ML VIAL IV STA (08:45)
--- NOTE | 2023-10-06 09:21 | P.PN ---
Subjective Progress Note Date: 10/06/23 Principal diagnosis: Multivessel coronary artery disease. Previous medical history of coronary artery disease status post multiple coronary stents, hypertension, hyperlipidemia, diabetes mellitus type 2, atrial fibrillation since 2016 on Eliquis for anticoagulation as an outpatient, obstructive sleep apnea with home BiPAP use, chronic renal insufficiency, gout, kidney stones and lifelong nonsmoker. POD #9 coronary artery bypass grafting 4 vessels (left internal mammary artery to left anterior descending coronary artery, saphenous vein graft to the first obtuse marginal coronary artery, saphenous vein graft to the third obtuse marginal coronary artery, saphenous vein graft to the posterior descending coronary artery, endoscopic harvesting bilateral greater saphenous veins, ligation of the left atrial appendage using a 35 mm Atriclip, epi-aortic ultrasound, intraoperative transesophageal echocardiogram, graft flow measurements using the [employer] system, and closure of the sternum using Tritium plating device. Postoperative acute blood loss anemia, expected given hemodilution and cardiopulmonary bypass. The patient was seen and examined sitting up in a recliner on the cardiac stepdown unit in no acute distress eating breakfast. States surgical pain mostly controlled on current medication regimen, denies shortness of breath. He has been able to ambulate in the hallway several times. Currently in sinus rhythm and hemodynamically stable. Currently on room air with oxygen saturation in the high 90s. Hemoglobin 6.2 this morning, will get 1 unit PRBCs. Received IV lasix again yesterday. CXR, labs reviewed. Discussed discharge plans with patient, we do have insurance authorization for patient to go to inpatient rehab and this was discussed with the patient that he may benefit from some rehabilitation in order to safely return home, the patient will consider this as his discharge plan versus home with home care. No other new concerns. Objective - Vital Signs Vital signs: Vital Signs Temp 97.9 F 10/06/23 08:09 Pulse 72 10/06/23 08:42 Resp 18 10/06/23 08:09 BP 125/54 10/06/23 08:09 Pulse Ox 98 10/06/23 08:30 FiO2 21 10/03/23 00:02 Intake & Output 10/05/23 10/06/23 10/06/23 18:59 06:59 18:59 Intake Total 20 550 120 Output Total 1150 350 Balance -1130 200 120 Weight 137.8 kg Intake: IV 20 10 Invasive Line 4 20 10 Oral 540 120 Output: Urine 1150 350 Other: Voiding Method Toilet Toilet Toilet Bedside Commode Bedside Commode Bedside Commode # Voids 2 1 ABP, PAP, CO, CI - Last Documented Arterial Blood Pressure 126/49 Pulmonary Artery Pressure 16/0 Cardiac Output 8.1 Cardiac Index 3.3 - Exam CONSTITUTIONAL: Appears comfortable, cooperative, no acute distress RESPIRATORY: Lungs sounds diminished bilaterally. Respirations even, nonlabored. Currently on room air with oxygen saturation 99%. Able to achieve 1750 mL on incentive spirometry. Strong cough. CARDIOVASCULAR: S1, S2 present. Regular rate and rhythm, sinus rhythm on telemetry. Sternum stable. Palpable peripheral pulses bilaterally. Bilateral lower extremity edema present. No calf pain or tenderness noted. Heart hugger in place with patient demonstrating appropriate use. Antiembolism stockings, SCDs present. GASTROINTESTINAL: Abdomen soft, nontender, nondistended. Active bowel sounds present 4 quadrants. Tolerating diet. Positive bowel movement 10/04 GENITOURINARY: Continues to void, output 1500 mL in the last 24 hours INTEGUMENTARY: Skin is warm and dry with evidence of good perfusion. Anterior chest incision well approximated. Bilateral lower extremity EVH sites well approximated without redness or drainage. NEUROLOGIC: Cranial nerves II through XII intact MUSKULOSKELETAL: Able to move all extremities, strength equal bilaterally although generalized weakness still present PSYCHIATRIC: Alert and oriented to person place and time, appropriate affect, intact judgment and insight - Allied health notes Allied health notes reviewed: nursing - Labs CBC & Chem 7: 10/06/23 06:33 10/06/23 06:33 Labs: Abnormal Lab Results - Last 24 Hours (Table) 09/19/23 10/05/23 10/05/23 Range/Units 09:20 11:55 16:20 RBC (4.30-5.90) m/uL Hgb (13.0-17.5) gm/dL Hct (39.0-53.0) % RDW (11.5-15.5) % Sodium (137-145) mmol/L Carbon Dioxide (22-30) mmol/L BUN (9-20) mg/dL Creatinine (0.66-1.25) mg/dL Glucose (74-99) mg/dL POC Glucose (mg/dL) 233 H 181 H (70-110) mg/dL Calcium (8.4-10.2) mg/dL Magnesium (1.6-2.3) mg/dL Crossmatch See Detail 10/05/23 10/06/23 10/06/23 Range/Units 20:10 06:16 06:33 RBC 2.06 L (4.30-5.90) m/uL Hgb 6.2 L* (13.0-17.5) gm/dL Hct 19.6 L* (39.0-53.0) % RDW 18.9 H (11.5-15.5) % Sodium (137-145) mmol/L Carbon Dioxide (22-30) mmol/L BUN (9-20) mg/dL Creatinine (0.66-1.25) mg/dL Glucose (74-99) mg/dL POC Glucose (mg/dL) 190 H 159 H (70-110) mg/dL Calcium (8.4-10.2) mg/dL Magnesium (1.6-2.3) mg/dL Crossmatch 10/06/23 Range/Units 06:33 RBC (4.30-5.90) m/uL Hgb (13.0-17.5) gm/dL Hct (39.0-53.0) % RDW (11.5-15.5) % Sodium 136 L (137-145) mmol/L Carbon Dioxide 21 L (22-30) mmol/L BUN 52 H (9-20) mg/dL Creatinine 2.08 H (0.66-1.25) mg/dL Glucose 127 H (74-99) mg/dL POC Glucose (mg/dL) (70-110) mg/dL Calcium 7.7 L (8.4-10.2) mg/dL Magnesium 2.4 H (1.6-2.3) mg/dL Crossmatch - Imaging and Cardiology Chest x-ray: report reviewed, image reviewed Assessment and Plan Assessment: Multivessel coronary artery disease, status post coronary artery bypass grafting 4 vessels History of coronary artery disease with multiple stent in the past Hypertension Hyperlipidemia Atrial fibrillation since 2016 on Eliquis for anticoagulation as an outpatient, status post ligation of left atrial appendage Diabetes mellitus type 2, with a preoperative hemoglobin A1c of 6.8% Obstructive sleep apnea with home BiPAP use Chronic renal insufficiency History of gout History of kidney stones Lifelong nonsmoker Postoperative acute blood loss anemia and postoperative thrombocytopenia, expected given hemodilution and cardiopulmonary bypass Medical debility Plan: Continue to maximize medical therapy with aspirin, statin, Plavix and beta jayna. Will increase beta jayna as tolerated Continue amiodarone for afib, will taper weekly Encourage incentive spirometry use 10 times every hour while awake. Bronchodilators per pulmonology. Will ultrasound left chest Increase activity, ambulate as tolerated. PT/OT/cardiac rehab following. Will monitor daily labs and chest x-rays. Electrolyte replacement per protocol. Will give IV lasix, transfuse 1 unit PRBCs today GI/DVT prophylaxis. Pain control per current medication regimen, no toradol due to CRF Avoid nephrotoxic agents as the patient has a history of chronic renal insufficiency Insulin management per internal medicine service Continue to record strict accurate intake and output Daily weights Possible discharge Saturday, versus home with home care More recommendations to follow based on patient's clinical course.
--- NOTE | 2023-10-06 10:21 | P.PN ---
Subjective Progress Note Date: 10/06/23 This patient is 73 and the patient underwent a four-vessel bypass surgery and the patient is being seen in the intensive care unit postop. The patient is currently sedated on propofol which is running at 20 mcg/kg/m. The patient's underwent four-vessel bypass surgery. The patient is currently well sedated on a mechanical ventilator on assist control mode at the rate of 12, tidal volume of 500, FiO2 was weaned down to 50% and PEEP is currently at 10. The patient's blood gas shows a pH of 7.29 with a pCO2 of 47 and pO2 of 352. This was on FiO2 100%. The patient was subsequently brought up respiratory rate of 24 and FiO2 was up to 50%. Chest x-ray shows adequate expansion of both lungs. [place] in good location. ET tube needs to be pushed in by around 1 cm. The patient has a right pleural, mediastinal and left pleural chest tubes. No evidence of any air leak. Output is minimal at this point in time. Carotid Dopplers at 5.8 with an index of 2.4. Patient is on norepinephrine at 0.04 mcg/kg/m, nitroglycerin drip at 5 mg/m and the patient is also on insulin drip at 1 units an hour. The patient sees a units of packed RBC. Making adequate urine output. Adequately sedated for now. No major issues otherwise. The patient is also placed at the rate of 80. Underlying cardiac rhythm is sinus bradycardia. On today's evaluation of 09/28/2023, the patient is being seen for a follow-up. The patient was extubated without any major difficulties yesterday. Currently is on room air oxygen. Sitting up on a chair. Chest x-ray shows no major abnormalities and showing postsurgical changes. The film itself facilitated. The patient has a right IJ Gants catheter in place. Patient has also 3 chest tubes, right pleural, left lower and mediastinal. Output from the chest tubes h ave been noted which is not excessive at this point in time and there is no evidence of any air leak. At the same time, the patient is using the incentive spirometer. He is falling approximately the thousand. Current pulse ox is 94%. His cardiac rhythm was sinus bradycardia with a first-degree AV block. The patient is currently paced at the rate of 70. Cardiac output is at 7.3. Index is at 3.0. He did encounter some hypotension yesterday and the patient was taken off the nitroglycerin drip and currently is off norepinephrine. Insulin drip is running at the rate of 6 units an hour. Hemoglobin is low at 6.8. No orders for blood transfusion at this point in time. This is being monitored. Platelet count is 79, BUN is at 24 with a creatinine of 1.6 as the patient has a component of chronic kidney disease. Briceno cath is in place. Adequate urine output. Sodium level is at 139, potassium is at 4.4, bicarb is at 20. In 2022, the patient is on oxygen at 2 L he's currently postop day #2. Doing well. Slightly lethargic and is feeling weak. No focal neurological deficits. Is worried all 4 extremities. Slightly confused. Based on that, a blood gas was done and the patient was found to have a pH of 7.48 with episodes of 27 and pO2 of 73. Serum bicarbs of 20. His chest x-ray from today showing some atelectatic change in the left lung base. The patient has a right pleural, left lower and the mediastinal chest tube. No airspace disease. No consolidation. He had some issues with drop in hemoglobin and patient was given units of packed RBC. Follow-up hemoglobin today is still low at 6.7. Another units of packed RBC will be given fluids patient today. He has sustained an acute kidney injury. Creatinine is up to 1.9 with a BUN of 31 and a sodium level is at 137. Serum bicarbs of 20. White cell count at 7.1. [place]-T[place] catheter has been removed. He is on aspirin. He is on Plavix. He is on metoprolol at a dose of 12.5 mg by mouth twice a day. His underlying rhythm is sinus. He is having occasional PACs. Patient was reevaluated today on 09/30/23, patient is now postoperative day #3. Patient is doing well, awake, alert, oriented 3, although at times he had episodes where he was a bit confused, does not seem to be in any distress, his narcotics have been discontinued yesterday. Patient is hemodynamically stable, and achieving above 1500 mL on his incentive spirometry, he is hemodynamically stable, not requiring any inotropes or pressors. Patient did receive 2 units of packed RBCs yesterday for hemoglobin of 7.1. Patient feels generally weak, otherwise relatively asymptomatic. WBC count is 5.5 hemoglobin is 7.1. ABG on room air today showed a pO2 of 70 pCO2 28 pH of 7.51, basic metabolic profile is normal renal profile showed a BUN of 36 creatinine 1.78 improving compared to baseline creatinine Reevaluated today on 10/01/2023, patient remains in the ICU, doing well, he is on room air, does not seem to be in any distress, sitting at a bedside chair, hemoglobin is down to 6.8, surgery will decide whether to give the patient a unit of packed RBCs are not. Discussed his condition with cardiac surgery, refills to wait for now. Patient has no specific complaints, denies any pain and denies any shortness of breath, chest x-ray is showing mostly left lower lobe atelectasis and possibly a small effusion patient is achieving almost 2000 mL with his incentive spirometry, his O2 saturation 96% on room air. His left- sided chest tube was removed yesterday, continues to have atrial and ventricular epicardial pacemaker wires, and they are grounded. WBC count is 5.0 hemoglobin 6.8 basic metabolic profile is normal creatinine went up slightly up to 1.89, and that is being closely monitored. Patient did have numbers as high as 1.90 on baseline on 09/27 was 1.3 Patient was reevaluated today on 10/02/23 remains in the ICU, doing fairly well, remains on room air, and he is not in any form of distress. Patient is on amiodarone drip at present, his hemoglobin has been noted to be low and he is still receives 1 unit of packed RBCs today, hemoglobin today is 6.5, today's transfusion be unit #4 of packed RBCs given so far on this admission. Surprisingly the patient is clinically doing great, CBC is unremarkable except for low hemoglobin of 6.5 he is hemodynamically stable, not requiring any pressors BUN remains a bit elevated at 46 and creatinine slightly elevated at 1.77 and that's about his baseline. Chest x-ray today is even showing significant improvement in the aeration of the left lower lobe. And doubt any pleural effusion Patient was seen and evaluated today on 10/03/2023, remains in the ICU. Patient is on room air, comfortable, sitting in a recliner, not in any distress. Denies any active pulmonary symptoms, has been ambulating in the hallway, and doing extremely well with incentive spirometry. He is now postoperative day #6 coronary artery bypass grafting 4 vessels (left internal mammary artery to left anterior descending coronary artery, saphenous vein graft to the first obtuse marginal coronary artery, saphenous vein graft to the third obtuse marginal coronary artery, saphenous vein graft to the posterior descending coronary artery, chest x-ray showed left basilar atelectasis and possibly a small left- sided pleural effusion him a otherwise unremarkable. CBC showed a hemoglobin of 7, platelets 137 basic metabolic profile is normal creatinine 1.84 which is close to his baseline. Reevaluated today on 10/04/2023, patient remains in the ICU, doing fairly well, steadily improving, chest x-ray showed small left lower lobe atelectasis and pleural effusion however the patient is on room air and asymptomatic hemoglobin remains low at 6.8 today, patient received a total of 4 units of packed RBCs since admission and 2 units of platelets. No active bleeding is noted. Basic metabolic profile is normal creatinine is up to 2.01 slightly worse today compared to yesterday of 1.84., Patient is being evaluated for possible discharge planning by cardiothoracic surgery on the case. He did receive IV Lasix yesterday, however that's presently on hold. And we are avoiding n ephrotoxic drugs on this patient The patient is seen today 10/05/2023 in follow-up on the selective care unit. He is currently awake and alert in no acute distress. He sitting up in a chair at the bedside. He is maintaining O2 saturations in the 90s on room air. He's been afebrile. Hemodynamically stable. Chest x-ray shows some blunting of left costophrenic angle. Otherwise stable post cardiac exam. He is status post 4 units of packed red blood cells this admission. Current hemoglobin 6.9. Platelets 172. White count 6.6. Sodium 137. Potassium 4.2. Bicarb 19. BUN 50. Creatinine 2.03. Glucose 132. The patient is seen today 10/06/2023 in follow-up on the selective care unit. He is sitting up in a chair. Awake and alert in no acute distress. Feeling stronger each day. He is maintaining O2 saturations in the 90s on room air. Chest x-ray continues to show a small left pleural effusion. He is working very well with the incentive spirometer. Pulling nearly 2 L. He is status post 4 units of packed red blood cells. Today's hemoglobin was 6.2 and he is receiving a fifth unit today. White count 5.2. Platelets 154. Sodium 136. Potassium 4.4. Bicarb 21. BUN 52. Creatinine 2.08. Glucose 127. He remains on bronchodilators. Heparin for DVT prophylaxis. Protonix for GI prophylaxis. Objective - Vital Signs Vital signs: Vital Signs Temp 97.5 F L 10/06/23 10:06 Pulse 70 10/06/23 10:06 Resp 18 10/06/23 10:06 BP 124/68 10/06/23 10:06 Pulse Ox 100 10/06/23 10:06 FiO2 21 10/03/23 00:02 Intake & Output 10/05/23 10/06/23 10/06/23 18:59 06:59 18:59 Intake Total 20 550 120 Output Total 1150 350 Balance -1130 200 120 Weight 137.8 kg Intake: IV 20 10 Invasive Line 4 20 10 Oral 540 120 Blood Product 0 Unit 0 Output: Urine 1150 350 Other: Voiding Method Toilet Toilet Toilet Bedside Commode Bedside Commode Bedside Commode # Voids 2 1 ABP, PAP, CO, CI - Last Documented Arterial Blood Pressure 126/49 Pulmonary Artery Pressure 16/0 Cardiac Output 8.1 Cardiac Index 3.3 - Exam GENERAL EXAM: Alert, pleasant 73-year-old male, on room air, comfortable in no apparent distress. HEAD: Normocephalic. EYES: Normal reaction of pupils, equal size. NOSE: Clear with pink turbinates. THROAT: No erythema or exudates. NECK: No masses, no JVD. CHEST: No chest wall deformity. Sternal dressing dry and intact. Heart hugger in place. LUNGS: Equal air entry with few crackles in the left base. CVS: S1 and S2 normal with no audible murmur, regular rhythm. ABDOMEN: No hepatosplenomegaly, normal bowel sounds, no guarding or rigidity. SPINE: No scoliosis or deformity SKIN: No rashes CENTRAL NERVOUS SYSTEM: No focal deficits, tone is normal in all 4 extremities. EXTREMITIES: Gary wrap still lower extremities. There is no peripheral edema. No clubbing, no cyanosis. Peripheral pulses are intact. - Labs CBC & Chem 7: 10/06/23 06:33 10/06/23 06:33 Labs: Abnormal Lab Results - Last 24 Hours (Table) 09/19/23 10/05/23 10/05/23 Range/Units 09:20 11:55 16:20 RBC (4.30-5.90) m/uL Hgb (13.0-17.5) gm/dL Hct (39.0-53.0) % RDW (11.5-15.5) % Sodium (137-145) mmol/L Carbon Dioxide (22-30) mmol/L BUN (9-20) mg/dL Creatinine (0.66-1.25) mg/dL Glucose (74-99) mg/dL POC Glucose (mg/dL) 233 H 181 H (70-110) mg/dL Calcium (8.4-10.2) mg/dL Magnesium (1.6-2.3) mg/dL Crossmatch See Detail 10/05/23 10/06/23 10/06/23 Range/Units 20:10 06:16 06:33 RBC (4.30-5.90) m/uL Hgb (13.0-17.5) gm/dL Hct (39.0-53.0) % RDW (11.5-15.5) % Sodium (137-145) mmol/L Carbon Dioxide (22-30) mmol/L BUN (9-20) mg/dL Creatinine (0.66-1.25) mg/dL Glucose (74-99) mg/dL POC Glucose (mg/dL) 190 H 159 H (70-110) mg/dL Calcium (8.4-10.2) mg/dL Magnesium (1.6-2.3) mg/dL Crossmatch See Detail 10/06/23 10/06/23 Range/Units 06:33 06:33 RBC 2.06 L (4.30-5.90) m/uL Hgb 6.2 L* (13.0-17.5) gm/dL Hct 19.6 L* (39.0-53.0) % RDW 18.9 H (11.5-15.5) % Sodium 136 L (137-145) mmol/L Carbon Dioxide 21 L (22-30) mmol/L BUN 52 H (9-20) mg/dL Creatinine 2.08 H (0.66-1.25) mg/dL Glucose 127 H (74-99) mg/dL POC Glucose (mg/dL) (70-110) mg/dL Calcium 7.7 L (8.4-10.2) mg/dL Magnesium 2.4 H (1.6-2.3) mg/dL Crossmatch Assessment and Plan Assessment: Coronary artery disease. The patient underwent four-vessel bypass surgery. Post operative day #9 CAD status post multiple stents, now status post CABG Acute blood loss anemia, expected. Patient received 4 units of packed RBCs. Receiving a fifth unit today for hemoglobin of 6.2 Acute on chronic thrombocytopenia, anticipated outcome of surgery, platelets are being monitored, improving, level today is 154 Type 2 diabetes, patient is still requiring insulin drip Chronic kidney disease stage III, current creatinine 2.08 Hypocalcemia History of hypertension History of atrial fibrillation Dyslipidemia Gout BPH [place]: The patient was seen and evaluated Chest x-ray, labs and medications reviewed Receiving a fifth unit of packed red blood cells today Continue the current treatment plan Encouraged increased use of the incentive spirometer Plan is for possible inpatient rehab post discharge We will continue to follow This patient was seen independently by the pulmonary nurse practitioner who performed the medical decision-making I have personally seen and examined the patient, performed the documentation and the assessment and plan as written. Number of minutes spent on the visit: 22.
[2023-10-06 11:35] LABS: Glucose,Whole Blood 174 mg/dL (70-110)
--- NOTE | 2023-10-06 11:36 | US ---
EXAMINATION TYPE: US chest DATE OF EXAM: 10/06/2023 Exam done portable COMPARISON: Chest radiograph same day. CLINICAL INDICATION: Male, 73 years old with history of mya left side for thora; TECHNIQUE: Targeted ultrasound of the posterior lower left hemithorax EXAM MEASUREMENTS: Left Pleural Effusion pocket size: 7.9 cm Left skin surface to fluid distance: 5.3 cm Lung seen within mid portion of fluid pocket Left side marked for possible thoracentesis outside the dept. Pulmonologists are able to review the images in the patient?s EMR. IMPRESSIONS: Left pleural effusion marked for possible thoracentesis.
--- NOTE | 2023-10-06 13:31 | P.PN ---
Subjective Progress Note Date: 10/06/23 PROGRESS NOTE The patient is a 73-year-old male who underwent CABG yesterday. He is followed regularly by Dr. De Oliveira in [place] and has underwent prior stenting, most recently about 10 years ago according to him who has been complaining of progressive chest discomfort and underwent cardiac catheterization in [place], was found to have severe obstructive disease and underwent CABG yesterday. He received a MAGANA to the LAD and SVG to OM1 and 3 and PDA with closure of the left atrial appendage. He is extubated, sitting up in the chair, he feels well. He was having chest discomfort and dyspnea on exertion prior to presentation. He has no peripheral edema, PND or orthopnea. He does not recall being told that he had a myocardial infarction or history of CHF. He has a prior history of paroxysmal atrial fibrillation and has a loop recorder and according to him there was no episodes of atrial fibrillation for the last 2 years. Hemodynamically he is stable. He has a history of diabetes, hypertension and hyperlipidemia. He is a nonsmoker. September 29: The patient is feeling well this morning, he denies any chest discomfort, dizziness or palpitations. He continues to be in sinus mechanism. H emodynamically stable. His urine output is stable. He denies any nausea or vomiting. He is on no vasopressors. He had anemia and his received transfusion. 09/30 Patient seen and examined. Patient has had off-and-on confusion and currently on BiPAP. Denies any chest pain or pressure. Creatinine 1.7 with hemoglobin 7.1. 10/01 Patient seen and examined. Patient denies any chest pain or pressure. States he still feels short of breath. Hemoglobin 6.8 today with platelets 114. Creatinine 1.89. 10/02 Patient seen and examined. Patient flipped into atrial fibrillation yesterday and predilate controlled rates in the 90s to low 100 and denies any real palpitations. He does admit to history of atrial fibrillation previously. He also received packed red blood cells today. States he feels somewhat better in terms of energy today. Received IV Lasix yesterday. Receiving IV amiodarone. 10/03 Patient was in atrial fibrillation yesterday however appears in sinus rhythm today. Denies any chest pain or pressure. Does have 2+ lower extremity edema. He did receive packed red blood cell transfusion yesterday. 10/04 Patient seen and examined. Patient received IV Lasix yesterday with creatinine 2.0 today. Denies any chest pain or pressure. Says some shortness breath which appears fairly stable. He was transferred out of ICU today. Hemoglobin 6.8 today. He does have ecchymosis of bilateral inguinal area and through his thighs. 10/05 Patient seen and examined. Patient denies any chest pain or pressure. He says some shortness breath. Hemoglobin 6.9 this morning. He received IV Lasix yesterday and again IV Lasix today. He admits lower extremity edema mildly improved. 10/06 is undergoing blood transfusion for hemoglobin of X.2. BUN 52 and creatinine 2.08, potassium 4.4. Sodium 136. He is also been on IV Lasix 60 mg times once per cardiothoracic surgery. Ultrasound of the chest done to mya for possible thoracentesis. 115/69, heart rate in the 60s and 70s. ultrasound revealed a left pocket 7.9 cm. Medications: PHYSICAL EXAMINATION: Vitals reviewed LUNGS: Mild decreased breath sounds at the bases HEART:Irregular rate and rhythm, S1, S2. No S3. No systolic murmur ABDOMEN: Soft, nontender, no organomegaly EXTREMETIES: 2+ edema IMPRESSION: 1. Status post CABG, stable 2. Anemia postoperatively 3. Acute renal injury postoperatively 4. History of paroxysmal atrial fibrillation 5. History of diabetes 6. History of hypertension 7. History of hyperlipidemia 8. Postoperative A. fib however also has a history of A. fib 9. Acute on chronic diastolic heart failure PLAN: Agree with additional dose of Lasix and monitor response. transfusion of packed RBCs ordered for today possible thoracentesis Nurse practitioner note has been reviewed, I agree with the documented findings and plan of care. Patient was seen and examined. Objective - Vital Signs Vital signs: Vital Signs Temp 97.9 F 10/06/23 11:23 Pulse 72 10/06/23 11:46 Resp 18 10/06/23 11:23 BP 115/69 10/06/23 11:23 Pulse Ox 100 10/06/23 11:23 FiO2 21 10/03/23 00:02 Intake & Output 10/05/23 10/06/23 10/06/23 18:59 06:59 18:59 Intake Total 20 550 120 Output Total 1150 350 250 Balance -1130 200 -130 Weight 137.8 kg Intake: IV 20 10 Invasive Line 4 20 10 Oral 540 120 Blood Product 0 Unit 0 Output: Urine 1150 350 250 Other: Voiding Method Toilet Toilet Toilet Bedside Commode Bedside Commode Bedside Commode # Voids 2 1 1 ABP, PAP, CO, CI - Last Documented Arterial Blood Pressure 126/49 Pulmonary Artery Pressure 16/0 Cardiac Output 8.1 Cardiac Index 3.3 - Labs CBC & Chem 7: 10/06/23 06:33 10/06/23 06:33 Labs: Abnormal Lab Results - Last 24 Hours (Table) 10/05/23 10/05/23 10/05/23 Range/Units 11:55 16:20 20:10 RBC (4.30-5.90) m/uL Hgb (13.0-17.5) gm/dL Hct (39.0-53.0) % RDW (11.5-15.5) % Sodium (137-145) mmol/L Carbon Dioxide (22-30) mmol/L BUN (9-20) mg/dL Creatinine (0.66-1.25) mg/dL Glucose (74-99) mg/dL POC Glucose (mg/dL) 233 H 181 H 190 H (70-110) mg/dL Calcium (8.4-10.2) mg/dL Magnesium (1.6-2.3) mg/dL Crossmatch 10/06/23 10/06/23 10/06/23 Range/Units 06:16 06:33 06:33 RBC 2.06 L (4.30-5.90) m/uL Hgb 6.2 L* (13.0-17.5) gm/dL Hct 19.6 L* (39.0-53.0) % RDW 18.9 H (11.5-15.5) % Sodium (137-145) mmol/L Carbon Dioxide (22-30) mmol/L BUN (9-20) mg/dL Creatinine (0.66-1.25) mg/dL Glucose (74-99) mg/dL POC Glucose (mg/dL) 159 H (70-110) mg/dL Calcium (8.4-10.2) mg/dL Magnesium (1.6-2.3) mg/dL Crossmatch See Detail 10/06/23 10/06/23 Range/Units 06:33 11:33 RBC (4.30-5.90) m/uL Hgb (13.0-17.5) gm/dL Hct (39.0-53.0) % RDW (11.5-15.5) % Sodium 136 L (137-145) mmol/L Carbon Dioxide 21 L (22-30) mmol/L BUN 52 H (9-20) mg/dL Creatinine 2.08 H (0.66-1.25) mg/dL Glucose 127 H (74-99) mg/dL POC Glucose (mg/dL) 174 H (70-110) mg/dL Calcium 7.7 L (8.4-10.2) mg/dL Magnesium 2.4 H (1.6-2.3) mg/dL Crossmatch
--- NOTE | 2023-10-06 15:12 | P.PN ---
Subjective Progress Note Date: 10/06/23 Hospital course: Patient is a very pleasant 73-year-old male with a past medical history of CAD status post stenting, hypertension, hyperlipidemia, atrial fibrillation on anticoagulation with Eliquis, and insulin-dependent diabetes mellitus. Patient was admitted to the hospital for a planned quadruple bypass. CABG 4 was completed on 09/27/[address] Herman. We are consulted for medical management throughout hospitalization. Physical exam: Patient is currently postoperative day 9. Patient appears to be doing well and is ambulating to and from bathroom he reports feeling a little constipated but otherwise denies having any new complaints or concerns at this time. Heart hugger remains in place. Vital signs reviewed and stable. General: Nontoxic, no distress and appears stated age. Derm: Skin warm and dry, normal coloration for ethnicity. Moderate bruising upper and lower extremities. Head: Atraumatic, normocephalic and symmetric. Eyes: EOMs intact, no lid lag, and anicteric sclera Mouth: no lip lesions, mucus membranes moist Cardiovascular: regular rate and rhythm with normal S1S2, no noted murmur, positive posterior tibial pulses bilaterally, and cap refill < [address]. Postsurgical incision midsternal chest appears to be healing well, well approximated with no signs of dehiscence, erythema, or drainage. Lungs: Respirations even, regular, and unlabored on room air. Lungs CTA bilaterally, no rhonchi, no rales, no wheezing, and no accessory muscle usage. Abdominal: soft, nontender to palpation, no guarding, no appreciable organomegaly Ext: ROM intact. No gross muscle atrophy, scant lower extremity edema, no contractures Neuro: Speech clear, face symmetrical and CN II-XII grossly intact with no noted focal neuro deficits Psych: Alert and oriented to person, place, time, and situation. Appropriate and pleasant affect. Assessment and Plan of Care: Multivessel Coronary artery disease status post CABG 4 Acute postoperative blood loss anemia Acute kidney injury on stage IIIB chronic kidney disease Acute on chronic thrombocytopenia, resolved Hypertension Hyperlipidemia Paroxysmal atrial fibrillation -Heart hugger to remain in place -CBC showing worsening anemia, hemoglobin 6.2. Patient requiring transfusion 1 unit PRBCs this morning. -BMP showing persistent acute kidney injury on chronic kidney disease with BUN of 52, creatinine 2.08, and GFR of 30 with baseline creatinine of 1.3. -Patient to remain on continuous telemetry monitoring. -Continue cardiac medication regimen with amiodarone 400 mg twice daily (day 5 of 400 mg twice a day), aspirin 325 mg daily, atorvastatin 40 mg daily, Plavix 75 mg daily, and metoprolol 25 mg twice daily. -Cardiothoracic surgery managing post-CABG care and recommending inpatient rehab on discharge, insurance authorization has been obtained. -Pulmonology following, reviewed documentation in chart. -Continue DVT prophylaxis with heparin 5000 units subcu every 8 hours -Currently maintaining sinus mechanism, continue metoprolol 25 mg twice daily and amiodarone 400 mg twice daily and recommend resumption of Eliquis once he moglobin is stabilized and cleared by primary admitting cardiothoracic surgery team to resume. Type 2 diabetes mellitus with hyperglycemia Patient to continue with Levemir 70 units nightly in addition to NovoLog 23 units 3 times daily with meals along with NovoLog sliding scale with meals and at bedtime. Data and imaging reviewed: -Morning labs reviewed. CBC showing worsening anemia, hemoglobin 6.2. Patient r equiring transfusion 1 unit PRBCs this morning. BMP showing persistent acute kidney injury on chronic kidney disease with BUN of 52, creatinine 2.08, and GFR of 30 with baseline creatinine of 1.3. -Vital signs reviewed. Blood pressure 125/54, heart rate 68, respiratory rate 18, temp 97.9F, and SpO2 of 99% on room air. Thank you for allowing us to participate in the care of this pleasant patient. Do not hesitate to contact us with questions. Someone can be reached from the [facility] hospitalist group all hours of the day at [phone] or via perfect serve. Patient was seen independently by Nurse Pracitioner. This document was prepared using [employer] dictation software. Please allow for errors in golf course starter, while rare they do occur. Rafi Abrams NP rendered care for this patient independently, reviewed the findings and plan as documented in the note above. I did not physically speak with or examine the patient on this date. Objective - Vital Signs Vital signs: Vital Signs Temp 97.9 F 10/06/23 08:09 Pulse 72 10/06/23 08:42 Resp 18 10/06/23 08:09 BP 125/54 10/06/23 08:09 Pulse Ox 98 10/06/23 08:30 FiO2 21 10/03/23 00:02 Intake & Output 10/05/23 10/06/23 10/06/23 18:59 06:59 18:59 Intake Total 20 550 120 Output Total 1150 350 Balance -1130 200 120 Weight 137.8 kg Intake: IV 20 10 Invasive Line 4 20 10 Oral 540 120 Output: Urine 1150 350 Other: Voiding Method Toilet Toilet Toilet Bedside Commode Bedside Commode Bedside Commode # Voids 2 1 ABP, PAP, CO, CI - Last Documented Arterial Blood Pressure 126/49 Pulmonary Artery Pressure 16/0 Cardiac Output 8.1 Cardiac Index 3.3 - Labs CBC & Chem 7: 10/08/23 06:02 10/08/23 06:02 Labs: Abnormal Lab Results - Last 24 Hours (Table) 09/19/23 10/05/23 10/05/23 Range/Units 09:20 11:55 16:20 RBC (4.30-5.90) m/uL Hgb (13.0-17.5) gm/dL Hct (39.0-53.0) % RDW (11.5-15.5) % Sodium (137-145) mmol/L Carbon Dioxide (22-30) mmol/L BUN (9-20) mg/dL Creatinine (0.66-1.25) mg/dL Glucose (74-99) mg/dL POC Glucose (mg/dL) 233 H 181 H (70-110) mg/dL Calcium (8.4-10.2) mg/dL Magnesium (1.6-2.3) mg/dL Crossmatch See Detail 10/05/23 10/06/23 10/06/23 Range/Units 20:10 06:16 06:33 RBC 2.06 L (4.30-5.90) m/uL Hgb 6.2 L* (13.0-17.5) gm/dL Hct 19.6 L* (39.0-53.0) % RDW 18.9 H (11.5-15.5) % Sodium (137-145) mmol/L Carbon Dioxide (22-30) mmol/L BUN (9-20) mg/dL Creatinine (0.66-1.25) mg/dL Glucose (74-99) mg/dL POC Glucose (mg/dL) 190 H 159 H (70-110) mg/dL Calcium (8.4-10.2) mg/dL Magnesium (1.6-2.3) mg/dL Crossmatch 10/06/23 Range/Units 06:33 RBC (4.30-5.90) m/uL Hgb (13.0-17.5) gm/dL Hct (39.0-53.0) % RDW (11.5-15.5) % Sodium 136 L (137-145) mmol/L Carbon Dioxide 21 L (22-30) mmol/L BUN 52 H (9-20) mg/dL Creatinine 2.08 H (0.66-1.25) mg/dL Glucose 127 H (74-99) mg/dL POC Glucose (mg/dL) (70-110) mg/dL Calcium 7.7 L (8.4-10.2) mg/dL Magnesium 2.4 H (1.6-2.3) mg/dL Crossmatch
[2023-10-06 16:39] LABS: Glucose,Whole Blood 192 mg/dL (70-110)
[2023-10-06 20:08] LABS: Glucose,Whole Blood 241 mg/dL (70-110)
[2023-10-06] MEDS: SENNOSIDES-DOCUSATE SODIUM 1 EACH TAB PO SCH (20:41)
[2023-10-06] MEDS: INSULIN DETEMIR (LEVEMIR) 100 UNIT/ML SYR SQ SCH (20:42)
[2023-10-06] MEDS: ZINC OXIDE PASTE (Z-GUARD) 1 APPLIC APPLIC TOPICAL SCH (20:43)
[2023-10-07 06:08] LABS: Glucose,Whole Blood 107 mg/dL (70-110)
[2023-10-07] MEDS: INSULIN ASPART (NovoLOG) 100 UNIT/ML VIAL SQ SCH ×7 (06:10→21:10)
[2023-10-07] MEDS: PANTOPRAZOLE 40 MG TABLET PO SCH (06:30)
[2023-10-07 06:47] LABS: Anisocytosis Slight; HCT 21.5 % (39.0-53.0); Hypochromasia Moderate; MCH 30.2 pg (25.0-35.0); MCHC 32.4 g/dL (31.0-37.0); MCV 93.3 fL (80.0-100.0); Macrocytosis Slight; Platelet Count 138 k/uL (150-450); Poikilocytosis Slight; RBC 2.31 m/uL (4.30-5.90); RDW 19.1 % (11.5-15.5); WBC 5.3 k/uL (3.8-10.6)
[2023-10-07 07:02] LABS: ALT 37 U/L (4-49); AST 48 U/L (17-59); African American GFR (CKD) 36 (>60 ml/min/1.73 sqM); Albumin 2.9 g/dL (3.5-5.0); Alkaline Phosphatase 95 U/L (38-126); Anion Gap 11 mmol/L; Blood Urea Nitrogen 50 mg/dL (9-20); Calcium 7.7 mg/dL (8.4-10.2); Carbon Dioxide 21 mmol/L (22-30); Chloride 105 mmol/L (98-107); Glucose 89 mg/dL (74-99); Magnesium 2.7 mg/dL (1.6-2.3); Non-African American GFR(CKD) 31 (>60 ml/min/1.73 sqM); Sodium 137 mmol/L (137-145); Total Bilirubin 1.1 mg/dL (0.2-1.3); Total Protein 5.7 g/dL (6.3-8.2)
[2023-10-07] MEDS: AMIODARONE 200 MG TAB PO SCH ×2 (07:56→21:10)
[2023-10-07] MEDS: CYANOCOBALAMIN 500 MCG TAB PO SCH (07:56)
[2023-10-07] MEDS: HEPARIN SODIUM,PORCINE 5,000 UNIT/ML 1 ML VIAL SQ SCH ×2 (07:56→15:11)
[2023-10-07] MEDS: ASCORBIC ACID 500 MG TAB PO SCH (07:56)
[2023-10-07] MEDS: ASPIRIN 325 MG TAB PO SCH (07:57)
[2023-10-07] MEDS: ZINC OXIDE PASTE (Z-GUARD) 1 APPLIC APPLIC TOPICAL SCH ×2 (07:57→21:11)
[2023-10-07] MEDS: TAMSULOSIN 0.4 MG CAP.ER.24H PO SCH (07:57)
[2023-10-07] MEDS: CLOPIDOGREL 75 MG TAB PO SCH (07:57)
[2023-10-07] MEDS: FERROUS SULFATE 325 MG TAB PO SCH (07:57)
[2023-10-07] MEDS: ATORVASTATIN 40 MG TAB PO SCH (07:57)
[2023-10-07] MEDS: MULTIVITAMINS, THERA 1 EACH TAB PO SCH (07:57)
[2023-10-07] MEDS: METOPROLOL TARTRATE 25 MG TAB PO SCH ×2 (07:57→21:10)
[2023-10-07] MEDS: ACETAMINOPHEN TAB 325 MG TAB PO PRN ×2 (07:58→18:07)
[2023-10-07] MEDS: IPRATROPIUM-ALBUTEROL 3 ML NEB INHALATION SCH ×4 (08:34→21:43)
--- NOTE | 2023-10-07 08:46 | XR ---
EXAMINATION TYPE: XR chest 2V DATE OF EXAM: 10/07/2023 6:34 AM CLINICAL INDICATION:Male, 73 years old with history of effusion; [facility] COMPARISON: 10/06/2023 6:53 AM and 10/05/2023 6:29 AM TECHNIQUE: XR chest 2V. Frontal PA and lateral views of the chest. FINDINGS: Lines/Tubes: EKG leads and other extrinsic densities overlie the chest. Heart/mediastinum: Cardiomediastinal silhouette is stable. Heart appears mildly to moderately enlarg ed. Mediastinum appears unchanged. There are multiple sternotomy wires and fixation devices redemons trated. Stable appearance of left atrial appendage occlusion device. Electronic device which may be loop recorder projects again over the left hilum. Pulmonary vascularity: Mild vascular congestion. Lungs/Pleura: Left basilar pleural-parenchymal opacity again seen suggesting moderate left pleural ef fusion with adjacent atelectasis or infiltrate. Stable minimally blunted appearance of the right cost ophrenic angle. No new or worsening infiltrate. No visualized pneumothorax. Musculoskeletal: No acute osseous abnormality demonstrated in the limits of the exam. Mild degenerat radha changes of the shoulders. Moderate to severe degenerative changes of the thoracic spine. Other findings: None. IMPRESSION: Stable moderate sized left pleural effusion. Otherwise stable exam.
[2023-10-07] MEDS ORDERED: FUROSEMIDE 10 MG/ML 10 ML VIAL IV STA (08:48)
[2023-10-07] MEDS ORDERED: CALCIUM GLUCONATE IN NACL 2 GM in SALINE 1 100ML.BAG IVPB ONE (08:48)
--- NOTE | 2023-10-07 11:38 | PCN ---
PROCEDURE NOTE PROCEDURE PERFORMED: Left-sided thoracentesis. PREOPERATIVE DIAGNOSIS: Left pleural effusion. POSTOPERATIVE DIAGNOSIS: Left pleural effusion. There was informed consent and universal timeout. The left posterior chest was marked by ultrasound. There was universal timeout. Indication Pleural effusion. A time-out was completed verifying correct patient, procedure, site, positioning , and implant (s) or special equipment if applicable. Ultrasound guidance was/was not used and appropriate fluid pocket was identified and marked. Patient was positioned, prepped and draped in usual sterile fashion. Lidocaine was used to anesthetize the area. A Thoracentesis catheter was introduced into the pleural space and fluid was removed. Blood loss was none. Roughly 750 mL of bloody fluid was removed from the left pleural space. The patient tolerated the procedure well. The fluid will be sent for analysis including cytology, microbiology, and chemistry. There was no immediate complication. A chest x-ray was ordered. MMODL / IJN: [id number] /
[2023-10-07 11:42] LABS: Glucose,Whole Blood 261 mg/dL (70-110)
--- NOTE | 2023-10-07 13:34 | P.PN ---
Subjective Progress Note Date: 10/07/23 PROGRESS NOTE The patient is a 73-year-old male who underwent CABG yesterday. He is followed regularly by Dr. De Oliveira in [place] and has underwent prior stenting, most recently about 10 years ago according to him who has been complaining of progressive chest discomfort and underwent cardiac catheterization in [place], was found to have severe obstructive disease and underwent CABG yesterday. He received a MAGANA to the LAD and SVG to OM1 and 3 and PDA with closure of the left atrial appendage. He is extubated, sitting up in the chair, he feels well. He was having chest discomfort and dyspnea on exertion prior to presentation. He has no peripheral edema, PND or orthopnea. He does not recall being told that he had a myocardial infarction or history of CHF. He has a prior history of paroxysmal atrial fibrillation and has a loop recorder and according to him there was no episodes of atrial fibrillation for the last 2 years. Hemodynamically he is stable. He has a history of diabetes, hypertension and hyperlipidemia. He is a nonsmoker. September 29: The patient is feeling well this morning, he denies any chest discomfort, dizziness or palpitations. He continues to be in sinus mechanism. H emodynamically stable. His urine output is stable. He denies any nausea or vomiting. He is on no vasopressors. He had anemia and his received transfusion. 09/30 Patient seen and examined. Patient has had off-and-on confusion and currently on BiPAP. Denies any chest pain or pressure. Creatinine 1.7 with hemoglobin 7.1. 10/01 Patient seen and examined. Patient denies any chest pain or pressure. States he still feels short of breath. Hemoglobin 6.8 today with platelets 114. Creatinine 1.89. 10/02 Patient seen and examined. Patient flipped into atrial fibrillation yesterday and predilate controlled rates in the 90s to low 100 and denies any real palpitations. He does admit to history of atrial fibrillation previously. He also received packed red blood cells today. States he feels somewhat better in terms of energy today. Received IV Lasix yesterday. Receiving IV amiodarone. 10/03 Patient was in atrial fibrillation yesterday however appears in sinus rhythm today. Denies any chest pain or pressure. Does have 2+ lower extremity edema. He did receive packed red blood cell transfusion yesterday. 10/04 Patient seen and examined. Patient received IV Lasix yesterday with creatinine 2.0 today. Denies any chest pain or pressure. Says some shortness breath which appears fairly stable. He was transferred out of ICU today. Hemoglobin 6.8 today. He does have ecchymosis of bilateral inguinal area and through his thighs. 10/05 Patient seen and examined. Patient denies any chest pain or pressure. He says some shortness breath. Hemoglobin 6.9 this morning. He received IV Lasix yesterday and again IV Lasix today. He admits lower extremity edema mildly improved. 10/06 Patient is undergoing blood transfusion for hemoglobin of 6.2. BUN 52 and creatinine 2.08, potassium 4.4. Sodium 136. He is also been on IV Lasix 60 mg times once per cardiothoracic surgery. Ultrasound of the chest done to mya for possible thoracentesis. 115/69, heart rate in the 60s and 70s. ultrasound revealed a left pocket 7.9 cm. 10/07 Patient is scheduled for left-sided thoracentesis today with Dr. Martins. Telemetry is sinus rhythm, heart rate 60s to 80s, blood pressure 108/62, pulse ox 98% on room air. Repeat blood work reveals hemoglobin of 7.0 status post transfusion of 1 unit of packed RBCs yesterday. BUN 50 creatinine 2.03. Potassium 4. Patient received another dose of IV Lasix 60 mg today. Medications: PHYSICAL EXAMINATION: Vitals reviewed LUNGS: Mild decreased breath sounds at the bases HEART:Irregular rate and rhythm, S1, S2. No S3. No systolic murmur ABDOMEN: Soft, nontender, no organomegaly EXTREMETIES: 2+ edema IMPRESSION: 1. Status post CABG, stable 2. Anemia postoperatively 3. Acute renal injury postoperatively 4. History of paroxysmal atrial fibrillation 5. History of diabetes 6. History of hypertension 7. History of hyperlipidemia 8. Postoperative A. fib however also has a history of A. fib 9. Acute on chronic diastolic heart failure 10. Left-sided pleural effusion scheduled for thoracentesis PLAN: Agree with additional dose of Lasix and monitor response. Monitor renal function and hemoglobin Continue current cardiac medications Nurse practitioner note has been reviewed, I agree with the documented findings and plan of care. Patient was seen and examined. Objective - Vital Signs Vital signs: Vital Signs Temp 97.9 F 10/07/23 04:00 Pulse 80 10/07/23 08:46 Resp 22 10/07/23 04:00 BP 117/71 10/07/23 04:00 Pulse Ox 93 L 10/07/23 08:34 FiO2 21 10/07/23 08:34 Intake & Output 10/06/23 10/07/23 10/07/23 18:59 06:59 18:59 Intake Total 670 Output Total 1575 500 Balance -905 -500 Weight 137.1 kg Intake: IV 20 Invasive Line 4 20 Oral 340 Blood Product 310 Rc As-1 Unit 310 [id number] Output: Urine 1575 500 Other: Voiding Method Toilet Toilet Bedside Commode Bedside Commode # Voids 1 1 # Bowel Movements 1 ABP, PAP, CO, CI - Last Documented Arterial Blood Pressure 126/49 Pulmonary Artery Pressure 16/0 Cardiac Output 8.1 Cardiac Index 3.3 - Labs CBC & Chem 7: 10/07/23 06:14 10/07/23 06:14 Labs: Abnormal Lab Results - Last 24 Hours (Table) 10/06/23 10/06/23 10/06/23 Range/Units 06:33 11:33 16:37 RBC (4.30-5.90) m/uL Hgb (13.0-17.5) gm/dL Hct (39.0-53.0) % RDW (11.5-15.5) % Plt Count (150-450) k/uL Carbon Dioxide (22-30) mmol/L BUN (9-20) mg/dL Creatinine (0.66-1.25) mg/dL POC Glucose (mg/dL) 174 H 192 H (70-110) mg/dL Calcium (8.4-10.2) mg/dL Magnesium (1.6-2.3) mg/dL Total Protein (6.3-8.2) g/dL Albumin (3.5-5.0) g/dL Crossmatch See Detail 10/06/23 10/07/23 10/07/23 Range/Units 20:06 06:14 06:14 RBC 2.31 L (4.30-5.90) m/uL Hgb 7.0 L (13.0-17.5) gm/dL Hct 21.5 L (39.0-53.0) % RDW 19.1 H (11.5-15.5) % Plt Count 138 L (150-450) k/uL Carbon Dioxide 21 L (22-30) mmol/L BUN 50 H (9-20) mg/dL Creatinine 2.03 H (0.66-1.25) mg/dL POC Glucose (mg/dL) 241 H (70-110) mg/dL Calcium 7.7 L (8.4-10.2) mg/dL Magnesium 2.7 H (1.6-2.3) mg/dL Total Protein 5.7 L (6.3-8.2) g/dL Albumin 2.9 L (3.5-5.0) g/dL Crossmatch
--- NOTE | 2023-10-07 13:44 | P.PN ---
Subjective Progress Note Date: 10/07/23 Principal diagnosis: Status post CABG. Patient was reevaluated today on 10/02/23 remains in the ICU, doing fairly well, remains on room air, and he is not in any form of distress. Patient is on amiodarone drip at present, his hemoglobin has been noted to be low and he is still receives 1 unit of packed RBCs today, hemoglobin today is 6.5, today's transfusion be unit #4 of packed RBCs given so far on this admission. Surprisingly the patient is clinically doing great, CBC is unremarkable except for low hemoglobin of 6.5 he is hemodynamically stable, not requiring any press ors BUN remains a bit elevated at 46 and creatinine slightly elevated at 1.77 and that's about his baseline. Chest x-ray today is even showing significant improvement in the aeration of the left lower lobe. And doubt any pleural effusion Patient was seen and evaluated today on 10/03/2023, remains in the ICU. Patient is on room air, comfortable, sitting in a recliner, not in any distress. Denies any active pulmonary symptoms, has been ambulating in the hallway, and doing extremely well with incentive spirometry. He is now postoperative day #6 coronary artery bypass grafting 4 vessels (left internal mammary artery to left anterior descending coronary artery, saphenous vein graft to the first obtuse marginal coronary artery, saphenous vein graft to the third obtuse marginal coronary artery, saphenous vein graft to the posterior descending coronary artery, chest x-ray showed left basilar atelectasis and possibly a small left- sided pleural effusion him a otherwise unremarkable. CBC showed a hemoglobin of 7, platelets 137 basic metabolic profile is normal creatinine 1.84 which is c lose to his baseline. Reevaluated today on 10/04/2023, patient remains in the ICU, doing fairly well, steadily improving, chest x-ray showed small left lower lobe atelectasis and pleural effusion however the patient is on room air and asymptomatic hemoglobin remains low at 6.8 today, patient received a total of 4 units of packed RBCs since admission and 2 units of platelets. No active bleeding is noted. Basic metabolic profile is normal creatinine is up to 2.01 slightly worse today compared to yesterday of 1.84., Patient is being evaluated for possible discharge planning by cardiothoracic surgery on the case. He did receive IV Lasix yesterday, however that's presently on hold. And we are avoiding nephrotoxic drugs on this patient The patient is seen today 10/05/2023 in follow-up on the selective care unit. He is currently awake and alert in no acute distress. He sitting up in a chair at the bedside. He is maintaining O2 saturations in the 90s on room air. He's been afebrile. Hemodynamically stable. Chest x-ray shows some blunting of left costophrenic angle. Otherwise stable post cardiac exam. He is status post 4 units of packed red blood cells this admission. Current hemoglobin 6.9. Platelets 172. White count 6.6. Sodium 137. Potassium 4.2. Bicarb 19. BUN 5 0. Creatinine 2.03. Glucose 132. The patient is seen today 10/06/2023 in follow-up on the selective care unit. He is sitting up in a chair. Awake and alert in no acute distress. Feeling stronger each day. He is maintaining O2 saturations in the 90s on room air. Chest x-ray continues to show a small left pleural effusion. He is working very well with the incentive spirometer. Pulling nearly 2 L. He is status post 4 units of packed red blood cells. Today's hemoglobin was 6.2 and he is receiving a fifth unit today. White count 5.2. Platelets 154. Sodium 136. Potassium 4.4. Bicarb 21. BUN 52. Creatinine 2.08. Glucose 127. He remains on bronchodilators. Heparin for DVT prophylaxis. Protonix for GI prophylaxis. Progress note dated 10/07/2023. The patient is seen today in room 384. The patient appears to be doing relatively well. The patient's on room air. No IV fluids. We are asked by cardiothoracic surgery to consider doing a thoracentesis on this patient. He h ad an ultrasound left chest, which showed a small to moderate left-sided pleural effusion. The patient did have a bedside thoracentesis performed by me today. 750 mL of bloody fluid was removed from the left pleural space. The patient tolerated the procedure well. Currently labs include a white count 5.3, hemoglobin 7, hematocrit 21.5, and a platelet count of 138,000. Sodium 137, potassium 4, chlorides 105, CO2 21, BUN 50, creatinine 2.03. Albumin is 2.9. Chest x-ray after the procedure shows a small left-sided pleural effusion, without evident pneumothorax. Objective - Vital Signs Vital signs: Vital Signs Temp 98.1 F 10/07/23 11:27 Pulse 80 10/07/23 12:01 Resp 20 10/07/23 11:27 BP 108/62 10/07/23 11:27 Pulse Ox 98 10/07/23 11:27 FiO2 21 10/07/23 08:34 Intake & Output 10/06/23 10/07/23 10/07/23 18:59 06:59 18:59 Intake Total 670 240 Output Total 1575 1850 Balance -905 -1610 Weight 137.1 kg Intake: IV 20 Invasive Line 4 20 Oral 340 240 Blood Product 310 Rc As-1 Unit 310 [id number] Output: Urine 1575 1850 Other: Voiding Method Toilet Toilet Toilet Bedside Commode Bedside Commode # Voids 1 1 # Bowel Movements 1 ABP, PAP, CO, CI - Last Documented Arterial Blood Pressure 126/49 Pulmonary Artery Pressure 16/0 Cardiac Output 8.1 Cardiac Index 3.3 - Exam No acute distress, oriented 3. Currently on room air. Saturations are 98%. HEENT examination is grossly unremarkable. Mucous membranes are moist. No oral lesions. Neck supple. Full range of motion. No adenopathy thyromegaly or neck vein distention. Cardiovascular examination reveals regular rhythm rate. S1-S2 normal. No S3 or S4. No discernible murmur noted. Heart sounds are distant. Heart rate 60 bpm. Lungs reveal diminished breath sounds at the left base. There is dullness on percussion in the left base. The right lung is clear. No wheezes, rhonchi, or crackles. Abdomen soft bowel sounds are heard. No masses or tenderness. Extremities are intact. No cyanosis clubbing or edema. Skin is without rash or lesion. Neurologic examination is brief but nonfocal. - Labs CBC & Chem 7: 10/07/23 06:14 10/07/23 06:14 Labs: Abnormal Lab Results - Last 24 Hours (Table) 10/06/23 10/06/23 10/06/23 Range/Units 06:33 16:37 20:06 RBC (4.30-5.90) m/uL Hgb (13.0-17.5) gm/dL Hct (39.0-53.0) % RDW (11.5-15.5) % Plt Count (150-450) k/uL Carbon Dioxide (22-30) mmol/L BUN (9-20) mg/dL Creatinine (0.66-1.25) mg/dL POC Glucose (mg/dL) 192 H 241 H (70-110) mg/dL Calcium (8.4-10.2) mg/dL Magnesium (1.6-2.3) mg/dL Total Protein (6.3-8.2) g/dL Albumin (3.5-5.0) g/dL Crossmatch See Detail 10/07/23 10/07/23 10/07/23 Range/Units 06:14 06:14 11:40 RBC 2.31 L (4.30-5.90) m/uL Hgb 7.0 L (13.0-17.5) gm/dL Hct 21.5 L (39.0-53.0) % RDW 19.1 H (11.5-15.5) % Plt Count 138 L (150-450) k/uL Carbon Dioxide 21 L (22-30) mmol/L BUN 50 H (9-20) mg/dL Creatinine 2.03 H (0.66-1.25) mg/dL POC Glucose (mg/dL) 261 H (70-110) mg/dL Calcium 7.7 L (8.4-10.2) mg/dL Magnesium 2.7 H (1.6-2.3) mg/dL Total Protein 5.7 L (6.3-8.2) g/dL Albumin 2.9 L (3.5-5.0) g/dL Crossmatch Assessment and Plan Assessment: Coronary artery disease. The patient underwent four-vessel bypass surgery. Post operative day #10. S/P left thoracentesis, 750 mL of bloody fluid removed, 10/07/2023. CAD status post multiple stents, now status post CABG. Acute blood loss anemia, expected. Patient received 4 units of packed RBCs. Receiving a fifth unit today for hemoglobin of 6.2. Acute on chronic thrombocytopenia, anticipated outcome of surgery, platelets are being monitored, improving, level today is 154. Type 2 diabetes. Chronic kidney disease stage III, current creatinine 2.08. Morbid obesity. Hypocalcemia. History of hypertension. History of atrial fibrillation. Dyslipidemia. Gout. BPH. Plan: Plan dated 10/07/2023. Today is postop day #10, status post four-vessel bypass surgery. Today, we did a left-sided thoracentesis, and 750 mL of bloody fluid was removed without incident, from the left pleural space. The patient will be sent for analysis, although I don't expect there to be an infection. The patient tolerated the procedure well. The postthoracentesis chest x-ray looks okay, without obvious pneumothorax. The fluid in the left chest is reduced. Labs, x-rays, med ications are reviewed. The patient's on room air. We will continue to follow and make recommendations where necessary. Time with Patient: Less than 30
--- NOTE | 2023-10-07 14:12 | P.PN ---
Subjective Progress Note Date: 10/07/23 Principal diagnosis: Multivessel coronary artery disease. Previous medical history of coronary artery disease status post multiple coronary stents, hypertension, hyperlipidemia, diabetes mellitus type 2, atrial fibrillation since 2016 on Eliquis for anticoagulation as an outpatient, obstructive sleep apnea with home BiPAP use, chronic renal insufficiency, gout, kidney stones and lifelong nonsmoker. POD #10 coronary artery bypass grafting 4 vessels (left internal mammary artery to left anterior descending coronary artery, saphenous vein graft to the first obtuse marginal coronary artery, saphenous vein graft to the third obtuse marginal coronary artery, saphenous vein graft to the posterior descending coronary artery, endoscopic harvesting bilateral greater saphenous veins, ligation of the left atrial appendage using a 35 mm Atriclip, epi-aortic ultrasound, intraoperative transesophageal echocardiogram, graft flow measurements using the PartyLinestim system, and closure of the sternum using Tritium plating device. Postoperative acute blood loss anemia, expected given hemodilution and cardiopulmonary bypass. The patient was seen and examined sitting up in a recliner on the cardiac stepdown unit in no acute distress eating breakfast. States surgical pain mostly controlled on current medication regimen, denies shortness of breath. He has been able to ambulate in the hallway several times. Currently in sinus rhythm and hemodynamically stable. Currently on room air with oxygen saturation in the high 90s. Hemoglobin 7.0 this morning, after receiving 1 unit PRBCs yesterday. Received IV lasix again yesterday. CXR, labs reviewed. Discussed discharge plans with patient, we do have insurance authorization for patient to go to inpatient rehab and this was discussed with the patient that he may benefit from some rehabilitation in order to safely return home, the patient will consider this as his discharge plan although he prefers home with home care. No other new concerns. Objective - Vital Signs Vital signs: Vital Signs Temp 98.1 F 10/07/23 11:27 Pulse 80 10/07/23 12:01 Resp 20 10/07/23 11:27 BP 108/62 10/07/23 11:27 Pulse Ox 98 10/07/23 11:27 FiO2 21 10/07/23 08:34 Intake & Output 10/06/23 10/07/23 10/07/23 18:59 06:59 18:59 Intake Total 670 240 Output Total 1575 1850 Balance -905 -1610 Weight 137.1 kg Intake: IV 20 Invasive Line 4 20 Oral 340 240 Blood Product 310 Rc As-1 Unit 310 [id number] Output: Urine 1575 1850 Other: Voiding Method Toilet Toilet Toilet Bedside Commode Bedside Commode # Voids 1 1 # Bowel Movements 1 ABP, PAP, CO, CI - Last Documented Arterial Blood Pressure 126/49 Pulmonary Artery Pressure 16/0 Cardiac Output 8.1 Cardiac Index 3.3 - Exam CONSTITUTIONAL: Appears comfortable, cooperative, no acute distress RESPIRATORY: Lungs sounds diminished bilaterally. Respirations even, nonlabored. Currently on room air with oxygen saturation 98%. Able to achieve 1750 mL on incentive spirometry. Strong cough. CARDIOVASCULAR: S1, S2 present. Regular rate and rhythm, sinus rhythm on telemetry. Sternum stable. Palpable peripheral pulses bilaterally. Bilateral lower extremity edema present. No calf pain or tenderness noted. Heart hugger in place with patient demonstrating appropriate use. Antiembolism stockings, SCDs present. GASTROINTESTINAL: Abdomen soft, nontender, nondistended. Active bowel sounds present 4 quadrants. Tolerating diet. Positive bowel movement 10/06 GENITOURINARY: Continues to void, output 1575 mL in the last 24 hours INTEGUMENTARY: Skin is warm and dry with evidence of good perfusion. Anterior chest incision well approximated. Bilateral lower extremity EVH sites well approximated without redness or drainage. NEUROLOGIC: Cranial nerves II through XII intact MUSKULOSKELETAL: Able to move all extremities, strength equal bilaterally although generalized weakness still present PSYCHIATRIC: Alert and oriented to person place and time, appropriate affect, intact judgment and insight - Allied health notes Allied health notes reviewed: nursing - Labs CBC & Chem 7: 10/07/23 06:14 10/07/23 06:14 Labs: Abnormal Lab Results - Last 24 Hours (Table) 10/06/23 10/06/23 10/06/23 Range/Units 06:33 16:37 20:06 RBC (4.30-5.90) m/uL Hgb (13.0-17.5) gm/dL Hct (39.0-53.0) % RDW (11.5-15.5) % Plt Count (150-450) k/uL Carbon Dioxide (22-30) mmol/L BUN (9-20) mg/dL Creatinine (0.66-1.25) mg/dL POC Glucose (mg/dL) 192 H 241 H (70-110) mg/dL Calcium (8.4-10.2) mg/dL Magnesium (1.6-2.3) mg/dL Total Protein (6.3-8.2) g/dL Albumin (3.5-5.0) g/dL Crossmatch See Detail 10/07/23 10/07/23 10/07/23 Range/Units 06:14 06:14 11:40 RBC 2.31 L (4.30-5.90) m/uL Hgb 7.0 L (13.0-17.5) gm/dL Hct 21.5 L (39.0-53.0) % RDW 19.1 H (11.5-15.5) % Plt Count 138 L (150-450) k/uL Carbon Dioxide 21 L (22-30) mmol/L BUN 50 H (9-20) mg/dL Creatinine 2.03 H (0.66-1.25) mg/dL POC Glucose (mg/dL) 261 H (70-110) mg/dL Calcium 7.7 L (8.4-10.2) mg/dL Magnesium 2.7 H (1.6-2.3) mg/dL Total Protein 5.7 L (6.3-8.2) g/dL Albumin 2.9 L (3.5-5.0) g/dL Crossmatch - Imaging and Cardiology Chest x-ray: report reviewed, image reviewed Assessment and Plan Assessment: Multivessel coronary artery disease, status post coronary artery bypass grafting 4 vessels History of coronary artery disease with multiple stent in the past Hypertension Hyperlipidemia Atrial fibrillation since 2016 on Eliquis for anticoagulation as an outpatient, status post ligation of left atrial appendage Diabetes mellitus type 2, with a preoperative hemoglobin A1c of 6.8% Obstructive sleep apnea with home BiPAP use Chronic renal insufficiency History of gout History of kidney stones Lifelong nonsmoker Postoperative acute blood loss anemia and postoperative thrombocytopenia, expected given hemodilution and cardiopulmonary bypass Medical debility Plan: Continue to maximize medical therapy with aspirin, statin, Plavix and beta jayna. Will increase beta jayna as tolerated Continue amiodarone for afib, will taper weekly Encourage incentive spirometry use 10 times every hour while awake. Bronchodilators per pulmonology. Left thoracentesis performed by Dr. Basha with removal of 750 mL bloody fluid Increase activity, ambulate as tolerated. PT/OT/cardiac rehab following. Will monitor daily labs and chest x-rays. Electrolyte replacement per protocol. Will give IV lasix GI/DVT prophylaxis. Pain control per current medication regimen, no toradol due to CRF Avoid nephrotoxic agents as the patient has a history of chronic renal insufficiency Insulin management per internal medicine service Continue to record strict accurate intake and output Daily weights Possible discharge tomorrow depending on hemaglobin, IPR versus home with home care More recommendations to follow based on patient's clinical course.
--- NOTE | 2023-10-07 14:58 | P.PN ---
Subjective Progress Note Date: 10/07/23 Patient is a 73-year-old male right handed male who lives with his adult son who is disabled (unable to assist) in a single story home with 3 MARILEE. Prior admission, patient was independent with mobility and ADLs, no assistive device. He drives and is retired. Per therapy notes, patient was mostly sedentary at home. Support includes his sister who is helping with his son at this time. He does get meals on wheels. He does have some friends local that could help with groceries and errands upon discharge. Mr Hopkins presented to [facility] on 09/27/23 for an elective CABG due to CAD. Post operative Chest x-ray showed left pleural effusion. He was managed post operatively in ICU, also on insulin drip. His hgb was monitored, required transfusion post operative. He has sustained an acute kidney injury. He had some post operative confusion, narcotics were discontinued and he seemed to improve. All of his chest tubes and drains were removed. PM&R consulted for rehab recommendations. Patient was evaluated by therapies; min assist with transfers and gait 6 ft 2ww, max assist with bathign and UB dressing, total assist with LB dressing. 10/01/23: Patient states he is doing 'ok'. He feels tired and weak. He denies SOB and abdominal pain. He had a BM today, patterson was removed this morning. He admits to sternal incision soreness/pain. He denies N/T/B sensations in the arms or legs. He reports he does not feel that he could manage at home at this time. Patient has had thoracentesis and blood transfusion. 10/07/23: patient sitting up in chair today, reports he is feeling much better. He was able to walk the hallways. He feels he is able to go home and is no longer interested in IPR. Reviewed therapy notes, patient has progressed well and is now much more functional. Objective - Vital Signs Vital signs: Vital Signs Temp 98.1 F 10/07/23 11:27 Pulse 80 10/07/23 12:01 Resp 20 10/07/23 11:27 BP 108/62 10/07/23 11:27 Pulse Ox 98 10/07/23 11:27 FiO2 21 10/07/23 08:34 Intake & Output 10/06/23 10/07/23 10/07/23 18:59 06:59 18:59 Intake Total 670 240 Output Total 1575 1850 Balance -905 -1610 Weight 137.1 kg Intake: IV 20 Invasive Line 4 20 Oral 340 240 Blood Product 310 Rc As-1 Unit 310 [id number] Output: Urine 1575 1850 Other: Voiding Method Toilet Toilet Toilet Bedside Commode Bedside Commode # Voids 1 1 # Bowel Movements 1 ABP, PAP, CO, CI - Last Documented Arterial Blood Pressure 126/49 Pulmonary Artery Pressure 16/0 Cardiac Output 8.1 Cardiac Index 3.3 - Exam General: WDWN, morbidly obese male, sitting up in chair, NAD Head: Normocephalic, atraumatic. Eyes: Symmetric Ears: Symmetric. Hearing within normal limits. Mouth: Clear. Neck: Supple. Cardiac:heart hugger on. Calves supple, non tender, + LE and hand edema- improved, SCDs and compression stockings on Lungs: Breathing comfortably, no wheezing. Chest symmetric. Abdomen: Soft, rounded, nontender. Extremities: Arthritic changes consistent with age. Neurological: Alert and oriented x 4 Speech is clear and fluent without paraphasic errors Musculoskeletal: ROM WFL EXCEPT: sternal precautions MMT UE Sh Abd EE EF FABD WE HG Right 4 5 5 5 Left 4 5 5 5 MMT LE HF KE DF EHL Right 4+ 5 5 5 Left 4+ 5 5 5 Skin: Skin intact where visible to head, neck, and bilateral upper and lower extremities EXCEPT: sternal dressing, abdominal puncture/ chest tube sites, LE incisions and ecchymosis Psych: Calm, cooperative - Labs CBC & Chem 7: 10/07/23 06:14 10/07/23 06:14 Labs: Abnormal Lab Results - Last 24 Hours (Table) 10/06/23 10/06/23 10/07/23 Range/Units 16:37 20:06 06:14 RBC 2.31 L (4.30-5.90) m/uL Hgb 7.0 L (13.0-17.5) gm/dL Hct 21.5 L (39.0-53.0) % RDW 19.1 H (11.5-15.5) % Plt Count 138 L (150-450) k/uL Carbon Dioxide (22-30) mmol/L BUN (9-20) mg/dL Creatinine (0.66-1.25) mg/dL POC Glucose (mg/dL) 192 H 241 H (70-110) mg/dL Calcium (8.4-10.2) mg/dL Magnesium (1.6-2.3) mg/dL Total Protein (6.3-8.2) g/dL Albumin (3.5-5.0) g/dL 10/07/23 10/07/23 Range/Units 06:14 11:40 RBC (4.30-5.90) m/uL Hgb (13.0-17.5) gm/dL Hct (39.0-53.0) % RDW (11.5-15.5) % Plt Count (150-450) k/uL Carbon Dioxide 21 L (22-30) mmol/L BUN 50 H (9-20) mg/dL Creatinine 2.03 H (0.66-1.25) mg/dL POC Glucose (mg/dL) 261 H (70-110) mg/dL Calcium 7.7 L (8.4-10.2) mg/dL Magnesium 2.7 H (1.6-2.3) mg/dL Total Protein 5.7 L (6.3-8.2) g/dL Albumin 2.9 L (3.5-5.0) g/dL Assessment and Plan Assessment: # Cardiac Debility secondary to CAD status post multiple stents, now status post CABG -PT/OT -sternal precautions #Acute blood loss anemia s/p transfusion -multiple transfusions #Acute on chronic thrombocytopenia #Type 2 diabetes #Hypocalcemia # s/p thoracentesis # Comorbidities: CAD status post multiple stents, hypertension, atrial fibrillation, dyslipidemia, kidney disease stage III, gout, BPH # Bowel/ Bladder: Nursing to monitor and report concerns if any. -10/01/23 denies issues with bowel, patterson removed this morning -10/07/23 no complaints # Diet- per EMR # Skin/wound: Skin/Wound care to follow as needed -monitor sternal incisions and port sites # Pain Management -Tylenol 650 mg Q 4 prn # DVT Prophylaxis: - Heparin SQ # Your medical dx and mgt Goals: Modified Independent mobility and ADLS both basic and advanced; increased functional mobility/strength; increased balance, safety, endurance. Improvement in medical issues through your care. Barriers: endurance, sternal precautions Discharge recommendation: Patient has progressed well, more functional. He would like to return home with [facility] which is appropriate at this time. Patient seen and examined in coordination with Dr. Herman Thank you for consulting our services.
[2023-10-07 16:04] VITALS: RESP 18
--- NOTE | 2023-10-07 16:36 | P.PN ---
Subjective Progress Note Date: 10/07/23 Hospital course: Patient is a very pleasant 73-year-old male with a past medical history of CAD status post stenting, hypertension, hyperlipidemia, atrial fibrillation on anticoagulation with Eliquis, and insulin-dependent diabetes mellitus. Patient was admitted to the hospital for a planned quadruple bypass. CABG 4 was completed on 09/27/[address] Herman. We are consulted for medical management throughout hospitalization. Physical exam: Patient is currently postoperative day 10. Patient appears to be doing well he was sitting up in the chair at bedside status post completion of left sided thoracentesis. Patient reports breathing much better since thoracentesis was completed. Patient had removal of 750 mL of fluid from pleural space. Discussed goals of care with patient for discharge, patient states he is leaning more towards discharging home to be with his son and discuss this with primary admitting cardiothoracic team. He reports mild soreness, but reports feeling much better today than yesterday. Vital signs reviewed and stable. General: Nontoxic, no distress and appears stated age. Derm: Skin warm and dry, normal coloration for ethnicity. Moderate bruising upper and lower extremities. Head: Atraumatic, normocephalic and symmetric. Eyes: EOMs intact, no lid lag, and anicteric sclera Mouth: no lip lesions, mucus membranes moist Cardiovascular: regular rate and rhythm with normal S1S2, no noted murmur, positive posterior tibial pulses bilaterally, and cap refill < [address]. Postsurgical incision midsternal chest appears to be healing well, well approximated with no signs of dehiscence, erythema, or drainage. Lungs: Respirations even, regular, and unlabored on room air. Lungs CTA bilaterally, no rhonchi, no rales, no wheezing, and no accessory muscle usage. Abdominal: soft, nontender to palpation, no guarding, no appreciable organomegaly Ext: ROM intact. No gross muscle atrophy, scant lower extremity edema, no contractures Neuro: Speech clear, face symmetrical and CN II-XII grossly intact with no noted focal neuro deficits Psych: Alert and oriented to person, place, time, and situation. Appropriate and pleasant affect. Assessment and Plan of Care: Multivessel Coronary artery disease status post CABG 4 Acute postoperative blood loss anemia Acute kidney injury on stage IIIB chronic kidney disease, prerenal Acute on chronic thrombocytopenia, resolved Hypertension Hyperlipidemia Paroxysmal atrial fibrillation -Heart hugger to remain in place -Patient is Status post a total of 5 units of PRBCs and hemoglobin currently stable at 7.0. -BMP showing persistent acute kidney injury on chronic kidney disease with BUN of 52, creatinine 2.08, and GFR of 30 with baseline creatinine of 1.3. -Patient to remain on continuous telemetry monitoring. -Continue cardiac medication regimen with amiodarone 400 mg twice daily (day 5 of 400 mg twice a day), aspirin 325 mg daily, atorvastatin 40 mg daily, Plavix 75 mg daily, and metoprolol 25 mg twice daily. -Cardiothoracic surgery managing post-CABG care and recommending inpatient rehab on discharge, insurance authorization has been obtained. -Pulmonology following, reviewed documentation in chart. -Continue DVT prophylaxis with heparin 5000 units subcu every 8 hours -Currently maintaining sinus mechanism, continue metoprolol 25 mg twice daily and amiodarone 400 mg twice daily and recommend resumption of Eliquis once hemoglobin is stabilized and cleared by primary admitting cardiothoracic surgery team to resume. Type 2 diabetes mellitus with hyperglycemia Patient to continue with Levemir 70 units nightly in addition to NovoLog 23 units 3 times daily with meals along with NovoLog sliding scale with meals and at bedtime. Data and imaging reviewed: -Morning labs reviewed. CBC showing normocytic anemia with hemoglobin stable at 7.0 and thrombocytopenia with platelet count of 138. BMP showing mild hypocarbia with bicarb of 21 and continued acute kidney injury with BUN of 50, creatinine 2.03, and GFR of 31. Liver profile unremarkable. -Vital signs reviewed. Blood pressure 108/62, heart rate 60, respiratory rate 20, temp 98.1F, SpO2 of 98% on room air. Thank you for allowing us to participate in the care of this pleasant patient. Do not hesitate to contact us with questions. Someone can be reached from the [facility] hospitalist group all hours of the day at [phone] or via perfect serve. Patient was seen independently by Nurse Pracitioner. This document was prepared using [facility] dictation software. Please allow for errors in equipment operator warehouse, while rare they do occur. Rafi Abrams NP rendered care for this patient independently, reviewed the findings and plan as documented in the note above. I did not physically speak with or examine the patient on this date. Objective - Vital Signs Vital signs: Vital Signs Temp 97.9 F 10/07/23 04:00 Pulse 66 10/07/23 04:00 Resp 22 10/07/23 04:00 BP 117/71 10/07/23 04:00 Pulse Ox 92 L 10/07/23 04:00 FiO2 21 10/03/23 00:02 Intake & Output 10/06/23 10/07/23 10/07/23 18:59 06:59 18:59 Intake Total 670 Output Total 1575 500 Balance -905 -500 Weight 137.1 kg Intake: IV 20 Invasive Line 4 20 Oral 340 Blood Product 310 Rc As-1 Unit 310 [id number] Output: Urine 1575 500 Other: Voiding Method Toilet Toilet Bedside Commode Bedside Commode # Voids 1 1 # Bowel Movements 1 ABP, PAP, CO, CI - Last Documented Arterial Blood Pressure 126/49 Pulmonary Artery Pressure 16/0 Cardiac Output 8.1 Cardiac Index 3.3 - Labs CBC & Chem 7: 10/08/23 06:02 10/08/23 06:02 Labs: Abnormal Lab Results - Last 24 Hours (Table) 10/06/23 10/06/23 10/06/23 Range/Units 06:33 06:33 11:33 RBC 2.06 L (4.30-5.90) m/uL Hgb 6.2 L* (13.0-17.5) gm/dL Hct 19.6 L* (39.0-53.0) % RDW 18.9 H (11.5-15.5) % Plt Count (150-450) k/uL Carbon Dioxide (22-30) mmol/L BUN (9-20) mg/dL Creatinine (0.66-1.25) mg/dL POC Glucose (mg/dL) 174 H (70-110) mg/dL Calcium (8.4-10.2) mg/dL Magnesium (1.6-2.3) mg/dL Total Protein (6.3-8.2) g/dL Albumin (3.5-5.0) g/dL Crossmatch See Detail 10/06/23 10/06/23 10/07/23 Range/Units 16:37 20:06 06:14 RBC 2.31 L (4.30-5.90) m/uL Hgb 7.0 L (13.0-17.5) gm/dL Hct 21.5 L (39.0-53.0) % RDW 19.1 H (11.5-15.5) % Plt Count 138 L (150-450) k/uL Carbon Dioxide (22-30) mmol/L BUN (9-20) mg/dL Creatinine (0.66-1.25) mg/dL POC Glucose (mg/dL) 192 H 241 H (70-110) mg/dL Calcium (8.4-10.2) mg/dL Magnesium (1.6-2.3) mg/dL Total Protein (6.3-8.2) g/dL Albumin (3.5-5.0) g/dL Crossmatch 10/07/23 Range/Units 06:14 RBC (4.30-5.90) m/uL Hgb (13.0-17.5) gm/dL Hct (39.0-53.0) % RDW (11.5-15.5) % Plt Count (150-450) k/uL Carbon Dioxide 21 L (22-30) mmol/L BUN 50 H (9-20) mg/dL Creatinine 2.03 H (0.66-1.25) mg/dL POC Glucose (mg/dL) (70-110) mg/dL Calcium 7.7 L (8.4-10.2) mg/dL Magnesium 2.7 H (1.6-2.3) mg/dL Total Protein 5.7 L (6.3-8.2) g/dL Albumin 2.9 L (3.5-5.0) g/dL Crossmatch
[2023-10-07 16:47] LABS: Glucose,Whole Blood 214 mg/dL (70-110)
--- NOTE | 2023-10-07 18:59 | XR ---
EXAMINATION TYPE: XR chest 1V portable DATE OF EXAM: 10/07/2023 COMPARISON: 10/07/2023 INDICATION: Post left thoracentesis TECHNIQUE: Single frontal view of the chest is obtained. FINDINGS: The heart size is enlarged. The pulmonary vasculature is normal. The lungs are clear. No pneumothorax is evident post thoracentesis. IMPRESSION: 1. Cardiomegaly
[2023-10-07 20:19] LABS: Glucose,Whole Blood 235 mg/dL (70-110)
[2023-10-07] MEDS: INSULIN DETEMIR (LEVEMIR) 100 UNIT/ML SYR SQ SCH (21:10)
[2023-10-07] MEDS: SENNOSIDES-DOCUSATE SODIUM 1 EACH TAB PO SCH (21:10)
[2023-10-08] MEDS: HEPARIN SODIUM,PORCINE 5,000 UNIT/ML 1 ML VIAL SQ SCH ×2 (00:25→08:23)
[2023-10-08 05:48] LABS: Appearance,BF Bloody (Clear)
[2023-10-08 06:05] LABS: Glucose,Whole Blood 85 mg/dL (70-110)
[2023-10-08] MEDS: INSULIN ASPART (NovoLOG) 100 UNIT/ML VIAL SQ SCH ×4 (06:10→12:03)
[2023-10-08] MEDS: PANTOPRAZOLE 40 MG TABLET PO SCH (06:18)
[2023-10-08 07:01] LABS: Anisocytosis Slight; HCT 24.4 % (39.0-53.0); HGB 7.7 gm/dL (13.0-17.5); Hypochromasia Moderate; MCH 30.1 pg (25.0-35.0); MCHC 31.6 g/dL (31.0-37.0); MCV 95.2 fL (80.0-100.0); Macrocytosis Slight; Mean Platelet Volume 8.7; Platelet Count 191 k/uL (150-450); Poikilocytosis Slight; RBC 2.56 m/uL (4.30-5.90); RDW 19.4 % (11.5-15.5); WBC 7.7 k/uL (3.8-10.6)
[2023-10-08 07:10] LABS: African American GFR (CKD) 37 (>60 ml/min/1.73 sqM); Anion Gap 12 mmol/L; Blood Urea Nitrogen 44 mg/dL (9-20); Calcium 8.1 mg/dL (8.4-10.2); Carbon Dioxide 21 mmol/L (22-30); Chloride 105 mmol/L (98-107); Glucose 86 mg/dL (74-99); Magnesium 2.5 mg/dL (1.6-2.3); Non-African American GFR(CKD) 32 (>60 ml/min/1.73 sqM); Potassium 4.2 mmol/L (3.5-5.1); Sodium 138 mmol/L (137-145)
[2023-10-08] MEDS: CYANOCOBALAMIN 500 MCG TAB PO SCH (08:22)
[2023-10-08] MEDS: ATORVASTATIN 40 MG TAB PO SCH (08:23)
[2023-10-08] MEDS: FERROUS SULFATE 325 MG TAB PO SCH (08:23)
[2023-10-08] MEDS: CLOPIDOGREL 75 MG TAB PO SCH (08:23)
[2023-10-08] MEDS: TAMSULOSIN 0.4 MG CAP.ER.24H PO SCH (08:23)
[2023-10-08] MEDS: AMIODARONE 200 MG TAB PO SCH (08:23)
[2023-10-08] MEDS: ACETAMINOPHEN TAB 325 MG TAB PO PRN (08:23)
[2023-10-08] MEDS: METOPROLOL TARTRATE 25 MG TAB PO SCH (08:23)
[2023-10-08] MEDS: ASPIRIN 325 MG TAB PO SCH (08:23)
[2023-10-08] MEDS: MULTIVITAMINS, THERA 1 EACH TAB PO SCH (08:23)
[2023-10-08] MEDS: ASCORBIC ACID 500 MG TAB PO SCH (08:26)
--- NOTE | 2023-10-08 08:44 | XR ---
EXAMINATION TYPE: XR chest 2V DATE OF EXAM: 10/08/2023 COMPARISON: 10/07/2023 HISTORY: 73-year-old male postcardiac surgery TECHNIQUE: PA and lateral views FINDINGS: Median sternotomy wires along with plate and screw fixation. Interstitial prominence persists. No fra nk consolidation. Trace effusions of the lateral view. Aeration shows slight improvement of the left base. Heart remains mildly enlarged. IMPRESSION: Similar mild pulmonary vascular congestion. However, aeration is improving at the left base. Trace ef fusions on the lateral view.
[2023-10-08] MEDS: ZINC OXIDE PASTE (Z-GUARD) 1 APPLIC APPLIC TOPICAL SCH (08:49)
[2023-10-08 08:58] LABS: Glucose, BF Source Pleural Fluid; Glucose, Body Fluid 194 mg/dL; LDH, Body Fluid Source Pleural Fluid; T. Protein, Body Fluid Source Pleural Fluid; Total Protein, Body Fluid 2780 mg/dL
[2023-10-08] MEDS: IPRATROPIUM-ALBUTEROL 3 ML NEB INHALATION SCH ×2 (09:28→12:58)
--- NOTE | 2023-10-08 10:11 | P.PN ---
Subjective Progress Note Date: 10/08/23 PROGRESS NOTE The patient is a 73-year-old male who underwent CABG yesterday. He is followed regularly by Dr. De Oliveira in [place] and has underwent prior stenting, most recently about 10 years ago according to him who has been complaining of progressive chest discomfort and underwent cardiac catheterization in [place], was found to have severe obstructive disease and underwent CABG yesterday. He received a MAGANA to the LAD and SVG to OM1 and 3 and PDA with closure of the left atrial appendage. He is extubated, sitting up in the chair, he feels well. He was having chest discomfort and dyspnea on exertion prior to presentation. He has no peripheral edema, PND or orthopnea. He does not recall being told that he had a myocardial infarction or history of CHF. He has a prior history of paroxysmal atrial fibrillation and has a loop recorder and according to him there was no episodes of atrial fibrillation for the last 2 years. Hemodynamically he is stable. He has a history of diabetes, hypertension and hyperlipidemia. He is a nonsmoker. September 29: The patient is feeling well this morning, he denies any chest discomfort, dizziness or palpitations. He continues to be in sinus mechanism. H emodynamically stable. His urine output is stable. He denies any nausea or vomiting. He is on no vasopressors. He had anemia and his received transfusion. 09/30 Patient seen and examined. Patient has had off-and-on confusion and currently on BiPAP. Denies any chest pain or pressure. Creatinine 1.7 with hemoglobin 7.1. 10/01 Patient seen and examined. Patient denies any chest pain or pressure. States he still feels short of breath. Hemoglobin 6.8 today with platelets 114. Creatinine 1.89. 10/02 Patient seen and examined. Patient flipped into atrial fibrillation yesterday and predilate controlled rates in the 90s to low 100 and denies any real palpitations. He does admit to history of atrial fibrillation previously. He also received packed red blood cells today. States he feels somewhat better in terms of energy today. Received IV Lasix yesterday. Receiving IV amiodarone. 10/03 Patient was in atrial fibrillation yesterday however appears in sinus rhythm today. Denies any chest pain or pressure. Does have 2+ lower extremity edema. He did receive packed red blood cell transfusion yesterday. 10/04 Patient seen and examined. Patient received IV Lasix yesterday with creatinine 2.0 today. Denies any chest pain or pressure. Says some shortness breath which appears fairly stable. He was transferred out of ICU today. Hemoglobin 6.8 today. He does have ecchymosis of bilateral inguinal area and through his thighs. 10/05 Patient seen and examined. Patient denies any chest pain or pressure. He says some shortness breath. Hemoglobin 6.9 this morning. He received IV Lasix yesterday and again IV Lasix today. He admits lower extremity edema mildly improved. 10/06 Patient is undergoing blood transfusion for hemoglobin of 6.2. BUN 52 and creatinine 2.08, potassium 4.4. Sodium 136. He is also been on IV Lasix 60 mg times once per cardiothoracic surgery. Ultrasound of the chest done to mya for possible thoracentesis. 115/69, heart rate in the 60s and 70s. ultrasound revealed a left pocket 7.9 cm. 10/07 Patient is scheduled for left-sided thoracentesis today with Dr. Martins. Telemetry is sinus rhythm, heart rate 60s to 80s, blood pressure 108/62, pulse ox 98% on room air. Repeat blood work reveals hemoglobin of 7.0 status post transfusion of 1 unit of packed RBCs yesterday. BUN 50 creatinine 2.03. Potassium 4. Patient received another dose of IV Lasix 60 mg today. 10/08: Today, patient underwent left-sided thoracentesis with removal of 750 ML's. Heart rate is in the 60s to 80s, blood pressure 119/67, pulse ox 96% on room air. Telemetry is sinus rhythm. Hemoglobin is improving with hemoglobin this morning of 7.7. BUN 44 creatinine 1.98. Patient is anticipating discharge home today with home care. Medications: PHYSICAL EXAMINATION: Vitals reviewed LUNGS: Mild decreased breath sounds at the bases HEART:Irregular rate and rhythm, S1, S2. No S3. No systolic murmur ABDOMEN: Soft, nontender, no organomegaly EXTREMETIES: 2+ edema IMPRESSION: 1. Status post CABG, stable 2. Anemia postoperatively 3. Acute renal injury postoperatively 4. History of paroxysmal atrial fibrillation 5. History of diabetes 6. History of hypertension 7. History of hyperlipidemia 8. Postoperative A. fib however also has a history of A. fib 9. Acute on chronic diastolic heart failure 10. Left-sided pleural effusion s/p thoracentesis PLAN: Continue current cardiac medications Patient to follow up with his primary automatic mold sander, Dr. De Oliveira, in 1-2 weeks. Nurse practitioner note has been reviewed, I agree with the documented findings and plan of care. Patient was seen and examined. Objective - Vital Signs Vital signs: Vital Signs Temp 97.7 F 10/08/23 08:19 Pulse 82 10/08/23 09:41 Resp 18 10/08/23 08:19 BP 119/67 10/08/23 08:19 Pulse Ox 96 10/08/23 09:30 FiO2 21 10/07/23 08:34 Intake & Output 10/07/23 10/08/23 10/08/23 18:59 06:59 18:59 Intake Total 358 100 Output Total 2450 1050 200 Balance -2091 - Weight 137 kg Intake: Oral 358 100 Output: Urine 2450 1050 200 Other: Voiding Method Toilet Toilet Toilet # Voids 1 # Bowel Movements 1 1 ABP, PAP, CO, CI - Last Documented Arterial Blood Pressure 126/49 Pulmonary Artery Pressure 16/0 Cardiac Output 8.1 Cardiac Index 3.3 - Labs CBC & Chem 7: 10/08/23 06:02 10/08/23 06:02 Labs: Abnormal Lab Results - Last 24 Hours (Table) 10/07/23 10/07/23 10/07/23 Range/Units 10:30 11:40 16:46 RBC (4.30-5.90) m/uL Hgb (13.0-17.5) gm/dL Hct (39.0-53.0) % RDW (11.5-15.5) % Carbon Dioxide (22-30) mmol/L BUN (9-20) mg/dL Creatinine (0.66-1.25) mg/dL POC Glucose (mg/dL) 261 H 214 H (70-110) mg/dL Calcium (8.4-10.2) mg/dL Magnesium (1.6-2.3) mg/dL Fluid Appearance Bloody A (Clear) 10/07/23 10/08/23 10/08/23 Range/Units 20:18 06:02 06:02 RBC 2.56 L (4.30-5.90) m/uL Hgb 7.7 L (13.0-17.5) gm/dL Hct 24.4 L (39.0-53.0) % RDW 19.4 H (11.5-15.5) % Carbon Dioxide 21 L (22-30) mmol/L BUN 44 H (9-20) mg/dL Creatinine 1.98 H (0.66-1.25) mg/dL POC Glucose (mg/dL) 235 H (70-110) mg/dL Calcium 8.1 L (8.4-10.2) mg/dL Magnesium 2.5 H (1.6-2.3) mg/dL Fluid Appearance (Clear) Microbiology - Last 24 Hours (Table) 10/07/23 10:30 Gram Stain - Preliminary Pleural Fluid
[2023-10-08 11:38] VITALS: BP 120/64; TEMP 98
[2023-10-08 11:58] LABS: Glucose,Whole Blood 174 mg/dL (70-110)
--- NOTE | 2023-10-08 12:44 | P.PN ---
Subjective Progress Note Date: 10/08/23 Principal diagnosis: Status post CABG. Patient was reevaluated today on 10/02/23 remains in the ICU, doing fairly well, remains on room air, and he is not in any form of distress. Patient is on amiodarone drip at present, his hemoglobin has been noted to be low and he is still receives 1 unit of packed RBCs today, hemoglobin today is 6.5, today's transfusion be unit #4 of packed RBCs given so far on this admission. Surprisingly the patient is clinically doing great, CBC is unremarkable except for low hemoglobin of 6.5 he is hemodynamically stable, not requiring any press ors BUN remains a bit elevated at 46 and creatinine slightly elevated at 1.77 and that's about his baseline. Chest x-ray today is even showing significant improvement in the aeration of the left lower lobe. And doubt any pleural effusion Patient was seen and evaluated today on 10/03/2023, remains in the ICU. Patient is on room air, comfortable, sitting in a recliner, not in any distress. Denies any active pulmonary symptoms, has been ambulating in the hallway, and doing extremely well with incentive spirometry. He is now postoperative day #6 coronary artery bypass grafting 4 vessels (left internal mammary artery to left anterior descending coronary artery, saphenous vein graft to the first obtuse marginal coronary artery, saphenous vein graft to the third obtuse marginal coronary artery, saphenous vein graft to the posterior descending coronary artery, chest x-ray showed left basilar atelectasis and possibly a small left- sided pleural effusion him a otherwise unremarkable. CBC showed a hemoglobin of 7, platelets 137 basic metabolic profile is normal creatinine 1.84 which is c lose to his baseline. Reevaluated today on 10/04/2023, patient remains in the ICU, doing fairly well, steadily improving, chest x-ray showed small left lower lobe atelectasis and pleural effusion however the patient is on room air and asymptomatic hemoglobin remains low at 6.8 today, patient received a total of 4 units of packed RBCs since admission and 2 units of platelets. No active bleeding is noted. Basic metabolic profile is normal creatinine is up to 2.01 slightly worse today compared to yesterday of 1.84., Patient is being evaluated for possible discharge planning by cardiothoracic surgery on the case. He did receive IV Lasix yesterday, however that's presently on hold. And we are avoiding nephrotoxic drugs on this patient The patient is seen today 10/05/2023 in follow-up on the selective care unit. He is currently awake and alert in no acute distress. He sitting up in a chair at the bedside. He is maintaining O2 saturations in the 90s on room air. He's been afebrile. Hemodynamically stable. Chest x-ray shows some blunting of left costophrenic angle. Otherwise stable post cardiac exam. He is status post 4 units of packed red blood cells this admission. Current hemoglobin 6.9. Platelets 172. White count 6.6. Sodium 137. Potassium 4.2. Bicarb 19. BUN 5 0. Creatinine 2.03. Glucose 132. The patient is seen today 10/06/2023 in follow-up on the selective care unit. He is sitting up in a chair. Awake and alert in no acute distress. Feeling stronger each day. He is maintaining O2 saturations in the 90s on room air. Chest x-ray continues to show a small left pleural effusion. He is working very well with the incentive spirometer. Pulling nearly 2 L. He is status post 4 units of packed red blood cells. Today's hemoglobin was 6.2 and he is receiving a fifth unit today. White count 5.2. Platelets 154. Sodium 136. Potassium 4.4. Bicarb 21. BUN 52. Creatinine 2.08. Glucose 127. He remains on bronchodilators. Heparin for DVT prophylaxis. Protonix for GI prophylaxis. Progress note dated 10/07/2023. The patient is seen today in room 384. The patient appears to be doing relatively well. The patient's on room air. No IV fluids. We are asked by cardiothoracic surgery to consider doing a thoracentesis on this patient. He h ad an ultrasound left chest, which showed a small to moderate left-sided pleural effusion. The patient did have a bedside thoracentesis performed by me today. 750 mL of bloody fluid was removed from the left pleural space. The patient tolerated the procedure well. Currently labs include a white count 5.3, hemoglobin 7, hematocrit 21.5, and a platelet count of 138,000. Sodium 137, potassium 4, chlorides 105, CO2 21, BUN 50, creatinine 2.03. Albumin is 2.9. Chest x-ray after the procedure shows a small left-sided pleural effusion, without evident pneumothorax. Progress note dated 10/08/2023. 73-year-old male seen today in room 384. Yesterday, the patient had thoracentesis, performed at the bedside. 750 mL of bloody fluid was removed from the left pleural space. Currently, the patient's on room air. He's not requiring any IV fluids. The patient is hoping to be discharged in the near future. We will leave that up to cardiothoracic surgery. Currently labs include a white count 7.7, hemoglobin 7.7, hematocrit 24.4, and platelet count 191,000. Sodium 138, potassium 4.2, chlorides 105, CO2 21, BUN 44, and creatinine 1.98. Calcium is 8.1. Magnesium is 2.5. Chest x-ray shows changes of mild CHF. There is improved aeration at the left lung base, since the thoracentesis was performed yesterday. Objective - Vital Signs Vital signs: Vital Signs Temp 98.0 F 10/08/23 11:03 Pulse 62 10/08/23 11:03 Resp 18 10/08/23 11:03 BP 120/64 10/08/23 11:03 Pulse Ox 95 10/08/23 11:03 FiO2 21 10/07/23 08:34 Intake & Output 10/07/23 10/08/23 10/08/23 18:59 06:59 18:59 Intake Total 358 100 Output Total 2450 1050 200 Balance -2091 -100 Weight 137 kg Intake: Oral 358 100 Output: Urine 2450 1050 200 Other: Voiding Method Toilet Toilet Toilet # Voids 1 # Bowel Movements 1 1 ABP, PAP, CO, CI - Last Documented Arterial Blood Pressure 126/49 Pulmonary Artery Pressure 16/0 Cardiac Output 8.1 Cardiac Index 3.3 - Exam No acute distress, oriented 3. Currently on room air. Saturations are 97 %. HEENT examination is grossly unremarkable. Mucous membranes are moist. No oral lesions. Neck supple. Full range of motion. No adenopathy thyromegaly or neck vein distention. Cardiovascular examination reveals regular rhythm rate. S1-S2 normal. No S3 or S4. No discernible murmur noted. Heart sounds are distant. Heart rate 62 bpm. Lungs reveal diminished breath sounds at the left base. There is dullness on percussion in the left base. The right lung is clear. No wheezes, rhonchi, or crackles. Abdomen soft bowel sounds are heard. No masses or tenderness. Extremities are intact. No cyanosis clubbing or edema. Skin is without rash or lesion. Neurologic examination is brief but nonfocal. - Labs CBC & Chem 7: 10/08/23 06:02 10/08/23 06:02 Labs: Abnormal Lab Results - Last 24 Hours (Table) 10/07/23 10/07/23 10/07/23 Range/Units 10:30 16:46 20:18 RBC (4.30-5.90) m/uL Hgb (13.0-17.5) gm/dL Hct (39.0-53.0) % RDW (11.5-15.5) % Carbon Dioxide (22-30) mmol/L BUN (9-20) mg/dL Creatinine (0.66-1.25) mg/dL POC Glucose (mg/dL) 214 H 235 H (70-110) mg/dL Calcium (8.4-10.2) mg/dL Magnesium (1.6-2.3) mg/dL Fluid Appearance Bloody A (Clear) 10/08/23 10/08/23 10/08/23 Range/Units 06:02 06:02 11:57 RBC 2.56 L (4.30-5.90) m/uL Hgb 7.7 L (13.0-17.5) gm/dL Hct 24.4 L (39.0-53.0) % RDW 19.4 H (11.5-15.5) % Carbon Dioxide 21 L (22-30) mmol/L BUN 44 H (9-20) mg/dL Creatinine 1.98 H (0.66-1.25) mg/dL POC Glucose (mg/dL) 174 H (70-110) mg/dL Calcium 8.1 L (8.4-10.2) mg/dL Magnesium 2.5 H (1.6-2.3) mg/dL Fluid Appearance (Clear) Microbiology - Last 24 Hours (Table) 10/07/23 10:30 Gram Stain - Preliminary Pleural Fluid Assessment and Plan Assessment: Coronary artery disease. The patient underwent four-vessel bypass surgery. Post operative day #11. S/P left thoracentesis, 750 mL of bloody fluid removed, 10/07/2023. CAD status post multiple stents, now status post CABG. Acute blood loss anemia, expected. Patient received 5 units of packed RBCs. Acute on chronic thrombocytopenia, status post 2 units of platelets. Type 2 diabetes. Chronic kidney disease stage III, current creatinine 2.08. Morbid obesity. Hypocalcemia. History of hypertension. History of atrial fibrillation. Dyslipidemia. Gout. BPH. Plan: Plan dated 10/07/2023. Today is postop day #10, status post four-vessel bypass surgery. Today, we did a left-sided thoracentesis, and 750 mL of bloody fluid was removed without incident, from the left pleural space. The patient will be sent for analysis, although I don't expect there to be an infection. The patient tolerated the procedure well. The postthoracentesis chest x-ray looks okay, without obvious pneumothorax. The fluid in the left chest is reduced. Labs, x-rays, medications are reviewed. The patient's on room air. We will continue to follow and make recommendations where necessary. Plan dated 10/08/2023. The patient is sitting in a chair next to his bed. He is not on any supplemental oxygen, or receiving any IV fluids. Yesterday, we did a bedside thoracentesis, on the left side, and we removed 750 mL of bloody fluid from the left pleural space. Today's chest x-ray is improved. The x-ray after the procedure did not show a pneumothorax. Clinically, the patient appears to be relatively stable. He is being evaluated for possible discharge. We will leave that up to the primary service and cardiothoracic surgery. Labs, x-rays, and medications are reviewed. Time with Patient: Less than 30
--- NOTE | 2023-10-08 13:07 | P.DS ---
Providers Date of admission: 09/27/23 05:36 Expected date of discharge: 10/08/23 Attending physician: Oscar Herman Consults: 09/27/23 15:08 Consult Physician Routine Consulting Provider: Eileen Mahoney Consult Reason/Comments: Bilingual Office Assistant Consult: post cardiac surgery Do you want consulting provider notified?: Yes Consult Physician Routine Consulting Provider: Garry Carrizales Consult Reason/Comments: medical management Do you want consulting provider notified?: Yes Consult Physician Routine Consulting Provider: Shaquille Rios Consult Reason/Comments: Bagman/Woman Consult: post cardiac surgery Do you want consulting provider notified?: Yes 09/30/23 12:39 Consult Physician Routine Consulting Provider: Mati Castrejon Consult Reason/Comments: Evaluation for inpatient rehab Do you want consulting provider notified?: Yes Primary care physician: Luis Deleon [facility] Course: FINAL DIAGNOSIS: 1. Multivessel coronary artery disease with history of multiple stents in the past 2. Hypertension 3. Hyperlipidemia 4. Atrial fibrillation since 2016 and Eliquis for anticoagulation as an outpatient 5. Diabetes mellitus type 2, preoperative hemoglobin A1c 6.8% 6. Obstructive sleep apnea with home BiPAP use 7. Chronic renal insufficiency 8. History of gout 9. History of kidney stones 10. Lifelong nonsmoker 11. Postoperative acute blood loss anemia and postoperative thrombocytopenia, expected 12. Left pleural effusion, expected 13. Medical debility PRINCIPAL PROCEDURE: 1. Coronary artery bypass grafting 4 vessels, left internal mammary artery to the left anterior descending coronary artery, reverse saphenous vein graft to the first obtuse marginal coronary artery, the third obtuse marginal coronary artery and the posterior descending coronary artery 2. Endoscopic harvesting of bilateral greater saphenous veins 3. Ligation of the left atrial appendage using a 35 mm AtriClip 4. Epi-aortic ultrasound 5. Graft flow measurements using the Medistim system 6. Closure of the sternum using Tritium plating device 7. Intraoperative transesophageal echocardiogram performed by anesthesia 8. Left sided thoracentesis with removal of 750 mL bloody fluid performed by Dr. Martins HISTORY OF PRESENT ILLNESS: This is a 73-year-old gentleman who follows outpatient with Dr. Deleon for primary care and Dr. Freeman for cardiology. He was reporting chest tightness with exertion with activity and underwent heart catheterization at [facility] by Dr. Freeman. Heart cath revealed multivessel coronary artery disease. Consultation was placed to Dr. Herman from cardiothoracic surgery. He was recommended to undergo elective coronary artery bypass surgery. The usual perioperative course was discussed in detail with the patient and his family, all risks and benefits were explained, all questions were answered, and consent was obtained to proceed with surgery. The patient was scheduled at the earliest possible date at [facility] per the patient's wishes. HOSPITAL COURSE: The patient was brought to the hospital on 09/27/23, taken to the preoperative area, prepared in the usual fashion, and subsequently taken to the operating room where Dr. Herman performed 4 vessel CABG. Upon completion of surgery the patient was transferred to the cardiovascular intensive care unit where he was recovered and monitored hemodynamically. He was extubated, all lines, tubes, and drips were discontinued when appropriate. He did go back into atrial fibrillation which was successfully treated with amiodarone, developed left sided pleural effusion which was drained, and experienced blood loss anemia treated with blood transfusion. He was transferred to 3 S cardiac stepdown unit for further monitoring and rehabilitation. His oxygen was titrated down, he continued to work with physical and occupational therapy, he was tolerating oral diet, his pain was controlled, and he was ready to be discharged to home with [facility] care on postoperative day #11. He received written and verbal instruction regarding his medications, activity restrictions, signs and symptoms requiring physician notification, and follow-up appointments. Patient Condition at Discharge: Stable Plan - Discharge Summary Discharge Rx Participant: No New Discharge Prescriptions: New Aspirin 325 mg PO DAILY #30 tab Metoprolol Tartrate [Lopressor] 25 mg PO BID #60 tab Clopidogrel [Plavix] 75 mg PO DAILY #30 tab Pantoprazole [Protonix] 40 mg PO AC-BRKFST #30 tab Ascorbic Acid [Vitamin C] 500 mg PO DAILY #7 tab Amiodarone [Cordarone] 400 mg PO BID #27 tab Sennosides-Docusate Sodium [Senokot-S] 2 each PO HS #14 tab Acetaminophen Tab [Tylenol] 650 mg PO Q4HR PRN tab PRN Reason: Fever And/ Or Pain Continue Multivitamins, Thera [Multivitamin (formulary)] 1 tab PO DAILY glipiZIDE [Glucotrol] 10 mg PO BID Tamsulosin HCl [Flomax] 0.4 mg PO DAILY Fenofibrate,Micronized [Fenofibrate] 43 mg PO BID Empagliflozin [Jardiance] 10 mg PO DAILY Dulaglutide [Trulicity] 4.5 mg SQ TU Ferrous Sulfate [Iron (65 MG Elemental)] 65 mg PO DAILY Atorvastatin [Lipitor] 80 mg PO DAILY Potassium Chloride ER [K-Dur 10] 10 meq PO DAILY Colchicine [Colcrys] 0.6 mg PO DAILY PRN PRN Reason: gout Ergocalciferol [Vitamin D2 (1250 Mcg = 95292 Iu)] 1,250 mcg PO WEEKLY Magnesium Oxide [Mag-Ox] 400 mg PO BID allopurinoL [Zyloprim] 300 mg PO DAILY Cyanocobalamin (Vitamin B-12) [Vitamin B-12] 1,000 mcg PO DAILY Changed Furosemide [Lasix] 40 mg PO DAILY #30 tab Discontinued NIFEdipine XL [Procardia XL] 60 mg PO BID lisinopriL [Zestril] 20 mg PO BID Sotalol [Betapace] 80 mg PO BID Clear[place]-3 Acid Ethyl Esters [Lovaza] 2 gm PO BID Apixaban [Eliquis] 5 mg PO BID Nitroglycerin Sl Tabs [Nitrostat] 0.4 mg SUBLINGUAL Q5M PRN PRN Reason: Chest Pain Isosorbide Mononitrate ER [Imdur] 60 mg PO DAILY Discharge Medication List Atorvastatin [Lipitor] 80 mg PO DAILY 09/19/23 [History] Colchicine [Colcrys] 0.6 mg PO DAILY PRN 09/19/23 [History] Cyanocobalamin (Vitamin B-12) [Vitamin B-12] 1,000 mcg PO DAILY 09/19/23 [History] Dulaglutide [Trulicity] 4.5 mg SQ TU 09/19/23 [History] Empagliflozin [Jardiance] 10 mg PO DAILY 09/19/23 [History] Ergocalciferol [Vitamin D2 (1250 Mcg = 42269 Iu)] 1,250 mcg PO WEEKLY 09/19/23 [History] Fenofibrate,Micronized [Fenofibrate] 43 mg PO BID 09/19/23 [History] Ferrous Sulfate [Iron (65 MG Elemental)] 65 mg PO DAILY 09/19/23 [History] Magnesium Oxide [Mag-Ox] 400 mg PO BID 09/19/23 [History] Multivitamins, Thera [Multivitamin (formulary)] 1 tab PO DAILY 09/19/23 [History] Potassium Chloride ER [K-Dur 10] 10 meq PO DAILY 09/19/23 [History] Tamsulosin HCl [Flomax] 0.4 mg PO DAILY 09/19/23 [History] allopurinoL [Zyloprim] 300 mg PO DAILY 09/19/23 [History] glipiZIDE [Glucotrol] 10 mg PO BID 09/19/23 [History] Acetaminophen Tab [Tylenol] 650 mg PO Q4HR PRN tab 10/08/23 [Rx] Amiodarone [Cordarone] 400 mg PO BID #27 tab 10/08/23 [Rx] Ascorbic Acid [Vitamin C] 500 mg PO DAILY #7 tab 10/08/23 [Rx] Aspirin 325 mg PO DAILY #30 tab 10/08/23 [Rx] Clopidogrel [Plavix] 75 mg PO DAILY #30 tab 10/08/23 [Rx] Furosemide [Lasix] 40 mg PO DAILY #30 tab 10/08/23 [Rx] Metoprolol Tartrate [Lopressor] 25 mg PO BID #60 tab 10/08/23 [Rx] Pantoprazole [Protonix] 40 mg PO AC-BRKFST #30 tab 10/08/23 [Rx] Sennosides-Docusate Sodium [Senokot-S] 2 each PO HS #14 tab 10/08/23 [Rx] Follow up Appointment(s)/Referral(s): Shaquille Rios MD [STAFF PHYSICIAN] - 2 Weeks (Office will call with appointment) [facility],Cardiac [NON-STAFF] - 4 Weeks (You will receive a phone call in approximately 4-6 weeks for evaluation for cardiac rehab) [facility], [NON-STAFF] - 1-2 Days Luis Deleon MD [Primary Care Provider] - 1 Week (Please call for appointment as office was closed 10/08/23 @12:45) Oscar Herman MD [STAFF PHYSICIAN] - 10/30/23 10:00 am Osmany Freeman MD [REFERRING] - 11/27/23 2:40 pm Eileen Mahoney MD [STAFF PHYSICIAN] - 11/11/23 1:00 pm Ambulatory/Diagnostic Orders: Complete Blood Count w/diff [LAB.AMB] Time Frame: 3 Days, Location: None Selected Comprehensive Metabolic Panel [LAB.AMB] Time Frame: 3 Days, Location: None Selected Activity/Diet/Wound Care/Special Instructions: DISCHARGE INSTRUCTIONS: 1. No driving for 4 weeks, or until physician gives their ok. 2. The patient should sleep in their own bed, no medical bed needed. 3. Stairs are not an issue. If the bedroom is upstairs, it is advised that the patient go up at night and down in the morning for the first week. Go slowly, using handrail and take 1 step at a time. 4. GIOVANA hose are to be worn for 30 days post surgery or until physician discontinues. 5. Heart hugger is to be worn 100% of the time until physician discontinues.(except when showering) 6. No lifting, pushing, or pulling more than 10 pounds for 12 weeks. The physician will advise of any restriction changes. 7. The patient is expected to continue the prescribed walking program. 8. Continue pain control per as needed orders. 9. Continue with incentive spirometry and splinting/heart hugger until otherwise directed by the physician. 10. Must shower daily using liquid antibacterial soap 11. Routine sternal incision care. No powders, lotions, ointments on incisions. No dressings are necessary on incisions unless they are draining. Dermabond tape is to remain on sternal incision until surgeon follow-up. 12. Please call surgeon/HEALTH SERVICES INFORMATION SPECIALIST for temp greater than 101 F or purulent drainage from incisions. 13. You should weigh yourself daily, record and bring log with you to follow up appointments. 14. All prescriptions given by surgeon for 30 days. Refills need to be filled through grain cleaner/primary care physician. 15. A Red armband has been placed on the patient. It should be worn for 30 days post discharge from surgery and will be removed by the cardiac surgeons. If an ER visit is necessary, please make sure the number on the Red armband is called before going to ER. 16. You have been referred to and are expected to begin Cardiac Rehab in [facility] oximately 4-6 weeks. HOME HEALTH SERVICES TO PROVIDE: RN SKILLED HOME CARE SERVICES FOR POST-OP SURGICAL PATIENTS WITH THE FOLLOWING: Coronary Artery Bypass Surgery (CABG), Mitral Valve Replacement/Repair ( MVR), Aortic Valve Replacement/Repair (AVR) RN TO CONTINUE EDUCATION FROM ``ROAD TO A HEALTH HEART PATIENT EDUCATION MANUAL (GIVEN TO PATIENT IN THE HOSPITAL) MEDICATION RECONCILIATION WITH EDUCATION NEEDED ON FIRST HOME VISIT EMPHASIZE IMPORTANCE OF WEARING BREAST SUPPORT/HEART HUGGER ENCOURAGE USE OF INCENTIVE SPIROMETER 10 X EVERY HOUR WHILE AWAKE ENCOURAGE UTILIZATION OF LOWER EXTREMITY COMPRESSION STOCKINGS/GIOVANA HOSE and ELEVATE LEGS ABOVE LEVEL OF HEART WHILE AT REST. ENCOURAGE AMBULATION 3-5x/day INCREASING TOLERATES, WHILE AVOIDING EXTR EMES IN TEMPERATURE FREQUENCY: RN TO OPEN THE PATIENT WITHIN 24 HOURS OF DISCHARGE FROM THE HOSPITAL WITH TELEHEALTH INSTALLED AT [facility], RN TO VISIT 2-3 X A WEEK FOR 4 WEEKS ESTABLISHED BY PATIENT NEEDS. LABORATORY: CBC, CMP TO BE DRAWN ON THE THIRD DAY HOME, (RAN STAT) FAX RESULTS TO [phone]. TELEHEALTH PARAMETERS: WEIGHT: NOTIFY MD OF WEIGHT GAIN OF 2 LBS IN 24 HOURS OR 5 LBS IN ONE WEEK HR: NOTIFY MD OF HR <55 BPM OR HR>100 BPM BP: NOTIFY MD IF BP <90/55 OR BP>140/100 O2 SAT: NOTIFY MD IF PO2<93% ON ROOM AIR SEND TELEHEALTH REPORT TO POWER SWITCHBOARD OPERATOR AND CARDIOVASCULAR SURGEON THE FIRST WEEK OF CARE AND THEN BI-WEEKLY. PLEASE ADDITIONALLY COMMUNICATE ANY ABNORMALS AND NEW FINDINGS TO THE SURGEONS OFFICE. Discharge Disposition: HOME WITH HOME HEALTH SERVICES
[2023-10-08 13:14] VITALS: PULSE 78
--- NOTE | 2023-10-08 15:42 | P.PN ---
Subjective Progress Note Date: 10/08/23 Hospital course: Patient is a very pleasant 73-year-old male with a past medical history of CAD status post stenting, hypertension, hyperlipidemia, atrial fibrillation on anticoagulation with Eliquis, and insulin-dependent diabetes mellitus. Patient was admitted to the hospital for a planned quadruple bypass. CABG 4 was completed on 09/27/[address] Herman. We are consulted for medical management throughout hospitalization. Physical exam: Patient is currently postoperative day 11. He continues to be doing well. Patient ambulating to and from the bathroom with walker. He reports feeling stronger and stronger each day. Vital signs reviewed and stable. General: Nontoxic, no distress and appears stated age. Derm: Skin warm and dry, normal coloration for ethnicity. Moderate bruising upper and lower extremities. Head: Atraumatic, normocephalic and symmetric. Eyes: EOMs intact, no lid lag, and anicteric sclera Mouth: no lip lesions, mucus membranes moist Cardiovascular: regular rate and rhythm with normal S1S2, no noted murmur, positive posterior tibial pulses bilaterally, and cap refill < [address]. Postsurgical incision midsternal chest appears to be healing well, well approximated with no signs of dehiscence, erythema, or drainage. Lungs: Respirations even, regular, and unlabored on room air. Lungs CTA bilaterally, no rhonchi, no rales, no wheezing, and no accessory muscle usage. Abdominal: soft, nontender to palpation, no guarding, no appreciable organomegaly Ext: ROM intact. No gross muscle atrophy, scant lower extremity edema, no contractures Neuro: Speech clear, face symmetrical and CN II-XII grossly intact with no noted focal neuro deficits Psych: Alert and oriented to person, place, time, and situation. Appropriate and pleasant affect. Assessment and Plan of Care: Multivessel Coronary artery disease status post CABG 4 Acute postoperative blood loss anemia Acute kidney injury on stage IIIB chronic kidney disease, prerenal Acute on chronic thrombocytopenia, resolved Hypertension Hyperlipidemia Paroxysmal atrial fibrillation -Heart hugger to remain in place -Patient is Status post a total of 5 units of PRBCs and hemoglobin currently stable at 7.7. -BMP showing persistent acute kidney injury on chronic kidney disease with BUN of 52, creatinine 2.08, and GFR of 30 with baseline creatinine of 1.3. -Patient to remain on continuous telemetry monitoring. -Continue cardiac medication regimen with amiodarone 400 mg twice daily (day 5 of 400 mg twice a day), aspirin 325 mg daily, atorvastatin 40 mg daily, Plavix 75 mg daily, and metoprolol 25 mg twice daily. -Cardiothoracic surgery managing post-CABG care -Pulmonology following, reviewed documentation in chart. -Continue DVT prophylaxis with heparin 5000 units subcu every 8 hours -Currently maintaining sinus mechanism, continue metoprolol 25 mg twice daily and amiodarone 400 mg twice daily. Recommend resumption of Eliquis once hemoglobin is stabilized and cleared by primary admitting cardiothoracic surgery team to resume. Type 2 diabetes mellitus with hyperglycemia Patient to continue with Levemir 70 units nightly in addition to NovoLog 23 units 3 times daily with meals along with NovoLog sliding scale with meals and at bedtime. Data and imaging reviewed: Vital signs reviewed. Blood pressure 119/67, heart rate 66, respiratory rate 18, temp 97.7F, SpO2 of 96% on room air. Labs reviewed. CBC showing persistent but stable normocytic anemia with hemoglobin of 7.7. BMP also showing improvement of renal function with BUN of 44, creatinine 1.9, and GFR 32. Morning glucose 85. Thank you for allowing us to participate in the care of this pleasant patient. Do not hesitate to contact us with questions. Someone can be reached from the [facility] hospitalist group all hours of the day at [phone] or via [employer]. Patient was seen independently by Nurse Pracitioner. This document was prepared using Social Reality dictation software. Please allow for errors in it assistant, while rare they do occur. Rafi Abrams NP rendered care for this patient independently, reviewed the findings and plan as documented in the note above. I did not physically speak with or examine the patient on this date. Objective - Vital Signs Vital signs: Vital Signs Temp 97.7 F 10/08/23 04:00 Pulse 61 10/08/23 04:00 Resp 18 10/08/23 04:00 BP 113/70 10/08/23 04:00 Pulse Ox 99 10/08/23 04:00 FiO2 21 10/07/23 08:34 Intake & Output 10/07/23 10/08/23 10/08/23 18:59 06:59 18:59 Intake Total 358 Output Total 2450 1050 200 Balance -2092 -1050 -200 Weight 137 kg Intake: Oral 358 Output: Urine 2450 1050 200 Other: Voiding Method Toilet Toilet # Voids 1 # Bowel Movements 1 1 ABP, PAP, CO, CI - Last Documented Arterial Blood Pressure 126/49 Pulmonary Artery Pressure 16/0 Cardiac Output 8.1 Cardiac Index 3.3 - Labs CBC & Chem 7: 10/08/23 06:02 10/08/23 06:02 Labs: Abnormal Lab Results - Last 24 Hours (Table) 10/07/23 10/07/23 10/07/23 Range/Units 10:30 11:40 16:46 RBC (4.30-5.90) m/uL Hgb (13.0-17.5) gm/dL Hct (39.0-53.0) % RDW (11.5-15.5) % Carbon Dioxide (22-30) mmol/L BUN (9-20) mg/dL Creatinine (0.66-1.25) mg/dL POC Glucose (mg/dL) 261 H 214 H (70-110) mg/dL Calcium (8.4-10.2) mg/dL Magnesium (1.6-2.3) mg/dL Fluid Appearance Bloody A (Clear) 10/07/23 10/08/23 10/08/23 Range/Units 20:18 06:02 06:02 RBC 2.56 L (4.30-5.90) m/uL Hgb 7.7 L (13.0-17.5) gm/dL Hct 24.4 L (39.0-53.0) % RDW 19.4 H (11.5-15.5) % Carbon Dioxide 21 L (22-30) mmol/L BUN 44 H (9-20) mg/dL Creatinine 1.98 H (0.66-1.25) mg/dL POC Glucose (mg/dL) 235 H (70-110) mg/dL Calcium 8.1 L (8.4-10.2) mg/dL Magnesium 2.5 H (1.6-2.3) mg/dL Fluid Appearance (Clear) Microbiology - Last 24 Hours (Table) 10/07/23 10:30 Gram Stain - Preliminary Pleural Fluid
== END 2023-10-08 14:38 | disposition home health service (06) | DRG 235 ==
LOC: 2ORMAIN 05:36 → 2SICU 13:54 → 3SCARD 10-04 14:14
PROVIDERS: ADMIT Surgery; ATTEND Surgery
PROC: 06BP4ZZ Excision of Right Saphenous Vein, Percutaneous Endoscopic Approach (ICD-10-PCS; 2023-09-27)
PROC: 5A1221Z Performance of Cardiac Output, Continuous (ICD-10-PCS; 2023-09-27)
PROC: 02L70CK Occlusion of Left Atrial Appendage with Extraluminal Device, Open Approach (ICD-10-PCS; 2023-09-27)
PROC: B24BZZ4 Ultrasonography of Heart with Aorta, Transesophageal (ICD-10-PCS; 2023-09-27)
PROC: 4A0305C Measurement of Arterial Flow, Coronary, Open Approach (ICD-10-PCS; 2023-09-27)
PROC: B24BZZZ Ultrasonography of Heart with Aorta (ICD-10-PCS; 2023-09-27)
PROC: 3E043XZ Introduction of Vasopressor into Central Vein, Percutaneous Approach (ICD-10-PCS; 2023-09-27)
PROC: 30233N1 Transfusion of Nonautologous Red Blood Cells into Peripheral Vein, Percutaneous Approach (ICD-10-PCS; 2023-09-27)
PROC: 30233J1 Transfusion of Nonautologous Serum Albumin into Peripheral Vein, Percutaneous Approach (ICD-10-PCS; 2023-09-27)
PROC: 02100Z9 Bypass Coronary Artery, One Artery from Left Internal Mammary, Open Approach (ICD-10-PCS; principal; 2023-09-27 08:00)
PROC: 0212093 Bypass Coronary Artery, Three Arteries from Coronary Artery with Autologous Venous Tissue, Open Approach (ICD-10-PCS; 2023-09-27 08:00)
PROC: 06BQ4ZZ Excision of Left Saphenous Vein, Percutaneous Endoscopic Approach (ICD-10-PCS; 2023-09-27 08:00)
PROC: 0W9B3ZZ Drainage of Left Pleural Cavity, Percutaneous Approach (ICD-10-PCS; 2023-10-07)
DX: I25.10 Atherosclerotic heart disease of native coronary artery without angina pectoris (principal); I50.33 Acute on chronic diastolic (congestive) heart failure; Z68.41 Body mass index [BMI] 40.0-44.9, adult; N17.9 Acute kidney failure, unspecified; I13.0 Hypertensive heart and chronic kidney disease with heart failure and stage 1 through stage 4 chronic kidney disease, or unspecified chronic kidney disease; J91.8 Pleural effusion in other conditions classified elsewhere; D62 Acute posthemorrhagic anemia; E66.01 Morbid (severe) obesity due to excess calories; E11.22 Type 2 diabetes mellitus with diabetic chronic kidney disease; E11.65 Type 2 diabetes mellitus with hyperglycemia; N18.30 Chronic kidney disease, stage 3 unspecified; I48.0 Paroxysmal atrial fibrillation; E83.51 Hypocalcemia; I95.9 Hypotension, unspecified; D69.59 Other secondary thrombocytopenia; G47.33 Obstructive sleep apnea (adult) (pediatric); M10.9 Gout, unspecified; E78.5 Hyperlipidemia, unspecified; N40.0 Benign prostatic hyperplasia without lower urinary tract symptoms; I44.0 Atrioventricular block, first degree; Z79.84 Long term (current) use of oral hypoglycemic drugs; Z95.818 Presence of other cardiac implants and grafts; Z82.49 Family history of ischemic heart disease and other diseases of the circulatory system; Z95.5 Presence of coronary angioplasty implant and graft; Z79.01 Long term (current) use of anticoagulants; Z79.85 Long-term (current) use of injectable non-insulin antidiabetic drugs; Z79.899 Other long term (current) drug therapy
CPT/HCPCS: 36410; 36600; 71045; 71046; 76604; 76770; 76937; 80048; 80053; 82330; 82805; 82945; 83540; 83550; 83615; 83735; 84100; 84157; 85025; 85027; 85520; 85610; 85730; 86850; 86891; 86900; 86901; 86920; 87070; 87102; 87116; 87205; 87206; 87252; 88108; 88305; 89050; 94002; 94640; 94660; 94760

== ENCOUNTER 2024-06-24 10:31 | Inpatient (IN) | payer MEDICARE, OTHER ==
[2024-06-24 11:51] LABS: Anisocytosis Slight; Basophils % (A) 1 %; Eosinophils # (A) 0.1 k/uL (0-0.7); Eosinophils % (A) 3 %; HCT 36.5 % (39.0-53.0); HGB 11.4 gm/dL (13.0-17.5); Hypochromasia Marked; Lymphocytes # (A) 0.5 k/uL (1.0-4.8); Lymphocytes % (A) 12 %; MCH 26.5 pg (25.0-35.0); MCHC 31.3 g/dL (31.0-37.0); MCV 84.8 fL (80.0-100.0); Monocytes # (A) 0.2 k/uL (0-1.0); Monocytes % (A) 5 %; Neutrophils # (A) 3.3 k/uL (1.3-7.7); Neutrophils % (A) 77 %; Platelet Count 236 k/uL (150-450); RDW 17.9 % (11.5-15.5); WBC 4.3 k/uL (3.8-10.6)
[2024-06-24 12:01] LABS: INR 1.2 (<1.2); Partial Thromboplastin Time 26.9 sec (22.0-30.0); Prothrombin Time 12.7 sec (10.0-12.5)
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
--- NOTE | 2024-06-24 12:04 | XR ---
EXAMINATION TYPE: XR chest 2V DATE OF EXAM: 06/24/2024 11:48 AM CLINICAL INDICATION: Male, 74 years old with history of KIMBERLY; COMPARISON: Chest radiographs from 10/08/2023 TECHNIQUE: XR chest 2V Frontal view of the chest. FINDINGS: Lungs/Pleura: There is no evidence of pleural effusion, focal consolidation, or pneumothorax. Pulmonary vascularity: Unremarkable. Heart/mediastinum: Cardiomediastinal silhouette is unremarkable. Left atrial appendage occlusion kian ce is present. A loop recorder projects over the left thorax over the heart. Musculoskeletal: No acute osseous pathology. Midline sternotomy wires are noted. Other findings: None IMPRESSION: No acute cardiopulmonary disease/process.
[2024-06-24 12:14] LABS: ALT 13 U/L (4-49); AST 36 U/L (17-59); African American GFR (CKD) 32 (>60 ml/min/1.73 sqM); Albumin 3.7 g/dL (3.5-5.0); Alkaline Phosphatase 66 U/L (38-126); Anion Gap 8 mmol/L; Blood Urea Nitrogen 27 mg/dL (9-20); Calcium 8.5 mg/dL (8.4-10.2); Carbon Dioxide 23 mmol/L (22-30); Chloride 106 mmol/L (98-107); Glucose 157 mg/dL (74-99); Magnesium 2.4 mg/dL (1.6-2.3); Non-African American GFR(CKD) 27 (>60 ml/min/1.73 sqM); Potassium 4.6 mmol/L (3.5-5.1); Sodium 137 mmol/L (137-145); Total Bilirubin 0.7 mg/dL (0.2-1.3); Total Protein 7.1 g/dL (6.3-8.2)
[2024-06-24 12:21] LABS: NT-Pro-B-Type Natriuretic Pept 845 pg/mL
--- NOTE | 2024-06-24 13:53 | US ---
EXAMINATION TYPE: US abdomen limited DATE OF EXAM: 06/24/2024 COMPARISON: US 08/08/2023 CLINICAL INDICATION: Male, 74 years old with history of Abdominal distention, ascites on outside CT; Distention, ascites seen on outside CT. TECHNIQUE: Multiple sonographic images of the right upper quadrant are obtained. FINDINGS: EXAM MEASUREMENTS: Liver Length: 17.5 cm Gallbladder Wall: 0.33 cm CBD: 0.66 cm Right Kidney: 11.9 x 5.0 x 4.9 cm HR REPRESENTATIVE NOTES: Exam is very limited due to gas and patient body habitus, pt is 334 pounds. Pancreas: Limited visibility. Liver: *Measures upper limits. Increased echogenicity. Limited visibility of hepatic vasculature. No dular contour to liver. Gallbladder: Appears anechoic. Fold seen. Evidence for sonographic Borjas's sign: No CBD: Measures upper limits. Right Kidney: No hydronephrosis or masses seen Scanned all four quadrants of the abdomen for ascites. Ascites seen in all four quadrants of the abdomen. IMPRESSION: Hepatic cirrhosis with moderate to large ascites
[2024-06-24 13:56] LABS: Appearance,Urine Clear (Clear); Bilirubin,Urine Negative (Negative); Blood,Urine Negative (Negative); Color,Urine Light Yellow; Glucose,Urine (UA) 4+ (Negative); Hyaline Casts,Urine 1 /lpf (0-2); Ketones,Urine Negative (Negative); Leukocyte Esterase,Urine Small (Negative); Mucus,Urine Rare /hpf; Nitrite,Urine Negative (Negative); Protein,Urine Negative (Negative); RBC,Urine 1 /hpf (0-5); Specific Gravity,Urine 1.013 (1.001-1.035); Squamous Epithelial Cell,Urine 1 /hpf (0-4); Urobilinogen,Urine <2.0 mg/dL (<2.0); WBC,Urine 3 /hpf (0-5)
[2024-06-24] MEDS ORDERED: MORPHINE SULFATE 4 MG/ML SYRINGE IV PRN (14:07)
[2024-06-24] MEDS ORDERED: HYDROcodone/APAP 5-325MG 1 EACH TAB PO PRN (14:07)
[2024-06-24] MEDS ORDERED: ONDANSETRON 4 MG/2 ML VIAL IVP PRN (14:07)
[2024-06-24] MEDS ORDERED: ACETAMINOPHEN TAB 325 MG TAB PO PRN (14:07)
[2024-06-24] MEDS ORDERED: NALOXONE 0.4 MG/ML 1 ML VIAL IV PRN (14:07)
[2024-06-24] MEDS ORDERED: COLCHICINE 0.6 MG EACH PO PRN (14:08)
[2024-06-24] MEDS ORDERED: NITROGLYCERIN SL TABS 0.4 MG TAB SUBLINGUAL PRN (14:08)
[2024-06-24] MEDS ORDERED: DEXTROSE 50% SYRINGE 50 ML IVP PRN ×2 (16:08)
[2024-06-24] MEDS: FUROSEMIDE 20 MG TAB PO SCH (16:25)
[2024-06-24 16:33] LABS: Glucose,Whole Blood 116 mg/dL (70-110)
[2024-06-24] MEDS: INSULIN ASPART (NovoLOG) 100 UNIT/ML VIAL SQ SCH (16:36)
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
[2024-06-24 20:58] LABS: Glucose,Whole Blood 116 mg/dL (70-110)
[2024-06-24] MEDS ORDERED: glipiZIDE 5 MG TAB PO SCH (21:00)
[2024-06-24] MEDS: METOPROLOL TARTRATE 25 MG TAB PO SCH (21:57)
[2024-06-24] MEDS: SPIRONOLACTONE 25 MG TAB PO SCH (21:57)
[2024-06-24] MEDS: FUROSEMIDE 10 MG/ML 4 ML VIAL IV SCH (21:57)
[2024-06-24] MEDS: MAGNESIUM OXIDE 400 MG TAB PO SCH (21:57)
[2024-06-25 06:19] LABS: Glucose,Whole Blood 138 mg/dL (70-110)
[2024-06-25] MEDS ORDERED: POTASSIUM CHLORIDE ER 10 MEQ TAB.ER.PRT PO SCH (09:00)
[2024-06-25] MEDS ORDERED: ASPIRIN 81 MG PO SCH (09:00)
[2024-06-25] MEDS ORDERED: NON FORMULARY DRUG (Omega-3/Dha/Epa/Fish Oil [Fish Oil 1,000 Mg Softgel] 1 EACH Capsule) PO SCH (09:00)
[2024-06-25 09:01] LABS: ALT 11 U/L (10-49); AST 23 U/L (14-35); Albumin 3.2 g/dL (3.8-4.9); Albumin/Globulin Ratio 1.14 Ratio (1.60-3.17); Alkaline Phosphatase 50 U/L (41-126); BUN/Creat Ratio 11.04 Ratio (12.00-20.00); Blood Urea Nitrogen 25.4 mg/dL (9.0-27.0); Calcium 7.7 mg/dL (8.7-10.3); Chloride 104 mmol/L (96-109); Globulin 2.8 g/dL (1.6-3.3); Glucose 112 mg/dL (70-110); Magnesium 2.4 mg/dL (1.5-2.4); Sodium 137 mmol/L (135-145); Total Bilirubin 0.4 mg/dL (0.3-1.2)
[2024-06-25 09:07] LABS: HCT 30.8 % (39.6-50.0); HGB 9.3 g/dL (13.0-17.0); MCH 26.3 pg (27.0-32.0); MCHC 30.2 g/dL (32.0-37.0); Mean Platelet Volume 10.9 FL (9.5-12.2); NRBC Per 100 WBC 0 X 10*3/uL (0.00-0.01); Platelet Count 188 X 10*3/uL (140-440); RBC 3.54 X 10*6/uL (4.40-5.60); RDW 18.4 % (11.5-14.5); WBC 4.08 X 10*3/uL (4.50-10.00)
--- NOTE | 2024-06-25 11:09 | US ---
Ultrasound-guided paracentesis. DATE OF EXAM: 06/25/2024 CLINICAL HISTORY: Ascites The procedure was discussed with the patient. The risks, complications, benefits, and alternatives we re discussed and any questions were answered. Informed consent was obtained. The patient was placed s upine on the ultrasound table and prepped and draped in the usual sterile fashion. All elements of maximal barrier technique were utilized. Under ultrasound guidance, access into the right lower quadrant was obtained, via the paracentesis catheter system and direct ultrasound guidanc e. Approximately 12 liters of straw-colored fluid was removed. The patient was stable throughout the pro cedure and remained stable upon discharge from Department of Radiology. Sample sent to pathology for analysis. IMPRESSION: Successful paracentesis under ultrasound guidance.
[2024-06-25] MEDS: allopurinoL 300 MG TAB PO SCH (11:29)
[2024-06-25] MEDS: DAPAGLIFLOZIN PROPANEDIOL 5 MG TABLET PO SCH (11:29)
[2024-06-25] MEDS: TAMSULOSIN 0.4 MG CAP.ER.24H PO SCH (11:29)
[2024-06-25] MEDS: MULTIVITAMINS, THERA 1 EACH TAB PO SCH (11:30)
[2024-06-25] MEDS: FERROUS SULFATE 325 MG TAB PO SCH (11:30)
[2024-06-25] MEDS: AMIODARONE 200 MG TAB PO SCH (11:30)
[2024-06-25] MEDS: CYANOCOBALAMIN 500 MCG TAB PO SCH (11:30)
[2024-06-25] MEDS: ATORVASTATIN 80 MG TAB PO SCH (11:30)
[2024-06-25 11:40] LABS: Glucose,Whole Blood 145 mg/dL (70-110)
[2024-06-25] MEDS: ALBUMIN HUMAN 25% 50 ML in EMPTY BAG 1 BAG IVPB SCH (11:52)
--- NOTE | 2024-06-25 12:05 | CA ---
Transthoracic Echo Report Name: Sylvester Hopkins Age: 74 Gender: M : 1950 Exam Date: 06/25/2024 08:36 Exam Location: [facility] Ht (in): 69 Wt (lb): 334 Ordering Physician: Rafi Abrams Attending/Referring Phys: Supervisor Riprap Placing Marj Davidson RDCS Procedure CPT: Indications: exertional SOB s/p CABGx4 10/12 Cardiac Hx: CABG 2022, HTN Technical Quality: Technically difficult study Contrast 1: Definity Total Dose (mL): 2 Contrast 2: Total Dose (mL): MEASUREMENTS (Male / Female) Normal Values 2D ECHO LV Diastolic Diameter PLAX 4.0 cm 4.2 - 5.9 / 3.9 - 5.3 cm LV Systolic Diameter PLAX 3.2 cm IVS Diastolic Thickness 1.7 cm 0.6 - 1.0 / 0.6 - 0.9 cm LVPW Diastolic Thickness 1.8 cm 0.6 - 1.0 / 0.6 - 0.9 cm LV Relative Wall Thickness 0.9 RV Internal Dim ED PLAX 4.1 cm LA Systolic Diameter LX 4.2 cm 3.0 - 4.0 / 2.7 - 3.8 cm LA Volume 107.6 cm??? 18 - 58 / 22 - 52 cm??? LA Volume Index 38.4 cm???/m??? 16 - 28 cm???/m??? M-MODE Aortic Root Diameter MM 3.9 cm AV Cusp Separation MM 2.5 cm DOPPLER AV Peak Velocity 89.6 cm/s AV Peak Gradient 3.2 mmHg MV Area PHT 2.8 cm??? Mitral E Point Velocity 88.6 cm/s Mitral A Point Velocity 90.5 cm/s Mitral E to A Ratio 1.0 MV Deceleration Time 269.6 ms TR Peak Velocity 257.8 cm/s TR Peak Gradient 26.6 mmHg Right Ventricular Systolic Press 31.4 mmHg FINDINGS Left Ventricle Left ventricular ejection fraction is estimated at 55-60 %. Left ventricular cavity size normal. No obvious regional wall motion abnormalities. Severe concentric left ventricular hypertrophy. Right Ventricle Severe right ventricular dilatation. Right ventricular systolic pressure within normal limits. Right Atrium Right atrium not well visualized. Left Atrium Mildly increased left atrial diameter. Moderately increased left atrial volume. Mildly increased left atrial area. Mitral Valve Structurally normal mitral valve. No mitral stenosis, regurgitation or prolapse. Aortic Valve Trileaflet aortic valve. No aortic valve stenosis or regurgitation. Tricuspid Valve Structurally normal tricuspid valve. Mild tricuspid regurgitation. Pulmonic Valve Pulmonic valve not well visualized. No pulmonic regurgitation. Pericardium No pericardial effusion. Aorta Mild aortic dilatation at the level of the sinuses of valsalva 39 mm CONCLUSIONS Normal LV size and systolic function with moderate to severe concentric LVH. Left atrium is enlarged. Mild tricuspid regurgitation trivial mitral regurgitation no pericardial effusion. No pulmonary hypertension Previewed by: Dr. Mercy Alvarez MD (Electronically Signed) Final Date: 25 June 2024 12:04
[2024-06-25] MEDS: FENOFIBRATE 54 MG TAB PO SCH (12:29)
--- NOTE | 2024-06-25 13:33 | P.PN ---
Subjective Progress Note Date: 06/25/24 Hospital Course: Patient is a very pleasant 74-year-old male with a past medical history of CAD status post CABG x 4 (09/2023), paroxysmal atrial fibrillation no longer on anticoagulation since CABG, hypertension, hyperlipidemia, type II aap-sxsfuyc-[id number] diabetes mellitus, and chronic kidney disease stage IV. Patient states that over the last 2 months he has been experiencing exertional dyspnea and abdominal distention/swelling. Patient reports he has been under the care of his PCP whom has sent him for multiple tests and discussed that he will need to be seen by a network field engineer for evaluation of his kidney function. Patient states he was sent for an outpatient CT and received a call from his PCP yesterday telling him that he had moderate to severe fluid in his abdomen and needed to go to the emergency department to have drained. Patient reports previous thoracentesis 09/2023 in which she had 650 cc drained from left lung but was told it was contaminated by blood and they were unable to perform pathology testing on the specimen. Patient denies history of paracentesis. Patient states his only complaint is exertional dyspnea and the "obvious swelling in his abdomen". He does report bilateral lower extremity edema at baseline and denies increase in swelling in his extremities. He states urination and bowel movements have been normal. He denies history of alcohol abuse, hepatitis, or previous diagnosis of liver cirrhosis. Patient denies abdominal pain or discomfort, fevers, chills, headache, lightheadedness, dizziness, chest pain, palpitations, nausea, vomiting, involuntary weight loss, or any other complaints at this time. On arrival to our facility, patient underwent evaluation in the emergency department. Vital signs upon arrival show blood pressure 162/76, heart rate 66, respiratory rate 20, temp 97.8 F, and SpO2 99% on room air. EKG was completed showing normal sinus rhythm at 72 bpm with a first-degree AV block with CO interval of 213 ms. Chest x-ray negative for acute cardiopulmonary process. Abdominal ultrasound completed showing hepatic cirrhosis with moderate to large amount of ascites. Labs completed and reviewed. CBC showing normocytic anemia with hemoglobin of 11.4. Coagulation profile showing elevated PT of 12.7 and INR of 1.2. BMP revealing BUN of 27, creatinine of 2.25, and GFR of 27 with baseline creatinine around 1.9. Glucose 157. Magnesium 2.4. Liver profile was unremarkable. Troponin was negative at less than 0.012. proBNP 845. Urinalysis positive for glucose but negative for blood, protein or infection. Patient admitted under our services at this time with consultation to nephrology and interventional radiology for paracentesis. Physical exam: Patient seen and fully evaluated at bedside upon return from paracentesis. Vaishnavi guerrero reports feeling much better preparing to eat lunch at this time. Patient states he can actually feel his stomach move when he breathes instead of it being rockhard. Patient currently free from any further complaints, questions, or needs at this time. Vital signs reviewed and stable. General: Nontoxic, no distress and appears stated age. Derm: Skin warm and dry, normal coloration for ethnicity. Head: Atraumatic, normocephalic and symmetric. Eyes: EOM's intact, no lid lag, and anicteric sclera Mouth: no lip lesions, mucus membranes moist Cardiovascular: regular rate and rhythm with normal S1S2, no murmur, positive posterior tibial pulses bilaterally, and cap refill < 2 seconds. Lungs: Respirations even, regular, and unlabored on room air. Lungs diminished, no rhonchi, no rales, no wheezing, and no accessory muscle usage. Abdominal: Cirrhotic abdomen, taut and distended. Nontender to palpation. Ext: ROM intact. No gross muscle atrophy, 1+ pitting bilateral lower extremity edema, no contractures Neuro: Speech clear, face symmetrical and CN II-XII grossly intact with no noted focal neuro deficits Psych: Alert and oriented to person, place, time, and situation. Appropriate and pleasant affect. Assessment and Plan of Care: Exertional dyspnea, likely secondary to large volume ascites, however cannot rule out cardiac etiology status post recent CABG Newly diagnosed liver cirrhosis with large amount of ascites CKD stage IV History of CAD status post CABG x 4 Paroxysmal atrial fibrillation Hypertension Hyperlipidemia Type II tht-[id number]-tybqixvcz diabetes mellitus -Ultrasound revealing hepatic cirrhosis with moderate to large amount of ascites -Interventional radiology evaluated and took patient for paracentesis successfully removing a reported 12 L of fluid. -Orders placed for albumin 50 g IVPB to be administered status post large-volume paracentesis. -Nephrology following, appreciate recommendations -Continue Lasix 40 mg IV twice daily and Aldactone 25 mg twice daily -Patient placed on strict I's and O's and daily weights. -Telemetry monitoring. -Echocardiogram completed, pending results may consider cardiology consult. -Troponin was negative at less than 0.012. proBNP 845. -Patient to continue daily medication regimen with amiodarone 200 mg daily, atorvastatin 80 mg daily, Farxiga 5 mg daily, fenofibrate 54 mg daily, and metoprolol 25 mg twice daily. -Hold aspirin pending completion of paracentesis. SCDs for DVT prophylaxis. -Hold Jardiance and glipizide and place patient on glycemic protocol with NovoLog sliding scale. Data and imaging reviewed: Paracentesis ultrasound completed. Per radiology report patient underwent successful paracentesis with removal of 12, ascitic fluid sample was sent to lab for analysis. Vital signs reviewed. Blood pressure 155/67, heart rate 68, respiratory rate 18, temp 97.3 F, and SpO2 of 97% on room air. Morning labs reviewed. CBC showing bicytopenia with WBC count of 4.08 and hemoglobin of 9.3. BMP showing BUN of 25.4, creatinine of 2.3, and GFR of 29. Blood glucose 112. Hemoglobin A1c 6.1%. Magnesium 2.4. CODE STATUS: Full code DVT prophylaxis: SCDs Anticipated discharge date: Pending clinical course Anticipated discharge place: Home Patient was seen independently by Nurse Practitioner. This document was prepared using [employer] dictation software. Please allow for errors in bottom stop attacher while rare they do occur. Rafi Abrams NP rendered care for this patient independently, reviewed the findings and plan as documented in the note above. I did not physically speak with or examine the patient on this date. Objective - Vital Signs Vital signs: Vital Signs Temp 97.3 F L 06/25/24 07:06 Pulse 71 06/25/24 07:06 Resp 18 06/25/24 07:06 BP 115/58 06/25/24 07:06 Pulse Ox 93 L 06/25/24 07:06 FiO2 Intake & Output 06/24/24 06/25/24 06/25/24 18:59 06:59 18:59 Weight 151.5 kg 95.1 kg Other: Voiding Method Toilet - Labs CBC & Chem 7: 06/25/24 04:20 06/25/24 04:20 Labs: Abnormal Lab Results - Last 24 Hours (Table) 06/24/24 06/24/24 06/24/24 Range/Units 11:33 11:33 11:33 Hgb 11.4 L (13.0-17.5) gm/dL Hct 36.5 L (39.0-53.0) % RDW 17.9 H (11.5-15.5) % Lymphocytes # 0.5 L (1.0-4.8) k/uL PT 12.7 H (10.0-12.5) sec INR 1.2 H (<1.2) BUN 27 H (9-20) mg/dL Creatinine 2.25 H (0.66-1.25) mg/dL Glucose 157 H (74-99) mg/dL POC Glucose (mg/dL) (70-110) mg/dL Magnesium 2.4 H (1.6-2.3) mg/dL Urine Glucose (UA) (Negative) Ur Leukocyte Esterase (Negative) Urine Mucus (None) /hpf 06/24/24 06/24/24 06/24/24 Range/Units 13:10 16:31 20:56 Hgb (13.0-17.5) gm/dL Hct (39.0-53.0) % RDW (11.5-15.5) % Lymphocytes # (1.0-4.8) k/uL PT (10.0-12.5) sec INR (<1.2) BUN (9-20) mg/dL Creatinine (0.66-1.25) mg/dL Glucose (74-99) mg/dL POC Glucose (mg/dL) 116 H 116 H (70-110) mg/dL Magnesium (1.6-2.3) mg/dL Urine Glucose (UA) 4+ H (Negative) Ur Leukocyte Esterase Small H (Negative) Urine Mucus Rare H (None) /hpf 06/25/24 Range/Units 06:17 Hgb (13.0-17.5) gm/dL Hct (39.0-53.0) % RDW (11.5-15.5) % Lymphocytes # (1.0-4.8) k/uL PT (10.0-12.5) sec INR (<1.2) BUN (9-20) mg/dL Creatinine (0.66-1.25) mg/dL Glucose (74-99) mg/dL POC Glucose (mg/dL) 138 H (70-110) mg/dL Magnesium (1.6-2.3) mg/dL Urine Glucose (UA) (Negative) Ur Leukocyte Esterase (Negative) Urine Mucus (None) /hpf
[2024-06-25 16:30] LABS: Glucose,Whole Blood 126 mg/dL (70-110)
[2024-06-25 20:30] LABS: T. Protein, Body Fluid Source Paracentesis Fluid; Total Protein, Body Fluid 2640 mg/dL
[2024-06-25 20:38] LABS: Glucose,Whole Blood 141 mg/dL (70-110)
[2024-06-25 20:39] LABS: Appearance,BF Cloudy (Clear)
[2024-06-25 20:54] LABS: Albumin, Fluid Source Other
[2024-06-26 05:57] LABS: Glucose,Whole Blood 148 mg/dL (70-110)
[2024-06-26 08:52] LABS: HCT 30.1 % (39.6-50.0); HGB 9.2 g/dL (13.0-17.0); MCHC 30.6 g/dL (32.0-37.0); NRBC Per 100 WBC 0 X 10*3/uL (0.00-0.01); Platelet Count 171 X 10*3/uL (140-440); RBC 3.54 X 10*6/uL (4.40-5.60); RDW 18.2 % (11.5-14.5); WBC 2.96 X 10*3/uL (4.50-10.00)
[2024-06-26 09:34] LABS: ALT 12 U/L (10-49); AST 22 U/L (14-35); Albumin 3.4 g/dL (3.8-4.9); Albumin/Globulin Ratio 1.31 Ratio (1.60-3.17); Alkaline Phosphatase 47 U/L (41-126); BUN/Creat Ratio 10.67 Ratio (12.00-20.00); Blood Urea Nitrogen 25.6 mg/dL (9.0-27.0); Calcium 7.8 mg/dL (8.7-10.3); Carbon Dioxide 23.2 mmol/L (21.6-31.8); Chloride 104 mmol/L (96-109); Globulin 2.6 g/dL (1.6-3.3); Glucose 136 mg/dL (70-110); Magnesium 2.2 mg/dL (1.5-2.4); Potassium 3.9 mmol/L (3.5-5.5); Sodium 139 mmol/L (135-145); Total Bilirubin 0.5 mg/dL (0.3-1.2)
[2024-06-26 11:37] LABS: Glucose,Whole Blood 146 mg/dL (70-110)
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
--- NOTE | 2024-06-26 13:44 | US ---
EXAMINATION TYPE: US kidneys/renal and bladder DATE OF EXAM: 06/26/2024 COMPARISON: NONE CLINICAL INDICATION: Male, 74 years old with history of ckd; CKD EXAM MEASUREMENTS: Right Kidney: 11.3x4.4x5.2 cm Left Kidney: 10.2x4.3x4.4 cm Laborer [place] notes: splenomegaly, exam limited by bowel and habitus Right Kidney: No hydronephrosis or masses seen Left Kidney: No hydronephrosis or masses seen Bladder: wnl Bilateral Jets seen: No There appears to be ascites fluid in the right side of the abdomen. IMPRESSION: 1. No hydronephrosis. 2. Incidental splenomegaly up to 18.7 cm. 3. Ascites fluid noted in the right side of the abdomen.
[2024-06-26] MEDS: FUROSEMIDE 40 MG TAB PO SCH (16:23)
--- NOTE | 2024-06-26 16:24 | P.PN ---
Subjective Progress Note Date: 06/26/24 Hospital Course: Patient is a very pleasant 74-year-old male with a past medical history of CAD status post CABG x 4 (09/2023), paroxysmal atrial fibrillation no longer on anticoagulation since CABG, hypertension, hyperlipidemia, type II peg-[id number] diabetes mellitus, and chronic kidney disease stage IV. Patient states that over the last 2 months he has been experiencing exertional dyspnea and abdominal distention/swelling. Patient reports he has been under the care of his PCP whom has sent him for multiple tests and discussed that he will need to be seen by a tire bladder maker for evaluation of his kidney function. Patient states he was sent for an outpatient CT and received a call from his PCP yesterday telling him that he had moderate to severe fluid in his abdomen and needed to go to the emergency department to have drained. Patient reports previous thoracentesis 09/2023 in which she had 650 cc drained from left lung but was told it was contaminated by blood and they were unable to perform pathology testing on the specimen. Patient denies history of paracentesis. Patient states his only complaint is exertional dyspnea and the "obvious swelling in his abdomen". He does report bilateral lower extremity edema at baseline and denies increase in swelling in his extremities. He states urination and bowel movements have been normal. He denies history of alcohol abuse, hepatitis, or previous diagnosis of liver cirrhosis. Patient denies abdominal pain or discomfort, fevers, chills, headache, lightheadedness, dizziness, chest pain, palpitations, nausea, vomiting, involuntary weight loss, or any other complaints at this time. On arrival to our facility, patient underwent evaluation in the emergency department. Vital signs upon arrival show blood pressure 162/76, heart rate 66, respiratory rate 20, temp 97.8 F, and SpO2 99% on room air. EKG was completed showing normal sinus rhythm at 72 bpm with a first-degree AV block with [place] interval of 213 ms. Chest x-ray negative for acute cardiopulmonary process. Abdominal ultrasound completed showing hepatic cirrhosis with moderate to large amount of ascites. Labs completed and reviewed. CBC showing normocytic anemia with hemoglobin of 11.4. Coagulation profile showing elevated PT of 12.7 and INR of 1.2. BMP revealing BUN of 27, creatinine of 2.25, and GFR of 27 with baseline creatinine around 1.9. Glucose 157. Magnesium 2.4. Liver profile was unremarkable. Troponin was negative at less than 0.012. proBNP 845. Urinalysis positive for glucose but negative for blood, protein or infection. Patient admitted under our services at this time with consultation to nephrology and interventional radiology for paracentesis. On 06/25/2024 patient underwent successful paracentesis with removal of 12 L of ascitic fluid. Fluid sample sent for analysis and culture. Physical exam: Patient seen and fully evaluated at bedside this morning. He reports mild discomfort, states secondary to positioning otherwise denies any complaints at this time. Vital signs reviewed and stable. General: Nontoxic, no distress and appears stated age. Derm: Skin warm and dry, normal coloration for ethnicity. Head: Atraumatic, normocephalic and symmetric. Eyes: EOM's intact, no lid lag, and anicteric sclera Mouth: no lip lesions, mucus membranes moist Cardiovascular: regular rate and rhythm with normal S1S2, no murmur, positive p osterior tibial pulses bilaterally, and cap refill < 2 seconds. Lungs: Respirations even, regular, and unlabored on room air. Lungs diminished, no rhonchi, no rales, no wheezing, and no accessory muscle usage. Abdominal: Cirrhotic abdomen, taut and distended. Nontender to palpation. Ext: ROM intact. No gross muscle atrophy, 1+ pitting bilateral lower extremity edema, no contractures Neuro: Speech clear, face symmetrical and CN II-XII grossly intact with no noted focal neuro deficits Psych: Alert and oriented to person, place, time, and situation. Appropriate and pleasant affect. Assessment and Plan of Care: Exertional dyspnea, likely secondary to large volume ascites, however cannot rule out cardiac etiology status post recent CABG Newly diagnosed liver cirrhosis with large amount of ascites CKD stage IV History of CAD status post CABG x 4 Paroxysmal atrial fibrillation Hypertension Hyperlipidemia Type II ydj-qnooolh-egnrejckc diabetes mellitus -Ultrasound revealing hepatic cirrhosis with moderate to large amount of ascites -Interventional radiology evaluated and took patient for paracentesis successfully removing a reported 12 L of fluid. Patient received 50 g of albumin IVPB status post procedure. -SAAG score is 1.5 showing ascites likely due to portal venous hypertension. -Nephrology following, reviewed documentation in chart. Training And Documentation Specialist placing order for renal ultrasound. -Continue Lasix 40 mg twice daily and Aldactone 25 mg twice daily -Patient placed on strict I's and O's and daily weights. -Telemetry monitoring. -Echocardiogram revealing EF 55 to 60% with moderate to severe LVH and mild tricuspid and mitral regurgitation. -Troponin was negative at less than 0.012. proBNP 845. -Patient to continue daily medication regimen with amiodarone 200 mg daily, atorvastatin 80 mg daily, Farxiga 5 mg daily, fenofibrate 54 mg daily, and metoprolol 25 mg twice daily. -Hold aspirin pending completion of paracentesis. SCDs for DVT prophylaxis. -Hold Jardiance and glipizide and place patient on glycemic protocol with NovoLog sliding scale. Data and imaging reviewed: Echocardiogram revealing EF 55 to 60% with moderate to severe LVH and mild tricuspid and mitral regurgitation. Vital signs reviewed. Blood pressure 154/76, heart rate 66, respiratory rate 17, temp 98.6 F, and SpO2 of 97% on room air. Morning labs reviewed. CBC showing bicytopenia with WBC count of 2.96, hemoglobin 9.2. BMP showing BUN of 25.6, creatinine of 2.4, GFR of 27. Blood glucose 136. Magnesium 2.2. Liver profile normal findings with exception of low albumin of 3.4. CODE STATUS: Full code DVT prophylaxis: SCDs Anticipated discharge date: Pending clinical course Anticipated discharge place: Home Patient was seen independently by Nurse Practitioner. This document was prepared using [employer] dictation software. Please allow for errors in search consultant while rare they do occur. I reviewed the documentation as provided by the EMILY above, who is the original author of this note. I agree with the documented assessment and plan, with the following changes: none Objective - Vital Signs Vital signs: Vital Signs Temp 98.6 F 06/26/24 06:55 Pulse 66 06/26/24 06:55 Resp 17 06/26/24 06:55 BP 154/76 06/26/24 06:55 Pulse Ox 97 06/26/24 06:55 FiO2 Intake & Output 06/25/24 06/26/24 06/26/24 18:59 06:59 18:59 Output Total 1050 700 Balance -1050 -700 Weight 135.7 kg 134.5 kg Output: Urine 1050 700 - Labs CBC & Chem 7: 06/26/24 05:04 06/26/24 05:04 Labs: Abnormal Lab Results - Last 24 Hours (Table) 06/25/24 06/25/24 06/25/24 Range/Units 04:20 04:20 04:20 WBC 4.08 L (4.50-10.00) X 10*3/uL RBC 3.54 L (4.40-5.60) X 10*6/uL Hgb 9.3 L (13.0-17.0) g/dL Hct 30.8 L (39.6-50.0) % MCH 26.3 L (27.0-32.0) pg MCHC 30.2 L (32.0-37.0) g/dL RDW 18.4 H (11.5-14.5) % Creatinine 2.3 H (0.6-1.5) mg/dL Est GFR (CKD-EPI) 29 L (>=60) BUN/Creatinine Ratio 11.04 L (12.00-20.00) Ratio Glucose 112 H (70-110) mg/dL POC Glucose (mg/dL) (70-110) mg/dL Hemoglobin A1c 6.1 H (<=6.0) % Calcium 7.7 L (8.7-10.3) mg/dL Total Protein 6.0 L (6.2-8.2) g/dL Albumin 3.2 L (3.8-4.9) g/dL Albumin/Globulin Ratio 1.14 L (1.60-3.17) Ratio Fluid Appearance (Clear) 06/25/24 06/25/24 06/25/24 Range/Units 10:15 11:38 16:29 WBC (4.50-10.00) X 10*3/uL RBC (4.40-5.60) X 10*6/uL Hgb (13.0-17.0) g/dL Hct (39.6-50.0) % MCH (27.0-32.0) pg MCHC (32.0-37.0) g/dL RDW (11.5-14.5) % Creatinine (0.6-1.5) mg/dL Est GFR (CKD-EPI) (>=60) BUN/Creatinine Ratio (12.00-20.00) Ratio Glucose (70-110) mg/dL POC Glucose (mg/dL) 145 H 126 H (70-110) mg/dL Hemoglobin A1c (<=6.0) % Calcium (8.7-10.3) mg/dL Total Protein (6.2-8.2) g/dL Albumin (3.8-4.9) g/dL Albumin/Globulin Ratio (1.60-3.17) Ratio Fluid Appearance Cloudy A (Clear) 06/25/24 06/26/24 Range/Units 20:33 05:54 WBC (4.50-10.00) X 10*3/uL RBC (4.40-5.60) X 10*6/uL Hgb (13.0-17.0) g/dL Hct (39.6-50.0) % MCH (27.0-32.0) pg MCHC (32.0-37.0) g/dL RDW (11.5-14.5) % Creatinine (0.6-1.5) mg/dL Est GFR (CKD-EPI) (>=60) BUN/Creatinine Ratio (12.00-20.00) Ratio Glucose (70-110) mg/dL POC Glucose (mg/dL) 141 H 148 H (70-110) mg/dL Hemoglobin A1c (<=6.0) % Calcium (8.7-10.3) mg/dL Total Protein (6.2-8.2) g/dL Albumin (3.8-4.9) g/dL Albumin/Globulin Ratio (1.60-3.17) Ratio Fluid Appearance (Clear) Microbiology - Last 24 Hours (Table) 06/25/24 10:15 Gram Stain - Preliminary Paracentesis Fluid
[2024-06-26 16:51] LABS: Glucose,Whole Blood 183 mg/dL (70-110)
[2024-06-26] MEDS: LACTULOSE 20 GM/30 ML CUP PO ONE (17:37)
[2024-06-26 20:31] LABS: Glucose,Whole Blood 178 mg/dL (70-110)
[2024-06-27 05:39] LABS: Glucose,Whole Blood 155 mg/dL (70-110)
[2024-06-27] MEDS: polyethylene glycoL 3350 17 GM POWD.PACK PO SCH (08:55)
[2024-06-27 09:42] LABS: HCT 31.5 % (39.6-50.0); HGB 9.7 g/dL (13.0-17.0); MCH 25.9 pg (27.0-32.0); MCHC 30.8 g/dL (32.0-37.0); MCV 84.2 FL (80.0-97.0); Mean Platelet Volume 11.1 FL (9.5-12.2); NRBC Per 100 WBC 0 X 10*3/uL (0.00-0.01); Platelet Count 172 X 10*3/uL (140-440); RBC 3.74 X 10*6/uL (4.40-5.60); RDW 18.2 % (11.5-14.5); WBC 3.52 X 10*3/uL (4.50-10.00)
[2024-06-27 10:09] LABS: BUN/Creat Ratio 11.59 Ratio (12.00-20.00); Blood Urea Nitrogen 25.5 mg/dL (9.0-27.0); Chloride 104 mmol/L (96-109); Glucose 162 mg/dL (70-110); Magnesium 2.2 mg/dL (1.5-2.4); Sodium 137 mmol/L (135-145)
[2024-06-27 10:10] LABS: ALT 6 U/L (10-49); AST 25 U/L (14-35); Albumin 3.3 g/dL (3.8-4.9); Albumin/Globulin Ratio 1.22 Ratio (1.60-3.17); Alkaline Phosphatase 53 U/L (41-126); Calcium 7.8 mg/dL (8.7-10.3); Carbon Dioxide 23.2 mmol/L (21.6-31.8); Globulin 2.7 g/dL (1.6-3.3); Total Bilirubin 0.4 mg/dL (0.3-1.2)
--- NOTE | 2024-06-27 10:29 | P.PN ---
Subjective Progress Note Date: 06/27/24 Hospital Course: Patient is a very pleasant 74-year-old male with a past medical history of CAD status post CABG x 4 (09/2023), paroxysmal atrial fibrillation no longer on anticoagulation since CABG, hypertension, hyperlipidemia, type II isa-ykimtpx-mqkkvmkrs diabetes mellitus, and chronic kidney disease stage IV. Patient states that over the last 2 months he has been experiencing exertional dyspnea and abdominal distention/swelling. Patient reports he has been under the care of his PCP whom has sent him for multiple tests and discussed that he will need to be seen by a fiber technologist for evaluation of his kidney function. Patient states he was sent for an outpatient CT and received a call from his PCP yesterday telling him that he had moderate to severe fluid in his abdomen and needed to go to the emergency department to have drained. Patient reports previous thoracentesis 09/2023 in which she had 650 cc drained from left lung but was told it was contaminated by blood and they were unable to perform pathology testing on the specimen. Patient denies history of paracentesis. Patient states his only complaint is exertional dyspnea and the "obvious swelling in his abdomen". He does report bilateral lower extremity edema at baseline and denies increase in swelling in his extremities. He states urination and bowel movements have been normal. He denies history of alcohol abuse, hepatitis, or previous diagnosis of liver cirrhosis. Patient denies abdominal pain or discomfort, fevers, chills, headache, lightheadedness, dizziness, chest pain, palpitations, nausea, vomiting, involuntary weight loss, or any other complaints at this time. On arrival to our facility, patient underwent evaluation in the emergency department. Vital signs upon arrival show blood pressure 162/76, heart rate 66, respiratory rate 20, temp 97.8 F, and SpO2 99% on room air. EKG was completed showing normal sinus rhythm at 72 bpm with a first-degree AV block with [place] interval of 213 ms. Chest x-ray negative for acute cardiopulmonary process. Abdominal ultrasound completed showing hepatic cirrhosis with moderate to large amount of ascites. Labs completed and reviewed. CBC showing normocytic anemia with hemoglobin of 11.4. Coagulation profile showing elevated PT of 12.7 and INR of 1.2. BMP revealing BUN of 27, creatinine of 2.25, and GFR of 27 with baseline creatinine around 1.9. Glucose 157. Magnesium 2.4. Liver profile was unremarkable. Troponin was negative at less than 0.012. proBNP 845. Urinalysis positive for glucose but negative for blood, protein or infection. Patient admitted under our services at this time with consultation to nephrology and interventional radiology for paracentesis. On 06/25/2024 patient underwent successful paracentesis with removal of 12 L of ascitic fluid. Fluid sample sent for analysis and culture. Echocardiogram revealing EF 55 to 60% with moderate to severe LVH and mild tricuspid and mitral regurgitation. Physical exam: Patient seen and fully evaluated at bedside this morning. He was sitting up in chair this morning. Patient planning to take a shower. He reports continued exertional dyspnea but significantly improved since paracentesis. Patient denies any other complaints at this time. Vital signs reviewed and stable. General: Nontoxic, no distress and appears stated age. Derm: Skin warm and dry, normal coloration for ethnicity. Head: Atraumatic, normocephalic and symmetric. Eyes: EOM's intact, no lid lag, and anicteric sclera Mouth: no lip lesions, mucus membranes moist Cardiovascular: regular rate and rhythm with normal S1S2, no murmur, positive posterior tibial pulses bilaterally, and cap refill < 2 seconds. Lungs: Respirations even, regular, and unlabored on room air. Lungs diminished, no rhonchi, no rales, no wheezing, and no accessory muscle usage. Abdominal: Cirrhotic and obese abdomen, soft and distended. Nontender to palpation. Ext: ROM intact. No gross muscle atrophy, 1+ pitting bilateral lower extremity edema, no contractures Neuro: Speech clear, face symmetrical and CN II-XII grossly intact with no noted focal neuro deficits Psych: Alert and oriented to person, place, time, and situation. Appropriate and pleasant affect. Assessment and Plan of Care: Exertional dyspnea, likely secondary to large volume ascites, however cannot rule out cardiac etiology status post recent CABG Newly diagnosed liver cirrhosis with large amount of ascites Splenomegaly JEANA on CKD stage IIIb History of CAD status post CABG x 4 Paroxysmal atrial fibrillation Hypertension Hyperlipidemia Type II [id number]-[id number] diabetes mellitus -Interventional radiology evaluated and took patient for paracentesis successfully removing a reported 12 L of fluid. Patient received 50 g of albumin IVPB status post procedure. -SAAG score is 1.5 showing ascites likely due to portal venous hypertension. -Nephrology following, reviewed documentation in chart. -Continue Lasix 40 mg twice daily and Aldactone 25 mg twice daily -Continue strict I's and O's and daily weights. -Telemetry monitoring. -Echocardiogram revealing EF 55 to 60% with moderate to severe LVH and mild tricuspid and mitral regurgitation. -Troponin was negative at less than 0.012. proBNP 845. -Patient to continue daily medication regimen with amiodarone 200 mg daily, atorvastatin 80 mg daily, Farxiga 5 mg daily, fenofibrate 54 mg daily, and metoprolol 25 mg twice daily. -SCDs for DVT prophylaxis. -Hold Jardiance and glipizide and place patient on glycemic protocol with NovoLog sliding scale. Data and imaging reviewed: Vital signs reviewed. Blood pressure 121/65, heart rate 62, respiratory rate 17, temp 97.8 F, and SpO2 of 96% on room air. Morning labs reviewed. CBC showing bicytopenia with WBC count of 3.52 and hemoglobin of 9.7. BMP showing BUN of 25.5, creatinine of 2.2, GFR of 30. Blood glucose 162. Magnesium 2.2. Liver profile normal findings with exception of low albumin of 3.3. -Cultures paracentesis fluid preliminary results showing no growth to date. -Awaiting hepatitis panel to result. -Ultrasound kidneys and bladder was completed and radiology report reviewed showing no hydronephrosis revealing incidental splenomegaly up to 18.7 cm with ascites fluid noted in the right side of abdomen. CODE STATUS: Full code DVT prophylaxis: SCDs Anticipated discharge date: Pending clinical course Anticipated discharge place: Home Patient was seen independently by Nurse Practitioner. This document was prepared using [employer] dictation software. Please allow for errors in chlorine cell tender while rare they do occur. I reviewed the documentation as provided by the EMILY above, who is the original author of this note. I agree with the documented assessment and plan, with the following changes: none Objective - Vital Signs Vital signs: Vital Signs Temp 97.8 F 06/27/24 07:05 Pulse 62 06/27/24 07:05 Resp 17 06/27/24 07:05 BP 121/65 06/27/24 07:05 Pulse Ox 96 06/27/24 07:05 FiO2 Intake & Output 06/26/24 06/27/24 06/27/24 18:59 06:59 18:59 Intake Total 240 Output Total 1100 Balance -860 Weight 134 kg Intake: Oral 240 Output: Urine 1100 Other: Voiding Method Toilet Toilet Urinal Urinal - Labs CBC & Chem 7: 06/28/24 05:53 06/28/24 05:53 Labs: Abnormal Lab Results - Last 24 Hours (Table) 06/26/24 06/26/24 06/26/24 Range/Units 05:04 05:04 11:36 WBC 2.96 L (4.50-10.00) X 10*3/uL RBC 3.54 L (4.40-5.60) X 10*6/uL Hgb 9.2 L (13.0-17.0) g/dL Hct 30.1 L (39.6-50.0) % MCH 26.0 L (27.0-32.0) pg MCHC 30.6 L (32.0-37.0) g/dL RDW 18.2 H (11.5-14.5) % Creatinine 2.4 H (0.6-1.5) mg/dL Est GFR (CKD-EPI) 27 L (>=60) BUN/Creatinine Ratio 10.67 L (12.00-20.00) Ratio Glucose 136 H (70-110) mg/dL POC Glucose (mg/dL) 146 H (70-110) mg/dL Calcium 7.8 L (8.7-10.3) mg/dL Total Protein 6.0 L (6.2-8.2) g/dL Albumin 3.4 L (3.8-4.9) g/dL Albumin/Globulin Ratio 1.31 L (1.60-3.17) Ratio 06/26/24 06/26/24 06/27/24 Range/Units 16:50 20:30 05:37 WBC (4.50-10.00) X 10*3/uL RBC (4.40-5.60) X 10*6/uL Hgb (13.0-17.0) g/dL Hct (39.6-50.0) % MCH (27.0-32.0) pg MCHC (32.0-37.0) g/dL RDW (11.5-14.5) % Creatinine (0.6-1.5) mg/dL Est GFR (CKD-EPI) (>=60) BUN/Creatinine Ratio (12.00-20.00) Ratio Glucose (70-110) mg/dL POC Glucose (mg/dL) 183 H 178 H 155 H (70-110) mg/dL Calcium (8.7-10.3) mg/dL Total Protein (6.2-8.2) g/dL Albumin (3.8-4.9) g/dL Albumin/Globulin Ratio (1.60-3.17) Ratio Microbiology - Last 24 Hours (Table) 06/25/24 10:15 Gram Stain - Preliminary Paracentesis Fluid Body Fluid Culture - Preliminary
[2024-06-27 11:23] LABS: Glucose,Whole Blood 194 mg/dL (70-110)
--- NOTE | 2024-06-27 13:07 | P.PN ---
Subjective Patient is seen for follow-up for acute kidney injury and chronic kidney disease. Renal function is stable with serum creatinine slightly improved to 2.2 from 2.4 yesterday. Patient is maintained on Lasix and Aldactone. 24-hour urine output documented at 1.1 L. Objective - Vital Signs Vital signs: Vital Signs Temp 97.8 F 06/27/24 07:05 Pulse 59 L 06/27/24 08:00 Resp 17 06/27/24 07:05 BP 121/65 06/27/24 07:05 Pulse Ox 96 06/27/24 07:05 FiO2 Intake & Output 06/26/24 06/27/24 06/27/24 18:59 06:59 18:59 Intake Total 240 200 Output Total 1100 Balance -860 200 Weight 134 kg Intake: Oral 240 200 Output: Urine 1100 Other: Voiding Method Toilet Toilet Urinal Urinal - Exam patient is awake, comfortable, no acute distress. Obese Examination of the heart S1 and S2 Examination of the lungs bilateral breath sounds are heard Abdomen is soft nontender,ascites noted Examination of lower extremities shows 1+ edema bilaterally JOURNEYMAN CARPENTER exam grossly intact - Labs CBC & Chem 7: 06/27/24 04:54 06/27/24 04:54 Labs: Abnormal Lab Results - Last 24 Hours (Table) 06/26/24 06/26/24 06/27/24 Range/Units 16:50 20:30 04:54 WBC 3.52 L (4.50-10.00) X 10*3/uL RBC 3.74 L (4.40-5.60) X 10*6/uL Hgb 9.7 L (13.0-17.0) g/dL Hct 31.5 L (39.6-50.0) % MCH 25.9 L (27.0-32.0) pg MCHC 30.8 L (32.0-37.0) g/dL RDW 18.2 H (11.5-14.5) % Creatinine (0.6-1.5) mg/dL Est GFR (CKD-EPI) (>=60) BUN/Creatinine Ratio (12.00-20.00) Ratio Glucose (70-110) mg/dL POC Glucose (mg/dL) 183 H 178 H (70-110) mg/dL Calcium (8.7-10.3) mg/dL ALT (10-49) U/L Total Protein (6.2-8.2) g/dL Albumin (3.8-4.9) g/dL Albumin/Globulin Ratio (1.60-3.17) Ratio 06/27/24 06/27/24 06/27/24 Range/Units 04:54 05:37 11:22 WBC (4.50-10.00) X 10*3/uL RBC (4.40-5.60) X 10*6/uL Hgb (13.0-17.0) g/dL Hct (39.6-50.0) % MCH (27.0-32.0) pg MCHC (32.0-37.0) g/dL RDW (11.5-14.5) % Creatinine 2.2 H (0.6-1.5) mg/dL Est GFR (CKD-EPI) 30 L (>=60) BUN/Creatinine Ratio 11.59 L (12.00-20.00) Ratio Glucose 162 H (70-110) mg/dL POC Glucose (mg/dL) 155 H 194 H (70-110) mg/dL Calcium 7.8 L (8.7-10.3) mg/dL ALT 6 L (10-49) U/L Total Protein 6.0 L (6.2-8.2) g/dL Albumin 3.3 L (3.8-4.9) g/dL Albumin/Globulin Ratio 1.22 L (1.60-3.17) Ratio Microbiology - Last 24 Hours (Table) 06/25/24 10:15 Gram Stain - Preliminary Paracentesis Fluid Body Fluid Culture - Preliminary Assessment and Plan Assessment: 1. Acute kidney injurywith mild elevation in serum creatinine to 2.4 from baseline of about 1.9-2.0 mostly associated with recent large volume paracentesis. UA is quite benign. No hydronephrosis noted on renal ultrasound. 2. Chronic kidney disease NKF stage IIIB to 4 with baseline creatinine around 1.7-2.0 mg/dL 3. Ascites status post paracentesis of about 2 L on 06/25/2024 4. Coronary artery disease status post coronary artery bypass surgery in September 2023 5. Paroxysmal A. fib 6. Type 2 diabetes maintained on farxiga Plan: Continue with current dose of Lasix May continue with farxiga for now Continue with Aldactone Repeat labs in a.m. Avoid any nephrotoxic agents. Patient will need follow-up as outpatient.
[2024-06-27 16:28] LABS: Glucose,Whole Blood 161 mg/dL (70-110)
[2024-06-27 20:22] LABS: Glucose,Whole Blood 172 mg/dL (70-110)
[2024-06-28 06:05] LABS: Glucose,Whole Blood 165 mg/dL (70-110)
[2024-06-28] MEDS: ERGOCALCIFEROL 1,250 MCG (50,000 IU) CAPSULE PO SCH (08:27)
[2024-06-28 10:05] LABS: Magnesium 2.2 mg/dL (1.5-2.4)
[2024-06-28 10:23] LABS: HCT 31.4 % (39.6-50.0); HGB 9.4 g/dL (13.0-17.0); MCH 25.3 pg (27.0-32.0); MCHC 29.9 g/dL (32.0-37.0); MCV 84.4 FL (80.0-97.0); Mean Platelet Volume 10.2 FL (9.5-12.2); NRBC Per 100 WBC 0 X 10*3/uL (0.00-0.01); Platelet Count 158 X 10*3/uL (140-440); RBC 3.72 X 10*6/uL (4.40-5.60); WBC 3.67 X 10*3/uL (4.50-10.00)
[2024-06-28 10:40] LABS: Blood Urea Nitrogen 27.3 mg/dL (9.0-27.0); Carbon Dioxide 23.4 mmol/L (21.6-31.8); Chloride 101 mmol/L (96-109); Glucose 178 mg/dL (70-110); Potassium 4.1 mmol/L (3.5-5.5); Sodium 135 mmol/L (135-145)
[2024-06-28 10:41] LABS: ALT 13 U/L (10-49); AST 26 U/L (14-35); Albumin 3.2 g/dL (3.8-4.9); Albumin/Globulin Ratio 1.19 Ratio (1.60-3.17); Alkaline Phosphatase 56 U/L (41-126); Calcium 7.7 mg/dL (8.7-10.3); Globulin 2.7 g/dL (1.6-3.3); Total Bilirubin 0.4 mg/dL (0.3-1.2); Total Protein 5.9 g/dL (6.2-8.2)
[2024-06-28 11:27] LABS: Glucose,Whole Blood 190 mg/dL (70-110)
--- NOTE | 2024-06-28 12:07 | P.PN ---
Subjective Progress Note Date: 06/28/24 Hospital Course: Patient is a very pleasant 74-year-old male with a past medical history of CAD status post CABG x 4 (09/2023), paroxysmal atrial fibrillation no longer on anticoagulation since CABG, hypertension, hyperlipidemia, type II jgy-vjklvux-iwlbljahd diabetes mellitus, and chronic kidney disease stage IV. Patient states that over the last 2 months he has been experiencing exertional dyspnea and abdominal distention/swelling. Patient reports he has been under the care of his PCP whom has sent him for multiple tests and discussed that he will need to be seen by a hepatologist for evaluation of his kidney function. Patient states he was sent for an outpatient CT and received a call from his PCP yesterday telling him that he had moderate to severe fluid in his abdomen and needed to go to the emergency department to have drained. Patient reports previous thoracentesis 09/2023 in which she had 650 cc drained from left lung but was told it was contaminated by blood and they were unable to perform pathology testing on the specimen. Patient denies history of paracentesis. Patient states his only complaint is exertional dyspnea and the "obvious swelling in his abdomen". He does report bilateral lower extremity edema at baseline and denies increase in swelling in his extremities. He states urination and bowel movements have been normal. He denies history of alcohol abuse, hepatitis, or previous diagnosis of liver cirrhosis. Patient denies abdominal pain or discomfort, fevers, chills, headache, lightheadedness, dizziness, chest pain, palpitations, nausea, vomiting, involuntary weight loss, or any other complaints at this time. On arrival to our facility, patient underwent evaluation in the emergency department. Vital signs upon arrival show blood pressure 162/76, heart rate 66, respiratory rate 20, temp 97.8 F, and SpO2 99% on room air. EKG was completed showing normal sinus rhythm at 72 bpm with a first-degree AV block with AK interval of 213 ms. Chest x-ray negative for acute cardiopulmonary process. Abdominal ultrasound completed showing hepatic cirrhosis with moderate to large amount of ascites. Labs completed and reviewed. CBC showing normocytic anemia with hemoglobin of 11.4. Coagulation profile showing elevated PT of 12.7 and INR of 1.2. BMP revealing BUN of 27, creatinine of 2.25, and GFR of 27 with baseline creatinine around 1.9. Glucose 157. Magnesium 2.4. Liver profile was unremarkable. Troponin was negative at less than 0.012. proBNP 845. Urinalysis positive for glucose but negative for blood, protein or infection. Patient admitted under our services at this time with consultation to nephrology and interventional radiology for paracentesis. On 06/25/2024 patient underwent successful paracentesis with removal of 12 L of ascitic fluid. Fluid sample sent for analysis and culture. Echocardiogram revealing EF 55 to 60% with moderate to severe LVH and mild tricuspid and mitral regurgitation. Physical exam: Patient seen and fully evaluated at bedside this morning. He was sitting up in chair this morning. Patient expressing anxiety over anticipated discharge and follow up management. Patient was updated that we are still awaiting results of hepatitis panel, called and discussed with lab and they confirmed it was received and that it is being ran and should result later today. Vital signs reviewed and stable. General: Nontoxic, no distress and appears stated age. Derm: Skin warm and dry, normal coloration for ethnicity. Head: Atraumatic, normocephalic and symmetric. Eyes: EOM's intact, no lid lag, and anicteric sclera Mouth: no lip lesions, mucus membranes moist Cardiovascular: regular rate and rhythm with normal S1S2, no murmur, positive posterior tibial pulses bilaterally, and cap refill < 2 seconds. Lungs: Respirations even, regular, and unlabored on room air. Lungs diminished, no rhonchi, no rales, no wheezing, and no accessory muscle usage. Abdominal: Cirrhotic and obese abdomen, soft and distended. Nontender to palpation. Ext: ROM intact. No gross muscle atrophy, lower extremity edema has resolved, no contractures Neuro: Speech clear, face symmetrical and CN II-XII grossly intact with no noted focal neuro deficits Psych: Alert and oriented to person, place, time, and situation. Appropriate and pleasant affect. Assessment and Plan of Care: Exertional dyspnea, secondary to large volume ascites Newly diagnosed liver cirrhosis with large amount of ascites Splenomegaly JEANA on CKD stage IIIb History of CAD status post CABG x 4 Paroxysmal atrial fibrillation Hypertension Hyperlipidemia Type II jsw-[id number] diabetes mellitus -Interventional radiology evaluated and took patient for paracentesis on 06/25/2024 successfully removing a reported 12 L of fluid. Patient received 50 g of albumin IVPB status post procedure. -SAAG score is 1.5 showing ascites likely due to portal venous hypertension. -Nephrology following, recommending continued Lasix 40 mg twice daily and Aldactone 25 mg twice daily. -Continue strict I's and O's and daily weights. Urinary output over the past 24 hours is 1100 cc. Patient is down 38.5 pounds (17.5 kg) since arrival to our facility. -Telemetry monitoring. -Patient to continue daily medication regimen with amiodarone 200 mg daily, atorvastatin 80 mg daily, Farxiga 5 mg daily, fenofibrate 54 mg daily, and metoprolol 25 mg twice daily. -SCDs for DVT prophylaxis. -Hold Jardiance and glipizide and continue glycemic protocol with NovoLog sliding scale. Data and imaging reviewed: -Vital signs reviewed. Blood pressure 121/65, heart rate 62, respiratory rate 17, temp 97.8 F, and SpO2 of 96% on room air. -Morning labs reviewed. CBC showing bicytopenia with WBC count of 3.72 and hemoglobin of 9.4. BMP showing BUN of 27.3, creatinine 2.1, and GFR of 32.. Blood glucose 178. Magnesium 2.2. Liver profile normal findings with exception of low albumin of 3.2. -Paracentesis fluid cultures preliminary results showing no growth to date. -Awaiting hepatitis panel to result. -Urinary output over the past 24 hours is 1100 cc. Patient is down 38.5 pounds (17.5 kg) since arrival to our facility. CODE STATUS: Full code DVT prophylaxis: SCDs Anticipated discharge date: Pending clinical course Anticipated discharge place: Home Patient was seen independently by Nurse Practitioner. This document was prepared using [employer] dictation software. Please allow for errors in e business consultant while rare they do occur. I reviewed the documentation as provided by the EMILY above, who is the original author of this note. I agree with the documented assessment and plan, with the following changes: none Objective - Vital Signs Vital signs: Vital Signs Temp 98.1 F 06/28/24 06:45 Pulse 55 L 06/28/24 06:45 Resp 17 06/28/24 06:45 BP 135/72 06/28/24 06:45 Pulse Ox 97 06/28/24 06:45 FiO2 Intake & Output 06/27/24 06/28/24 06/28/24 18:59 06:59 18:59 Intake Total 200 Balance 200 Weight 134 kg Intake: Oral 200 - Labs CBC & Chem 7: 06/28/24 05:53 06/28/24 05:53 Labs: Abnormal Lab Results - Last 24 Hours (Table) 06/27/24 06/27/24 06/27/24 Range/Units 04:54 04:54 11:22 WBC 3.52 L (4.50-10.00) X 10*3/uL RBC 3.74 L (4.40-5.60) X 10*6/uL Hgb 9.7 L (13.0-17.0) g/dL Hct 31.5 L (39.6-50.0) % MCH 25.9 L (27.0-32.0) pg MCHC 30.8 L (32.0-37.0) g/dL RDW 18.2 H (11.5-14.5) % Creatinine 2.2 H (0.6-1.5) mg/dL Est GFR (CKD-EPI) 30 L (>=60) BUN/Creatinine Ratio 11.59 L (12.00-20.00) Ratio Glucose 162 H (70-110) mg/dL POC Glucose (mg/dL) 194 H (70-110) mg/dL Calcium 7.8 L (8.7-10.3) mg/dL ALT 6 L (10-49) U/L Total Protein 6.0 L (6.2-8.2) g/dL Albumin 3.3 L (3.8-4.9) g/dL Albumin/Globulin Ratio 1.22 L (1.60-3.17) Ratio 06/27/24 06/27/24 06/28/24 Range/Units 16:26 20:21 06:03 WBC (4.50-10.00) X 10*3/uL RBC (4.40-5.60) X 10*6/uL Hgb (13.0-17.0) g/dL Hct (39.6-50.0) % MCH (27.0-32.0) pg MCHC (32.0-37.0) g/dL RDW (11.5-14.5) % Creatinine (0.6-1.5) mg/dL Est GFR (CKD-EPI) (>=60) BUN/Creatinine Ratio (12.00-20.00) Ratio Glucose (70-110) mg/dL POC Glucose (mg/dL) 161 H 172 H 165 H (70-110) mg/dL Calcium (8.7-10.3) mg/dL ALT (10-49) U/L Total Protein (6.2-8.2) g/dL Albumin (3.8-4.9) g/dL Albumin/Globulin Ratio (1.60-3.17) Ratio Microbiology - Last 24 Hours (Table) 06/25/24 10:15 Anaerobic Culture - Preliminary Paracentesis Fluid 06/25/24 10:15 Gram Stain - Preliminary Paracentesis Fluid Body Fluid Culture - Preliminary
--- NOTE | 2024-06-28 12:27 | P.PN ---
Subjective Patient is seen for follow-up for acute kidney injury and chronic kidney disease. Renal function is stable with serum creatinine slightly improved to 2.1 from 2.4 yesterday. Patient is maintained on Lasix and Aldactone. 24-hour urine output documented at 1.1 L. Objective - Vital Signs Vital signs: Vital Signs Temp 98.1 F 06/28/24 06:45 Pulse 55 L 06/28/24 08:00 Resp 17 06/28/24 06:45 BP 135/72 06/28/24 06:45 Pulse Ox 97 06/28/24 06:45 FiO2 Intake & Output 06/27/24 06/28/24 06/28/24 18:59 06:59 18:59 Intake Total 200 Balance 200 Weight 134 kg Intake: Oral 200 Other: Voiding Method Toilet Urinal - Exam patient is awake, comfortable, no acute distress. Obese Examination of the heart S1 and S2 Examination of the lungs bilateral breath sounds are heard Abdomen is soft nontender,ascites noted Examination of lower extremities shows trace edema bilaterally EVENT STAFF exam grossly intact - Labs CBC & Chem 7: 06/28/24 05:53 06/28/24 05:53 Labs: Abnormal Lab Results - Last 24 Hours (Table) 06/27/24 06/27/24 06/28/24 Range/Units 16:26 20:21 05:53 WBC 3.67 L (4.50-10.00) X 10*3/uL RBC 3.72 L (4.40-5.60) X 10*6/uL Hgb 9.4 L (13.0-17.0) g/dL Hct 31.4 L (39.6-50.0) % MCH 25.3 L (27.0-32.0) pg MCHC 29.9 L (32.0-37.0) g/dL RDW 18.0 H (11.5-14.5) % BUN (9.0-27.0) mg/dL Creatinine (0.6-1.5) mg/dL Est GFR (CKD-EPI) (>=60) Glucose (70-110) mg/dL POC Glucose (mg/dL) 161 H 172 H (70-110) mg/dL Calcium (8.7-10.3) mg/dL Total Protein (6.2-8.2) g/dL Albumin (3.8-4.9) g/dL Albumin/Globulin Ratio (1.60-3.17) Ratio 06/28/24 06/28/24 06/28/24 Range/Units 05:53 06:03 11:27 WBC (4.50-10.00) X 10*3/uL RBC (4.40-5.60) X 10*6/uL Hgb (13.0-17.0) g/dL Hct (39.6-50.0) % MCH (27.0-32.0) pg MCHC (32.0-37.0) g/dL RDW (11.5-14.5) % BUN 27.3 H (9.0-27.0) mg/dL Creatinine 2.1 H (0.6-1.5) mg/dL Est GFR (CKD-EPI) 32 L (>=60) Glucose 178 H (70-110) mg/dL POC Glucose (mg/dL) 165 H 190 H (70-110) mg/dL Calcium 7.7 L (8.7-10.3) mg/dL Total Protein 5.9 L (6.2-8.2) g/dL Albumin 3.2 L (3.8-4.9) g/dL Albumin/Globulin Ratio 1.19 L (1.60-3.17) Ratio Microbiology - Last 24 Hours (Table) 06/25/24 10:15 Gram Stain - Preliminary Paracentesis Fluid Body Fluid Culture - Preliminary 06/25/24 10:15 Anaerobic Culture - Preliminary Paracentesis Fluid Assessment and Plan Assessment: 1. Acute kidney injurywith mild elevation in serum creatinine to 2.4 from baseline of about 1.9-2.0 mostly associated with recent large volume paracentesis. Improving. UA is quite benign. No hydronephrosis noted on renal ultrasound. 2. Chronic kidney disease NKF stage IIIB to 4 with baseline creatinine around 1.7-2.0 mg/dL 3. Ascites status post paracentesis of about 2 L on 06/25/2024 4. Coronary artery disease status post coronary artery bypass surgery in September 2023 5. Paroxysmal A. fib 6. Type 2 diabetes maintained on farxiga Plan: Continue with current dose of Lasix May continue with farxiga for now Continue with Aldactone Repeat labs in a.m. Avoid any nephrotoxic agents. Patient will need follow-up as outpatient.
[2024-06-28 16:50] LABS: Glucose,Whole Blood 234 mg/dL (70-110)
[2024-06-28 20:35] LABS: Glucose,Whole Blood 197 mg/dL (70-110)
[2024-06-29 05:40] LABS: Glucose,Whole Blood 191 mg/dL (70-110)
[2024-06-29 08:55] LABS: HGB 10.4 g/dL (13.0-17.0); MCH 25.9 pg (27.0-32.0); MCHC 30.6 g/dL (32.0-37.0); MCV 84.8 FL (80.0-97.0); Mean Platelet Volume 11.1 FL (9.5-12.2); NRBC Per 100 WBC 0 X 10*3/uL (0.00-0.01); Platelet Count 175 X 10*3/uL (140-440); RBC 4.01 X 10*6/uL (4.40-5.60); RDW 18.1 % (11.5-14.5)
[2024-06-29 08:57] LABS: ALT 16 U/L (10-49); AST 28 U/L (14-35); Albumin 3.3 g/dL (3.8-4.9); Albumin/Globulin Ratio 1.18 Ratio (1.60-3.17); Alkaline Phosphatase 68 U/L (41-126); BUN/Creat Ratio 14.33 Ratio (12.00-20.00); Blood Urea Nitrogen 30.1 mg/dL (9.0-27.0); Carbon Dioxide 23.8 mmol/L (21.6-31.8); Chloride 102 mmol/L (96-109); Globulin 2.8 g/dL (1.6-3.3); Glucose 197 mg/dL (70-110); Magnesium 2.5 mg/dL (1.5-2.4); Potassium 4.5 mmol/L (3.5-5.5); Sodium 136 mmol/L (135-145); Total Bilirubin 0.4 mg/dL (0.3-1.2); Total Protein 6.1 g/dL (6.2-8.2)
--- NOTE | 2024-06-29 10:44 | P.PN ---
Subjective Patient is seen in follow-up for acute kidney injury on chronic kidney disease. Renal function is stable. Has been voiding. Denies chest pain or shortness of breath. Vital signs are stable. General: No acute distress. HEENT: Head exam is unremarkable. LUNGS: No audible rhonchi or wheezes. HEART: Rate and Rhythm are regular. ABDOMEN: Distention noted. EXTREMITITES: No edema. Objective - Vital Signs Vital signs: Vital Signs Temp 98.1 F 06/29/24 07:24 Pulse 64 06/29/24 07:24 Resp 17 06/29/24 07:24 BP 114/57 06/29/24 07:24 Pulse Ox 97 06/29/24 07:24 FiO2 Intake & Output 06/28/24 06/29/24 06/29/24 18:59 06:59 18:59 Intake Total 320 Balance 320 Weight 132.6 kg Intake: Oral 320 Other: Voiding Method Toilet Toilet Urinal Urinal - Labs CBC & Chem 7: 06/29/24 05:29 06/29/24 05:29 Labs: Abnormal Lab Results - Last 24 Hours (Table) 06/28/24 06/28/24 06/28/24 Range/Units 05:53 11:27 16:49 RBC (4.40-5.60) X 10*6/uL Hgb (13.0-17.0) g/dL Hct (39.6-50.0) % MCH (27.0-32.0) pg MCHC (32.0-37.0) g/dL RDW (11.5-14.5) % BUN 27.3 H (9.0-27.0) mg/dL Creatinine 2.1 H (0.6-1.5) mg/dL Est GFR (CKD-EPI) 32 L (>=60) Glucose 178 H (70-110) mg/dL POC Glucose (mg/dL) 190 H 234 H (70-110) mg/dL Calcium 7.7 L (8.7-10.3) mg/dL Magnesium (1.5-2.4) mg/dL Total Protein 5.9 L (6.2-8.2) g/dL Albumin 3.2 L (3.8-4.9) g/dL Albumin/Globulin Ratio 1.19 L (1.60-3.17) Ratio 06/28/24 06/29/24 06/29/24 Range/Units 20:34 05:29 05:29 RBC 4.01 L (4.40-5.60) X 10*6/uL Hgb 10.4 L (13.0-17.0) g/dL Hct 34.0 L (39.6-50.0) % MCH 25.9 L (27.0-32.0) pg MCHC 30.6 L (32.0-37.0) g/dL RDW 18.1 H (11.5-14.5) % BUN 30.1 H (9.0-27.0) mg/dL Creatinine 2.1 H (0.6-1.5) mg/dL Est GFR (CKD-EPI) 32 L (>=60) Glucose 197 H (70-110) mg/dL POC Glucose (mg/dL) 197 H (70-110) mg/dL Calcium 8.0 L (8.7-10.3) mg/dL Magnesium 2.5 H (1.5-2.4) mg/dL Total Protein 6.1 L (6.2-8.2) g/dL Albumin 3.3 L (3.8-4.9) g/dL Albumin/Globulin Ratio 1.18 L (1.60-3.17) Ratio 06/29/24 Range/Units 05:39 RBC (4.40-5.60) X 10*6/uL Hgb (13.0-17.0) g/dL Hct (39.6-50.0) % MCH (27.0-32.0) pg MCHC (32.0-37.0) g/dL RDW (11.5-14.5) % BUN (9.0-27.0) mg/dL Creatinine (0.6-1.5) mg/dL Est GFR (CKD-EPI) (>=60) Glucose (70-110) mg/dL POC Glucose (mg/dL) 191 H (70-110) mg/dL Calcium (8.7-10.3) mg/dL Magnesium (1.5-2.4) mg/dL Total Protein (6.2-8.2) g/dL Albumin (3.8-4.9) g/dL Albumin/Globulin Ratio (1.60-3.17) Ratio Microbiology - Last 24 Hours (Table) 06/25/24 10:15 Anaerobic Culture - Final Paracentesis Fluid 06/25/24 10:15 Gram Stain - Final Paracentesis Fluid Body Fluid Culture - Final Assessment and Plan Plan: Assessment: 1. Acute kidney injury secondary to ATN secondary to hepatorenal syndrome. Creatinine stable at 2.1. UA fairly benign. No hydronephrosis noted on kidney ultrasound. 2. Chronic kidney disease stage IIIb with baseline creatinine near 2. 3. Liver cirrhosis with ascites status post paracentesis with 12 L drained June 25, 2024. GI following. 4. Diabetes mellitus. 5. Volume overload. 6. Coronary artery disease status post CABG. Plan: Maintain Lasix. Increase Aldactone to 50 mg twice daily. Advised patient to maintain low-salt diet and fluid restriction of less than 50 ounces per day. Consider another paracentesis prior to discharge. Will give albumin pre and post paracentesis. Discussed with primary team. Repeat BMP and magnesium level 2 to 3 days postdischarge. Follow-up outpatient in 1 week.
--- NOTE | 2024-06-29 11:25 | P.PN ---
Subjective Progress Note Date: 06/29/24 Hospital Course: Patient is a very pleasant 74-year-old male with a past medical history of CAD status post CABG x 4 (09/2023), paroxysmal atrial fibrillation no longer on anticoagulation since CABG, hypertension, hyperlipidemia, type II luk-wjxleuw-fbnwjwako diabetes mellitus, and chronic kidney disease stage IV. Patient states that over the last 2 months he has been experiencing exertional dyspnea and abdominal distention/swelling. Patient reports he has been under the care of his PCP whom has sent him for multiple tests and discussed that he will need to be seen by a pharmacy informatics manager for evaluation of his kidney function. Patient states he was sent for an outpatient CT and received a call from his PCP yesterday telling him that he had moderate to severe fluid in his abdomen and needed to go to the emergency department to have drained. Patient reports previous thoracentesis 09/2023 in which she had 650 cc drained from left lung but was told it was contaminated by blood and they were unable to perform pathology testing on the specimen. Patient denies history of paracentesis. Patient states his only complaint is exertional dyspnea and the "obvious swelling in his abdomen". He does report bilateral lower extremity edema at baseline and denies increase in swelling in his extremities. He states urination and bowel movements have been normal. He denies history of alcohol abuse, hepatitis, or previous diagnosis of liver cirrhosis. Patient denies abdominal pain or discomfort, fevers, chills, headache, lightheadedness, dizziness, chest pain, palpitations, nausea, vomiting, involuntary weight loss, or any other complaints at this time. On arrival to our facility, patient underwent evaluation in the emergency department. Vital signs upon arrival show blood pressure 162/76, heart rate 66, respiratory rate 20, temp 97.8 F, and SpO2 99% on room air. EKG was completed showing normal sinus rhythm at 72 bpm with a first-degree AV block with AR interval of 213 ms. Chest x-ray negative for acute cardiopulmonary process. Abdominal ultrasound completed showing hepatic cirrhosis with moderate to large amount of ascites. Labs completed and reviewed. CBC showing normocytic anemia with hemoglobin of 11.4. Coagulation profile showing elevated PT of 12.7 and INR of 1.2. BMP revealing BUN of 27, creatinine of 2.25, and GFR of 27 with baseline creatinine around 1.9. Glucose 157. Magnesium 2.4. Liver profile was unremarkable. Troponin was negative at less than 0.012. proBNP 845. Urinalysis positive for glucose but negative for blood, protein or infection. Patient admitted under our services at this time with consultation to nephrology and interventional radiology for paracentesis. On 06/25/2024 patient underwent successful paracentesis with removal of 12 L of ascitic fluid. Fluid sample sent for analysis and culture. Echocardiogram revealing EF 55 to 60% with moderate to severe LVH and mild tricuspid and mitral regurgitation. Physical exam: Patient seen and fully evaluated at bedside this morning. He was sitting up in chair again. He was updated on plan of care to have repeat paracentesis prior to discharge. Pt denies any other questions, needs, or concerns at this time. Vital signs reviewed and stable. General: Nontoxic, no distress and appears stated age. Derm: Skin warm and dry, normal coloration for ethnicity. Head: Atraumatic, normocephalic and symmetric. Eyes: EOM's intact, no lid lag, and anicteric sclera Mouth: no lip lesions, mucus membranes moist Cardiovascular: regular rate and rhythm with normal S1S2, no murmur, positive posterior tibial pulses bilaterally, and cap refill < 2 seconds. Lungs: Respirations even, regular, and unlabored on room air. Lungs diminished, no rhonchi, no rales, no wheezing, and no accessory muscle usage. Abdominal: Cirrhotic and obese abdomen, soft and distended. Nontender to palpation. Ext: ROM intact. No gross muscle atrophy, lower extremity edema has resolved, no contractures Neuro: Speech clear, face symmetrical and CN II-XII grossly intact with no noted focal neuro deficits Psych: Alert and oriented to person, place, time, and situation. Appropriate and pleasant affect. Assessment and Plan of Care: Exertional dyspnea, secondary to large volume ascites Newly diagnosed liver cirrhosis with large amount of ascites Splenomegaly JEANA on CKD stage IIIb History of CAD status post CABG x 4 Paroxysmal atrial fibrillation Hypertension Hyperlipidemia Type II xfv-iyuohjh-pwyoliszh diabetes mellitus -Interventional radiology evaluated and took patient for paracentesis on 06/25/2024 successfully removing a reported 12 L of fluid. Patient received 50 g of albumin IVPB status post procedure. -SAAG score is 1.5 showing ascites likely due to portal venous hypertension. -Nephrology following, discussed plan with Dr. Heredia and he is recommending repeat paracentesis prior to discharge and increasing aldactone to 50 mg BID. -Gastroenterology following, discussed plan of care with gastroenterology HEALTH AND SAFETY INSTRUCTOR. -Continue increased dose of Aldactone 50 mg twice daily in addition to furosemide 40 mg twice daily -Continue strict I's and O's and daily weights. Patient is down 41.5 lbs (18.9 kg) since arrival to our facility. -Telemetry monitoring. -Patient to continue daily medication regimen with amiodarone 200 mg daily, atorvastatin 80 mg daily, Farxiga 5 mg daily, fenofibrate 54 mg daily, and metoprolol 25 mg twice daily. -SCDs for DVT prophylaxis. -Hold Jardiance and glipizide and continue glycemic protocol with NovoLog sliding scale. -Order placed for reconsult to IR for repeat parcentesis along with order for 25 g of albumin to be given prior to paracentesis and 25 grams to be given after paracentesis. Data and imaging reviewed: -Vital signs reviewed. Blood pressure 114/57, heart rate 64, respiratory rate 17, temp 98.1 F, and SpO2 of 97% on room air. -Morning labs reviewed. CBC showing stable hemoglobin of 10.4. BMP showing BUN of 30.1, creatinine of 2.1, and GFR of 32. Magnesium 2.5. Liver profile showing hypoalbuminemia with albumin of 3.3. -Paracentesis fluid cultures final results showing no growth. -Awaiting hepatitis panel to result. Then discussed with labs they confirmed samples have been received and were sent to [facility] and are currently pending. -Patient is down 41.5 lbs (18.9 kg) since arrival to our facility. CODE STATUS: Full code DVT prophylaxis: SCDs Anticipated discharge date: Pending clinical course Anticipated discharge place: Home Patient was seen independently by Nurse Practitioner. This document was prepared using [employer] dictation software. Please allow for errors in care transitions manager while rare they do occur. I reviewed the documentation as provided by the EMILY above, who is the original author of this note. I agree with the documented assessment and plan, with the following changes: none Objective - Vital Signs Vital signs: Vital Signs Temp 98.1 F 06/29/24 07:24 Pulse 64 06/29/24 07:24 Resp 17 06/29/24 07:24 BP 114/57 06/29/24 07:24 Pulse Ox 97 06/29/24 07:24 FiO2 Intake & Output 06/28/24 06/29/24 06/29/24 18:59 06:59 18:59 Intake Total 320 Balance 320 Weight 132.6 kg Intake: Oral 320 Other: Voiding Method Toilet Toilet Urinal Urinal - Labs CBC & Chem 7: 06/29/24 05:29 06/29/24 05:29 Labs: Abnormal Lab Results - Last 24 Hours (Table) 06/28/24 06/28/24 06/28/24 Range/Units 05:53 05:53 11:27 WBC 3.67 L (4.50-10.00) X 10*3/uL RBC 3.72 L (4.40-5.60) X 10*6/uL Hgb 9.4 L (13.0-17.0) g/dL Hct 31.4 L (39.6-50.0) % MCH 25.3 L (27.0-32.0) pg MCHC 29.9 L (32.0-37.0) g/dL RDW 18.0 H (11.5-14.5) % BUN 27.3 H (9.0-27.0) mg/dL Creatinine 2.1 H (0.6-1.5) mg/dL Est GFR (CKD-EPI) 32 L (>=60) Glucose 178 H (70-110) mg/dL POC Glucose (mg/dL) 190 H (70-110) mg/dL Calcium 7.7 L (8.7-10.3) mg/dL Total Protein 5.9 L (6.2-8.2) g/dL Albumin 3.2 L (3.8-4.9) g/dL Albumin/Globulin Ratio 1.19 L (1.60-3.17) Ratio 06/28/24 06/28/24 06/29/24 Range/Units 16:49 20:34 05:39 WBC (4.50-10.00) X 10*3/uL RBC (4.40-5.60) X 10*6/uL Hgb (13.0-17.0) g/dL Hct (39.6-50.0) % MCH (27.0-32.0) pg MCHC (32.0-37.0) g/dL RDW (11.5-14.5) % BUN (9.0-27.0) mg/dL Creatinine (0.6-1.5) mg/dL Est GFR (CKD-EPI) (>=60) Glucose (70-110) mg/dL POC Glucose (mg/dL) 234 H 197 H 191 H (70-110) mg/dL Calcium (8.7-10.3) mg/dL Total Protein (6.2-8.2) g/dL Albumin (3.8-4.9) g/dL Albumin/Globulin Ratio (1.60-3.17) Ratio Microbiology - Last 24 Hours (Table) 06/25/24 10:15 Gram Stain - Final Paracentesis Fluid Body Fluid Culture - Final
[2024-06-29 11:41] LABS: Glucose,Whole Blood 189 mg/dL (70-110)
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
[2024-06-29] MEDS: ALBUMIN HUMAN 25% 50 ML in EMPTY BAG 1 BAG IVPB SCH ×3 (14:01→17:16)
[2024-06-29 16:09] LABS: Alpha Fetoprotein, Tumor Mkr <3.00 ng/mL (0.00-7.90)
[2024-06-29 17:31] LABS: Glucose,Whole Blood 194 mg/dL (70-110)
--- NOTE | 2024-06-29 18:01 | US ---
EXAMINATION TYPE: US paracentesis abd w/image DATE OF EXAM: 06/29/2024 CLINICAL HISTORY: 74-year-old male referred for second paracentesis. First performed last week. Asci josephine. The procedure was discussed with the patient. The risks, complications, benefits, and alternatives we re discussed and any questions were answered. Informed consent was obtained. The patient was placed s upine on the ultrasound table and prepped and draped in the usual sterile fashion. All elements of maximal barrier technique were utilized. Under ultrasound guidance, access into the right lower quadrant was obtained, via the 5 5 [place] one- step catheter system and direct ultrasound guidance. Approximately 14.3 liters of straw-colored fluid was removed. The patient had more fluid but decision was made to stop drainage at this point to prevent risking injury to patient's kidney function. The patient was stable throughout the procedure and remained stable upon discharge from Department of Radiology. IMPRESSION: Successful therapeutic paracentesis under ultrasound guidance. Drainage stopped at 14.3 L.
[2024-06-29] MEDS: SPIRONOLACTONE 25 MG TAB PO SCH (20:18)
[2024-06-29 20:20] LABS: Glucose,Whole Blood 215 mg/dL (70-110)
[2024-06-30] MEDS: SIMETHICONE 80 MG CHEWABLE PO PRN (01:51)
[2024-06-30 06:26] LABS: Glucose,Whole Blood 192 mg/dL (70-110)
[2024-06-30 07:38] VITALS: BP 127/59; PULSE 65; RESP 18; TEMP 98.2
[2024-06-30 08:33] LABS: HGB 10.2 g/dL (13.0-17.0); MCH 25.5 pg (27.0-32.0); MCHC 30.9 g/dL (32.0-37.0); MCV 82.5 FL (80.0-97.0); Mean Platelet Volume 10.4 FL (9.5-12.2); NRBC Per 100 WBC 0 X 10*3/uL (0.00-0.01); Platelet Count 177 X 10*3/uL (140-440); RDW 17.8 % (11.5-14.5)
[2024-06-30 08:47] LABS: ALT 15 U/L (10-49); AST 27 U/L (14-35); Albumin 3.6 g/dL (3.8-4.9); Albumin/Globulin Ratio 1.33 Ratio (1.60-3.17); Alkaline Phosphatase 57 U/L (41-126); BUN/Creat Ratio 14.57 Ratio (12.00-20.00); Blood Urea Nitrogen 30.6 mg/dL (9.0-27.0); Calcium 8.4 mg/dL (8.7-10.3); Carbon Dioxide 23.1 mmol/L (21.6-31.8); Chloride 98 mmol/L (96-109); Globulin 2.7 g/dL (1.6-3.3); Glucose 190 mg/dL (70-110); Magnesium 2.4 mg/dL (1.5-2.4); Potassium 4.3 mmol/L (3.5-5.5); Sodium 134 mmol/L (135-145); Total Bilirubin 0.5 mg/dL (0.3-1.2); Total Protein 6.3 g/dL (6.2-8.2)
--- NOTE | 2024-06-30 11:13 | P.DS ---
Providers Date of admission: 06/24/24 14:26 Expected date of discharge: 06/30/24 Attending physician: Joey Braswell MD Consults: 06/24/24 17:00 Consult Physician Routine Consulting Provider: Jennifer Bardales Consult Reason/Comments: CKD stage IV, never been seen by purse maker. Here w/ new onset ascites Do you want consulting provider notified?: Yes 06/28/24 11:58 Consult Physician Routine Consulting Provider: Mabel Sprague Consult Reason/Comments: newly diagnosed hepatic cirrhosis with ascites Do you want consulting provider notified?: Yes Primary care physician: [facility] Course: Discharge Diagnosis: Exertional dyspnea, secondary to large volume ascites. Cirrhotic liver with large amount of ascites. Patient underwent paracentesis on 06/25/2024 with removal of 12 L of ascitic fluid and again on 06/29/2024 with remov al of an additional 14.3 L of fluid. He was evaluated by director of community life and is being discharged home on Aldactone 50 mg twice daily and Lasix 40 mg twice daily. Patient being provided with a prescription for weekly paracentesis and to follow-up outpatient with PCP, nephrology, and gastroenterology. Patient sent with prescription for repeat CMP and mag to be drawn in 3 days. Results to be sent to outpatient providers. Splenomegaly JEANA on CKD stage IIIb History of CAD status post CABG x 4 Paroxysmal atrial fibrillation Hypertension Hyperlipidemia Type II [id number] diabetes mellitus Hospital Course: Patient is a very pleasant 74-year-old male with a past medical history of CAD status post CABG x 4 (09/2023), paroxysmal atrial fibrillation no longer on anticoagulation since CABG, hypertension, hyperlipidemia, type II sit-[id number]-dupflxegt diabetes mellitus, and chronic kidney disease stage IV. Patient states that over the last 2 months he has been experiencing exertional dyspnea and abdominal distention/swelling. Patient reports he has been under the care of his PCP whom has sent him for multiple tests and discussed that he will need to be seen by a purse maker for evaluation of his kidney function. Patient states he was sent for an outpatient CT and received a call from his PCP yesterday telling him that he had moderate to severe fluid in his abdomen and needed to go to the emergency department to have drained. Patient reports previous thoracentesis 09/2023 in which she had 650 cc drained from left lung but was told it was contaminated by blood and they were unable to perform pathology testing on the specimen. Patient denies history of paracentesis. Patient states his only complaint is exertional dyspnea and the "obvious swelling in his abdomen". He does report bilateral lower extremity edema at baseline and denies increase in swelling in his extremities. He states [place] and bowel movements have been normal. He denies history of alcohol abuse, hepatitis, or previous diagnosis of liver cirrhosis. Patient denies abdominal pain or discomfort, fevers, chills, headache, lightheadedness, dizziness, chest pain, palpitations, nausea, vomiting, involuntary weight loss, or any other complaints at this time. On arrival to our facility, patient underwent evaluation in the emergency department. Vital signs upon arrival show blood pressure 162/76, heart rate 66, respiratory rate 20, temp 97.8 F, and SpO2 99% on room air. EKG was completed showing normal sinus rhythm at 72 bpm with a first-degree AV block with WI interval of 213 ms. Chest x-ray negative for acute cardiopulmonary process. Abdominal ultrasound completed showing hepatic cirrhosis with moderate to large amount of ascites. Labs completed and reviewed. CBC showing normocytic anemia with hemoglobin of 11.4. Coagulation profile showing elevated PT of 12.7 and INR of 1.2. BMP revealing BUN of 27, creatinine of 2.25, and GFR of 27 with baseline creatinine around 1.9. Glucose 157. Magnesium 2.4. Liver profile was unremarkable. Troponin was negative at less than 0.012. proBNP 845. Urinalysis positive for glucose but negative for blood, protein or infection. Patient admitted under our services at this time with consultation to nephrology and interventional radiology for paracentesis. On 06/25/2024 patient underwent successful paracentesis with removal of 12 L of ascitic fluid. Fluid sample sent for analysis and culture. Echocardiogram revealing EF 55 to 60% with moderate to severe LVH and mild tricuspid and mitral regurgitation. On 06/29/2024, patient was taken back for second therapeutic paracentesis with successful removal of 14.3 L. Exertional shortness of breath significantly improved after patient underwent repeat paracentesis. Patient cleared from nephrology and gastroenterology at this time. He is medically stable for discharge. Patient discharged home on Aldactone 50 mg twice daily and Lasix 40 mg twice daily. Physical exam: Vital signs reviewed and stable. General: Nontoxic, no distress and appears stated age. Derm: Skin warm and dry, normal coloration for ethnicity. Head: Atraumatic, normocephalic and symmetric. Eyes: EOM's intact, no lid lag, and anicteric sclera Mouth: no lip lesions, mucus membranes moist Cardiovascular: regular rate and rhythm with normal S1S2, no murmur, positive posterior tibial pulses bilaterally, and cap refill < 2 seconds. Lungs: Respirations even, regular, and unlabored on room air. Lungs diminished, no rhonchi, no rales, no wheezing, and no accessory muscle usage. Abdominal: Cirrhotic and obese abdomen, soft and distended. Nontender to palpation. Ext: ROM intact. No gross muscle atrophy, lower extremity edema has resolved, no contractures Neuro: Speech clear, face symmetrical and CN II-XII grossly intact with no noted focal neuro deficits Psych: Alert and oriented to person, place, time, and situation. Appropriate and pleasant affect. A total of 39 minutes of time were spent preparing this complex discharge summary. Pt was discharged on 06/30/2024 at 11:09 AM. Patient was seen independently by Nurse Practitioner. This document was prepared using el? dictation software. Please allow for errors in senior medical transcriptionist while rare they do occur. I reviewed the documentation as provided by the EMILY above, who is the original author of this note. I agree with the documented assessment and plan, with the following changes: none Patient Condition at Discharge: Stable Plan - Discharge Summary Discharge Rx Participant: No New Discharge Prescriptions: New Furosemide [Lasix] 40 mg PO BID@0900,1600 30 Days #60 tab Spironolactone [Aldactone] 50 mg PO BID 30 Days #120 tab polyethylene glycoL 3350 [Miralax] 17 gm PO DAILY 30 Days #30 packet Continue Multivitamins, Thera [Multivitamin (formulary)] 1 tab PO DAILY glipiZIDE [Glucotrol] 5 mg PO BID Tamsulosin HCl [Flomax] 0.4 mg PO DAILY Empagliflozin [Jardiance] 10 mg PO DAILY Ferrous Sulfate [Iron (65 MG Elemental)] 325 mg PO DAILY Metoprolol Tartrate [Lopressor] 25 mg PO BID #60 tab Fenofibrate,Micronized [Fenofibrate] 67 mg PO DAILY Atorvastatin [Lipitor] 80 mg PO DAILY Colchicine [Colcrys] 0.6 mg PO DAILY PRN PRN Reason: gout Ergocalciferol [Vitamin D2 (1250 Mcg = 62346 Iu)] 1,250 mcg PO REAL Magnesium Oxide [Mag-Ox] 400 mg PO BID allopurinoL [Zyloprim] 300 mg PO DAILY Cyanocobalamin (Vitamin B-12) [Vitamin B-12] 1,000 mcg PO DAILY Amiodarone [Cordarone] 200 mg PO DAILY Aspirin 81 mg PO DAILY Nitroglycerin Sl Tabs [Nitrostat] 0.4 mg SUBLINGUAL Q5M PRN PRN Reason: Chest Pain [place]-3/Dha/Epa/Fish Oil [Fish Oil 1,000 mg Softgel] 1 cap PO DAILY Simethicone [Simethicone Chew] 80 mg PO PCHS PRN PRN Reason: gas Discontinued Furosemide [Lasix] 20 mg PO BID Potassium Chloride ER [K-Dur 10] 10 meq PO DAILY Discharge Medication List Atorvastatin [Lipitor] 80 mg PO DAILY 09/19/23 [History] Colchicine [Colcrys] 0.6 mg PO DAILY PRN 09/19/23 [History] Cyanocobalamin (Vitamin B-12) [Vitamin B-12] 1,000 mcg PO DAILY 09/19/23 [H istory] Empagliflozin [Jardiance] 10 mg PO DAILY 09/19/23 [History] Ergocalciferol [Vitamin D2 (1250 Mcg = 70783 Iu)] 1,250 mcg PO REAL 09/19/23 [History] Ferrous Sulfate [Iron (65 MG Elemental)] 325 mg PO DAILY 09/19/23 [History] Magnesium Oxide [Mag-Ox] 400 mg PO BID 09/19/23 [History] Multivitamins, Thera [Multivitamin (formulary)] 1 tab PO DAILY 09/19/23 [History] Tamsulosin HCl [Flomax] 0.4 mg PO DAILY 09/19/23 [History] allopurinoL [Zyloprim] 300 mg PO DAILY 09/19/23 [History] glipiZIDE [Glucotrol] 5 mg PO BID 09/19/23 [History] Metoprolol Tartrate [Lopressor] 25 mg PO BID #60 tab 10/08/23 [Rx] Amiodarone [Cordarone] 200 mg PO DAILY 06/24/24 [History] Aspirin 81 mg PO DAILY 06/24/24 [History] Fenofibrate,Micronized [Fenofibrate] 67 mg PO DAILY 06/24/24 [History] Nitroglycerin Sl Tabs [Nitrostat] 0.4 mg SUBLINGUAL Q5M PRN 06/24/24 [History] [place]-3/Dha/Epa/Fish Oil [Fish Oil 1,000 mg Softgel] 1 cap PO DAILY 06/24/24 [History] Simethicone [Simethicone Chew] 80 mg PO PCHS PRN 06/24/24 [History] Furosemide [Lasix] 40 mg PO BID@0900,1600 30 Days #60 tab 06/30/24 [Rx] Spironolactone [Aldactone] 50 mg PO BID 30 Days #120 tab 06/30/24 [Rx] polyethylene glycoL 3350 [Miralax] 17 gm PO DAILY 30 Days #30 packet 06/30/24 [Rx] Follow up Appointment(s)/Referral(s): Tracee Elder NPC [REFERRING] - 07/07/24 8:30 am (Gastroenterology follow-up for new onset ascites. Please arrive 15 mins early) Luis Deleon MD [Primary Care Provider] - 1-2 days (office not answering Please call to schedule appointment ) Min Heredia DO [STAFF PHYSICIAN] - 1 Week (office not answering Please call to schedule appointment ) Mabel Sprague MD [STAFF PHYSICIAN] - 1 Week Ambulatory/Diagnostic Orders: Comprehensive Metabolic Panel [LAB.AMB] Time Frame: 3 Days, Location: None Selected Magnesium [LAB.AMB] Location: None Selected Patient Instructions/Handouts: Cirrhosis (DC), Low-Sodium Diet (DC) Discharge Disposition: HOME SELF-CARE
--- NOTE | 2024-06-30 11:42 | P.PN ---
Subjective Patient is seen in follow-up for acute kidney injury on chronic kidney disease. Renal function is stable. Has been voiding. Denies chest pain or shortness of breath. Underwent another paracentesis yesterday with 14.3 L drained. Vital signs are stable. General: No acute distress. HEENT: Head exam is unremarkable. LUNGS: No audible rhonchi or wheezes. HEART: Rate and Rhythm are regular. ABDOMEN: Soft, nontender. EXTREMITITES: No edema. Objective - Vital Signs Vital signs: Vital Signs Temp 98.2 F 06/30/24 07:15 Pulse 65 06/30/24 07:15 Resp 18 06/30/24 07:15 BP 127/59 06/30/24 07:15 Pulse Ox 96 06/30/24 07:15 FiO2 Intake & Output 06/29/24 06/30/24 06/30/24 18:59 06:59 18:59 Weight 116.6 kg Other: Voiding Method Toilet Urinal - Labs CBC & Chem 7: 06/30/24 05:06 06/30/24 05:06 Labs: Abnormal Lab Results - Last 24 Hours (Table) 06/29/24 06/29/24 06/29/24 Range/Units 11:39 17:29 20:19 WBC (4.50-10.00) X 10*3/uL RBC (4.40-5.60) X 10*6/uL Hgb (13.0-17.0) g/dL Hct (39.6-50.0) % MCH (27.0-32.0) pg MCHC (32.0-37.0) g/dL RDW (11.5-14.5) % Sodium (135-145) mmol/L Anion Gap (4.00-12.00) mmol/L BUN (9.0-27.0) mg/dL Creatinine (0.6-1.5) mg/dL Est GFR (CKD-EPI) (>=60) Glucose (70-110) mg/dL POC Glucose (mg/dL) 189 H 194 H 215 H (70-110) mg/dL Calcium (8.7-10.3) mg/dL Albumin (3.8-4.9) g/dL Albumin/Globulin Ratio (1.60-3.17) Ratio 06/30/24 06/30/24 06/30/24 Range/Units 05:06 05:06 06:25 WBC 4.10 L (4.50-10.00) X 10*3/uL RBC 4.00 L (4.40-5.60) X 10*6/uL Hgb 10.2 L (13.0-17.0) g/dL Hct 33.0 L (39.6-50.0) % MCH 25.5 L (27.0-32.0) pg MCHC 30.9 L (32.0-37.0) g/dL RDW 17.8 H (11.5-14.5) % Sodium 134 L (135-145) mmol/L Anion Gap 12.90 H (4.00-12.00) mmol/L BUN 30.6 H (9.0-27.0) mg/dL Creatinine 2.1 H (0.6-1.5) mg/dL Est GFR (CKD-EPI) 32 L (>=60) Glucose 190 H (70-110) mg/dL POC Glucose (mg/dL) 192 H (70-110) mg/dL Calcium 8.4 L (8.7-10.3) mg/dL Albumin 3.6 L (3.8-4.9) g/dL Albumin/Globulin Ratio 1.33 L (1.60-3.17) Ratio Microbiology - Last 24 Hours (Table) 06/25/24 10:15 Anaerobic Culture - Final Paracentesis Fluid 06/25/24 10:15 Gram Stain - Final Paracentesis Fluid Body Fluid Culture - Final Assessment and Plan Plan: Assessment: 1. Acute kidney injury secondary to ATN secondary to hepatorenal syndrome. Creatinine stable at 2.1. UA fairly benign. No hydronephrosis noted on kidney ultrasound. 2. Chronic kidney disease stage IIIb with baseline creatinine near 2. 3. Liver cirrhosis with ascites status post paracentesis with 12 L drained June 25, 2024. Underwent another paracentesis June 29, 2024 with 14.3 L drained. GI following. 4. Diabetes mellitus. 5. Volume overload. Improved with diuresis and paracentesis. 6. Coronary artery disease status post CABG. Plan: Maintain Lasix. Maintain Aldactone. Advised patient to maintain low-salt diet and fluid restriction of less than 50 ounces per day. Repeat BMP and magnesium level 2 to 3 days postdischarge. Follow-up outpatient in 1 week.
[2024-06-30 11:46] LABS: Glucose,Whole Blood 271 mg/dL (70-110)
--- NOTE | 2024-06-30 14:26 | P.PN ---
Subjective Progress Note Date: 06/30/24 Principal diagnosis: New onset ascites This a pleasant 74-year-old male with a past medical history including coronary artery disease status post CABG x 4, paroxysmal atrial fibrillation, hypertension, hyperlipidemia, type 2 diabetes mellitus and chronic kidney disease who had presented to the emergency department 6 days ago with complaints of abdominal distention and shortness of breath. As part of his workup he had an abdominal ultrasound that reported hepatic cirrhosis with moderate to large ascites. He had undergone a paracentesis on 06/25/2024 with 12 L of fluid remov ed. He was also noted to have acute on chronic kidney disease. He has been seen and followed by nephrology and started on Lasix 40 mg twice daily and spironolactone 25 mg twice daily which is being increased today to 50 mg twice daily. He did have albumin following his paracentesis. Gastroenterology consulted for new onset ascites. Patient denies any previous history of liver disease, no history of alcoholism in the past. Denies any history of hepatitis. Does state that he has been overweight for much of his life. Does have relief since the paracentesis. LFTs are normal, mildly elevated INR. Fluid albumin 1.67 protein 2640 culture is negative. Cytology pending. Hepatitis panel pe nding. Plan is for repeat paracentesis today. Patient denies any abdominal pain, nausea or vomiting. States breathing has improved. 06/30/2024 Patient seen and examined today as a follow-up. Yesterday he had repeat therapeutic paracentesis with 14.3 L removed. States that abdominal distention improved. Shortness of breath improved. Denies any abdominal pain, nausea or vomiting. Hepatitis panel still pending. Hepatitis serologies pending. Objective - Vital Signs Vital signs: Vital Signs Temp 98.2 F 06/30/24 07:15 Pulse 65 06/30/24 07:15 Resp 18 06/30/24 07:15 BP 127/59 06/30/24 07:15 Pulse Ox 96 06/30/24 07:15 FiO2 Intake & Output 06/29/24 06/30/24 06/30/24 18:59 06:59 18:59 Weight 116.6 kg Other: Voiding Method Toilet Urinal - Exam General appearance: The patient is alert, oriented, appears in no acute distress. HET: Head is normocephalic and atraumatic. Conjunctiva pink. Sclera anicteric. Neck: Supple without lymphadenopathy. Abdomen: Soft, nontender, nondistended with bowel sounds. No guarding or rigidity. Extremities: Normal skin color and turgor. No pedal edema Skin: No rashes, no jaundice Neurological: No focal deficits. Alert and oriented. - Labs CBC & Chem 7: 06/30/24 05:06 06/30/24 05:06 Labs: Abnormal Lab Results - Last 24 Hours (Table) 06/29/24 06/29/24 06/29/24 Range/Units 11:39 17:29 20:19 WBC (4.50-10.00) X 10*3/uL RBC (4.40-5.60) X 10*6/uL Hgb (13.0-17.0) g/dL Hct (39.6-50.0) % MCH (27.0-32.0) pg MCHC (32.0-37.0) g/dL RDW (11.5-14.5) % Sodium (135-145) mmol/L Anion Gap (4.00-12.00) mmol/L BUN (9.0-27.0) mg/dL Creatinine (0.6-1.5) mg/dL Est GFR (CKD-EPI) (>=60) Glucose (70-110) mg/dL POC Glucose (mg/dL) 189 H 194 H 215 H (70-110) mg/dL Calcium (8.7-10.3) mg/dL Albumin (3.8-4.9) g/dL Albumin/Globulin Ratio (1.60-3.17) Ratio 06/30/24 06/30/24 06/30/24 Range/Units 05:06 05:06 06:25 WBC 4.10 L (4.50-10.00) X 10*3/uL RBC 4.00 L (4.40-5.60) X 10*6/uL Hgb 10.2 L (13.0-17.0) g/dL Hct 33.0 L (39.6-50.0) % MCH 25.5 L (27.0-32.0) pg MCHC 30.9 L (32.0-37.0) g/dL RDW 17.8 H (11.5-14.5) % Sodium 134 L (135-145) mmol/L Anion Gap 12.90 H (4.00-12.00) mmol/L BUN 30.6 H (9.0-27.0) mg/dL Creatinine 2.1 H (0.6-1.5) mg/dL Est GFR (CKD-EPI) 32 L (>=60) Glucose 190 H (70-110) mg/dL POC Glucose (mg/dL) 192 H (70-110) mg/dL Calcium 8.4 L (8.7-10.3) mg/dL Albumin 3.6 L (3.8-4.9) g/dL Albumin/Globulin Ratio 1.33 L (1.60-3.17) Ratio Microbiology - Last 24 Hours (Table) 06/25/24 10:15 Anaerobic Culture - Final Paracentesis Fluid 06/25/24 10:15 Gram Stain - Final Paracentesis Fluid Body Fluid Culture - Final Assessment and Plan (1) Ascites Narrative/Plan: 24-year-old male presenting with shortness of breath and abdominal distention found to have moderate to large amount of ascites and cirrhotic liver on ultrasound. No previous diagnosis of liver disease no history of alcoholism in the past. Patient is diabetic and morbidly obese likely liver disease secondary to metabolic associated steatotic liver disease. Fluid studies from paracentesis consistent with portal hypertension associated with underlying liver disease. Continue with diuretics and agree with increase in spironolactone to 50 mg twice daily. Low-sodium diet and outpatient follow-up. Will await hepatitis panel and liver serologies ordered however can be followed in the outpatient setting. Recommend weekly paracentesis for now and follow-up in outpatient setting. Cysts paracentesis prescription sent to interventional radiology Status: Acute Code(s): R18.8 - OTHER ASCITES SNOMED Code(s): 137690917 (2) Chronic kidney disease Status: Acute Code(s): N18.9 - CHRONIC KIDNEY DISEASE, UNSPECIFIED SNOMED Code(s): 865934885 (3) Coronary artery disease Status: Acute Code(s): I25.10 - ATHSCL HEART DISEASE OF [place] CORONARY ARTERY W/O ANG PCTRS SNOMED Code(s): 41587104 (4) Morbidly obese Status: Acute Code(s): E66.01 - MORBID (SEVERE) OBESITY DUE TO EXCESS CALORIES SNOMED Code(s): 152000523 (5) Diabetes mellitus Status: Acute Code(s): E11.9 - TYPE 2 DIABETES MELLITUS WITHOUT COMPLICATIONS SNOMED Code(s): 64339814 (6) Shortness of breath on exertion Status: Acute Code(s): R06.02 - SHORTNESS OF BREATH SNOMED Code(s): 57631061 Plan: 1. Continue symptomatic and supportive care 2. Low-sodium diet, this was discussed with patient 3. Await hepatitis panel 4. Liver serologies ordered, can be followed in the outpatient setting 5. Recommend weight loss 6. Patient scheduled to have therapeutic paracentesis before discharge 7. Patient can follow-up with gastroenterology in outpatient setting 8. Continue with diuretic recommendations from nephrology 9. Prescription sent to interventional radiology for weekly paracentesis and albumin per protocol Thank you for this consultation, patient is cleared from gastroenterology for discharge. Dr. Claire Sprague I agree with the dictator's note, documented as a scribe by Deirdre Medina.
== END 2024-06-30 12:30 | disposition home or self-care (01) | DRG 432 ==
LOC: EC 10:31 → 4SSUR 14:26
PROVIDERS: ADMIT Student in an Organized Health Care Education/Training Program; ATTEND Student in an Organized Health Care Education/Training Program
PROC: 0W9G3ZX Drainage of Peritoneal Cavity, Percutaneous Approach, Diagnostic (ICD-10-PCS; principal; 2024-06-25)
PROC: 0W9G3ZZ Drainage of Peritoneal Cavity, Percutaneous Approach (ICD-10-PCS; 2024-06-29)
DX: K74.60 Unspecified cirrhosis of liver (principal); K76.7 Hepatorenal syndrome; N17.0 Acute kidney failure with tubular necrosis; R18.8 Other ascites; N18.4 Chronic kidney disease, stage 4 (severe); K76.6 Portal hypertension; E11.22 Type 2 diabetes mellitus with diabetic chronic kidney disease; E78.5 Hyperlipidemia, unspecified; I12.9 Hypertensive chronic kidney disease with stage 1 through stage 4 chronic kidney disease, or unspecified chronic kidney disease; I25.10 Atherosclerotic heart disease of native coronary artery without angina pectoris; I44.0 Atrioventricular block, first degree; I48.0 Paroxysmal atrial fibrillation; Z68.38 Body mass index [BMI] 38.0-38.9, adult; E66.01 Morbid (severe) obesity due to excess calories; R79.1 Abnormal coagulation profile; D63.1 Anemia in chronic kidney disease; E87.70 Fluid overload, unspecified; Z95.1 Presence of aortocoronary bypass graft; Z79.85 Long-term (current) use of injectable non-insulin antidiabetic drugs; Z79.82 Long term (current) use of aspirin; Z79.84 Long term (current) use of oral hypoglycemic drugs; Z79.899 Other long term (current) drug therapy; Z85.828 Personal history of other malignant neoplasm of skin; Z95.5 Presence of coronary angioplasty implant and graft
CPT/HCPCS: 36415; 49083; 71046; 76705; 76770; 80053; 80074; 81001; 82042; 82103; 82105; 82390; 83036; 83516; 83735; 83880; 84157; 84484; 85025; 85027; 85610; 85730; 87070; 87075; 87205; 88108; 88305; 89050; 93005; 93306; 99285

== ENCOUNTER 2024-07-08 12:18 | Day surgery (SDC) | payer MEDICARE ==
[2024-07-08 13:07] LABS: Platelet Count 195 k/uL (150-450)
[2024-07-08 13:11] VITALS: TEMP 98.5
[2024-07-08 13:16] LABS: African American GFR (CKD) 24 (>60 ml/min/1.73 sqM); Non-African American GFR(CKD) 21 (>60 ml/min/1.73 sqM)
[2024-07-08 13:20] LABS: INR 1.2 (<1.2)
[2024-07-08] MEDS: ALBUMIN HUMAN 25% 50 ML in EMPTY BAG 1 BAG IVPB SCH (13:44)
[2024-07-08 14:16] VITALS: RESP 20
[2024-07-08 15:06] VITALS: BP 118/56; PULSE 64
--- NOTE | 2024-07-10 11:03 | US ---
EXAMINATION TYPE: US paracentesis abd w/image DATE OF EXAM: 07/08/2024 1:39 PM CLINICAL INDICATION:Male, 74 years old with history of K70.31 ALCOHOLIC CIRRHOSIS OF LIVER WITH ASCIT ES; COMPARISON: 06/29/2024 ATTENDING: Dr. Arturo Parker PROCEDURE: Informed consent was obtained. The risks of the procedure were extensively explained incl uding risk of damage to surrounding bowel with perforation and need for additional procedures. Proced ure was performed in the ultrasound procedure suite. Ultrasound imaging of the abdomen demonstrate as citic fluid. An appropriate access site was localized to the right lower abdomen. Timeout was taken p er protocol. The skin was prepped and draped in the usual sterile fashion and then locally anesthetiz ed with 1% lidocaine. The peritoneal cavity was then accessed via a 5-Indonesian one-step needle/cathete r. Approximately 4200 cc of clear straw-colored fluid was obtained. Postprocedural imaging of the ab domen demonstrate a minimal amount of abdominal fluid. Patient tolerated procedure well without immediate complication. Hemostasis at the procedural site w as obtained with a sterile bandage placed. The patient was monitored in the holding area following th e procedure and was subsequently discharged in stable condition. IMPRESSION: Ultrasound guided paracentesis, with approximately 4200 cc of clear straw-colored fluid drained. No immediate complications were evident. [facility], , 07/10/2024 11:03 AM
== END 2024-07-08 14:40 | disposition home or self-care (01) ==
LOC: RADPROMAIN 12:18
PROVIDERS: ATTEND Internal Medicine Gastroenterology
DX: K70.31 Alcoholic cirrhosis of liver with ascites (principal)
CPT/HCPCS: 82565; 82947; 85049; 85610; 36415; 49083; P9047

== ENCOUNTER 2024-07-22 12:37 | Day surgery (SDC) | payer MEDICARE ==
[2024-07-22 13:50] LABS: Mean Platelet Volume 8.5; Platelet Count 130 k/uL (150-450)
[2024-07-22 13:55] LABS: INR 1.2 (<1.2); Prothrombin Time 12.8 sec (10.0-12.5)
[2024-07-22 13:58] LABS: African American GFR (CKD) 25 (>60 ml/min/1.73 sqM); Glucose 127 mg/dL (74-99); Non-African American GFR(CKD) 22 (>60 ml/min/1.73 sqM)
[2024-07-22] MEDS: ALBUMIN HUMAN 25% 50 ML in EMPTY BAG 1 BAG IVPB SCH (14:10)
[2024-07-22 14:15] VITALS: RESP 16; TEMP 98.1
[2024-07-22 15:12] VITALS: BP 129/65; PULSE 60
--- NOTE | 2024-07-22 16:23 | US ---
EXAMINATION TYPE: US paracentesis abd w/image DATE OF EXAM: 07/22/2024 2:17 PM CLINICAL INDICATION:Male, 74 years old with history of K70.31 ALCOHOLIC CIRRHOSIS; COMPARISON: prior paracentesis. ATTENDING: Dr. Arturo Parker PROCEDURE: Informed consent was obtained. The risks of the procedure were extensively explained incl uding risk of damage to surrounding bowel with perforation and need for additional procedures. Proced ure was performed in the ultrasound procedure suite. Ultrasound imaging of the abdomen demonstrate as citic fluid. An appropriate access site was localized to the right lower abdomen. Timeout was taken p er protocol. The skin was prepped and draped in the usual sterile fashion and then locally anesthetiz ed with 1% lidocaine. The peritoneal cavity was then accessed via a 5-Urdu one-step needle/cathete r. Approximately 4000 cc of clear straw-colored fluid was obtained. Postprocedural imaging of the a bdomen demonstrate a minimal amount of abdominal fluid. Patient tolerated procedure well without immediate complication. Hemostasis at the procedural site w as obtained with a sterile bandage placed. The patient was monitored in the holding area following th e procedure and was subsequently discharged in stable condition. IMPRESSION: Ultrasound guided paracentesis, with approximately 4000 cc of clear straw-colored fluid drained. No immediate complications were evident. [facility], , 07/22/2024 4:20 PM
== END 2024-07-22 15:13 | disposition home or self-care (01) ==
LOC: RADPROMAIN 12:37
PROVIDERS: ATTEND Internal Medicine Gastroenterology
DX: K70.30 Alcoholic cirrhosis of liver without ascites (principal)
CPT/HCPCS: 36415; 49083; 82565; 82947; 85049; 85610

== ENCOUNTER 2024-08-05 12:47 | Day surgery (SDC) | payer MEDICARE ==
[2024-08-05 13:44] LABS: Mean Platelet Volume 8.2; Platelet Count 164 k/uL (150-450)
[2024-08-05 13:53] LABS: INR 1.2 (<1.2); Prothrombin Time 12.4 sec (10.0-12.5)
[2024-08-05 13:56] LABS: African American GFR (CKD) 31 (>60 ml/min/1.73 sqM); Non-African American GFR(CKD) 27 (>60 ml/min/1.73 sqM)
[2024-08-05 13:59] LABS: African American GFR (CKD) 30 (>60 ml/min/1.73 sqM); Anion Gap 10 mmol/L; Blood Urea Nitrogen 37 mg/dL (9-20); Calcium 8.6 mg/dL (8.4-10.2); Carbon Dioxide 23 mmol/L (22-30); Chloride 106 mmol/L (98-107); Glucose 186 mg/dL (74-99); Non-African American GFR(CKD) 26 (>60 ml/min/1.73 sqM); Phosphorus 3.7 mg/dL (2.5-4.5); Potassium 4.2 mmol/L (3.5-5.1); Sodium 139 mmol/L (137-145)
[2024-08-05 14:41] VITALS: RESP 18; TEMP 98.1
[2024-08-05] MEDS: ALBUMIN HUMAN 25% 50 ML in EMPTY BAG 1 BAG IVPB SCH (15:03)
[2024-08-05 17:45] VITALS: BP 126/64; PULSE 66
--- NOTE | 2024-08-06 08:09 | US ---
Ultrasound-guided paracentesis. DATE OF EXAM: 08/05/2024 CLINICAL HISTORY: Ascites The procedure was discussed with the patient. The risks, complications, benefits, and alternatives we re discussed and any questions were answered. Informed consent was obtained. The patient was placed s upine on the ultrasound table and prepped and draped in the usual sterile fashion. All elements of maximal barrier technique were utilized. Under ultrasound guidance, access into the right lower quadrant was obtained, via the paracentesis catheter system and direct ultrasound guidanc e. Approximately 12.5 liters of straw-colored fluid was removed. The patient was stable throughout the p rocedure and remained stable upon discharge from Department of Radiology. IMPRESSION: Successful paracentesis under ultrasound guidance. [facility], , 08/06/2024 8:07 AM
== END 2024-08-05 16:20 | disposition home or self-care (01) ==
LOC: RADPROMAIN 12:47
PROVIDERS: ATTEND Internal Medicine Gastroenterology
DX: R18.8 Other ascites (principal)
CPT/HCPCS: 49083; 80048; 82565; 83735; 84100; 85049; 85610

== ENCOUNTER 2024-08-12 10:42 | Day surgery (SDC) | payer MEDICARE ==
[2024-08-11 09:14] VITALS: BMI 37.8
[2024-08-12] MEDS: IV FLUID CONTINUATION 1,000 ML IV ONE (11:06)
[2024-08-12 11:21] VITALS: TEMP 97.4
[2024-08-12 11:25] LABS: Glucose,Whole Blood 164 mg/dL (70-110)
[2024-08-12] MEDS: LACTATED RINGERS 1,000 ML IV SCH (11:27)
[2024-08-12] MEDS ORDERED: PROPOFOL 10 MG/ML 20 ML VIAL IV ONE (12:11)
[2024-08-12] MEDS ORDERED: LIDOCAINE 1% INJ 10MG/ML (20 ML MDV) ONE (12:11)
--- NOTE | 2024-08-12 12:20 | P.PCN ---
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 PROCEDURE PERFORMED: Esophagogastroduodenoscopy. PREOPERATIVE DIAGNOSIS: History of liver cirrhosis screening for esophageal varices. IV sedation per anesthesia. PROCEDURE: After informed consent was obtained, the patient was brought into the endoscopy unit. IV sedation was administered by Anesthesia under continuous monitoring. Initially the Olympus GIF-140 video endoscope was inserted into the mouth. Esophagus intubated without any difficulty. It was gradually advanced int o the stomach and duodenum and carefully examined. The bulb and the second part of the duodenum appeared normal. The scope at this time was withdrawn to the stomach, adequately insufflated with air, and upon careful examination, mucosa of the antrum had mild gastritis. Because of the, body, cardia and the fundus had changes consistent with moderate to severe portal hypertensive gastropathy.. The scope was then withdrawn into the esophagus. The GE junction was located at 39 cm from the incisors. There were large mid and distal esophageal varices seen and the patient tolerated the procedure well. IMPRESSION: 1. Moderate to severe portal hypertensive gastropathy. 2. Large mid and distal esophageal varices with no red lizy drake. RECOMMENDATIONS: The findings of this examination were discussed with the patient as well as his family.. He will be seen in the office in 2 weeks will discuss with him about starting on nonselective beta-blockers as well as performing a repeat upper endoscopy with esophageal variceal ligation for primary prevention of esophageal variceal bleeding.
[2024-08-12 12:46] VITALS: BP 137/71; PULSE 55; RESP 18
== END 2024-08-12 13:02 | disposition home or self-care (01) ==
LOC: ORWHC2ENDO 10:42
PROVIDERS: ATTEND Internal Medicine Gastroenterology
CPT/HCPCS: 43235

== ENCOUNTER 2024-08-19 12:39 | Day surgery (SDC) | payer MEDICARE ==
[2024-08-19 13:19] LABS: Mean Platelet Volume 9.1; Platelet Count 148 k/uL (150-450)
[2024-08-19 13:32] LABS: African American GFR (CKD) 27 (>60 ml/min/1.73 sqM); Glucose 157 mg/dL (74-99); Non-African American GFR(CKD) 23 (>60 ml/min/1.73 sqM)
[2024-08-19 13:35] LABS: INR 1.1 (<1.2)
[2024-08-19] MEDS: ALBUMIN HUMAN 25% 50 ML in EMPTY BAG 1 BAG IVPB SCH (13:50)
[2024-08-19 14:09] VITALS: RESP 16
[2024-08-19 15:05] VITALS: BP 117/74; PULSE 64
--- NOTE | 2024-08-19 15:27 | US ---
EXAMINATION TYPE: US paracentesis abd w/image DATE OF EXAM: 08/19/2024 2:19 PM COMPARISON: prior paracentesis. CLINICAL INDICATION:Male, 74 years old with history of see order; , ascites ATTENDING: Dr. Arturo Parker PROCEDURE: Informed consent was obtained. The risks of the procedure were extensively explained incl uding risk of damage to surrounding bowel with perforation and need for additional procedures. Proced ure was performed in the ultrasound procedure suite. Ultrasound imaging of the abdomen demonstrate as citic fluid. An appropriate access site was localized to the right lower abdomen. Timeout was taken p er protocol. The skin was prepped and draped in the usual sterile fashion and then locally anesthetiz ed with 1% lidocaine. The peritoneal cavity was then accessed via a 5-Singaporean one-step needle/cathete r. Approximately 8200 cc of clear straw-colored fluid was obtained. Postprocedural imaging of the ab domen demonstrate a minimal amount of abdominal fluid. Patient tolerated procedure well without immediate complication. Hemostasis at the procedural site w as obtained with a sterile bandage placed. The patient was monitored in the holding area following th e procedure and was subsequently discharged in stable condition. IMPRESSION: Ultrasound guided paracentesis, with approximately 8200 cc of clear straw-colored fluid drained. No immediate complications were evident. [facility], , 08/19/2024 3:24 PM
== END 2024-08-19 15:10 | disposition home or self-care (01) ==
LOC: RADPROMAIN 12:39
PROVIDERS: ATTEND Internal Medicine Gastroenterology
DX: K74.60 Unspecified cirrhosis of liver (principal); R18.8 Other ascites
CPT/HCPCS: 82565; 82947; 85049; 85610; 36415; 49083; P9047

== ENCOUNTER 2024-09-02 12:46 | Day surgery (SDC) | payer MEDICARE ==
[2024-09-02 13:31] LABS: Mean Platelet Volume 8.4; Platelet Count 138 k/uL (150-450)
[2024-09-02 13:35] LABS: INR 1.2 (<1.2); Prothrombin Time 12.4 sec (10.0-12.5)
[2024-09-02 13:38] VITALS: RESP 12
[2024-09-02 13:39] VITALS: TEMP 98.4
[2024-09-02] MEDS: ALBUMIN HUMAN 25% 50 ML in EMPTY BAG 1 BAG IVPB SCH (14:10)
[2024-09-02 14:12] LABS: African American GFR (CKD) 27 (>60 ml/min/1.73 sqM); Glucose 183 mg/dL (74-99); Non-African American GFR(CKD) 24 (>60 ml/min/1.73 sqM)
[2024-09-02 14:44] VITALS: BP 133/67; PULSE 59
--- NOTE | 2024-09-02 16:05 | US ---
EXAMINATION TYPE: US paracentesis abd w/image DATE OF EXAM: 09/02/2024 2:32 PM COMPARISON: prior paracentesis. 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 Arturo Parker PROCEDURE: Informed consent was obtained. The risks of the procedure were extensively explained incl uding risk of damage to surrounding bowel with perforation and need for additional procedures. Proced ure was performed in the ultrasound procedure suite. Ultrasound imaging of the abdomen demonstrate as citic fluid. An appropriate access site was localized to the right lower abdomen. Timeout was taken p er protocol. The skin was prepped and draped in the usual sterile fashion and then locally anesthetiz ed with 1% lidocaine. The peritoneal cavity was then accessed via a 5-Urdu one-step needle/cathete r. Approximately 6500 mL of clear straw-colored fluid was obtained. Postprocedural imaging of the ab domen demonstrate a minimal amount of abdominal fluid. Patient tolerated procedure well without immediate complication. Hemostasis at the procedural site w as obtained with a sterile bandage placed. The patient was monitored in the holding area following th e procedure and was subsequently discharged in stable condition. IMPRESSION: Ultrasound guided paracentesis, with approximately 6500 mL of clear straw-colored fluid drained. N o immediate complications were evident. [facility], Workstation: [id number], 09/02/2024 4:03 PM
== END 2024-09-02 15:00 | disposition home or self-care (01) ==
LOC: RADPROMAIN 12:46
PROVIDERS: ATTEND Internal Medicine Gastroenterology
DX: K70.31 Alcoholic cirrhosis of liver with ascites (principal)
CPT/HCPCS: 82565; 82947; 85049; 85610; 36415; 49083; P9047

== ENCOUNTER 2024-09-16 12:43 | Day surgery (SDC) | payer MEDICARE ==
[2024-09-16 13:15] LABS: Mean Platelet Volume 9.1; Platelet Count 144 k/uL (150-450)
[2024-09-16 13:23] LABS: INR 1.2 (<1.2); Prothrombin Time 12.4 sec (10.0-12.5)
[2024-09-16 13:24] LABS: African American GFR (CKD) 27 (>60 ml/min/1.73 sqM); Glucose 264 mg/dL (74-99); Non-African American GFR(CKD) 24 (>60 ml/min/1.73 sqM)
[2024-09-16 13:25] VITALS: RESP 16; TEMP 97.7
[2024-09-16] MEDS: ALBUMIN HUMAN 25% 50 ML in EMPTY BAG 1 BAG IVPB SCH (13:46)
--- NOTE | 2024-09-16 14:42 | US ---
EXAMINATION TYPE: US paracentesis abd w/image DATE OF EXAM: 09/16/2024 1:59 PM COMPARISON: None. Previous Paracentesis CLINICAL INDICATION: Male, 74 years old with history of K70.31 ALCOHOLIC CIRRHOSIS OF LIVER WITH ASCI HUA; , ascites TECHNIQUE/FINDINGS: The procedure was discussed with the patient. The risks, complications, benefits, and alternatives we re discussed and any questions were answered. Informed consent was obtained. The patient was placed s upine on the ultrasound table and prepped and draped in the usual sterile fashion. All elements of maximal barrier technique were utilized. Under ultrasound guidance, access into the right lower quadrant was obtained, via the paracentesis catheter system and direct ultrasound guidanc e. Approximately 6 liters of straw-colored fluid was removed. The patient was stable throughout the proc edure and remained stable upon discharge from Department of Radiology. IMPRESSION: Successful paracentesis under ultrasound guidance. [facility], , 09/16/2024 2:40 PM
[2024-09-16 14:49] VITALS: BP 119/73; PULSE 70
== END 2024-09-16 14:52 | disposition home or self-care (01) ==
LOC: RADPROMAIN 12:43
PROVIDERS: ATTEND Internal Medicine Gastroenterology
DX: K70.31 Alcoholic cirrhosis of liver with ascites (principal)
CPT/HCPCS: 82565; 82947; 85049; 85610; 36415; 49083; P9047

== ENCOUNTER 2024-09-30 12:26 | Day surgery (SDC) | payer MEDICARE ==
[2024-09-30 13:04] LABS: Mean Platelet Volume 8.7; Platelet Count 137 k/uL (150-450)
[2024-09-30 13:11] VITALS: TEMP 98.1
[2024-09-30 13:19] LABS: African American GFR (CKD) 22 (>60 ml/min/1.73 sqM); Glucose 179 mg/dL (74-99); Non-African American GFR(CKD) 19 (>60 ml/min/1.73 sqM)
[2024-09-30 13:43] LABS: INR 1.2 (<1.2); Prothrombin Time 12.6 sec (10.0-12.5)
[2024-09-30 13:56] VITALS: RESP 18
[2024-09-30] MEDS: ALBUMIN HUMAN 25% 50 ML in EMPTY BAG 1 BAG IVPB SCH (14:12)
[2024-09-30 15:21] VITALS: BP 117/65; PULSE 60
--- NOTE | 2024-09-30 15:22 | US ---
EXAMINATION TYPE: US paracentesis abd w/image DATE OF EXAM: 09/30/2024 1:51 PM COMPARISON: prior paracentesis. 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 Arturo Parker PROCEDURE: Informed consent was obtained. The risks of the procedure were extensively explained incl uding risk of damage to surrounding bowel with perforation and need for additional procedures. Proced ure was performed in the ultrasound procedure suite. Ultrasound imaging of the abdomen demonstrate as citic fluid. An appropriate access site was localized to the right lower abdomen. Timeout was taken p er protocol. The skin was prepped and draped in the usual sterile fashion and then locally anesthetiz ed with 1% lidocaine. The peritoneal cavity was then accessed via a 5-Maori one-step needle/cathete r. Approximately 4800 mL of clear straw-colored fluid was obtained. Postprocedural imaging of the ab domen demonstrate a minimal amount of abdominal fluid. Patient tolerated procedure well without immediate complication. Hemostasis at the procedural site w as obtained with a sterile bandage placed. The patient was monitored in the holding area following th e procedure and was subsequently discharged in stable condition. IMPRESSION: Ultrasound guided paracentesis, with approximately 4800 mL of clear straw-colored fluid drained. No i mmediate complications were evident. [facility], , 09/30/2024 3:19 PM
== END 2024-09-30 15:15 | disposition home or self-care (01) ==
LOC: RADPROMAIN 12:26
PROVIDERS: ATTEND Internal Medicine Gastroenterology
DX: K70.31 Alcoholic cirrhosis of liver with ascites (principal)
CPT/HCPCS: 82565; 82947; 85049; 85610; 49083; P9047

== ENCOUNTER 2024-10-20 08:05 | Day surgery (SDC) | payer MEDICARE ==
[2024-10-20 08:56] LABS: Mean Platelet Volume 8.7; Platelet Count 137 k/uL (150-450)
[2024-10-20 09:02] LABS: INR 1.2 (<1.2); Prothrombin Time 12.7 sec (10.0-12.5)
[2024-10-20 09:08] LABS: African American GFR (CKD) 26 (>60 ml/min/1.73 sqM); Glucose 212 mg/dL (74-99); Non-African American GFR(CKD) 22 (>60 ml/min/1.73 sqM)
[2024-10-20 09:34] VITALS: RESP 16; TEMP 97.6
[2024-10-20] MEDS: ALBUMIN HUMAN 25% 50 ML in EMPTY BAG 1 BAG IVPB SCH (09:42)
[2024-10-20 10:51] VITALS: BP 131/67; PULSE 63
--- NOTE | 2024-10-20 12:48 | US ---
EXAMINATION TYPE: US paracentesis abd w/image DATE OF EXAM: 10/20/2024 CLINICAL HISTORY: 74-year-old male with ascites, routine outpatient paracentesis The procedure was discussed with the patient. The risks, complications, benefits, and alternatives we re discussed and any questions were answered. Informed consent was obtained. The patient was placed s upine on the ultrasound table and prepped and draped in the usual sterile fashion. All elements of maximal barrier technique were utilized. Ultrasound was utilized to determine the precise skin entry site along the right lower quadrant. A 5 Nepali One-Step catheter and trocar technique was utilized to access the ascites collection under direct ultrasound guidance. Approximately 4.6 liters of pink grapefruit-colored fluid was removed. Catheter was removed, hemostasis obtained, and a dressing placed. The patient was stable throughout the procedure and remained stable upon discharge from Department of Radiology. IMPRESSION: Successful therapeutic paracentesis under ultrasound guidance. 4.6 L of fluid removed. [facility], , 10/20/2024 12:45 PM
== END 2024-10-20 10:56 | disposition home or self-care (01) ==
LOC: RADPROMAIN 08:05
PROVIDERS: ATTEND Internal Medicine Gastroenterology
DX: K74.60 Unspecified cirrhosis of liver (principal); R18.8 Other ascites
CPT/HCPCS: 82565; 82947; 85049; 85610; 36415; 49083; P9047

== ENCOUNTER 2024-11-11 12:17 | Day surgery (SDC) | payer MEDICARE ==
[2024-11-11 13:33] LABS: Mean Platelet Volume 9.4; Platelet Count 132 k/uL (150-450)
[2024-11-11 13:45] LABS: African American GFR (CKD) 28 (>60 ml/min/1.73 sqM); Glucose 184 mg/dL (74-99); Non-African American GFR(CKD) 24 (>60 ml/min/1.73 sqM)
[2024-11-11 13:54] LABS: INR 1.2 (<1.2); Prothrombin Time 12.5 sec (10.0-12.5)
[2024-11-11] MEDS: ALBUMIN HUMAN 25% 50 ML in EMPTY BAG 1 BAG IVPB SCH (13:57)
[2024-11-11 13:59] VITALS: RESP 16; TEMP 97.9
[2024-11-11 15:55] VITALS: PULSE 60
[2024-11-11 15:56] VITALS: BP 129/69
--- NOTE | 2024-11-11 16:29 | US ---
EXAMINATION TYPE: US paracentesis abd w/image DATE OF EXAM: 11/11/2024 CLINICAL HISTORY: 74-year-old male K70.31, alcoholic cirrhosis of liver with ascites. Referred for [facility] outpatient paracentesis being performed every 3 weeks. The procedure was discussed with the patient. The risks, complications, benefits, and alternatives we re discussed and any questions were answered. Informed consent was obtained. The patient was placed s upine on the ultrasound table and prepped and draped in the usual sterile fashion. All elements of maximal barrier technique were utilized. Ultrasound was utilized to determine the precise skin entry site along the right lower quadrant. A 5 Yakut One-Step catheter and trocar technique was utilized to access the ascites collection under direct ultrasound guidance. Approximately 5.5 liters of typical, pink grapefruit colored fluid was removed. Catheter was removed, hemostasis obtained, and a dressing placed. The patient was stable throughout the procedure and remained stable upon discharge from Department of Radiology. IMPRESSION: Successful therapeutic paracentesis under ultrasound guidance. 5.5 L of fluid removed. [facility], , 11/11/2024 4:27 PM
== END 2024-11-11 16:01 | disposition home or self-care (01) ==
LOC: RADPROMAIN 12:17
PROVIDERS: ATTEND Internal Medicine Gastroenterology
DX: K70.31 Alcoholic cirrhosis of liver with ascites (principal)
CPT/HCPCS: 82565; 82947; 85049; 85610; 36415; 49083; P9047

== ENCOUNTER 2024-12-14 07:53 | Day surgery (SDC) | payer MEDICARE ==
[2024-12-14 08:49] LABS: Mean Platelet Volume 9.2; Platelet Count 133 k/uL (150-450)
[2024-12-14 08:55] LABS: INR 1.2 (<1.2)
[2024-12-14 09:01] VITALS: RESP 16; TEMP 97.6
[2024-12-14 09:04] LABS: African American GFR (CKD) 24 (>60 ml/min/1.73 sqM); Glucose 209 mg/dL (74-99); Non-African American GFR(CKD) 21 (>60 ml/min/1.73 sqM)
[2024-12-14] MEDS: ALBUMIN HUMAN 25% 50 ML in EMPTY BAG 1 BAG IVPB SCH (09:12)
[2024-12-14 10:17] VITALS: BP 129/67; PULSE 65
--- NOTE | 2024-12-14 12:15 | US ---
EXAMINATION TYPE: DATE OF EXAM: 12/14/2024 9:39 AM COMPARISON: prior paracentesis. CLINICAL INDICATION:Male, 74 years old with history of Ascities; , ascites ATTENDING: Dr. Arturo Parker PROCEDURE: Informed consent was obtained. The risks of the procedure were extensively explained incl uding risk of damage to surrounding bowel with perforation and need for additional procedures. Proced ure was performed in the ultrasound procedure suite. Ultrasound imaging of the abdomen demonstrate as citic fluid. An appropriate access site was localized to the right lower abdomen. Timeout was taken p er protocol. The skin was prepped and draped in the usual sterile fashion and then locally anesthetiz ed with 1% lidocaine. The peritoneal cavity was then accessed via a 5-[place]itan one-step needle/cathete r. Approximately 4500 mL of orange -coloredfluid was obtained. Samples were sent to the lab for anal ysis. Postprocedural imaging of the abdomen demonstrate a minimal amount of abdominal fluid. Patient tolerated procedure well without immediate complication. Hemostasis at the procedural site w as obtained with a sterile bandage placed. The patient was monitored in the holding area following th e procedure and was subsequently discharged in stable condition. IMPRESSION: Ultrasound guided paracentesis, with approximately 4500 mL of orange -colored fluid drained. No immed iate complications were evident. [facility], , 12/14/2024 12:12 PM
== END 2024-12-14 10:20 | disposition home or self-care (01) ==
LOC: RADPROMAIN 07:53
PROVIDERS: ATTEND Internal Medicine Gastroenterology
DX: K70.31 Alcoholic cirrhosis of liver with ascites (principal)
CPT/HCPCS: 82565; 82947; 85049; 85610; 36415; 49083; P9047

== ENCOUNTER 2025-01-25 11:57 | Day surgery (SDC) | payer MEDICARE ==
[2025-01-25 13:16] LABS: Mean Platelet Volume 9.1; Platelet Count 143 k/uL (150-450)
[2025-01-25 13:23] LABS: INR 1.2 (<1.2); Prothrombin Time 13.2 sec (10.0-12.5)
[2025-01-25 13:28] LABS: African American GFR (CKD) 23 (>60 ml/min/1.73 sqM); Glucose 193 mg/dL (74-99); Non-African American GFR(CKD) 20 (>60 ml/min/1.73 sqM)
[2025-01-25] MEDS: ALBUMIN HUMAN 25% 50 ML in EMPTY BAG 1 BAG IVPB SCH (13:49)
[2025-01-25 14:01] VITALS: RESP 16; TEMP 98.4
[2025-01-25 14:33] VITALS: BP 132/62; PULSE 58
--- NOTE | 2025-01-25 15:10 | US ---
EXAMINATION TYPE: US paracentesis abd w/image DATE OF EXAM: 01/25/2025 CLINICAL HISTORY: 74-year-old male K70.31, ascites and distention The procedure was discussed with the patient. The risks, complications, benefits, and alternatives we re discussed and any questions were answered. Informed consent was obtained. The patient was placed s upine on the ultrasound table and prepped and draped in the usual sterile fashion. All elements of maximal barrier technique were utilized. Ultrasound was utilized to determine the precise skin entry site along the right lower quadrant. A 5 Singaporean One-Step catheter and trocar technique was utilized to access the ascites collection under direct ultrasound guidance. Approximately 7.7 liters of typical, clear, pink grapefruit-colored fluid was removed. Catheter was removed, hemostasis obtained, and a dressing placed. The patient was stable throughout the procedure and remained stable upon discharge from Department of Radiology. IMPRESSION: Successful therapeutic paracentesis under ultrasound guidance. 7.7 L of fluid removed. [facility], , 01/25/2025 3:07 PM
== END 2025-01-25 15:16 | disposition home or self-care (01) ==
LOC: RADPROMAIN 11:57
PROVIDERS: ATTEND Internal Medicine Gastroenterology
DX: R18.8 Other ascites (principal)
CPT/HCPCS: 82565; 82947; 85049; 85610; 36415; 49083; P9047

== ENCOUNTER 2025-03-08 12:44 | Day surgery (SDC) | payer MEDICARE ==
[2025-03-08 13:31] LABS: Mean Platelet Volume 11.4 fL (9.5-12.2); Platelet Count 137 10*3/uL (140-440)
[2025-03-08] MEDS: ALBUMIN HUMAN 25% 50 ML in EMPTY BAG 1 BAG IVPB SCH (13:47)
[2025-03-08 13:48] LABS: African American GFR (CKD) 20 (>60 ml/min/1.73 sqM); Glucose 199 mg/dL (74-99); Non-African American GFR(CKD) 17 (>60 ml/min/1.73 sqM)
[2025-03-08 13:49] LABS: INR 1.1 (<1.2); Prothrombin Time 12.1 sec (10.0-12.5)
[2025-03-08 13:53] VITALS: RESP 16
[2025-03-08 13:55] VITALS: TEMP 98.7
[2025-03-08 14:36] VITALS: PULSE 50
[2025-03-08 15:10] VITALS: BP 124/73
--- NOTE | 2025-03-08 15:36 | US ---
EXAMINATION TYPE: US paracentesis abd w/image DATE OF EXAM: 03/08/2025 2:13 PM COMPARISON: prior paracentesis. 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 rAturo Parker PROCEDURE: Informed consent was obtained. The risks of the procedure were extensively explained incl uding risk of damage to surrounding bowel with perforation and need for additional procedures. Proced ure was performed in the ultrasound procedure suite. Ultrasound imaging of the abdomen demonstrate as citic fluid. An appropriate access site was localized to the right lower abdomen. Timeout was taken p er protocol. The skin was prepped and draped in the usual sterile fashion and then locally anesthetiz ed with 1% lidocaine. The peritoneal cavity was then accessed via a 5-[place] one-step needle/cathete r. Approximately 7100 mL of clear straw-colored fluid was obtained. Postprocedural imaging of the ab domen demonstrate a minimal amount of abdominal fluid. Patient tolerated procedure well without immediate complication. Hemostasis at the procedural site w as obtained with a sterile bandage placed. The patient was monitored in the holding area following th e procedure and was subsequently discharged in stable condition. IMPRESSION: Ultrasound guided paracentesis, with approximately 7100 mL of clear straw-colored fluid drained. No immediate complications were evident. [facility], , 03/08/2025 3:34 PM
== END 2025-03-08 15:14 | disposition home or self-care (01) ==
LOC: RADPROMAIN 12:44
PROVIDERS: ATTEND Internal Medicine Gastroenterology
DX: K70.31 Alcoholic cirrhosis of liver with ascites (principal)
CPT/HCPCS: 49083; 82565; 82947; 85049; 85610; 36415; P9047

== ENCOUNTER 2025-04-19 12:28 | Day surgery (SDC) | payer MEDICARE ==
[2025-04-19 13:15] LABS: Mean Platelet Volume 11.3 fL (9.5-12.2); Platelet Count 129 10*3/uL (140-440)
[2025-04-19 13:35] VITALS: RESP 20; TEMP 98.4
[2025-04-19 13:37] LABS: African American GFR (CKD) 21 (>60 ml/min/1.73 sqM); Glucose 146 mg/dL (74-99); Non-African American GFR(CKD) 18 (>60 ml/min/1.73 sqM)
[2025-04-19 13:41] LABS: INR 1.2 (<1.2); Prothrombin Time 12.4 sec (10.0-12.5)
[2025-04-19] MEDS: ALBUMIN HUMAN 25% 50 ML in EMPTY BAG 1 BAG IVPB SCH (13:56)
[2025-04-19 15:00] VITALS: BP 108/54; PULSE 54
--- NOTE | 2025-04-19 15:47 | US ---
EXAMINATION TYPE: US paracentesis abd w/image DATE OF EXAM: 04/19/2025 CLINICAL HISTORY: 74-year-old male K70.31 ALCOHOLIC CIRRHOSIS OF LIVER WITH ASCITES. Referred for ou tpatient paracentesis. The procedure was discussed with the patient. The risks, complications, benefits, and alternatives we re discussed and any questions were answered. Informed consent was obtained. The patient was placed s upine on the ultrasound table and prepped and draped in the usual sterile fashion. All elements of maximal barrier technique were utilized. Ultrasound was utilized to determine the precise skin entry site along the right lower quadrant. A 5 [place] One-Step catheter and trocar technique was utilized to access the ascites collection under direct ultrasound guidance. Approximately 6.8 liters of clear, straw-colored fluid was removed. Catheter was removed, hemostasis obtained, and a dressing placed. The patient was stable throughout the procedure and remained stable upon discharge from Department of Radiology. IMPRESSION: Successful therapeutic paracentesis under ultrasound guidance. 6.8 L of fluid removed. [facility], , 04/19/2025 3:44 PM
== END 2025-04-19 14:50 | disposition home or self-care (01) ==
LOC: RADPROMAIN 12:28
PROVIDERS: ATTEND Internal Medicine Gastroenterology
DX: K70.31 Alcoholic cirrhosis of liver with ascites (principal)
CPT/HCPCS: 82565; 82947; 85049; 85610; 36415; 49083; P9047